=== PATIENT | female | born 1960 | race Caucasian/White ===

== ENCOUNTER 2018-11-06 22:13 | Inpatient (IN) | payer OTHER ==
[~2018-11-06] VITALS: Ht 165.1 cm; Wt 62.2 kg
[2018-11-06] MEDS ORDERED: NS 1,000 ML IV ONE (22:45)
[2018-11-06 23:27] LABS: BASO % 0.2 % (0.0-1.0); EOS % 0.3 % (0.0-3.0); HEMATOCRIT 15.4 % (36.0-47.0); LYMPH # 3.6 10^3/uL (1.5-4.5); LYMPH % 30.1 % (24.0-44.0); MEAN CORPUSCULAR HEMOGLOBIN 40.6 pg (27.0-33.0); MEAN CORPUSCULAR HGB CONC 36.4 g/dl (32.0-36.5); MEAN CORPUSCULAR VOLUME 111.6 fl (80.0-96.0); MONO % 25.5 % (0.0-5.0); NEUTROPHILS % 41.6 % (36.0-66.0); PLATELET COUNT, AUTOMATED 380 10^3/uL (150-450); RED BLOOD COUNT 1.38 10^6/uL (4.00-5.40)
[2018-11-06 23:44] LABS: PARTIAL THROMBOPLASTIN TIME 92.7 SECONDS (25.4-37.6)
[2018-11-06 23:49] LABS: ALBUMIN 1.8 GM/DL (3.2-5.2); ALT/SGPT 142 U/L (12-78); BILIRUBIN,DIRECT 2.3 MG/DL (0.0-0.2); BILIRUBIN,TOTAL 2.9 MG/DL (0.2-1.0); BLOOD UREA NITROGEN 33 MG/DL (7-18); CALCIUM LEVEL 7.1 MG/DL (8.5-10.1); CARBON DIOXIDE LEVEL 15 MEQ/L (21-32); CHLORIDE LEVEL 99 MEQ/L (98-107); CREATININE FOR GFR 1.79 MG/DL (0.55-1.30); ETHYL ALCOHOL (ETHANOL) < 0.003 % (0.000-0.010); GLOMERULAR FILTRATION RATE 31.2 (>51); GLUCOSE, FASTING 88 MG/DL (70-100); LIPASE 181 U/L (73-393); POTASSIUM SERUM 4.3 MEQ/L (3.5-5.1); SODIUM LEVEL 130 MEQ/L (136-145); TOTAL PROTEIN 5.5 GM/DL (6.4-8.2)
[2018-11-06 23:52] LABS: HEMOGLOBIN 5.6 g/dl (12.0-15.5); MONO # 3.1 10^3/uL (0.0-0.8)
[2018-11-07] VITALS (22 sets, daily range): BP systolic 80–97; BP diastolic 47–58
[2018-11-07 00:09] LABS: PROTHROMBIN TIME > 150.0 SECONDS (12.1-14.4)
[2018-11-07] MEDS ORDERED: IMIPENEM/CILASTATIN 500 MG in D5W MINI-BAG PLUS 100 ML IV ONE (00:45)
--- NOTE | 2018-11-07 01:02 | REPVR ---
EXAM: CT Abdomen and Pelvis Without Contrast EXAM DATE/TIME: 11/06/2018 11:57 PM CLINICAL HISTORY: 58 years old, female; Pain; Abdominal pain; Generalized; Additional info: N/v/d, hepatorenal failure TECHNIQUE: Imaging protocol: Axial computed tomography images of the abdomen and pelvis without contrast. Coronal and sagittal reformatted images were created and reviewed. Radiation optimization: All CT scans at this facility use at least one of these dose optimization techniques: automated exposure control; mA and/or kV adjustment per patient size (includes targeted exams where dose is matched to clinical indication); or iterative reconstruction. COMPARISON: No relevant prior studies available. FINDINGS: Lower thorax: No acute findings. ABDOMEN: Liver: There is fatty infiltration of the liver. The liver at mid clavicular line measures 16.3 cm. Gallbladder and bile ducts: Normal. No calcified stones. No ductal dilation. Pancreas: Mild pancreatic atrophy for age. Spleen: Normal. No splenomegaly. Adrenals: Normal. No mass. Kidneys and ureters: Normal. No hydronephrosis. Stomach and bowel: Wall thickening of the ascending colon Appendix: A normal appendix is seen. PELVIS: Bladder: Unremarkable as visualized. Reproductive: Unremarkable as visualized. ABDOMEN and PELVIS: Intraperitoneal space: Trace fluid in the pelvis. Bones/joints: Mild degenerative change of the lower lumbar spine. Soft tissues: Unremarkable. Vasculature: There is minimal atherosclerotic calcification of the abdominal aorta. Lymph nodes: Normal. No enlarged lymph nodes. IMPRESSION: 1. Borderline hepatomegaly with fatty infiltration. 2. Mild pancreatic atrophy for age. 3. Mild nonspecific segmental colitis of the ascending colon. 4. Trace fluid in the pelvis which is nonspecific. Electronically signed by: Trung Wolff On 11/07/2018 01:01:59 AM
[2018-11-07] MEDS ORDERED: VITMTA PO (01:06)
[2018-11-07] MEDS ORDERED: FISH1000 PO (01:06)
[2018-11-07] MEDS ORDERED: BIOT10TA2 PO (01:06)
[2018-11-07] MEDS ORDERED: XALA0.007 OU (01:06)
[2018-11-07 01:30] LABS: FIBRINOGEN 347 MG/DL (221-452)
[2018-11-07 01:43] LABS: VENOUS BASE EXCESS -8.8 (-2.0-2.0); VENOUS HCO3 15.7 MEQ/L (23.0-27.0); VENOUS O2 SATURATION 96.1 % (60.0-80.0); VENOUS PARTIAL PRESSURE CO2 27.7 mmHg (38.0-50.0); VENOUS PH 7.372 UNITS (7.330-7.430); VENOUS STANDARD HCO3 17.2 MEQ/L; VENOUS TOTAL CO2 16.6 MEQ/L (24.0-28.0)
[2018-11-07] MEDS ORDERED: NS IV ONE (02:00)
[2018-11-07] MEDS ORDERED: DILUENT IV ONE (02:00)
[2018-11-07] MEDS ORDERED: ONDANSETRON 4 MG TAB (S0181) PO PRN (03:45)
[2018-11-07] MEDS ORDERED: VANCOMYCIN HCL 1,000 MG, VIAL MATE ADAPTER 1 EACH in D5W/0.2% SODIUM CHLORIDE 250 ML IV ONE (05:00)
[2018-11-07] MEDS ORDERED: VANCOMYCIN 1000 MG/20 ML VIAL (J3370) As Ordered ONE (05:14)
--- NOTE | 2018-11-07 05:16 | HPEPDOC ---
[facility] Medical History & Physical Date of Admission Nov 07, 2018 History and Physical CHIEF COMPLAINT: nausea and vomiting x4 days HISTORY OF PRESENT ILLNESS: Adriane Pringle is a 58 YO F with a history of HANNAH and lack of medical care for several years who presents to the ED with 4 days nausea, vomiting and black tarry stools. She states she has been feeling very weak, lightheaded and dizzy during this time and fell while and hit her head on her coffee table while getting up from her couch. She also states that her family has told her that she has not been making sense and that she has been slurring her words. She does feel as though she has been somewhat confused, and she feels "uneasy" on her feet recently, as if she will fall. She denies any recent fevers, chills, SOB or chest pain. She also denies any significant weight loss, but does state she has had a decreased appetite for about 1 week. PAST MEDICAL HISTORY: 1. Icthyosis congenita 2. Generalized anxiety disorder 3. Pure hypercholesterolemia 4. History of hemorrhoids PAST SURGICAL HISTORY: 1. Laparoscopy for ovarian cyst SOCIAL HISTORY: Former smoker Drinks 4-5 beers/night Lives alone in [place]. 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 FAMILY HISTORY: Noncontributory ALLERGIES: Please see below. REVIEW OF SYSTEMS: CONSTITUTIONAL: Weakness, tiredness, dizzy/lightheaded HEENT: no decreased visual acuity, no pain with eye movement CARDIOVASCULAR: No palpitations, no skipped beats, no chest pain RESPIRATORY: no SOB, no cough GASTROINTESTINAL: Black tarry stools and diarrhea GENITOURINARY: no dysuria SKIN: itching, redness/bleeding in groin MUSCULOSKELETAL: no weakness/decreased strength NEUROLOGICAL: no numbness/tingling PSYCHIATRIC: reports depression for 2 years since her ENDOCRINE: no weight loss/gain, no heat/cold intolerance HEMATOLOGIC/LYMPHATIC: no easy bruising HOME MEDICATIONS: Please see below. PHYSICAL EXAMINATION: VITAL SIGNS: Temperature 97.0, pulse 95, respiratory rate 18, blood pressure 95/53, pulse oximetry 99% on room air. GENERAL APPEARANCE: laying in bed, appears jaundiced, no acute distress, calm, cooperative HEENT: icteric sclerae, dry mucus membranes, PERRLA CARDIOVASCULAR: RRR, no murmurs/rubs/gallops LUNGS: clear to auscultation bilaterally without any adventitious breath sounds appreciated ABDOMEN: Liver size extends to umbilicus, abdomen somewhat tense with positive bowel sounds, nontender to palpation MUSCULOSKELETAL: moves all extremities well with normal ROM EXTREMITIES: no clubbing/cyanosis/edema. Feet have darkened skin on dorsal and plantar surfaces bilaterally SKIN: Patient has very dry, crusting skin all over her body. Her groin appears red and irritated with numerous excoriations NEUROLOGICAL: CN 2-12 intact without any focal deficits appreciated PSYCHIATRIC: sad affect, normal mood LABORATORY DATA: See below. IMAGING: CT Abd/pelvis: 1. Borderline hepatomegaly with fatty infiltration 2. Mild pancreatitc atrophy for age. 3. Mild nonspecific segmental colitis of the ascending colon. 4. Trace fluid in the pelvis which is nonspecific. MICROBIOLOGY: Please see below. ASSESSMENT: Adriane Pringle is a 58 YO F with no known past medical history who presents with 4 days of nausea/vomiting/diarrhea found to be hypotensive, tachycardic, have transaminitis, hyperbilirubinemia and severe anemia. She will be admitted to the ICU for further management. Her clinical picture is concerning for acute liver failure. PLAN: Transaminitis: The patient has elevated liver enzymes, coagulopathy (PT>150, aPTT 92.7, D-Dimer 514.6) concerning for acute liver failure. Unknown if the patient has any history of liver disease, although she has hepatomegaly on clinical exam and CT imaging with suspected fatty involvement. -Ammonia pending -Hepatitis panel pending -Aggressive fluid resuscitation -FFP and RBC transfusion for coagulopathy -Patient had elevated D-Dimer but low suspicion PE Hyperbilirubinema: Patient does drink 4-5 beers/night but has no known hepatitis risk factors (no recent travel or history of IVDU). She does appear jaundice but is not complaining of RUQ pain and CT abd/pelvis does not demonstrate or suggest any biliary obstruction. Likely 2/2 intrinsic or hepatocellular injury. -Plan as stated above Severe Macrocytic Anemia: Hgb on admission found to be 5.6 -Likely secondary to GI bleed, as the patient has had black stools for the past several days -GI consult in AM -Plan to recheck CBC in AM Hypotension: Patient experiencing lightheadedness/dizziness. Recent history of fall -Head CT pending -Fluid resuscitation in place Lactic acidosis: Patient meets SIRS criteria -Blood cultures pending -CXR pending -UA with reflexive culture pending -Empiric Vancomycin with plan to de-escalate Acute kidney injury: likely 2/2 dehydration -Likely to improve with fluid resuscitation -Will recheck BMP in AM DVT ppx: JOCELYN jesus CODE STATUS: FULL CODE Vital Signs Vital Signs Date Time Temp Pulse Resp B/P (MAP) Pulse Ox O2 Delivery O2 Flow Rate FiO2 11/07/18 02:48 98.3 101 99 11/07/18 02:45 88/51 (63) Room Air 11/07/18 02:24 16 Laboratory Data Labs 24H Laboratory Tests 2 11/06/18 22:59: Prothrombin Time > 150.0H, Prothromb Time International Ratio , Activated Partial Thromboplast Time 92.7H, Fibrinogen 347, D-Dimer, Quantitative 514.60H 11/06/18 23:00: Immature Granulocyte % (Auto) 2.3, White Blood Count 12.0H, Red Blood Count 1.38L, Hemoglobin 5.6*L, Hematocrit 15.4L, Mean Corpuscular Volume 111.6H, Mean Corpuscular Hemoglobin 40.6H, Mean Corpuscular Hemoglobin Concent 36.4, Red Cell Distribution Width 15.3H, Platelet Count 380, Neutrophils (%) (Auto) 41.6, Lymphocytes (%) (Auto) 30.1, Monocytes (%) (Auto) 25.5H, Eosinophils (%) (Auto) 0.3, Basophils (%) (Auto) 0.2, Neutrophils # (Auto) 5.0, Lymphocytes # (Auto) 3. 6, Monocytes # (Auto) 3.1H, Eosinophils # (Auto) 0.0, Basophils # (Auto) 0.0, Nucleated Red Blood Cells % (auto) 28.8H, Anion Gap 16, Glomerular Filtration Rate 31.2L, Calcium Level 7.1L, Aspartate Amino Transf (AST/SGOT) 347H, Alanine Aminotransferase (ALT/SGPT) 142H, Alkaline Phosphatase 165H, Total Bilirubin 2.9H, Direct Bilirubin 2.3H, Total Protein 5.5L, Albumin 1.8L, Albumin/Globulin Ratio 0.49L, Lipase 181, Ethyl Alcohol Level < 0.003 11/07/18 00:47: Lactic Acid Level 6.0*H, Ammonia < 10 11/07/18 01:30: Blood Gas Bicarbonate Standard 17.2, Venous Blood pH 7.372, Venous Blood Partial Pressure CO2 27.7L, Venous Blood Partial Pressure O2 92.0H, Venous Blood Total Carbon Dioxide 16.6L, Venous Blood HCO3 15.7L, Venous Blood Oxygen Saturation 96.1H, Venous Blood Base Excess -8.8L CBC/BMP Laboratory Tests 11/06/18 23:00 Red Blood Count 1.38 L, Mean Corpuscular Volume 111.6 H, Mean Corpuscular Hemoglobin 40.6 H, Mean Corpuscular Hemoglobin Concent 36.4, Red Cell Distribution Width 15.3 H, Neutrophils (%) (Auto) 41.6, Lymphocytes (%) (Auto) 30.1, Monocytes (%) (Auto) 25.5 H, Eosinophils (%) (Auto) 0.3, Basophils (%) (Auto) 0.2, Neutrophils # (Auto) 5.0, Lymphocytes # (Auto) 3.6, Monocytes # (Auto) 3.1 H, Eosinophils # (Auto) 0.0, Basophils # (Auto) 0.0 Microbiology Microbiology 11/07/18 Blood Culture, Received Pending 11/06/18 Blood Culture, Received Pending Home Medications Scheduled Biotin (Vitamin H) (Biotin) 10 Mg Tab, 10 MG PO Q3RD Fish Oil (Fish Oil) 1,000 Mg Cap, 3,000 MG PO DAILY Latanoprost (Xalatan) 0.005 % Cheri, 1 DROP OU QHS Multivitamins *[facility] STOCKED* (Thera M Plus *[facility] STOCKED*) 1 Tab Tab, 1 TAB PO DAILY Allergies Coded Allergies: Penicillins (Verified Allergy, Unknown, 11/06/18) GME ATTESTATION GME ATTESTATION My faculty preceptor for this patient encounter was physically present during the encounter and was fully available. All aspects of the patient interview, examination, medical decision making process, and medical care plan development were reviewed and approved by the faculty preceptor. The faculty preceptor is aware and concurs with the plan as stated in the body of this note and will attest to such by his/her cosignature. ATTENDING NOTE ATTENDING ATTESTATION: I discussed and reviewed the findings and plan with resident. I have personally assessed patient at bedside and agreed with resident's assessment and plans. ARON BOCANEGRA MD Nov 07, 2018 03:39 JORGE MARTIN MD Nov 07, 2018 06:21
--- NOTE | 2018-11-07 05:25 | PHACANCOPD ---
PHARMACY VANCOMYCIN DOSING Pt Demographics Demographics Patient Age:58 , Weight:58.180 , Gender: female Adjusted Body Weight Date: 11/07/18, Adjusted Body Weight: Kg Vancomycin Vancomycin indication: SEPSIS Vancomycin Target Ranges: 15-20 mcg/ml Vancomycin Load Y/N: No Load Dose Date Time Vancomycin Load Dose: Date: Time: Vancomycin Dose Date: 11/07/18. Current Vancomycin Dose: [1 GM Q24H] Intermittent Dosing?: No Labs Labs Laboratory Tests 11/06/18 23:00 Red Blood Count 1.38 L, Mean Corpuscular Volume 111.6 H, Mean Corpuscular Hemo globin 40.6 H, Mean Corpuscular Hemoglobin Concent 36.4, Red Cell Distribution Width 15.3 H, Neutrophils (%) (Auto) 41.6, Lymphocytes (%) (Auto) 30.1, Monocytes (%) (Auto) 25.5 H, Eosinophils (%) (Auto) 0.3, Basophils (%) (Auto) 0.2, Neutrophils # (Auto) 5.0, Lymphocytes # (Auto) 3.6, Monocytes # (Auto) 3.1 H, Eosinophils # (Auto) 0.0, Basophils # (Auto) 0.0 Micro Microbiology 11/07/18 Blood Culture, Received Pending 11/06/18 Blood Culture, Received Pending Creatinine Clearance Date:11/07/18. Creatinine Clearance: [32.2].CALCULATED Pending Labs Vancomycin trough scheduled for 11/08@2200 Assessment and Plan Maintaining Current Dose?: Yes Reason for dose change: No Dose Change Pharmacist Note Pharmacist Note Date: 11/07/18. Pharmacist note: 58 YOF w/sepsis.Vancomycin dosing per pharmacy protocol. Allergy:penicillin, SCR=1.79,CRCL=32.2(calculated). Vancomycin 1 gram administered in ED 11/07@0500, will continue with a [id number] regimen to begin tonight@2300. First trough level is scheduled for 11/08@2200-prior to the 3rd dose- will continue to follow patient ABDIRASHID TAN PHARMACY Nov 07, 2018 05:24
[2018-11-07 06:17] LABS: APPEARANCE, URINE CLOUDY (CLEAR); BACTERIA, URINE AUTO 1+ (NEGATIVE); BILIRUBIN, URINE AUTO 1+ (NEGATIVE); BLOOD, URINE BLOOD 1+ (NEGATIVE); COLOR, URINE AMBER (YELLOW); GLUCOSE, URINE (UA) AUTO NEGATIVE (NEGATIVE); KETONE, URINE AUTO TRACE mg/dL (NEGATIVE); LEUKOCYTE ESTERASE, URINE AUTO NEGATIVE (NEGATIVE); MUCUS, URINE SMALL (NEGATIVE); NITRITE, URINE AUTO NEGATIVE (NEGATIVE); PROTEIN, URINE AUTO NEGATIVE (NEGATIVE); RBC, URINE AUTO 0 /HPF (0-3); SPECIFIC GRAVITY URINE AUTO 1.015 (1.002-1.035); SQUAMOUS EPITHELIAL CELL UR AU 1 /HPF (0-6); WBC, URINE AUTO 4 /HPF (0-3)
[2018-11-07 07:30] LABS: HEMATOCRIT 17.2 % (36.0-47.0); MEAN CORPUSCULAR HEMOGLOBIN 34.7 pg (27.0-33.0); MEAN CORPUSCULAR HGB CONC 33.7 g/dl (32.0-36.5); PLATELET COUNT, AUTOMATED 286 10^3/uL (150-450); RED BLOOD COUNT 1.67 10^6/uL (4.00-5.40); WHITE BLOOD COUNT 9.1 10^3/uL (4.0-10.0)
[2018-11-07] MEDS ORDERED: IMIPENEM/CILASTATIN 500 MG in D5W MINI-BAG PLUS 100 ML IV SCH (07:30)
[2018-11-07 07:32] LABS: HEMOGLOBIN 5.8 g/dl (12.0-15.5)
[2018-11-07] MEDS ORDERED: NS 1,000 ML IV SCH (08:00)
[2018-11-07 08:27] LABS: INR 2.43; PROTHROMBIN TIME 26.9 SECONDS (12.1-14.4)
[2018-11-07 08:31] LABS: ACETAMINOPHEN LEVEL 2.3 UG/ML (10.0-30.0); ALBUMIN 1.8 GM/DL (3.2-5.2); BILIRUBIN,TOTAL 2.6 MG/DL (0.2-1.0); CALCIUM LEVEL 6.8 MG/DL (8.5-10.1); CREATININE FOR GFR 1.14 MG/DL (0.55-1.30); FREE T4 1.27 NG/DL (0.76-1.46); GLOMERULAR FILTRATION RATE 52.5 (>51); PERCENT SATURATION 25.3 % (13.2-45.0); POTASSIUM SERUM 3.9 MEQ/L (3.5-5.1); THYROID STIMULATING HORMONE 2.27 uIU/ML (0.358-3.740); TOTAL PROTEIN 4.7 GM/DL (6.4-8.2)
--- NOTE | 2018-11-07 08:37 | REP ---
CT Head without contrast HISTORY: Fall COMPARISON: None Areas of decreased attenuation are present in the periventricular white matter. This represents small-vessel ischemic disease. There is no intraparenchymal hemorrhage, acute infarct, mass or midline shift. The ventricular system and cortical sulci as well as subarachnoid space in the posterior fossa are dilated consistent with mild volume loss. There is no extra cerebral collection. There is no fracture. The visualized sinuses are clear. IMPRESSION: 1. Small vessel ischemic disease. 2. Mild volume loss. Electronically Signed by Hema Brown MD 11/07/2018 08:28 A
--- NOTE | 2018-11-07 08:47 | REP ---
Oral chest x-ray: Single view. History: Systemic inflammatory response syndrome. Findings: EKG monitoring electrodes overlie the chest. Lungs are well inflated and clear. Pleural angles are sharp. Heart size is normal. Pulmonary vasculature is not increased. No significant bony abnormality. Impression: Negative portable chest x-ray. Electronically Signed by Kiet Vazquez MD 11/07/2018 08:38 A
[2018-11-07] MEDS ORDERED: PANTOPRAZOLE 40MG INJ (PROTONIX) (C9113) IV SCH (09:00)
--- NOTE | 2018-11-07 09:24 | ECGEPIP ---
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
[2018-11-07] MEDS: IMIPENEM/CILASTATIN 250 MG in D5W MINI-BAG PLUS 100 ML IV SCH ×2 (09:41→16:15)
[2018-11-07] MEDS: CHLORHEXIDINE GLUCONATE 0.12 % 15ML UDC (PERIDEX ORAL RINSE) MT SCH ×2 (09:41→20:46)
[2018-11-07 11:58] LABS: FOLATE 6.9 NG/ML (>5.4)
[2018-11-07 12:15] LABS: HEMATOCRIT 27.4 % (36.0-47.0); MEAN CORPUSCULAR HEMOGLOBIN 33.1 pg (27.0-33.0); MEAN CORPUSCULAR HGB CONC 34.3 g/dl (32.0-36.5); MEAN CORPUSCULAR VOLUME 96.5 fl (80.0-96.0); PLATELET COUNT, AUTOMATED 286 10^3/uL (150-450); RED BLOOD COUNT 2.84 10^6/uL (4.00-5.40); WHITE BLOOD COUNT 9.2 10^3/uL (4.0-10.0)
[2018-11-07 12:22] LABS: HEMOGLOBIN 9.4 g/dl (12.0-15.5)
[2018-11-07] MEDS ORDERED: NS 500 ML IV ONE (14:00)
--- NOTE | 2018-11-07 15:40 | IPNPDOC ---
Date Seen The patient was seen on 11/07/18. Progress Note SUBJECTIVE: Patient is a 58 YO F with no pertinent PMH who presented with ~14 days of nausea/vomiting/diarrhea, she was admitted for acute blood loss, transaminitis, hyperbilirubinemia, leukocytosis, tachycardia as well as hypotension. She reports that she has had multiple days of loose, watery black stool that initially began after 2 episodes of non bloody and non painful emesis on 10/26. She denies any bright red blood in her stool. When we saw her earlier this morning the patient was little disorientated but when we returned for further questioning in the afternoon she was able to answers more appropriately. She admits she is a drinker and her last drink was about 1 week ago. She hasn't seen a physician for awhile and only came to the hospital per the request of her mother and kids. She has no complaints today and would like to know when she can eat. OBJECTIVE PHYSICAL EXAMINATION: VITAL SIGNS: Please see below. GENERAL: laying in bed, alert, cooperative, pale appearing, no acute distress HEENT: EOMI, PERRLA, dry mucous membranes, midline abrasion on bridge of nose CARDIOVASCULAR: faint heart sounds. possible normal S1 and S2. Could not appreciate any murmurs, rubs, or gallops RESPIRATORY:CTA bilaterally. No rales, rhonchi, or wheezes ABDOMINAL: enlarged liver that extended to level of umbilicus. Non tender to palpation. Positive bowel sounds. EXTREMITIES: very dry skin (hx of icythosis). Erythema on dorsal surface of feet with skin peeling. no wound noted on the feet. small abrasions and bruises can be noted on the bilateral arms. Bilateral non pitting peripheral edema of the lower extremity. NEUROLOGICAL: Muscle strength 4/5 in UE and LE. no focal deficit. LABORATORY DATA, IMAGING STUDIES, MICROBIOLOGY: Please see below. ASSESSMENT AND PLAN: This is a 58 YO F with no pertinent PMH who presented with 14 days of nausea/vomiting/diarrhea she was admitted for acute blood loss, tr ansaminitis, hyperbilirubinemia, leukocytosis, tachycardia as well as hypotension. She was admitted to the ICU for further management. PROBLEMS: Acute blood loss: possibly 2/2 upper GI bleed -she has not seen a dr in years. admits to 2 week hx of watery black stools -unsure if GI bleed is from medication, ulcer, liver coagulopathy, underlying GI vascular malformation -Hemoglobin on presentation 5.6. After 3 units of packed RBC Hgb 9.4 -Follow H&H q6h, protonix BID, -GI consulted. EGD scheduled for 11/07 for diagnostic evaluation and possible intervention Transaminitis: possibly 2/2 VIDAL vs alcoholic liver disease vs hepatitis vs medication use vs shock liver -Patient reports that she has no history of liver disease. She does consume about 4 glasses of alcohol each night, denies recent Tylenol use, no known hepatitis risk factors -CT: borderline hepatomegaly with fatty infiltration (VIDAL) -Normal ammonia level. -Hepatitis panel pending -Aggressive fluid resuscitation Coagulopathy: likely 2/2 acute liver failure -FFP and RBC transfusion for coagulopathy -PT 26.7 INR 2.43 decreased since FFP transfusion -Patient had elevated D-Dimer which can be elevated from the GI bleed. Hyperuremia: possibly 2/2 pre-renal azotemia from active bleed -BUN is 28 -IV fluids in place -Will monitor Hypotension: -Patient is pale and reports fatigue -Fluid resuscitation in place, 3 units of packed RBC transfused -maintain map >65 Lactic acidosis: Patient meets SIRS criteria on admission (resolving) -Patient is afebrile, normal RR, normal HR -Blood cultures x2 pending pending -possible elevated levels are from hypotension, normalized after aggressive IV hydration -Empiric Vancomycin and Imipenem/cilastin in place, plan to de-escalate Anion gap metabolic acidosis: possibly 2/2 lactic acidosis vs increased BUN -Anion gap of 16 at presentation. Decreased to 10 with correction of lactic acidosis -will monitor Acute kidney injury: likely 2/2 hypovolemia -Likely to improve with fluid resuscitation -Will recheck BMP in AM and monitor urine output PT/OT DVT: TEDs and sequentials VS, I&O, 24H, Fishbone Vital Signs/I&O Vital Signs Date Time Temp Pulse Resp B/P (MAP) Pulse Ox O2 Delivery O2 Flow Rate FiO2 11/07/18 14:00 80 16 83/52 (62) 100 11/07/18 12:00 98.6 11/07/18 06:45 Room Air I&O- Last 24 Hours up to 6 AM 11/07/18 06:00 Intake Total 2850 ml Balance 2850 ml Laboratory Data 24H LABS Laboratory Tests 2 11/06/18 22:59: Prothrombin Time > 150.0H, Prothromb Time International Ratio , Activated [place] l Thromboplast Time 92.7H, Fibrinogen 347, D-Dimer, Quantitative 514.60H 11/06/18 23:00: Immature Granulocyte % (Auto) 2.3, White Blood Count 12.0H, Red Blood Count 1.38L, Hemoglobin 5.6*L, Hematocrit 15.4L, Mean Corpuscular Volume 111.6H, Mean Corpuscular Hemoglobin 40.6H, Mean Corpuscular Hemoglobin Concent 36.4, Red Cell Distribution Width 15.3H, Platelet Count 380, Neutrophils (%) (Auto) 41.6, Lymphocytes (%) (Auto) 30.1, Monocytes (%) (Auto) 25.5H, Eosinophils (%) (Auto) 0.3, Basophils (%) (Auto) 0.2, Neutrophils # (Auto) 5.0, Lymphocytes # (Auto) 3.6, Monocytes # (Auto) 3.1H, Eosinophils # (Auto) 0.0, Basophils # (Auto) 0.0, Nucleated Red Blood Cells % (auto) 28.8H, Anion Gap 16, Glomerular Filtration Rate 31.2L, Calcium Level 7.1L, Aspartate Amino Transf (AST/SGOT) 347H, Alanine Aminotransferase (ALT/SGPT) 142H, Alkaline Phosphatase 165H, Total Bilirubin 2.9H, Direct Bilirubin 2.3H, Total Protein 5.5L, Albumin 1.8L, Albumin/Globulin Ratio 0.49L, Lipase 181, Ethyl Alcohol Level < 0.003 11/07/18 00:47: Lactic Acid Level 6.0*H, Ammonia < 10 11/07/18 01:30: Blood Gas Bicarbonate Standard 17.2, Venous Blood pH 7.372, Venous Blood Partial Pressure CO2 27.7L, Venous Blood Partial Pressure O2 92.0H, Venous Blood Total Carbon Dioxide 16.6L, Venous Blood HCO3 15.7L, Venous Blood Oxygen Saturation 96.1H, Venous Blood Base Excess -8.8L 11/07/18 05:50: Urine Appearance CLOUDYH, Urine Color DAVE, Urine pH 5.0, Urine Specific [place] 1.015, Urine Protein NEGATIVE, Urine Glucose (UA) NEGATIVE, Urine Ket ones TRACEH, Urine Urobilinogen 4.0H, Urine Bilirubin 1+H, Urine Leukocyte Esterase NEGATIVE, Urine Blood 1+H, Urine Nitrite NEGATIVE, Urine WBC (Auto) 4H, Urine RBC (Auto) 0, Urine Hyaline Casts (Auto) 29, Urine Bacteria (Auto) 1+H, Urine Squamous Epithelial Cells 1, Urine Mucus (Auto) SMALL, Urine Sperm (Auto) 11/07/18 07:14: Reticulocyte # (auto) 95.3H, Nucleated Red Blood Cells % (auto) 29.1H, Differential Slide Review Report, Peripheral Blood Smear Path Consult PERIPHERAL SMEAR, Percent Reticulocyte Count 5.7H, Reticulocyte Hemoglobin Equivalent 36.8H, Anion Gap 10, Glomerular Filtration Rate 52.5, Lactic Acid Followup at 4 Hours 1.4, Blood Urea Nitrogen 28H, Creatinine 1.14, Sodium Level 134L, Potassium Level 3.9, Chloride Level 107, Carbon Dioxide Level 17L, Calcium Level 6.8L, Aspartate Amino Transf (AST/SGOT) 278H, Alanine Aminotransferase (ALT/SGPT) 117H, Alkaline Phosphatase 146H, Total Bilirubin 2.6H, Total Protein 4.7L, Albumin 1.8L, Magnesium Level 2.0, Iron Level 37L, Total Iron Binding Capacity 146L, Transferrin % Saturation 25.3, Ferritin 606H, Ammonia 32, Albumin/Globulin Ratio 0.62L, Vitamin B12 Level 1488H, Folate 6.9, Procalcitonin 5.16, Thyroid Stimulating Hormone (TSH) 2.270, Free Thyroxine 1.27, Acetaminophen Level 2.3L 11/07/18 08:08: Prothrombin Time 26.9H, Prothromb Time International Ratio 2.43 11/07/18 10:55: Whole Blood Ionized Calcium 4.0L 11/07/18 12:03: Nucleated Red Blood Cells % (auto) 31.8H CBC/BMP Laboratory Tests 11/06/18 23:00 Red Blood Count 1.38 L, Mean Corpuscular Volume 111.6 H, Mean Corpuscular Hemoglobin 40.6 H, Mean Corpuscular Hemoglobin Concent 36.4, Red Cell Distribution Width 15.3 H, Neutrophils (%) (Auto) 41.6, Lymphocytes (%) (Auto) 30.1, Monocytes (%) (Auto) 25.5 H, Eosinophils (%) (Auto) 0.3, Basophils (%) (Auto) 0.2, Neutrophils # (Auto) 5.0, Lymphocytes # (Auto) 3.6, Monocytes # (Auto) 3.1 H, Eosinophils # (Auto) 0.0, Basophils # (Auto) 0.0 11/07/18 07:14 Red Blood Count 1.67 L, Mean Corpuscular Volume 103.0 H, Mean Corpuscular Hemoglobin 34.7 H, Mean Corpuscular Hemoglobin Concent 33.7, Red Cell Distribution Width 15.9 H, Calcium Level 6.8 L, Aspartate Amino Transf (AST/SGOT) 278 H, Alanine Aminotransferase (ALT/SGPT) 117 H, Alkaline Phosphatase 146 H, Total Bilirubin 2.6 H, Total Protein 4.7 L, Albumin 1.8 L 11/07/18 12:03 Red Blood Count 2.84 L, Mean Corpuscular Volume 96.5 H, Mean Corpuscular Hemoglobin 33.1 H, Mean Corpuscular Hemoglobin Concent 34.3, Red Cell Distribution Width 16.6 H Microbiology Microbiology 11/07/18 Blood Culture, Received Pending 11/06/18 Blood Culture, Received Pending GME ATTESTATION GME ATTESTATION My faculty preceptor for this patient encounter was physically present during the encounter and was fully available. All aspects of the patient interview, examination, medical decision making process, and medical care plan development were reviewed and approved by the faculty preceptor. The faculty preceptor is aware and concurs with the plan as stated in the body of this note and will attest to such by his/her cosignature. EROS RIDDLE DO Nov 07, 2018 15:40
[2018-11-07] MEDS ORDERED: EUCERIN 120GM CREAM TOP ONE (16:15)
[2018-11-07 17:08] LABS: ALBUMIN 1.7 GM/DL (3.2-5.2); ALT/SGPT 120 U/L (12-78); BILIRUBIN,TOTAL 2.8 MG/DL (0.2-1.0); BLOOD UREA NITROGEN 23 MG/DL (7-18); CALCIUM LEVEL 6.6 MG/DL (8.5-10.1); CARBON DIOXIDE LEVEL 16 MEQ/L (21-32); CHLORIDE LEVEL 110 MEQ/L (98-107); CREATININE FOR GFR 0.84 MG/DL (0.55-1.30); GLOMERULAR FILTRATION RATE > 60.0 (>51); GLUCOSE, FASTING 50 MG/DL (70-100); POTASSIUM SERUM 3.4 MEQ/L (3.5-5.1); SODIUM LEVEL 136 MEQ/L (136-145); TOTAL PROTEIN 5.3 GM/DL (6.4-8.2)
[2018-11-07 17:18] LABS: HEMATOCRIT 26.8 % (36.0-47.0); HEMOGLOBIN 9.2 g/dl (12.0-15.5); MEAN CORPUSCULAR HEMOGLOBIN 33.1 pg (27.0-33.0); MEAN CORPUSCULAR HGB CONC 34.3 g/dl (32.0-36.5); MEAN CORPUSCULAR VOLUME 96.4 fl (80.0-96.0); PLATELET COUNT, AUTOMATED 284 10^3/uL (150-450); RED BLOOD COUNT 2.78 10^6/uL (4.00-5.40); WHITE BLOOD COUNT 9.3 10^3/uL (4.0-10.0)
[2018-11-07 17:25] LABS: INR 1.97; PROTHROMBIN TIME 22.8 SECONDS (12.1-14.4)
[2018-11-07] MEDS ORDERED: CALCIUM GLUCONATE 1,000 MG in D5W MINI-BAG PLUS 100 ML IV ONE (18:00)
[2018-11-07] MEDS: D5W/0.9% SODIUM CHLORIDE 1,000 ML IV SCH (18:05)
[2018-11-07] MEDS: PANTOPRAZOLE 40MG INJ (PROTONIX) (C9113) IV SCH (20:45)
[2018-11-07] MEDS ORDERED: ENTER DRUG NAME HERE (PATIENT'S OWN MED) OU SCH (21:00)
[2018-11-07] MEDS ORDERED: VANCOMYCIN HCL 1,000 MG, VIAL MATE ADAPTER 1 EACH in D5W/0.2% SODIUM CHLORIDE 250 ML IV SCH (23:00)
[2018-11-08] VITALS (12 sets, daily range): BP systolic 85–98; BP diastolic 50–59
[2018-11-08 00:44] LABS: HEMATOCRIT 22.6 % (36.0-47.0); HEMOGLOBIN 8.6 g/dl (12.0-15.5)
[2018-11-08] MEDS: D5W/0.9% SODIUM CHLORIDE 1,000 ML IV SCH ×3 (04:30→16:56)
[2018-11-08 04:58] LABS: HEMATOCRIT 25.9 % (36.0-47.0); HEMOGLOBIN 8.9 g/dl (12.0-15.5)
[2018-11-08 05:18] LABS: BLOOD UREA NITROGEN 13 MG/DL (7-18); CALCIUM LEVEL 6.7 MG/DL (8.5-10.1); CARBON DIOXIDE LEVEL 17 MEQ/L (21-32); CHLORIDE LEVEL 111 MEQ/L (98-107); CREATININE FOR GFR 0.76 MG/DL (0.55-1.30); GLOMERULAR FILTRATION RATE > 60.0 (>51); GLUCOSE, FASTING 85 MG/DL (70-100); POTASSIUM SERUM 3.3 MEQ/L (3.5-5.1); SODIUM LEVEL 138 MEQ/L (136-145)
[2018-11-08 07:06] LABS: IONIZED CALCIUM 4.1 MG/DL (4.5-5.3)
[2018-11-08 07:20] LABS: INR 1.71; PROTHROMBIN TIME 20.3 SECONDS (12.1-14.4)
[2018-11-08 07:23] LABS: MEAN CORPUSCULAR HEMOGLOBIN 33.6 pg (27.0-33.0); MEAN CORPUSCULAR VOLUME 95.9 fl (80.0-96.0); PLATELET COUNT, AUTOMATED 291 10^3/uL (150-450); RED BLOOD COUNT 2.68 10^6/uL (4.00-5.40); WHITE BLOOD COUNT 10.8 10^3/uL (4.0-10.0)
[2018-11-08] MEDS: IMIPENEM/CILASTATIN 250 MG in D5W MINI-BAG PLUS 100 ML IV SCH ×5 (07:33→23:23)
[2018-11-08] MEDS: CHLORHEXIDINE GLUCONATE 0.12 % 15ML UDC (PERIDEX ORAL RINSE) MT SCH (09:00)
[2018-11-08] MEDS: PANTOPRAZOLE 40MG INJ (PROTONIX) (C9113) IV SCH (09:31)
--- NOTE | 2018-11-08 09:35 | REP ---
Complete abdominal sonography with visceral Doppler: History: Assess for thrombus. Comparison CT study November 06, 2018 show profound fatty infiltration of the liver and borderline liver size. Sonographic findings: Scanning through the right upper quadrant of the abdomen demonstrates normal sized thin-walled gallbladder without evidence of stone or polyp. Common bile duct is normal measuring 0.4 cm in greatest diameter. The liver is quite echodense and poorly penetrated consistent with the marked fatty infiltration. A 19 cm midclavicular vertical span is measured consistent with mild hepatic enlargement. No focal liver mass lesion is appreciated. Limited views of the pancreas show no abnormality. The spleen measures 7.7 cm in greatest diameter and is homogeneous. It is not enlarged. Renal cortical echogenicity pattern is normal and contours are smooth bilaterally. The right kidney measures 10.9 x 6.0 x 3.7 cm. Left renal dimensions are 10.1 x 5.4 x 5.5 cm. There is a minimal amount of ascitic fluid in the right upper quadrant and there is a small quantity of left pleural fluid. Visceral Doppler assessment: The hepatic echogenicity from fatty infiltration of the liver compromises image quality. The vessels are small in general. No thrombosis is seen. The proximal superior mesenteric vein is less than optimally visualized and we cannot completely rule out a thrombus in this structure. These vessels are quite small. Normal direction of flow is seen in the visceral vessels. Hepatic veins are somewhat compressed with "portalized" flow waveforms. Doppler velocity chart: Splenic vein at hilus 12.4 cyst cm/S Splenic vein near confluence 32.5 cm/S Proximal S C 26.5 cm/S Portal vein 25.9 cm/S Hepatic artery PSV 119 cm/S, PDV 33 cm/S Main portal vein diameter 8.5 mm which is normal. Impression: Marked fatty infiltration of the liver. No visceral venous thrombosis seen. Vessels in general are small and less than optimally visualized. Normal direction of Doppler flow. A sliver of ascites is seen in the right upper quadrant and a sliver of left pleural fluid is noted. Electronically Signed by Kiet Vazquez MD 11/08/2018 09:26 A
[2018-11-08] MEDS ORDERED: PROPOFOL 200 MG/20 ML VIAL As Ordered ONE (09:46)
[2018-11-08] MEDS ORDERED: LIDOCAINE 2% INJ 100 MG/5 ML SDV (FOR ANES.) As Ordered ONE (09:46)
[2018-11-08 10:35] LABS: HEPATITIS B SURFACE ANTIBODY NEGATIVE (POSITIVE); HEPATITIS C VIRUS ABY INDEX 0.1 INDEX (<0.8)
--- NOTE | 2018-11-08 10:39 | ROOR ---
Patient Name: Adriane Pringle Procedure Date: 11/08/2018 10:20 AM Date of : 1960 Age: 58 Room: [facility] Gender: Female Note Status: Finalized Procedure: Upper Endoscopy + Biopsies Indications: Iron deficiency anemia, Melena Providers: Samuel Nolasco MD Referring MD: COLTON Wells, 2. Inpatient 2. Inpatient Requesting Provider: Medicines: Monitored Anesthesia Care Complications: No immediate complications. Procedure: Pre-Anesthesia Assessment: - The heart rate, respiratory rate, oxygen saturations, blood pressure, adequacy of pulmonary ventilation, and response to care were monitored throughout the procedure. The Endoscope was introduced through the mouth, and advanced to the second part of duodenum. The upper GI endoscopy was accomplished without difficulty. The patient tolerated the procedure well. Findings: The Z-line was regular and was found 35 cm from the incisors. A small hiatal hernia was present. There is no endoscopic evidence of varices in the entire esophagus. Many non-bleeding cratered gastric ulcers with no stigmata of bleeding were found in the gastric antrum. Biopsies were taken with a cold forceps in the gastric antrum for Helicobacter pylori testing. Mild portal hypertensive gastropathy was found in the entire examined stomach. Many non-bleeding cratered duodenal ulcers with no stigmata of bleeding were found in the duodenal bulb and in the first portion of the duodenum. The exam was otherwise without abnormality. Impression: - Z-line regular, 35 cm from the incisors. - Small hiatal hernia. - Non-bleeding gastric ulcers with no stigmata of bleeding. - Portal hypertensive gastropathy. - Multiple non-bleeding duodenal ulcers with no stigmata of bleeding. - The examination was otherwise normal. - Biopsies were taken with a cold forceps for Helicobacter pylori testing. - The examination was otherwise normal. Recommendation: - Patient has a contact number available for emergencies. The signs and symptoms of potential delayed complications were discussed with the patient. Return to normal activities tomorrow. Written discharge instructions were provided to the patient. - Return patient to hospital [facility] for ongoing care. - Full liquid diet. - Await pathology results. - Telephone GI clinic for pathology results in 1 week. - The findings and recommendations were discussed with the patient. - The findings and recommendations were discussed with the referring physician. Samuel Nolasco MD Samuel Nolasco MD 11/08/2018 10:38:54 AM Electronically signed by Samuel Nolasco MD Number of Addenda: 0 Note Initiated On: 11/08/2018 10:20 AM Estimated Blood Loss: Estimated blood loss: none.
[2018-11-08] MEDS ORDERED: CALCIUM GLUCONATE 1,000 MG in D5W MINI-BAG PLUS 100 ML IV ONE (12:15)
[2018-11-08 13:37] LABS: ALBUMIN 1.6 GM/DL (3.2-5.2); BILIRUBIN,DIRECT 1.5 MG/DL (0.0-0.2); MAGNESIUM LEVEL 1.7 MG/DL (1.8-2.4)
--- NOTE | 2018-11-08 13:45 | IPNPDOC ---
Date Seen The patient was seen on 11/08/18. Progress Note SUBJECTIVE: Patient is a 58 YO F with no pertinent PMH who presented with ~14 days of nausea/vomiting/diarrhea, she was admitted for acute blood loss, transaminitis, hyperbilirubinemia, leukocytosis, tachycardia as well as hypotension. Patient was seen at bedside in the ICU. She says that she is feeling a little better today. Nursing reported no overnight events. OBJECTIVE PHYSICAL EXAMINATION: VITAL SIGNS: Please see below. GENERAL: laying in bed, alert, cooperative, pale appearing, no acute distress HEENT: EOMI, PERRLA, dry mucous membranes, midline abrasion on bridge of nose CARDIOVASCULAR: faint heart sounds. possible normal S1 and S2. Could not appreciate any murmurs, rubs, or gallops RESPIRATORY:CTA bilaterally. No rales, rhonchi, or wheezes ABDOMINAL: enlarged liver that extended to level of umbilicus. Non tender to palpation. Positive bowel sounds. EXTREMITIES: very dry skin (hx of icythosis). Erythema on dorsal surface of feet with skin peeling. no wound noted on the feet. small abrasions and bruises can be noted on the bilateral arms. Bilateral non pitting peripheral edema of the lower extremity. NEUROLOGICAL: Muscle strength 4/5 in UE and LE. no focal deficit. LABORATORY DATA, IMAGING STUDIES, MICROBIOLOGY: Please see below. ASSESSMENT AND PLAN: This is a 58 YO F with no pertinent PMH who presented with 14 days of nausea/vomiting/diarrhea she was admitted for acute blood loss, transaminitis, hyperbilirubinemia, leukocytosis, tachycardia as well as hypo tension. She was admitted to the ICU for further management. PROBLEMS: Acute blood loss anemia: secondary to upper GI bleed possibly secondary to gastric and duodenal ulcers -She has not seen a dr in years. Admits to 2 week hx of watery black stools -EGD 11/08/18: small hiatal hernia, non bleeding gastric ulcers, portal hypertensive gastropathy, multiple non bleeding duodenal ulcers -Ulcers possibly secondary to alcohol use, NSAID use, H. pylori infection, goldie youssef syndrome -Will complete workup for H. pylori infection -s/p 3 units of packed RBC. Hgb increased to 8.9 -Follow H&H, protonix BID -GI consulted, appreciate recommendations. Transaminitis: -Possibly secondary to VIDAL, acute alcoholic hepatitis, Kar disease, hemochromatosis, scleroderma, viral hepatitis, autoimmune hepatitis, primary biliary sclerosis, Budd chiari, Sjgren. Workup pending. -Patient reports that she has no history of liver disease. She does consume about 4 glasses of alcohol each night, denies recent Tylenol use, no known hepatitis risk factors -CT: borderline hepatomegaly with fatty infiltration -US: marked fatty infiltration of the liver, no visceral venous thrombosis seen, sliver of ascites seen in the RUQ, sliver of L pleural fluid -Normal ammonia level. Hep B and C negative. HIV negative. Hypotension: -Patient is pale and reports fatigue -Fluid resuscitation in place, s/p 3 units of packed RBC -maintain map >65 Coagulopathy: likely 2/2 acute liver failure -s/p FFP and RBC transfusion for coagulopathy -PT and INR down trending since admission and FFP transfusion -Patient had elevated D-Dimer which can be elevated from the GI bleed. Hyperuremia: possibly 2/2 pre-renal azotemia from active bleed (resolved) -Will monitor Lactic acidosis: Patient met SIRS criteria on admission (resolving) -Patient is afebrile, normal RR, normal HR -Blood cultures x2 preliminary no growth -possible elevated levels are from hypotension, normalized after aggressive IV hydration -Empiric Vancomycin and Imipenem/cilastin in place, plan to de-escalate Anion gap metabolic acidosis: possibly 2/2 lactic acidosis vs increased BUN (resolved) -Anion gap of 16 at presentation. Decreased to 10 with correction of lactic acidosis -Will monitor Acute kidney injury: likely 2/2 hypovolemia (resolved) -BUN and Cr decreased with IV fluid hydration to baseline -c/w IV fluid hydration -Will monitor urine output Depression -Patient reports feeling depressed and that she began drinking in the last 2 years after she was . PT/OT DVT: TEDs and sequentials DISPOSITION: Clinical improvement. VS, I&O, 24H, Fishbone Vital Signs/I&O Vital Signs Date Time Temp Pulse Resp B/P (MAP) Pulse Ox O2 Delivery O2 Flow Rate FiO2 11/08/18 12:00 99.0 91 14 98/59 (72) 100 11/07/18 06:45 Room Air I&O- Last 24 Hours up to 6 AM 11/08/18 05:59 Intake Total 4720 ml Output Total 1110 ml Balance 3610 ml Laboratory Data 24H LABS Laboratory Tests 2 11/07/18 16:36: Nucleated Red Blood Cells % (auto) 33.5H, Prothrombin Time 22.8H, Prothromb Time International Ratio 1.97, Anion Gap 10, Glomerular Filtration Rate > 60.0, Lactic Acid Level 1.3, Blood Urea Nitrogen 23H, Creatinine 0.84, Sodium Level 136, Potassium Level 3.4L, Chloride Level 110H, Carbon Dioxide Level 16L, Calcium Level 6.6L, Aspartate Amino Transf (AST/SGOT) 278H, Alanine Aminotransferase (ALT/SGPT) 120H, Alkaline Phosphatase 168H, Total Bilirubin 2.8H, Total Protein 5.3L, Albumin 1.7L, Albumin/Globulin Ratio 0.47L 11/07/18 22:52: Bedside Glucose (Misc Panel) 94 11/08/18 04:42: Nucleated Red Blood Cells % (auto) 19.3H, Anion Gap 10, Glomerular Filtration Rate > 60.0, Blood Urea Nitrogen 13, Creatinine 0.76, Sodium Level 138, Potassium Level 3.3L, Chloride Level 111H, Carbon Dioxide Level 17L, Calcium Level 6.7L 11/08/18 06:55: Whole Blood Ionized Calcium 4.1L 11/08/18 06:59: Prothrombin Time 20.3H, Prothromb Time International Ratio 1.71, HIV Antigen/Antibody Combo Qual NEGATIVE CBC/BMP Laboratory Tests 11/07/18 16:36 Red Blood Count 2.78 L, Mean Corpuscular Volume 96.4 H, Mean Corpuscular Hemoglobin 33.1 H, Mean Corpuscular Hemoglobin Concent 34.3, Red Cell Distribution Width 17.7 H, Calcium Level 6.6 L, Aspartate Amino Transf (AST/SGOT) 278 H, Alanine Aminotransferase (ALT/SGPT) 120 H, Alkaline Phosphatase 168 H, Total Bilirubin 2.8 H, Total Protein 5.3 L, Albumin 1.7 L 11/07/18 23:56 11/08/18 04:42 Red Blood Count 2.68 L, Mean Corpuscular Volume 95.9, Mean Corpuscular Hemoglobin 33.6 H, Mean Corpuscular Hemoglobin Concent 35.0, Red Cell Distribution Width 19.9 H, Calcium Level 6.7 L Microbiology Microbiology 11/07/18 Blood Culture - Preliminary, Resulted No growth after 24 hours . All specim... 11/06/18 Blood Culture - Preliminary, Resulted No growth after 24 hours . All specim... GME ATTESTATION GME ATTESTATION My faculty preceptor for this patient encounter was physically present during the encounter and was fully available. All aspects of the patient interview, examination, medical decision making process, and medical care plan development were reviewed and approved by the faculty preceptor. The faculty preceptor is aware and concurs with the plan as stated in the body of this note and will attest to such by his/her cosignature. MICHEAL CHACON S-III Nov 08, 2018 13:45
--- NOTE | 2018-11-08 13:47 | CR ---
DATE OF CONSULTATION: 11/06/2018 This is a 58-year-old white female admitted to [facility] to ICU for evaluation of a week of melena with nausea and vomiting. The patient denies any complaints of hematemesis, no bright red blood per rectum. The patient has been drinking five beers or more a night for about 10 years. The patient felt lightheaded and dizzy and was brought in by her family because she was somewhat confused on admission. The patient does not have any medical doctors and her medical history is unclear. PAST MEDICAL HISTORY: 1. As above. 2. History hemorrhoids. 3. High cholesterol. PAST SURGICAL HISTORY: Laparoscopic evaluation for ovarian cyst. SOCIAL HISTORY: : Previous smoker. Alcohol five beers a night for the past 10 years. FAMILY HISTORY: Noncontributory. REVIEW OF SYSTEMS: Noncontributory to the above consultation. PHYSICAL EXAMINATION: Thin white female in no obvious acute distress, appears stated age. Chest is clear to auscultation. Cardiovascular exam regular rhythm. No murmurs or gallops. Normal physiological split S1 and S2. Abdomen: Soft, distended. No hepatosplenomegaly. No obvious splenomegaly. The liver appears to be slightly enlarged 2-3 fingerbreadths below the right costal margin. Extremities no cyanosis, clubbing, edema. Kourtney's negative. Laboratory studies on admission showed a white count 12,000, hemoglobin was 5.6, hematocrit 15.4, platelets were 380,000. The patient's INR on admission could not be calculated. Repeat INR on 11/07 was 2.43. On 11/08/2018 the patient's INR is now 1.71. Chemistry on admission showed a total bili 2.9, AST 247, ALT 142, alkaline phosphatase is 165. Lipase was normal. The patient's liver functions on 11/07/2018 showed a total bilirubin of 3.6, AST was 278, ALT 117. The patient's albumin is 1.8. BUN was 28, creatinine 1.14. The patient's toxicology for alcohol was negative. Tylenol level was 2.3. Immunology studies are pending. Hepatitis A and B were negative. Hepatitis C index is negative. Imaging studies on admission included a CAT scan of abdomen and pelvis which showed a fatty liver, which was slightly enlarged at 16.3 cm. Gallbladder with no stones, no dilatation. Impression was borderline hepatomegaly with fatty infiltration. No ascites was seen. The patient had Doppler flow ultrasound on 11/09/1991 which showed a markedly fatty liver. No venous thrombosis seen. Very small amount of ascites was noted on Doppler studies. The patient has been given 2 units of packed cells and 1 unit of FFP. Her INR has come down below 1.71. ANALYSIS: 1. Anemia in a patient with abnormal liver functions . Differential diagnosis in patients with alcohol abuse would be gastropathy versus peptic ulcer disease. Doubt this is varices since the patient did not throw up any blood. 2. Liver disease secondary to alcohol abuse. The patient's liver enzymes elevated consistent with alcoholic hepatitis. The patient will need to abstain from alcohol. PLAN: Plan will be to set the patient up for an upper endoscopy for further evaluation of the melena and cause of her anemia. NEYMAR
--- NOTE | 2018-11-08 15:24 | PHACANCOPD ---
PHARMACY VANCOMYCIN DOSING Pt Demographics Demographics Patient Age:58 , Weight:62.200 , Gender: female Adjusted Body Weight Date: 11/07/18, Adjusted Body Weight: Kg Vancomycin Vancomycin indication: SEPSIS Vancomycin Target Ranges: 15-20 mcg/ml Vancomycin Load Y/N: No Load Dose Date Time Vancomycin Load Dose: Date: Time: Vancomycin Dose Date: 11/07/18. Current Vancomycin Dose: [1 GM Q24H] Intermittent Dosing?: No Labs Micro Microbiology 11/07/18 Blood Culture - Preliminary, Resulted No growth after 24 hours . All specim... 11/06/18 Blood Culture - Preliminary, Resulted No growth after 24 hours . All specim... Creatinine Clearance Date:11/07/18. Creatinine Clearance: [32.2].CALCULATED Pending Labs Vancomycin trough scheduled for 11/08@2200 Assessment and Plan Maintaining Current Dose?: Yes Reason for dose change: No Dose Change Pharmacist Note Pharmacist Note 11/08/18: Day #2 empiric vancomycin therapy. Scr today has improved greatly at 0.76 from 1.79 on admit. As a result, a vancomycin random level was drawn this morning which resulted at 15mcg/ml; therefore, I have increased her regimen from 1g IV Q24H to 1g IV Q12H@1600. Her initially scheduled 2200 trough has been cancelled. We will continue to monitor her renal function and schedule a follow- up trough level accordingly. Date: 11/07/18. Pharmacist note: 58 YOF w/sepsis.Vancomycin dosing per pharmacy protocol. Allergy:penicillin, SCR=1.79,CRCL=32.2(calculated). Vancomycin 1 gram administered in ED 11/07@0500, will continue with a [id number] regimen to begin tonight@2300. First trough level is scheduled for 11/08@2200-prior to the 3rd dose- will continue to follow patient TEJINDER ROPER PHARMACY Nov 08, 2018 15:24
[2018-11-08] MEDS ORDERED: VANCOMYCIN HCL 1,000 MG, VIAL MATE ADAPTER 1 EACH in D5W/0.2% SODIUM CHLORIDE 250 ML IV SCH (16:00)
[2018-11-08] MEDS ORDERED: MAG SULF 1GM/100ML (MAG RUN) 1 GM in APPROPRIATE DILUENT 1 EA IV ONE (18:30)
[2018-11-08] MEDS: PANTOPRAZOLE 40MG TAB (PROTONIX) PO SCH (20:31)
[2018-11-08] MEDS: LATANOPROST 0.005% OPHTH SOLN 2.5 ML OU SCH (20:31)
[2018-11-09 02:30] VITALS: BP 91/60
[2018-11-09] MEDS: VANCOMYCIN HCL 1,000 MG, VIAL MATE ADAPTER 1 EACH in D5W 250 ML IV SCH ×2 (04:00→19:00)
[2018-11-09] MEDS ORDERED: VANCOMYCIN HCL 1,000 MG, VIAL MATE ADAPTER 1 EACH in D5W 250 ML IV SCH (04:26)
[2018-11-09 06:00] VITALS: BP 96/57
[2018-11-09 06:11] LABS: HEMATOCRIT 24.4 % (36.0-47.0); HEMOGLOBIN 8.5 g/dl (12.0-15.5); MEAN CORPUSCULAR HEMOGLOBIN 33.5 pg (27.0-33.0); MEAN CORPUSCULAR HGB CONC 34.8 g/dl (32.0-36.5); MEAN CORPUSCULAR VOLUME 96.1 fl (80.0-96.0); PLATELET COUNT, AUTOMATED 262 10^3/uL (150-450); RED BLOOD COUNT 2.54 10^6/uL (4.00-5.40); WHITE BLOOD COUNT 10.8 10^3/uL (4.0-10.0)
[2018-11-09 06:21] LABS: INR 1.37; PROTHROMBIN TIME 17.1 SECONDS (12.1-14.4)
[2018-11-09 06:35] LABS: ALBUMIN 1.4 GM/DL (3.2-5.2); ALT/SGPT 97 U/L (12-78); BILIRUBIN,TOTAL 1.6 MG/DL (0.2-1.0); BLOOD UREA NITROGEN 5 MG/DL (7-18); CARBON DIOXIDE LEVEL 18 MEQ/L (21-32); CHLORIDE LEVEL 113 MEQ/L (98-107); CREATININE FOR GFR 0.61 MG/DL (0.55-1.30); GLOMERULAR FILTRATION RATE > 60.0 (>51); GLUCOSE, FASTING 121 MG/DL (70-100); SODIUM LEVEL 140 MEQ/L (136-145); TOTAL PROTEIN 4.8 GM/DL (6.4-8.2)
[2018-11-09] MEDS: D5W/0.9% SODIUM CHLORIDE 1,000 ML IV SCH ×2 (08:36→17:53)
[2018-11-09] MEDS: PANTOPRAZOLE 40MG TAB (PROTONIX) PO SCH ×2 (08:46→22:03)
[2018-11-09] MEDS: IMIPENEM/CILASTATIN 250 MG in D5W MINI-BAG PLUS 100 ML IV SCH ×2 (08:46→17:50)
[2018-11-09] MEDS ORDERED: DIAPER RELIEF PASTE (DESITIN) 60GM TOP SCH (09:30)
[2018-11-09 12:20] LABS: MAGNESIUM LEVEL 1.8 MG/DL (1.8-2.4)
[2018-11-09 14:00] VITALS: BP 89/52
[2018-11-09 15:33] LABS: ANTI SCLERODERMA ANTIBODIES <0.2 AI (0.0-0.9); ANTINUCLEAR ANTIBODIES DIRECT Negative (Negative)
[2018-11-09 22:00] VITALS: BP 95/57
[2018-11-09] MEDS: LATANOPROST 0.005% OPHTH SOLN 2.5 ML OU SCH (22:03)
[2018-11-09] MEDS: NYSTATIN 100,000 UNITS/GM TOPICAL PWD 15 GM TOP SCH (22:03)
[2018-11-10] MEDS: IMIPENEM/CILASTATIN 250 MG in D5W MINI-BAG PLUS 100 ML IV SCH ×2
[2018-11-10 06:00] VITALS: BP 93/57
[2018-11-10 06:09] LABS: HEMATOCRIT 24.6 % (36.0-47.0); HEMOGLOBIN 8.4 g/dl (12.0-15.5); MEAN CORPUSCULAR HEMOGLOBIN 33.7 pg (27.0-33.0); MEAN CORPUSCULAR HGB CONC 34.1 g/dl (32.0-36.5); MEAN CORPUSCULAR VOLUME 98.8 fl (80.0-96.0); PLATELET COUNT, AUTOMATED 242 10^3/uL (150-450); RED BLOOD COUNT 2.49 10^6/uL (4.00-5.40); WHITE BLOOD COUNT 10.6 10^3/uL (4.0-10.0)
[2018-11-10 06:32] LABS: INR 1.36
[2018-11-10 06:58] LABS: ALBUMIN 1.3 GM/DL (3.2-5.2); ALT/SGPT 89 U/L (12-78); BILIRUBIN,TOTAL 1.5 MG/DL (0.2-1.0); BLOOD UREA NITROGEN 2 MG/DL (7-18); CARBON DIOXIDE LEVEL 19 MEQ/L (21-32); CHLORIDE LEVEL 114 MEQ/L (98-107); CREATININE FOR GFR 0.49 MG/DL (0.55-1.30); GLOMERULAR FILTRATION RATE > 60.0 (>51); GLUCOSE, FASTING 90 MG/DL (70-100); POTASSIUM SERUM 2.9 MEQ/L (3.5-5.1); SODIUM LEVEL 142 MEQ/L (136-145); TOTAL PROTEIN 4.6 GM/DL (6.4-8.2)
[2018-11-10] MEDS ORDERED: POTASSIUM CHLORIDE 10 MEQ SR TABLET PO ONE ×2 (07:15→09:45)
[2018-11-10] MEDS: DOXYCYCLINE HYCLATE 100 MG TAB PO SCH (08:18)
[2018-11-10] MEDS: PANTOPRAZOLE 40MG TAB (PROTONIX) PO SCH ×2 (08:18→20:16)
[2018-11-10 08:50] LABS: MAGNESIUM LEVEL 1.5 MG/DL (1.8-2.4)
[2018-11-10] MEDS: NYSTATIN 100,000 UNITS/GM TOPICAL PWD 15 GM TOP SCH ×2 (09:00→20:17)
[2018-11-10] MEDS: MAG SULF 1GM/100ML (MAG RUN) 1 GM in APPROPRIATE DILUENT 1 EA IV SCH ×2 (13:18→14:38)
[2018-11-10 14:00] VITALS: BP 88/51
[2018-11-10] MEDS ORDERED: MAGNESIUM SULFATE 1 GM/100 ML D5W BAG (10MG/ML) (J3475) As Ordered ONE (14:35)
--- NOTE | 2018-11-10 16:13 | IPNPDOC ---
Date Seen The patient was seen on 11/10/18. Progress Note SUBJECTIVE: Patient reports feeling well today, no new complaints, she still feels pain where her skin is raw in her skin folds, especially her groin. OBJECTIVE PHYSICAL EXAMINATION: VITAL SIGNS: Please see below. GENERAL: laying in bed, alert, cooperative, no acute distress HEENT: moist membranes, midline abrasion on bridge of nose, healing well CARDIOVASCULAR:normal S1 and S2. RESPIRATORY:Clear bilaterally. No rales, rhonchi, or wheezes ABDOMINAL: enlarged liver that extended to level of umbilicus. Non tender to palpation. Positive bowel sounds. EXTREMITIES: icythosis poor hyigene and nail care, plethora of excoriations LABORATORY DATA, IMAGING STUDIES, MICROBIOLOGY: Please see below. ASSESSMENT AND PLAN: This is a 58 YO F with acute alcoholic hepatitis and Acute blood loss anemia: secondary to upper GI bleed PROBLEMS: Acute blood loss anemia: secondary to upper GI bleed likely secondary to gastric and duodenal ulcers -EGD 11/08/18: small hiatal hernia, non bleeding gastric ulcers, portal hypertensive gastropathy, multiple non bleeding duodenal ulcers Ulcers possibly secondary to alcohol use f/u H. pylori w/u. s/p 3 units of packed RBC hgb stable at this time, no evidence of ongoing bleeding, con't with PPI and outpatient GI f/u Transaminitis: Likely due to acute alcoholic hepatitis Patient reports that she has no history of liver disease. She does consume about 4 glasses of alcohol each night, CT: borderline hepatomegaly with fatty infiltration no texture changes to suggest cirrhosis. Cessation counseling provided, patient nearly drank herself to and has been made aware of this as has her son. Hypotension: likely related to some degree of underlying liver disease, as well as petit nature, likely chronically low, no evidence or symptoms of hypoperfusion. Coagulopathy: likely 2/2 acute etoh hepatits, s/p 1 U FFP, appears to be improving Hyperuremia: possibly 2/2 pre-renal azotemia from active bleed (resolved) Lactic acidosis: Patient met SIRS criteria on admission (resolving) -Patient is afebrile, normal RR, normal HR -Blood cultures x2 preliminary no growth - complete course of PO doxy for possible cellulitis Anion gap metabolic acidosis: 2/2 lactic acidosis vs increased BUN (resolved) Acute kidney injury: likely 2/2 hypovolemia (resolved) Depression Patient reports feeling depressed and that she began drinking in the last 2 years after she was . consider ssri initiation upon discharge and outpa tient behav health referral electrolyte abnormalities: replete as needed PT/OT - encourage ambulation DVT: TEDs and sequentials DISPOSITION: pending PT/OT, will need outpatient, derm, podiatry, and GI f/u VS, I&O, 24H, Fishbone Vital Signs/I&O Vital Signs Date Time Temp Pulse Resp B/P (MAP) Pulse Ox O2 Delivery O2 Flow Rate FiO2 11/10/18 14:00 98.4 81 20 88/51 (63) 100 11/07/18 06:45 Room Air I&O- Last 24 Hours up to 6 AM 11/10/18 06:00 Intake Total 1110 ml Output Total 1150 ml Balance -40 ml Laboratory Data 24H LABS Laboratory Tests 2 11/09/18 20:38: Bedside Glucose (Misc Panel) 123H 11/10/18 05:40: Nucleated Red Blood Cells % (auto) 0.8H, Prothrombin Time 17.0H, Prothromb Time International Ratio 1.36, Anion Gap 9, Glomerular Filtration Rate > 60.0, Blood Urea Nitrogen 2#L, Creatinine 0.49L, Sodium Level 142, Potassium Level 2.9*L, Chloride Level 114H, Carbon Dioxide Level 19L, Calcium Level 7.0L, Aspartate Amino Transf (AST/SGOT) 149H, Alanine Aminotransferase (ALT/SGPT) 89H, Alkaline Phosphatase 151H, Total Bilirubin 1.5H, Total Protein 4.6L, Albumin 1.3L, Magnesium Level 1.5L, Albumin/Globulin Ratio 0.39L CBC/BMP Laboratory Tests 11/10/18 05:40 Red Blood Count 2.49 L, Mean Corpuscular Volume 98.8 H, Mean Corpuscular Hemoglobin 33.7 H, Mean Corpuscular Hemoglobin Concent 34.1, Red Cell Distribution Width 22.0 H, Calcium Level 7.0 L, Aspartate Amino Transf (AST/SGOT ) 149 H, Alanine Aminotransferase (ALT/SGPT) 89 H, Alkaline Phosphatase 151 H, Total Bilirubin 1.5 H, Total Protein 4.6 L, Albumin 1.3 L Microbiology Microbiology 11/07/18 Blood Culture - Preliminary, Resulted No Growth after 72 hours. All specime... 4/3/19 Blood Culture - Preliminary, Resulted No Growth after 72 hours. All specime... 11/08/18 MRSA Screen - Final, Complete TALIB LILLY MD Nov 10, 2018 16:13
[2018-11-10] MEDS: LATANOPROST 0.005% OPHTH SOLN 2.5 ML OU SCH (20:17)
[2018-11-10 22:00] VITALS: BP 94/57
[2018-11-11 06:00] VITALS: BP 93/57
[2018-11-11 06:09] LABS: HEMATOCRIT 25.7 % (36.0-47.0); HEMOGLOBIN 8.8 g/dl (12.0-15.5); MEAN CORPUSCULAR HGB CONC 34.2 g/dl (32.0-36.5); MEAN CORPUSCULAR VOLUME 99.2 fl (80.0-96.0); PLATELET COUNT, AUTOMATED 284 10^3/uL (150-450); RED BLOOD COUNT 2.59 10^6/uL (4.00-5.40); WHITE BLOOD COUNT 11.8 10^3/uL (4.0-10.0)
[2018-11-11 06:16] LABS: INR 1.32; PROTHROMBIN TIME 16.6 SECONDS (12.1-14.4)
[2018-11-11 06:37] LABS: ALBUMIN 1.3 GM/DL (3.2-5.2); ALT/SGPT 79 U/L (12-78); BILIRUBIN,TOTAL 1.7 MG/DL (0.2-1.0); BLOOD UREA NITROGEN 3 MG/DL (7-18); CALCIUM LEVEL 6.9 MG/DL (8.5-10.1); CARBON DIOXIDE LEVEL 21 MEQ/L (21-32); CHLORIDE LEVEL 114 MEQ/L (98-107); CREATININE FOR GFR 0.42 MG/DL (0.55-1.30); GLOMERULAR FILTRATION RATE > 60.0 (>51); GLUCOSE, FASTING 64 MG/DL (70-100); POTASSIUM SERUM 3.4 MEQ/L (3.5-5.1); SODIUM LEVEL 142 MEQ/L (136-145); TOTAL PROTEIN 4.7 GM/DL (6.4-8.2)
[2018-11-11 07:48] LABS: MAGNESIUM LEVEL 1.7 MG/DL (1.8-2.4)
[2018-11-11] MEDS: DOXYCYCLINE HYCLATE 100 MG TAB PO SCH (09:01)
[2018-11-11] MEDS: NYSTATIN 100,000 UNITS/GM TOPICAL PWD 15 GM TOP SCH ×2 (09:01→21:32)
[2018-11-11] MEDS: PANTOPRAZOLE 40MG TAB (PROTONIX) PO SCH ×2 (09:01→21:30)
[2018-11-11 14:00] VITALS: BP 112/61
--- NOTE | 2018-11-11 18:54 | IPNPDOC ---
Date Seen The patient was seen on 11/11/18. Progress Note SUBJECTIVE: Ms. Pringle 58 YO F with no pertinent PMH who presented with 14 days of nausea/vomiting/diarrhea she was admitted for acute blood loss, transaminitis, hyperbilirubinemia, leukocytosis, tachycardia as well as hypotension. She was seen this morning laying on her side in bed. She reports bleeding and pain while laying on her back from sore on her sacrum. Patient has requested medication to help her with her depression and poor sleep. Answered questions and discussed her disease with patient and her family members present. Counseled patient on alcohol cessation. Nursing reported no overnight events. OBJECTIVE PHYSICAL EXAMINATION: VITAL SIGNS: Please see below. GENERAL: alert, pleasant, A&OX3 HEENT: moist mucous membranes, midline abrasion on bridge of nose healing well CARDIOVASCULAR: RRR, normal S1 and S1. No murmurs, rales, or wheezes RESPIRATORY: CTA bilaterally. No rales, rhonchi, or wheezes ABDOMINAL: enlarged liver that extended to level of umbilicus. Non tender to pal pation. Positive bowel sounds. EXTREMITIES: ichthyosis, very dry skin, poor nail care, excoriations. 2cm x 3 cm stage 1 pressure injury on sacrum with no evidence of bleed LABORATORY DATA, IMAGING STUDIES, MICROBIOLOGY: Please see below. DVT prophylaxis ordered?: TEDs and sequentials ASSESSMENT AND PLAN: This is a 58 YO F with no pertinent PMH who presented with 14 days of nausea/vomiting/diarrhea she was admitted for acute blood loss, transaminitis, hyperbilirubinemia, leukocytosis, tachycardia as well as hypotension. The following problems will be addressed during hospitalization: PROBLEMS: Acute blood loss anemia: secondary to upper GI bleed possibly secondary to gastric and duodenal ulcers likely due to alcohol consumption -She has not seen a dr in years. Admits to 2 week hx of watery black stools -EGD 11/08/18: small hiatal hernia, non bleeding gastric ulcers, portal hypertensive gastropathy, multiple non bleeding duodenal ulcers -s/p 3 units of packed RBC. Hgb stabilized -Follow H&H, protonix BID -GI consulted, appreciate recommendations. Transaminitis: likely 2/2 acute alcoholic hepatitis -Patient reports that she has no history of liver disease. She does consume about 4 glasses of alcohol each night, denies recent Tylenol use, no known hepatitis risk factors -CT: borderline hepatomegaly with fatty infiltration -US: marked fatty infiltration of the liver, no visceral venous thrombosis seen, sliver of ascites seen in the RUQ, sliver of L pleural fluid -Normal ammonia level. Hep B and C negative. HIV negative. -alcohol cessation counseling provided Hypotension: -likely related to some degree of underlying liver disease, as well as petit nature, likely chronically low, no evidence or symptoms of hypoperfusion -s/p 3 units of packed RBC -maintain map >65 Sacrum pressure injury stage 1 -Will start using cushion, nystatin powder, Desitin, and Eucerin Coagulopathy: likely 2/2 acute liver failure (resolving) -s/p FFP and RBC transfusion for coagulopathy -PT and INR down trending since admission and FFP transfusion Lactic acidosis: Patient met SIRS criteria on admission (resolving) -Patient is afebrile, normal RR, normal HR -Blood cultures x2 preliminary no growth -Complete dose of PO doxy for possible cellulitis (11/13/18) Hyperuremia: possibly 2/2 pre-renal azotemia from active bleed (resolved) -Will monitor Anion gap metabolic acidosis: possibly 2/2 lactic acidosis vs increased BUN (resolved) -Gap closed with correction of lactic acidosis Acute kidney injury: likely 2/2 hypovolemia (resolved) -BUN and Cr decreased with IV fluid hydration to baseline Depression -Patient reports feeling depressed and that she began drinking in the last 2 years after she was -Will start patient on lexapro 10 mg and hydroxyzine PT/OT DVT: TEDs and sequentials DISPOSITION: Pending PT and OT clearance. VS, I&O, 24H, Fishbone Vital Signs/I&O Vital Signs Date Time Temp Pulse Resp B/P (MAP) Pulse Ox O2 Delivery O2 Flow Rate FiO2 11/11/18 14:00 98.8 89 18 112/61 (78) 98 11/07/18 06:45 Room Air I&O- Last 24 Hours up to 6 AM 11/11/18 06:00 Intake Total 1880 ml Output Total 400 ml Balance 1480 ml Laboratory Data 24H LABS Laboratory Tests 2 11/10/18 20:44: Bedside Glucose (Misc Panel) 83 11/11/18 05:33: Nucleated Red Blood Cells % (auto) 0.2H, Prothrombin Time 16.6H, Prothromb Time International Ratio 1.32, Anion Gap 7L, Glomerular Filtration Rate > 60.0, Blood Urea Nitrogen 3L, Creatinine 0.42L, Sodium Level 142, Potassium Level 3.4L, Chloride Level 114H, Carbon Dioxide Level 21, Calcium Level 6.9L, Aspartate Amino Transf (AST/SGOT) 121H, Alanine Aminotransferase (ALT/SGPT) 79H, Alkaline Phosphatase 143H, Total Bilirubin 1.7H, Total Protein 4.7L, Albumin 1.3L, Magnesium Level 1.7L, Albumin/Globulin Ratio 0.38L CBC/BMP Laboratory Tests 11/11/18 05:33 Red Blood Count 2.59 L, Mean Corpuscular Volume 99.2 H, Mean Corpuscular Hemoglobin 34.0 H, Mean Corpuscular Hemoglobin Concent 34.2, Red Cell Distribution Width 22.2 H, Calcium Level 6.9 L, Aspartate Amino Transf (AST/SGOT) 121 H, Alanine Aminotransferase (ALT/SGPT) 79 H, Alkaline Phosphatase 143 H, Total Bilirubin 1.7 H, Total Protein 4.7 L, Albumin 1.3 L Microbiology Microbiology 11/07/18 Blood Culture - Preliminary, Resulted No Growth after 72 hours. All specime... 11/06/18 Blood Culture - Preliminary, Resulted No Growth after 72 hours. All specime... 11/08/18 MRSA Screen - Final, Complete GME ATTESTATION GME ATTESTATION My faculty preceptor for this patient encounter was physically present during the encounter and was fully available. All aspects of the patient interview, examination, medical decision making process, and medical care plan development were reviewed and approved by the faculty preceptor. The faculty preceptor is aware and concurs with the plan as stated in the body of this note and will attest to such by his/her cosignature. MICHEAL CHACON S-III Nov 11, 2018 15:07
[2018-11-11] MEDS: ESCITALOPRAM OXALATE 10 MG TAB (LEXAPRO) PO SCH (19:04)
[2018-11-11] MEDS: hydrOXYzine 25 MG TAB PO SCH (21:30)
[2018-11-11] MEDS: LATANOPROST 0.005% OPHTH SOLN 2.5 ML OU SCH (21:32)
[2018-11-11 22:00] VITALS: BP 92/51
[2018-11-12 06:05] VITALS: BP 106/53
[2018-11-12 06:12] LABS: HEMATOCRIT 24.6 % (36.0-47.0); HEMOGLOBIN 8.5 g/dl (12.0-15.5); MEAN CORPUSCULAR HEMOGLOBIN 34.7 pg (27.0-33.0); MEAN CORPUSCULAR HGB CONC 34.6 g/dl (32.0-36.5); MEAN CORPUSCULAR VOLUME 100.4 fl (80.0-96.0); PLATELET COUNT, AUTOMATED 302 10^3/uL (150-450); RED BLOOD COUNT 2.45 10^6/uL (4.00-5.40); WHITE BLOOD COUNT 10.6 10^3/uL (4.0-10.0)
[2018-11-12 06:26] LABS: INR 1.28; PROTHROMBIN TIME 16.2 SECONDS (12.1-14.4)
[2018-11-12 06:41] LABS: ALBUMIN 1.4 GM/DL (3.2-5.2); ALT/SGPT 72 U/L (12-78); BILIRUBIN,TOTAL 1.4 MG/DL (0.2-1.0); BLOOD UREA NITROGEN 5 MG/DL (7-18); CALCIUM LEVEL 7.1 MG/DL (8.5-10.1); CARBON DIOXIDE LEVEL 22 MEQ/L (21-32); CHLORIDE LEVEL 112 MEQ/L (98-107); CREATININE FOR GFR 0.51 MG/DL (0.55-1.30); GLOMERULAR FILTRATION RATE > 60.0 (>51); GLUCOSE, FASTING 76 MG/DL (70-100); POTASSIUM SERUM 3.6 MEQ/L (3.5-5.1); SODIUM LEVEL 141 MEQ/L (136-145); TOTAL PROTEIN 4.9 GM/DL (6.4-8.2)
[2018-11-12] MEDS: ESCITALOPRAM OXALATE 10 MG TAB (LEXAPRO) PO SCH (09:29)
[2018-11-12] MEDS: DOXYCYCLINE HYCLATE 100 MG TAB PO SCH (09:29)
[2018-11-12] MEDS: NYSTATIN 100,000 UNITS/GM TOPICAL PWD 15 GM TOP SCH ×2 (09:29→21:57)
[2018-11-12] MEDS: PANTOPRAZOLE 40MG TAB (PROTONIX) PO SCH (09:29)
[2018-11-12] MEDS ORDERED: FUROSEMIDE 40 MG/4 ML VIAL (J1940) IV ONE (11:00)
[2018-11-12] MEDS: HEPARIN SOD (PORCINE) 5000 UNITS/ML VIAL SQ SCH ×2 (11:13→21:56)
[2018-11-12 14:00] VITALS: BP 101/59
[2018-11-12] MEDS ORDERED: EUCERIN 120GM CREAM TOP PRN (17:30)
--- NOTE | 2018-11-12 18:25 | IPNPDOC ---
Date Seen The patient was seen on 11/12/18. Progress Note SUBJECTIVE: Ms. Pringle is a 58 YO F with no pertinent PMH who presented with 14 days of nausea/vomiting/diarrhea and was admitted for acute blood loss, transaminitis, hyperbilirubinemia, leukocytosis, tachycardia as well as hypotension. Patient was seen this morning resting on her side in bed. She was conversational and pleasant, has no new concerns. Nursing reported that she has increased edema in her lower legs today. Ms. Pringle says that her legs do not feel heavy or cause pain. Her son does state they he noticed her abdomen is larger recently. No other overnight events were reported. OBJECTIVE PHYSICAL EXAMINATION: VITAL SIGNS: Please see below. GENERAL: Alert, pleasant, A&OX3 HEENT: EOMI, PERRLA, moist mucus membranes CARDIOVASCULAR: regular rate, normal S1 and S2. no murmurs, rales, or gallops. No JVD appreciated RESPIRATORY: Lungs CTA bilaterally. No rales, rhonchi, or wheezes ABDOMINAL: slightly distended EXTREMITIES: 2+ pitting edema in bilateral LE, R>L. Dry skin (improving) LABORATORY DATA, IMAGING STUDIES, MICROBIOLOGY: Please see below. DVT prophylaxis ordered?: Heparin SC q12 ASSESSMENT AND PLAN: This is a 58 YO F with no pertinent PMH who presented with 14 days of nausea/vomiting/diarrhea she was admitted for acute blood loss, transaminitis, hyperbilirubinemia, leukocytosis, tachycardia as well as hypotension. The following problems will be addressed during hospitalization: PROBLEMS: Acute blood loss anemia: secondary to upper GI bleed possibly secondary to gastric and duodenal ulcers likely due to alcohol consumption -She has not seen a dr in years. Admits to 2 week hx of watery black stools -EGD 11/08/18: small hiatal hernia, non bleeding gastric ulcers, portal hypertensive gastropathy, multiple non bleeding duodenal ulcers -s/p 3 units of packed RBC. Hgb stabilized. Monitor H&H -Protonix 40 mg PO once daily. Continue outpatient for 4-8 weeks (end 01/12/19) -GI consulted, appreciate recommendations. Transaminitis: likely 2/2 acute alcoholic hepatitis -Patient reports that she has no history of liver disease. She does consume about 4 glasses of alcohol each night, denies recent Tylenol use, no known hepatitis risk factors -CT: borderline hepatomegaly with fatty infiltration -US: marked fatty infiltration of the liver, no visceral venous thrombosis seen, sliver of ascites seen in the RUQ, sliver of L pleural fluid -alcohol cessation counseling provided Hypotension: -likely related to some degree of underlying liver disease, as well as petit nature, likely chronically low, no evidence or symptoms of hypoperfusion -s/p 3 units of packed RBC -maintain map >65 Bilateral LE edema: likely 2/2 hypoalbuminemia -PE: 2+ pitting edema of the LE, right>left. Non erythematous, negative homans sign. DVT unlikely. -CHF rule out: no JVD, no murmurs or crackles on auscultation. CHF unlikely. -Low albumin possibly secondary to alcohol abuse. Supplement meals with Ensure. -Lasix 20 mg IV x1 Sacrum pressure injury stage 1 -Will start using cushion, nystatin powder, Desitin, and Eucerin Coagulopathy: likely 2/2 acute liver failure (resolving) -s/p FFP and RBC transfusion for coagulopathy -PT and INR down trending since admission and FFP transfusion Lactic acidosis: Patient met SIRS criteria on admission (resolving) -Patient is afebrile, normal RR, normal HR -Blood cultures x2 final no growth -Complete dose of PO doxy for possible cellulitis (11/13/18) Hyperuremia: possibly 2/2 pre-renal azotemia from active bleed (resolved) -Will monitor Anion gap metabolic acidosis: possibly 2/2 lactic acidosis vs increased BUN (resolved) -Gap closed with correction of lactic acidosis Acute kidney injury: likely 2/2 hypovolemia (resolved) -BUN and Cr decreased with IV fluid hydration to baseline Depression -Patient reports feeling depressed and that she began drinking in the last 2 years after she was -Will start patient on lexapro 10 mg and hydroxyzine PT/OT DVT: -d/c TEDs and sequentials due to irritating patient's dry skin -Start SC heparin 5000 q12. H&h stable, will monitor CBC for bleeds. DISPOSITION: Pending PT and OT clearance. Lasix. VS, I&O, 24H, Fishbone Vital Signs/I&O Vital Signs Date Time Temp Pulse Resp B/P (MAP) Pulse Ox O2 Delivery O2 Flow Rate FiO2 11/12/18 06:05 99.1 78 18 106/53 (70) 96 11/07/18 06:45 Room Air I&O- Last 24 Hours up to 6 AM 11/12/18 06:00 Intake Total 968 ml Output Total 200 ml Balance 768 ml Laboratory Data 24H LABS Laboratory Tests 2 11/12/18 05:45: Nucleated Red Blood Cells % (auto) 0.0, Prothrombin Time 16.2H, Prothromb Time International Ratio 1.28, Anion Gap 7L, Glomerular Filtration Rate > 60.0, Blood Urea Nitrogen 5#L, Creatinine 0.51L, Sodium Level 141, Potassium Level 3.6, Chloride Level 112H, Carbon Dioxide Level 22, Calcium Level 7.1L, Aspartate Amino Transf (AST/SGOT) 100H, Alanine Aminotransferase (ALT/SGPT) 72, Alkaline Phosphatase 147H, Total Bilirubin 1.4H, Total Protein 4.9L, Albumin 1.4L, Albumin/Globulin Ratio 0.40L CBC/BMP Laboratory Tests 11/12/18 05:45 Red Blood Count 2.45 L, Mean Corpuscular Volume 100.4 H, Mean Corpuscular Hemoglobin 34.7 H, Mean Corpuscular Hemoglobin Concent 34.6, Red Cell Distribution Width 21.7 H, Calcium Level 7.1 L, Aspartate Amino Transf (AST/SGOT) 100 H, Alanine Aminotransferase (ALT/SGPT) 72, Alkaline Phosphatase 147 H, Total Bilirubin 1.4 H, Total Protein 4.9 L, Albumin 1.4 L Microbiology Microbiology 11/07/18 Blood Culture - Final, Complete NO GROWTH AFTER 5 DAYS 11/06/18 Blood Culture - Final, Complete NO GROWTH AFTER 5 DAYS 11/08/18 MRSA Screen - Final, Complete GME ATTESTATION GME ATTESTATION My faculty preceptor for this patient encounter was physically present during the encounter and was fully available. All aspects of the patient interview, examination, medical decision making process, and medical care plan development were reviewed and approved by the faculty preceptor. The faculty preceptor is aware and concurs with the plan as stated in the body of this note and will attest to such by his/her cosignature. ATTENDING NOTE I, Kaylin Ivey, have both independently examined this patient as well as reviewed the documentation. I have discussed in detail with the resident the findings and plan of treatment as documented in the residents documentation. I will continue to follow the patient and offer further guidance to the patients care as necessary during this hospital stay. MICHEAL CHACON S-III Nov 12, 2018 10:50 EROS RIDDLE DO Nov 12, 2018 18:25 KAYLIN IVEY MD Nov 12, 2018 19:01
[2018-11-12] MEDS: hydrOXYzine 25 MG TAB PO SCH (21:55)
[2018-11-12] MEDS: LATANOPROST 0.005% OPHTH SOLN 2.5 ML OU SCH (21:56)
[2018-11-12 22:00] VITALS: BP 105/55
[2018-11-13 06:00] VITALS: BP 103/56
[2018-11-13 06:14] LABS: HEMATOCRIT 26.4 % (36.0-47.0); HEMOGLOBIN 8.9 g/dl (12.0-15.5); MEAN CORPUSCULAR HEMOGLOBIN 33.8 pg (27.0-33.0); MEAN CORPUSCULAR HGB CONC 33.7 g/dl (32.0-36.5); MEAN CORPUSCULAR VOLUME 100.4 fl (80.0-96.0); PLATELET COUNT, AUTOMATED 358 10^3/uL (150-450); RED BLOOD COUNT 2.63 10^6/uL (4.00-5.40); WHITE BLOOD COUNT 10.1 10^3/uL (4.0-10.0)
[2018-11-13 06:22] LABS: INR 1.2; PROTHROMBIN TIME 15.4 SECONDS (12.1-14.4)
[2018-11-13 06:37] LABS: ALBUMIN 1.4 GM/DL (3.2-5.2); ALT/SGPT 70 U/L (12-78); BILIRUBIN,TOTAL 1.4 MG/DL (0.2-1.0); BLOOD UREA NITROGEN 4 MG/DL (7-18); CALCIUM LEVEL 7.3 MG/DL (8.5-10.1); CARBON DIOXIDE LEVEL 23 MEQ/L (21-32); CHLORIDE LEVEL 109 MEQ/L (98-107); GLOMERULAR FILTRATION RATE > 60.0 (>51); GLUCOSE, FASTING 65 MG/DL (70-100); POTASSIUM SERUM 3.5 MEQ/L (3.5-5.1); SODIUM LEVEL 140 MEQ/L (136-145); TOTAL PROTEIN 5.2 GM/DL (6.4-8.2)
[2018-11-13] MEDS: HEPARIN SOD (PORCINE) 5000 UNITS/ML VIAL SQ SCH ×2 (09:12→22:02)
[2018-11-13] MEDS: PANTOPRAZOLE 40MG TAB (PROTONIX) PO SCH (09:13)
[2018-11-13] MEDS: NYSTATIN 100,000 UNITS/GM TOPICAL PWD 15 GM TOP SCH ×2 (09:13→22:02)
[2018-11-13] MEDS: ESCITALOPRAM OXALATE 10 MG TAB (LEXAPRO) PO SCH (09:13)
[2018-11-13 09:20] LABS: MAGNESIUM LEVEL 1.4 MG/DL (1.8-2.4)
[2018-11-13] MEDS ORDERED: FUROSEMIDE 20 MG/2 ML VIAL (J1940) IV ONE (13:00)
[2018-11-13 14:00] VITALS: BP 107/56
--- NOTE | 2018-11-13 17:26 | IPNPDOC ---
Date Seen The patient was seen on 11/13/18. Progress Note SUBJECTIVE: Ms. Pringle is a 58 YO F with no pertinent PMH who presented with 14 days of nausea/vomiting/diarrhea and was admitted for acute blood loss, transaminitis, hyperbilirubinemia, leukocytosis, tachycardia as well as hypotension. Patient was seen this morning resting on her side in bed. She was conversational and pleasant, has no new concerns. She does still notice that her legs are sw ollen and they were very heavy during PT but they do not hurt. Nursing reported no new overnight events. OBJECTIVE PHYSICAL EXAMINATION: VITAL SIGNS: Please see below. GENERAL: Alert, pleasant, A&OX3 HEENT: EOMI, PERRLA, moist mucus membranes CARDIOVASCULAR: regular rate, normal S1 and S2. no murmurs, rales, or gallops. No JVD appreciated RESPIRATORY: Lungs CTA bilaterally. No rales, rhonchi, or wheezes ABDOMINAL: slightly distended EXTREMITIES: 1+ pitting edema in bilateral LE, R>L, up to mid calf. Dry cracked skin (improving) LABORATORY DATA, IMAGING STUDIES, MICROBIOLOGY: Please see below. DVT prophylaxis ordered?: Heparin SC q12 ASSESSMENT AND PLAN: This is a 58 YO F with no pertinent PMH who presented with 14 days of nausea/vomiting/diarrhea she was admitted for acute blood loss, transaminitis, hyperbilirubinemia, leukocytosis, tachycardia as well as hypotension. The following problems will be addressed during hospitalization: PROBLEMS: Acute blood loss anemia: secondary to upper GI bleed possibly secondary to gastric and duodenal ulcers likely due to alcohol consumption -She has not seen a dr in years. Admits to 2 week hx of watery black stools -EGD 11/08/18: small hiatal hernia, non bleeding gastric ulcers, portal hypertensive gastropathy, multiple non bleeding duodenal ulcers -s/p 3 units of packed RBC. Hgb stabilized. Monitor H&H -Protonix 40 mg PO once daily. Continue outpatient for 4-8 weeks (end 01/12/19) -GI consulted, appreciate recommendations. Transaminitis: likely 2/2 acute alcoholic hepatitis -Patient reports that she has no history of liver disease. She does consume about 4 glasses of alcohol each night, denies recent Tylenol use, no known hepatitis risk factors -CT: borderline hepatomegaly with fatty infiltration -US: marked fatty infiltration of the liver, no visceral venous thrombosis seen, sliver of ascites seen in the RUQ, sliver of L pleural fluid -alcohol cessation counseling provided Hypotension: -likely related to some degree of underlying liver disease, as well as petit nature, likely chronically low, no evidence or symptoms of hypoperfusion -s/p 3 units of packed RBC -maintain map >65 Bilateral LE edema: likely 2/2 hypoalbuminemia -PE: 2+ pitting edema of the LE, right>left. Non erythematous, negative homans sign. DVT unlikely. -CHF rule out: no JVD, no murmurs or crackles on auscultation. CHF unlikely. -Low albumin possibly secondary to alcohol abuse. Supplement meals with Ensure. -Will provide additional Lasix 20 mg IV x1; may benefit from daily dosing of Lasix if Blood pressure / Renal function support it Sacrum pressure injury stage 1 -Will start using cushion, nystatin powder, Desitin, and Eucerin Coagulopathy: likely 2/2 acute liver failure (resolving) -s/p FFP and RBC transfusion for coagulopathy -PT and INR down trending since admission and FFP transfusion Lactic acidosis: Patient met SIRS criteria on admission (resolving) -Patient is afebrile, normal RR, normal HR -Blood cultures x2 final no growth -Complete dose of PO doxy for possible cellulitis (11/13/18) Hyperuremia: possibly 2/2 pre-renal azotemia from active bleed (resolved) -Will monitor Anion gap metabolic acidosis: possibly 2/2 lactic acidosis vs increased BUN (resolved) -Gap closed with correction of lactic acidosis Acute kidney injury: likely 2/2 hypovolemia (resolved) -BUN and Cr decreased with IV fluid hydration to baseline Depression -Patient reports feeling depressed and that she began drinking in the last 2 years after she was -c/w lexapro 10 mg and hydroxyzine PT/OT DVT: -SC heparin 5000 q12. -H&h stable, will monitor CBC for bleeds. DISPOSITION: - Pending PT and OT clearance. VS, I&O, 24H, Fishbone Vital Signs/I&O Vital Signs Date Time Temp Pulse Resp B/P (MAP) Pulse Ox O2 Delivery O2 Flow Rate FiO2 11/13/18 06:00 98.2 69 17 103/56 (72) 97 11/07/18 06:45 Room Air I&O- Last 24 Hours up to 6 AM 11/13/18 06:00 Intake Total 1655 ml Output Total 625 ml Balance 1030 ml Laboratory Data 24H LABS Laboratory Tests 2 11/13/18 05:53: Nucleated Red Blood Cells % (auto) 0.0, Prothrombin Time 15.4H, Prothromb Time International Ratio 1.20, Anion Gap 8, Glomerular Filtration Rate > 60.0, Blood Urea Nitrogen 4L, Creatinine 0.50L, Sodium Level 140, Potassium Level 3.5, Chloride Level 109H, Carbon Dioxide Level 23, Calcium Level 7.3L, Aspartate Amino Transf (AST/SGOT) 91H, Alanine Aminotransferase (ALT/SGPT) 70, Alkaline Phosphatase 148H, Total Bilirubin 1.4H, Total Protein 5.2L, Albumin 1.4L, Magnesium Level 1.4L, Albumin/Globulin Ratio 0.37L CBC/BMP Laboratory Tests 11/13/18 05:53 Red Blood Count 2.63 L, Mean Corpuscular Volume 100.4 H, Mean Corpuscular Hemoglobin 33.8 H, Mean Corpuscular Hemoglobin Concent 33.7, Red Cell Distribution Width 20.8 H, Calcium Level 7.3 L, Aspartate Amino Transf (AST/SGOT) 91 H, Alanine Aminotransferase (ALT/SGPT) 70, Alkaline Phosphatase 148 H, Total Bilirubin 1.4 H, Total Protein 5.2 L, Albumin 1.4 L Microbiology Microbiology 11/07/18 Blood Culture - Final, Complete NO GROWTH AFTER 5 DAYS 11/06/18 Blood Culture - Final, Complete NO GROWTH AFTER 5 DAYS 11/08/18 MRSA Screen - Final, Complete GME ATTESTATION GME ATTESTATION My faculty preceptor for this patient encounter was physically present during the encounter and was fully available. All aspects of the patient interview, examination, medical decision making process, and medical care plan development were reviewed and approved by the faculty preceptor. The faculty preceptor is aware and concurs with the plan as stated in the body of this note and will attest to such by his/her cosignature. ATTENDING NOTE I, Kaylin Rodriguez, have both independently examined this patient as well as reviewed the documentation. I have discussed in detail with the resident the findings and plan of treatment as documented in the residents documentation. I will continue to follow the patient and offer further guidance to the patients care as necessary during this hospital stay. MICHEAL CHACON OMS-III Nov 13, 2018 11:19 KAYLIN RODRIGUEZ MD Nov 13, 2018 17:26
[2018-11-13 22:00] VITALS: BP 104/55
[2018-11-13] MEDS: LATANOPROST 0.005% OPHTH SOLN 2.5 ML OU SCH (22:02)
[2018-11-13] MEDS: hydrOXYzine 25 MG TAB PO SCH (22:02)
[2018-11-14 06:00] VITALS: BP 97/50
[2018-11-14 06:13] LABS: HEMATOCRIT 25.2 % (36.0-47.0); HEMOGLOBIN 8.3 g/dl (12.0-15.5); MEAN CORPUSCULAR HEMOGLOBIN 33.5 pg (27.0-33.0); MEAN CORPUSCULAR HGB CONC 32.9 g/dl (32.0-36.5); MEAN CORPUSCULAR VOLUME 101.6 fl (80.0-96.0); PLATELET COUNT, AUTOMATED 350 10^3/uL (150-450); RED BLOOD COUNT 2.48 10^6/uL (4.00-5.40); WHITE BLOOD COUNT 10.9 10^3/uL (4.0-10.0)
[2018-11-14 06:25] LABS: INR 1.3; PROTHROMBIN TIME 16.4 SECONDS (12.1-14.4)
[2018-11-14 06:34] LABS: ALBUMIN 1.3 GM/DL (3.2-5.2); ALT/SGPT 57 U/L (12-78); BILIRUBIN,TOTAL 1.2 MG/DL (0.2-1.0); BLOOD UREA NITROGEN 4 MG/DL (7-18); CALCIUM LEVEL 7.2 MG/DL (8.5-10.1); CARBON DIOXIDE LEVEL 25 MEQ/L (21-32); CHLORIDE LEVEL 108 MEQ/L (98-107); GLOMERULAR FILTRATION RATE > 60.0 (>51); GLUCOSE, FASTING 69 MG/DL (70-100); POTASSIUM SERUM 3.1 MEQ/L (3.5-5.1); SODIUM LEVEL 139 MEQ/L (136-145)
[2018-11-14] MEDS ORDERED: POTASSIUM CHLORIDE 10 MEQ SR TABLET PO ONE (07:30)
[2018-11-14 07:31] LABS: MAGNESIUM LEVEL 1.3 MG/DL (1.8-2.4)
[2018-11-14] MEDS: PANTOPRAZOLE 40MG TAB (PROTONIX) PO SCH (09:38)
[2018-11-14] MEDS: ESCITALOPRAM OXALATE 10 MG TAB (LEXAPRO) PO SCH (09:38)
[2018-11-14] MEDS: MAG SULF 1GM/100ML (MAG RUN) 1 GM in APPROPRIATE DILUENT 1 EA IV SCH ×2 (09:38→10:47)
[2018-11-14] MEDS: NYSTATIN 100,000 UNITS/GM TOPICAL PWD 15 GM TOP SCH ×2 (09:39→22:53)
[2018-11-14] MEDS: HEPARIN SOD (PORCINE) 5000 UNITS/ML VIAL SQ SCH ×2 (09:39→22:53)
[2018-11-14 14:00] VITALS: BP 105/59
[2018-11-14] MEDS ORDERED: FUROSEMIDE 40 MG TAB PO ONE (14:00)
[2018-11-14] MEDS: BALMEX CREAM 60GM EXT SCH ×2 (14:13→22:53)
[2018-11-14] MEDS: EUCERIN 120GM CREAM TOP SCH ×2 (14:13→22:53)
[2018-11-14 22:00] VITALS: BP 103/51
[2018-11-14] MEDS: hydrOXYzine 25 MG TAB PO SCH (22:52)
[2018-11-14] MEDS: LATANOPROST 0.005% OPHTH SOLN 2.5 ML OU SCH (22:53)
[2018-11-15 06:00] VITALS: BP 102/51
[2018-11-15 06:25] LABS: HEMATOCRIT 25.2 % (36.0-47.0); HEMOGLOBIN 8.4 g/dl (12.0-15.5); MEAN CORPUSCULAR HEMOGLOBIN 33.5 pg (27.0-33.0); MEAN CORPUSCULAR HGB CONC 33.3 g/dl (32.0-36.5); MEAN CORPUSCULAR VOLUME 100.4 fl (80.0-96.0); PLATELET COUNT, AUTOMATED 382 10^3/uL (150-450); RED BLOOD COUNT 2.51 10^6/uL (4.00-5.40); WHITE BLOOD COUNT 10.7 10^3/uL (4.0-10.0)
[2018-11-15 06:40] LABS: INR 1.17; PROTHROMBIN TIME 15.1 SECONDS (12.1-14.4)
[2018-11-15 06:52] LABS: ALBUMIN 1.3 GM/DL (3.2-5.2); ALT/SGPT 50 U/L (12-78); BLOOD UREA NITROGEN 4 MG/DL (7-18); CALCIUM LEVEL 7.3 MG/DL (8.5-10.1); CARBON DIOXIDE LEVEL 26 MEQ/L (21-32); CHLORIDE LEVEL 109 MEQ/L (98-107); CREATININE FOR GFR 0.45 MG/DL (0.55-1.30); GLOMERULAR FILTRATION RATE > 60.0 (>51); GLUCOSE, FASTING 65 MG/DL (70-100); MAGNESIUM LEVEL 1.6 MG/DL (1.8-2.4); SODIUM LEVEL 142 MEQ/L (136-145); TOTAL PROTEIN 4.9 GM/DL (6.4-8.2)
[2018-11-15] MEDS ORDERED: POTASSIUM CHLORIDE 10 MEQ SR TABLET PO ONE ×2 (08:00→11:00)
[2018-11-15] MEDS ORDERED: MAG SULF 1GM/100ML (MAG RUN) 1 GM in APPROPRIATE DILUENT 1 EA IV ONE (08:00)
[2018-11-15] MEDS ORDERED: POTASSIUM CHLORIDE 10% LIQ 20 MEQ/15 ML UDC PO ONE ×2 (08:15→11:15)
[2018-11-15] MEDS: HEPARIN SOD (PORCINE) 5000 UNITS/ML VIAL SQ SCH (08:28)
[2018-11-15] MEDS: ESCITALOPRAM OXALATE 10 MG TAB (LEXAPRO) PO SCH (08:28)
[2018-11-15] MEDS: PANTOPRAZOLE 40MG TAB (PROTONIX) PO SCH (08:29)
[2018-11-15] MEDS: EUCERIN 120GM CREAM TOP SCH (08:29)
[2018-11-15] MEDS: BALMEX CREAM 60GM EXT SCH (08:29)
[2018-11-15] MEDS: NYSTATIN 100,000 UNITS/GM TOPICAL PWD 15 GM TOP SCH (08:29)
[2018-11-15] MEDS ORDERED: MAGNESIUM OXIDE 400 MG TAB (MAG-OX) PO SCH (09:00)
--- NOTE | 2018-11-15 10:29 | IPNPDOC ---
Date Seen The patient was seen on 11/14/18. Progress Note SUBJECTIVE: Ms. Pringle is a 58 YO F with no pertinent PMH who presented with 14 days of nausea/vomiting/diarrhea and was admitted for acute blood loss, transaminitis, hyperbilirubinemia, leukocytosis, tachycardia as well as hypotension. Patient was seen this morning resting in bed comfortably. She has no new complaints. She says she is consistently applying the Eucerin lotion to her legs to help with the dryness and skin cracking. Nursing reported no new overnight events. OBJECTIVE PHYSICAL EXAMINATION: VITAL SIGNS: Please see below. GENERAL: Alert, pleasant, A&OX3 HEENT: EOMI, PERRLA, moist mucus membranes CARDIOVASCULAR: regular rate, normal S1 and S2. no murmurs, rales, or gallops. No JVD appreciated RESPIRATORY: Lungs CTA bilaterally. No rales, rhonchi, or wheezes ABDOMINAL: slightly distended EXTREMITIES: 1+ pitting edema in bilateral LE, R>L. Dry skin with cracking (improving) LABORATORY DATA, IMAGING STUDIES, MICROBIOLOGY: Please see below. DVT prophylaxis ordered?: Heparin SC q12 ASSESSMENT AND PLAN: This is a 58 YO F with no pertinent PMH who presented with 14 days of nausea/vomiting/diarrhea she was admitted for acute blood loss, transaminitis, hyperbilirubinemia, leukocytosis, tachycardia as well as hypotension. The following problems will be addressed during hospitalization: PROBLEMS: Acute blood loss anemia: secondary to upper GI bleed possibly secondary to gastric and duodenal ulcers likely due to alcohol consumption -She has not seen a dr in years. Admits to 2 week hx of watery black stools -EGD 11/08/18: small hiatal hernia, non bleeding gastric ulcers, portal hypertensive gastropathy, multiple non bleeding duodenal ulcers -s/p 3 units of packed RBC. Hgb stabilized. Monitor H&H -Protonix 40 mg PO once daily. Continue outpatient for 4-8 weeks (end 01/12/19) -GI consulted, appreciate recommendations. Transaminitis: likely 2/2 acute alcoholic hepatitis -Patient reports that she has no history of liver disease. She does consume about 4 glasses of alcohol each night, denies recent Tylenol use, no known hepatitis risk factors -LFTs trending down since admission -CT: borderline hepatomegaly with fatty infiltration -US: marked fatty infiltration of the liver, no visceral venous thrombosis seen, sliver of ascites seen in the RUQ, sliver of L pleural fluid -Alcohol cessation counseling provided Hypotension: -likely related to some degree of underlying liver disease, as well as petit nature, likely chronically low, no evidence or symptoms of hypoperfusion -s/p 3 units of packed RBC -maintain map >65 Bilateral LE edema: likely 2/2 hypoalbuminemia -PE: 1+ pitting edema of the LE, right>left, that is improving. Non erythematous, negative homans sign. DVT unlikely. -CHF rule out: no JVD, no murmurs or crackles on auscultation. CHF unlikely. -Low albumin possibly secondary to alcohol abuse. Supplement meals with Ensure. -Lasix 40 mg PO x1 Sacrum pressure injury stage 1 -Will start using cushion, nystatin powder, Desitin, and Eucerin Coagulopathy: likely 2/2 acute liver failure (resolving) -s/p FFP and RBC transfusion for coagulopathy -Will continue to monitor Lactic acidosis: Patient met SIRS criteria on admission (resolved) -Patient is afebrile, normal RR, normal HR -Blood cultures x2 final no growth -s/p doxycycline course for possible cellulitis Hyperuremia: possibly 2/2 pre-renal azotemia from active bleed (resolved) -Will monitor Anion gap metabolic acidosis: possibly 2/2 lactic acidosis vs increased BUN (resolved) -Gap closed with correction of lactic acidosis Acute kidney injury: likely 2/2 hypovolemia (resolved) -BUN and Cr decreased with IV fluid hydration to baseline Depression -Patient reports feeling depressed and that she began drinking in the last 2 years after she was -Will start patient on lexapro 10 mg and hydroxyzine PT/OT DVT: -SC heparin 5000 q12. H&h stable, will monitor CBC for bleeds. DISPOSITION: Pending rehab placement VS, I&O, 24H, Fishbone Vital Signs/I&O Vital Signs Date Time Temp Pulse Resp B/P (MAP) Pulse Ox O2 Delivery O2 Flow Rate FiO2 11/14/18 06:00 99.0 67 15 97/50 (54) 97 I&O- Last 24 Hours up to 6 AM 11/14/18 06:00 Intake Total 1210 ml Output Total 800 ml Balance 410 ml Laboratory Data 24H LABS Laboratory Tests 2 11/14/18 05:50: Nucleated Red Blood Cells % (auto) 0.0, Prothrombin Time 16.4H, Prothromb Time International Ratio 1.30, Anion Gap 6L, Glomerular Filtration Rate > 60.0, Blood Urea Nitrogen 4L, Creatinine 0.50L, Sodium Level 139, Potassium Level 3.1L, Chloride Level 108H, Carbon Dioxide Level 25, Calcium Level 7.2L, Aspartate Amino Transf (AST/SGOT) 76H, Alanine Aminotransferase (ALT/SGPT) 57, Alkaline Phosphatase 136H, Total Bilirubin 1.2H, Total Protein 5.0L, Albumin 1.3L, Magnesium Level 1.3L, Albumin/Globulin Ratio 0.35L CBC/BMP Laboratory Tests 11/14/18 05:50 Red Blood Count 2.48 L, Mean Corpuscular Volume 101.6 H, Mean Corpuscular Hemoglobin 33.5 H, Mean Corpuscular Hemoglobin Concent 32.9, Red Cell Distribution Width 20.2 H, Calcium Level 7.2 L, Aspartate Amino Transf (AST/SGOT) 76 H, Alanine Aminotransferase (ALT/SGPT) 57, Alkaline Phosphatase 136 H, Total Bilirubin 1.2 H, Total Protein 5.0 L, Albumin 1.3 L Microbiology Microbiology 11/07/18 Blood Culture - Final, Complete NO GROWTH AFTER 5 DAYS 11/06/18 Blood Culture - Final, Complete NO GROWTH AFTER 5 DAYS 11/08/18 MRSA Screen - Final, Complete GME ATTESTATION GME ATTESTATION My faculty preceptor for this patient encounter was physically present during the encounter and was fully available. All aspects of the patient interview, examination, medical decision making process, and medical care plan development were reviewed and approved by the faculty preceptor. The faculty preceptor is aware and concurs with the plan as stated in the body of this note and will attest to such by his/her cosignature. ATTENDING NOTE I, Kaylin Rodriguez, have both independently examined this patient as well as reviewed the documentation. I have discussed in detail with the resident the findings and plan of treatment as documented in the residents documentation. I will continue to follow the patient and offer further guidance to the patients care as necessary during this hospital stay. MICHEAL CHACON S-III Nov 14, 2018 10:18 KAYLIN RODRIGUEZ MD Nov 18, 2018 15:59
--- NOTE | 2018-11-15 10:52 | IPNPDOC ---
Date Seen The patient was seen on 11/15/18. Progress Note SUBJECTIVE: Ms. Pringle is a 58 YO F with no pertinent PMH who presented with 14 days of nausea/vomiting/diarrhea and was admitted for acute blood loss, transaminitis, hyperbilirubinemia, leukocytosis, tachycardia as well as hypotension. Patient was seen this morning resting in bed comfortably. She has no new complaints. She says that her legs are feeling less heavy today. She reports that she is getting out of bed regularly and working hard with PT. Nursing reported no new overnight events. OBJECTIVE PHYSICAL EXAMINATION: VITAL SIGNS: Please see below. GENERAL: Alert, pleasant, A&OX3 HEENT: EOMI, PERRLA, moist mucus membranes CARDIOVASCULAR: regular rate, normal S1 and S2. no murmurs, rales, or gallops. No JVD appreciated RESPIRATORY: Lungs CTA bilaterally. No rales, rhonchi, or wheezes ABDOMINAL: slightly distended EXTREMITIES: 1+ pitting edema in bilateral LE, up to mid [place] in RLE and ankle in LLE. Dry skin with cracking (improving) LABORATORY DATA, IMAGING STUDIES, MICROBIOLOGY: Please see below. DVT prophylaxis ordered?: Heparin SC q12 ASSESSMENT AND PLAN: This is a 58 YO F with no pertinent PMH who presented with 14 days of nausea/vomiting/diarrhea she was admitted for acute blood loss, transaminitis, hyperbilirubinemia, leukocytosis, tachycardia as well as hypoten [place]. The following problems will be addressed during hospitalization: PROBLEMS: Acute blood loss anemia: secondary to upper GI bleed possibly secondary to gastric and duodenal ulcers likely due to alcohol consumption -She has not seen a dr in years. Admits to 2 week hx of watery black stools -EGD 11/08/18: small hiatal hernia, non bleeding gastric ulcers, portal hypertensive gastropathy, multiple non bleeding duodenal ulcers -s/p 3 units of packed RBC. Hgb stabilized. Monitor H&H -Protonix 40 mg PO once daily. Continue outpatient for 4-8 weeks (end 01/12/19) -GI consulted, appreciate recommendations. Transaminitis: likely 2/2 acute alcoholic hepatitis -Patient reports that she has no history of liver disease. She does consume about 4 glasses of alcohol each night, denies recent Tylenol use, no known hepatitis risk factors -LFTs trending down since admission -CT: borderline hepatomegaly with fatty infiltration -US: marked fatty infiltration of the liver, no visceral venous thrombosis seen, sliver of ascites seen in the RUQ, sliver of L pleural fluid -Alcohol cessation counseling provided Hypotension: -likely related to some degree of underlying liver disease, as well as petit na ture, likely chronically low, no evidence or symptoms of hypoperfusion -s/p 3 units of packed RBC -maintain map >65 Bilateral LE edema: likely 2/2 hypoalbuminemia -PE: 1+ pitting edema of the LE, right>left, that is improving. Non erythematous, negative homans sign. DVT unlikely. -CHF rule out: no JVD, no murmurs or crackles on auscultation. CHF unlikely. -Low albumin possibly secondary to alcohol abuse. Supplement meals with Ensure. -Lasix 40 mg PO x1 Sacrum pressure injury stage 1 -Will start using cushion, nystatin powder, Desitin, and Eucerin Coagulopathy: likely 2/2 acute liver failure (resolving) -s/p FFP and RBC transfusion for coagulopathy -Will continue to monitor Lactic acidosis: Patient met SIRS criteria on admission (resolved) -Patient is afebrile, normal RR, normal HR -Blood cultures x2 final no growth -s/p doxycycline course for possible cellulitis Hyperuremia: possibly 2/2 pre-renal azotemia from active bleed (resolved) -Will monitor Anion gap metabolic acidosis: possibly 2/2 lactic acidosis vs increased BUN (resolved) -Gap closed with correction of lactic acidosis Acute kidney injury: likely 2/2 hypovolemia (resolved) -BUN and Cr decreased with IV fluid hydration to baseline Depression -Patient reports feeling depressed and that she began drinking in the last 2 years after she was -Will start patient on lexapro 10 mg and hydroxyzine PT/OT DVT: -SC heparin 5000 q12. H&h stable, will monitor CBC for bleeds. DISPOSITION: Pending rehab placement VS, I&O, 24H, Fishbone Vital Signs/I&O Vital Signs Date Time Temp Pulse Resp B/P (MAP) Pulse Ox O2 Delivery O2 Flow Rate FiO2 11/15/18 06:00 99.2 88 18 102/51 (68) 95 I&O- Last 24 Hours up to 6 AM 11/15/18 06:00 Intake Total 1600 ml Output Total 700 ml Balance 900 ml Laboratory Data 24H LABS Laboratory Tests 2 11/14/18 16:08: Lab Scanned Report Transfusion Record 11/15/18 06:04: Nucleated Red Blood Cells % (auto) 0.0, Prothrombin Time 15.1H, Prothromb Time International Ratio 1.17, Anion Gap 7L, Glomerular Filtration Rate > 60.0, Blood Urea Nitrogen 4L, Creatinine 0.45L, Sodium Level 142, Potassium Level 3.0L, Chloride Level 109H, Carbon Dioxide Level 26, Calcium Level 7.3L, Aspartate Amino Transf (AST/SGOT) 67H, Alanine Aminotransferase (ALT/SGPT) 50, Alkaline Phosphatase 125H, Total Bilirubin 1.0, Total Protein 4.9L, Albumin 1.3L, Magnesium Level 1.6L, Albumin/Globulin Ratio 0.36L CBC/BMP Laboratory Tests 11/15/18 06:04 Red Blood Count 2.51 L, Mean Corpuscular Volume 100.4 H, Mean Corpuscular Hemoglobin 33.5 H, Mean Corpuscular Hemoglobin Concent 33.3, Red Cell Distribution Width 20.1 H, Calcium Level 7.3 L, Aspartate Amino Transf (AST/SGOT) 67 H, Alanine Aminotransferase (ALT/SGPT) 50, Alkaline Phosphatase 125 H, Total Bilirubin 1.0, Total Protein 4.9 L, Albumin 1.3 L Microbiology Microbiology 11/07/18 Blood Culture - Final, Complete NO GROWTH AFTER 5 DAYS 11/06/18 Blood Culture - Final, Complete NO GROWTH AFTER 5 DAYS 11/08/18 MRSA Screen - Final, Complete GME ATTESTATION GME ATTESTATION My faculty preceptor for this patient encounter was physically present during the encounter and was fully available. All aspects of the patient interview, exa mination, medical decision making process, and medical care plan development were reviewed and approved by the faculty preceptor. The faculty preceptor is aware and concurs with the plan as stated in the body of this note and will attest to such by his/her cosignature. MICHEAL CHACON S-III Nov 15, 2018 10:52
[2018-11-15] MEDS ORDERED: PANT40TA3 PO (11:00)
[2018-11-15] MEDS ORDERED: FURO20TA2 PO (11:00)
[2018-11-15] MEDS ORDERED: ESCI10TA2 PO (11:00)
[2018-11-15] MEDS ORDERED: POTA1TAB14 PO (11:00)
[2018-11-15] MEDS ORDERED: HYDR-3363 PO (11:00)
[2018-11-15] MEDS ORDERED: MAG400TA PO (11:00)
--- NOTE | 2018-11-15 16:44 | DS.PDOC ---
Discharge Summary General Date of Admission Nov 07, 2018 at 03:44 Date of Discharge 11/15/18 Discharge Summary PROCEDURES PERFORMED DURING STAY: EGD: Dr. Nolasco 11/08/18 -Z-line regular, 35 cm from the incisors. -Small hiatal hernia. -Non-bleeding gastric ulcers with no stigmata of bleeding. -Portal hypertensive gastropathy. -Multiple non-bleeding duodenal ulcers with no stigmata of bleeding. -The examination was otherwise normal. -Biopsies were taken with a cold forceps for Helicobacter pylori testing. -The examination was otherwise normal. Transfusion: 11/07/18 -3 units of packed RBC -1 unit FFP ADMITTING DIAGNOSES: 1. Transaminitis 2. Hyperbilirubinemia 3. Severe macrocytic anemia 4. Hypotension 5. Lactic acidosis 6. Acute kidney injury DISCHARGE DIAGNOSES: 1. Acute blood loss anemia 2. Upper GI bleed 3. Acute alcoholic hepatitis 4. Hypotension 5. Bilateral lower extremity edema 6. Coagulopathy 7. Lactic acidosis 8. Hyperuremia 9. Anion gap metabolic acidosis 10. Acute kidney injury 11. Depression 12. sacrum pressure injury stage 1 13. Hx of ichthyosis COMPLICATIONS/CHIEF COMPLAINT: Liver Failure, Sirs, Anemia. HISTORY OF PRESENT ILLNESS: Adriane Pringle is a 58 YO F with a history of HANNAH and lack of medical care for several years who presents to the ED with 4 days nausea, vomiting and black tarry stools. She states she has been feeling very weak, lightheaded and dizzy during this time and fell while and hit her head on her coffee table while getting up from her couch. She also states that her family has told her that she has not been making sense and that she has been slurring her words. She does feel as though she has been somewhat confused, and she feels "uneasy" on her feet recently, as if she will fall. She denies any recent fevers, chills, SOB or chest pain. She also denies any significant weight loss, but does state she has had a decreased appetite for about 1 week. HOSPITAL COURSE: Pt is a 67 yo female who was admitted with acute blood loss anemia. On admission she met SIRS criteria and was hemodynamically stabilized. She received 3 units of packed RBC and 1 unit FFP. Once stabilized, gastroenterology was consulted and EGD was performed to evaluate for upper GI bleed. Patient was placed on Protonix 40 mg PO once daily and could be continued on this dose for 4-8 weeks (end 01/12/19). A full workup was completed for transaminitis to rule out possible infectious, inflammatory, and autoimmune conditions. The patient was diagnosed with acute alcoholic hepatitis and counseled on alcohol cessation. The patient developed bilateral LE edema which was attributed to hypoalbuminemia and her diet was supplemented with Ensure protein as well as receiving IV and PO Lasix. During hospitalization patient's history of ichthyosis was treated with Eucerin lotion with improvement. Patient and family expressed the need for management of depression, anxiety, and sleep disturbances, she was started on Lexapro and hydroxyzine. All instructions were discussed with the patient and her family and they are agreeable. DISCHARGE MEDICATIONS: Please see below. ALLERGIES: Please see below. PHYSICAL EXAMINATION ON DISCHARGE: VITAL SIGNS: Please see below. PHYSICAL EXAMINATION: VITAL SIGNS: Please see below. GENERAL: Alert, pleasant, A&OX3 HEENT: EOMI, PERRLA, moist mucus membranes CARDIOVASCULAR: regular rate, normal S1 and S2. no murmurs, rales, or gallops. No JVD appreciated RESPIRATORY: Lungs CTA bilaterally. No rales, rhonchi, or wheezes ABDOMINAL: slightly distended EXTREMITIES: 1+ pitting edema in bilateral LE, R>L. Dry skin with cracking (improving) LABORATORY DATA: Please see below. IMAGING: Abdomen/Pelvis CT 11/06/18 1. Borderline hepatomegaly with fatty infiltration. 2. Mild pancreatic atrophy for age. 3. Mild nonspecific segmental colitis of the ascending colon. 4. Trace fluid in the pelvis which is nonspecific. CT head 11/07/18 1. Small vessel ischemic disease. 2. Mild volume loss. CXR 11/07/18 1. Negative portable chest x-ray. Liver US 11/08/18 1. Marked fatty infiltration of the liver. 2. No visceral venous thrombosis seen. 3. Normal direction of Doppler flow. 4. A sliver of ascites is seen in the right upper quadrant and a sliver of left pleural fluid is noted. PROGNOSIS: Fair ACTIVITY: As tolerated. DIET: Regular diet DISPOSITION: 62 D/T Rehab Facility. DISCHARGE INSTRUCTIONS: 1. Follow up with PCP after discharge 2. If symptoms return call PCP or return to the ER FOLLOW UP AT DISCHARGE: 1. Lexapro 10 mg and hydroxyzine started inpatient for depression symptoms. It was explained that it could take 4-6 weeks for maximum effect. 2. Protonix 40 mg PO daily started for gastric ulcers. Could continue for 4-8 weeks (end 01/12/19) DISCHARGE CONDITION: Stable TIME SPENT ON DISCHARGE: Greater than 35 minutes. Vital Signs/I&Os Vital Signs Date Time Temp Pulse Resp B/P (MAP) Pulse Ox O2 Delivery O2 Flow Rate FiO2 11/15/18 06:00 99.2 88 18 102/51 (68) 95 I&O- Last 24 Hours up to 6 AM 11/15/18 06:00 Intake Total 1600 ml Output Total 700 ml Balance 900 ml Laboratory Data Labs 24H Laboratory Tests 2 11/14/18 16:08: Lab Scanned Report Transfusion Record 11/15/18 06:04: Nucleated Red Blood Cells % (auto) 0.0, Prothrombin Time 15.1H, Prothromb Time International Ratio 1.17, Anion Gap 7L, Glomerular Filtration Rate > 60.0, Blood Urea Nitrogen 4L, Creatinine 0.45L, Sodium Level 142, Potassium Level 3.0L, Chloride Level 109H, Carbon Dioxide Level 26, Calcium Level 7.3L, Aspartate Amino Transf (AST/SGOT) 67H, Alanine Aminotransferase (ALT/SGPT) 50, Alkaline Phosphatase 125H, Total Bilirubin 1.0, Total Protein 4.9L, Albumin 1.3L, Magnesium Level 1.6L, Albumin/Globulin Ratio 0.36L CBC/BMP Laboratory Tests 11/15/18 06:04 Red Blood Count 2.51 L, Mean Corpuscular Volume 100.4 H, Mean Corpuscular Hemo globin 33.5 H, Mean Corpuscular Hemoglobin Concent 33.3, Red Cell Distribution Width 20.1 H, Calcium Level 7.3 L, Aspartate Amino Transf (AST/SGOT) 67 H, Alanine Aminotransferase (ALT/SGPT) 50, Alkaline Phosphatase 125 H, Total Bilirubin 1.0, Total Protein 4.9 L, Albumin 1.3 L Microbiology Microbiology 11/07/18 Blood Culture - Final, Complete NO GROWTH AFTER 5 DAYS 11/06/18 Blood Culture - Final, Complete NO GROWTH AFTER 5 DAYS 11/08/18 MRSA Screen - Final, Complete Discharge Medications Scheduled Biotin (Biotin) 10 Mg Tab, 10 MG PO Q3RD, (Reported) Escitalopram Oxalate (Escitalopram Oxalate) 10 Mg Tablet, 10 MG PO DAILY Furosemide (Furosemide) 20 Mg Tablet, 1 TAB PO DAILY Hydroxyzine HCl (Hydroxyzine HCl) 25 Mg Tablet, 25 MG PO QHS Latanoprost (Xalatan) 0.005 % Cheri, 1 DROP OU QHS, (Reported) Magnesium Oxide (Magnesium Oxide) 400 Mg Tablet, 400 MG PO BID Multivitamins (Thera M Plus Tablet) 1 Tab Tab, 1 TAB PO DAILY, (Reported) [place]-3 Fatty Acids/Fish Oil (Fish Oil 1,000 mg Capsule) 1,000 Mg Cap, 3,000 MG PO DAILY, (Reported) Pantoprazole Sodium (Pantoprazole Sodium) 40 Mg Tablet.dr, 40 MG PO DAILY Potassium Chloride (Potassium Chloride) 20 Meq Tablet.er, 2 TAB PO DAILY Allergies Coded Allergies: Penicillins (Verified Allergy, Unknown, 11/06/18) GME ATTESTATION GME ATTESTATION My faculty preceptor for this patient encounter was physically present during the encounter and was fully available. All aspects of the patient interview, examination, medical decision making process, and medical care plan development were reviewed and approved by the faculty preceptor. The faculty preceptor is aware and concurs with the plan as stated in the body of this note and will attest to such by his/her cosignature. ATTENDING NOTE I, Kaylin Ivey, have both independently examined this patient as well as reviewed the documentation. I have discussed in detail with the resident the findings and plan of treatment as documented in the residents documentation. I will continue to follow the patient and offer further guidance to the patients care as necessary during this hospital stay. EROS RIDDLE DO Nov 15, 2018 16:44 KAYLIN IVEY MD Nov 15, 2018 17:42
== END 2018-11-15 14:05 | DRG 280 ==
LOC: M ED 22:13 → M ED INP 11-07 03:44 → M ICU 11-07 07:49 → M MSPAV 11-09 02:20
PROVIDERS: ADMIT Student in an Organized Health Care Education/Training Program; ATTEND Internal Medicine
PROC: 30233N1 Transfusion of Nonautologous Red Blood Cells into Peripheral Vein, Percutaneous Approach (ICD-10-PCS; 2018-11-07)
PROC: 0DB78ZX Excision of Stomach, Pylorus, Via Natural or Artificial Opening Endoscopic, Diagnostic (ICD-10-PCS; principal; 2018-11-08 10:30)
DX: K70.10 Alcoholic hepatitis without ascites (principal); N17.9 Acute kidney failure, unspecified; E87.2 Acidosis; D68.4 Acquired coagulation factor deficiency; K76.6 Portal hypertension; L89.151 Pressure ulcer of sacral region, stage 1; K26.4 Chronic or unspecified duodenal ulcer with hemorrhage; I95.9 Hypotension, unspecified; D62 Acute posthemorrhagic anemia; K44.9 Diaphragmatic hernia without obstruction or gangrene; K72.00 Acute and subacute hepatic failure without coma; F32.9 Major depressive disorder, single episode, unspecified; K31.89 Other diseases of stomach and duodenum; E80.6 Other disorders of bilirubin metabolism; E78.00 Pure hypercholesterolemia, unspecified; R74.0 Nonspecific elevation of levels of transaminase and lactic acid dehydrogenase [LDH]; F41.1 Generalized anxiety disorder; Q80.9 Congenital ichthyosis, unspecified; Z87.891 Personal history of nicotine dependence; Z88.0 Allergy status to penicillin; Z79.899 Other long term (current) drug therapy

== ENCOUNTER 2018-11-15 12:42 | Inpatient (IN) | payer OTHER ==
[~2018-11-15] VITALS: Ht 165.1 cm; Wt 64.4 kg
[~2018-11-15 12:42] MED LIST: BIOT10TA2 PO; ESCI10TA2 PO; FISH1000 PO; FURO20TA2 PO; HYDR-3363 PO; MAG400TA PO; PANT40TA3 PO; POTA1TAB14 PO; VITMTA PO; XALA0.007 OU
[2018-11-15] MEDS ORDERED: BISACODYL 5 MG TAB PO PRN (14:00)
[2018-11-15] MEDS ORDERED: MOM 30ML SUSPENSION UDC PO PRN (14:00)
[2018-11-15] MEDS ORDERED: ACETAMINOPHEN TAB 650MG DOSE (2X325MG) PO PRN (14:00)
[2018-11-15] MEDS ORDERED: ONDANSETRON 4 MG TAB (S0181) PO PRN (14:00)
[2018-11-15] MEDS ORDERED: MAALOX 30 ML SUSP *UDC PO PRN (14:00)
[2018-11-15 14:10] VITALS: BP 114/66
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
[2018-11-15] MEDS: BALMEX CREAM 60GM TOP SCH ×2 (16:00→20:51)
[2018-11-15] MEDS: EUCERIN 120GM CREAM TOP SCH ×2 (16:00→20:52)
[2018-11-15 20:00] VITALS: BP 106/51
[2018-11-15] MEDS: HEPARIN SOD (PORCINE) 5000 UNITS/ML VIAL SC SCH (20:50)
[2018-11-15] MEDS: NYSTATIN 100,000 UNITS/GM TOPICAL PWD 15 GM TOP SCH (20:50)
[2018-11-15] MEDS: LATANOPROST 0.005% OPHTH SOLN 2.5 ML OU SCH (20:50)
[2018-11-15] MEDS: hydrOXYzine 25 MG TAB PO SCH (20:51)
[2018-11-15] MEDS: MAGNESIUM OXIDE 400 MG TAB (MAG-OX) PO SCH (20:51)
[2018-11-16 06:00] VITALS: BP 109/56
[2018-11-16 07:41] LABS: BASO # 0.2 10^3/uL (0.0-0.2); BASO % 1.5 % (0.0-1.0); EOS # 0.2 10^3/uL (0.0-0.50); EOS % 2.1 % (0.0-3.0); HEMATOCRIT 25.6 % (36.0-47.0); HEMOGLOBIN 8.4 g/dl (12.0-15.5); LYMPH # 1.9 10^3/uL (1.5-4.5); LYMPH % 18.3 % (24.0-44.0); MEAN CORPUSCULAR HGB CONC 32.8 g/dl (32.0-36.5); MEAN CORPUSCULAR VOLUME 103.6 fl (80.0-96.0); MONO # 1.3 10^3/uL (0.0-0.8); MONO % 12.2 % (0.0-5.0); NEUTROPHILS # 6.8 10^3/uL (1.8-7.7); NEUTROPHILS % 65.5 % (36.0-66.0); PLATELET COUNT, AUTOMATED 395 10^3/uL (150-450); RED BLOOD COUNT 2.47 10^6/uL (4.00-5.40); WHITE BLOOD COUNT 10.3 10^3/uL (4.0-10.0)
[2018-11-16 07:56] LABS: ALBUMIN 1.4 GM/DL (3.2-5.2); ALT/SGPT 45 U/L (12-78); BLOOD UREA NITROGEN 5 MG/DL (7-18); CALCIUM LEVEL 7.5 MG/DL (8.5-10.1); CARBON DIOXIDE LEVEL 27 MEQ/L (21-32); CHLORIDE LEVEL 109 MEQ/L (98-107); CREATININE FOR GFR 0.49 MG/DL (0.55-1.30); GLOMERULAR FILTRATION RATE > 60.0 (>51); GLUCOSE, FASTING 68 MG/DL (70-100); POTASSIUM SERUM 4.2 MEQ/L (3.5-5.1); SODIUM LEVEL 142 MEQ/L (136-145); TOTAL PROTEIN 4.8 GM/DL (6.4-8.2)
[2018-11-16] MEDS ORDERED: FUROSEMIDE 20 MG TAB PO SCH (09:00)
[2018-11-16] MEDS: MULTIVITAMINS/MINERALS THERAP 1 TAB PO SCH (09:21)
[2018-11-16] MEDS: PANTOPRAZOLE 40MG TAB (PROTONIX) PO SCH (09:21)
[2018-11-16] MEDS: POTASSIUM CHLORIDE 10 MEQ SR TABLET PO SCH (09:21)
[2018-11-16] MEDS: MAGNESIUM OXIDE 400 MG TAB (MAG-OX) PO SCH ×2 (09:21→21:53)
[2018-11-16] MEDS: BALMEX CREAM 60GM TOP SCH ×3 (09:22→21:53)
[2018-11-16] MEDS: ESCITALOPRAM OXALATE 10 MG TAB (LEXAPRO) PO SCH (09:22)
[2018-11-16] MEDS: HEPARIN SOD (PORCINE) 5000 UNITS/ML VIAL SC SCH ×2 (09:22→21:53)
[2018-11-16] MEDS: NYSTATIN 100,000 UNITS/GM TOPICAL PWD 15 GM TOP SCH ×2 (09:23→21:53)
[2018-11-16] MEDS: EUCERIN 120GM CREAM TOP SCH ×3 (09:23→21:54)
[2018-11-16 14:00] VITALS: BP 107/57
--- NOTE | 2018-11-16 16:30 | CR.PDOC ---
General Date of Consultation: Nov 16, 2018 Referring Provider: DELONTE BILLS MD Attending Physician: KAYLIN RODRIGUEZ MD Consultation REASON FOR CONSULTATION/CHIEF COMPLAINT: Medical Management HISTORY OF PRESENT ILLNESS: 58 YO F with a history of HANNAH and lack of medical care for several years who presents to the ED with 4 days nausea, vomiting and black tarry stools. She was admitted with acute blood loss anemia. On admission she met SIRS criteria and was hemodynamically stabilized. She received 3 units of packed RBC and 1 unit FFP. Once stabilized, gastroenterology was consulted and EGD was performed that revealed non-bleeding gastric ulcers with no stigmata of bleeding, portal hype rtensive gastropathy, multiple non-bleeding duodenal ulcers. Patient was placed on Protonix 40 mg PO once daily and could be continued on this dose for 4-8 weeks (end 01/12/19). Patient was also found to have an elevated AST / ALT and a full workup was completed for transaminitis to rule out possible infectious, inflammatory, and autoimmune conditions. The patient was diagnosed with acute alcoholic hepatitis and counseled on alcohol cessation. The patient developed bilateral LE edema which was attributed to hypoalbuminemia and her diet was supplemented with Ensure protein as well as receiving IV and PO Lasix. During hospitalization patient's history of ichthyosis was treated with Eucerin lotion with improvement. Patient and family expressed the need for management of depression, anxiety, and sleep disturbances, she was started on Lexapro and hydroxyzine. Because of her generalized Weakness 2/2 deconditioning PT recommended patient for ARU for continue rehab. Patient was transferred to ARU unit on 11/15/2018 and Hospitalist team was then consulted for continued management of medical problem. ALLERGIES: Please see below. HOME MEDICATIONS: Please see below. PAST MEDICAL HISTORY: 1. Ichthyosis congenita 2. Generalized anxiety disorder 3. Pure hypercholesterolemia 4. History of hemorrhoids PAST SURGICAL HISTORY: 1. 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 FAMILY HISTORY: Noncontributory REVIEW OF SYSTEMS: CONSTITUTIONAL: Denies weight change, fevers, chills, night sweats, fatigue, malaise. HEENT: Denies hearing change, ear pain, nasal congestion, sinus pain, hoarseness, sore throat, rhinorrhea CARDIOVASCULAR: Denies chest pain, palpitations, dyspnea on exertion, orthopnea, admits to bilateral lower extremity edema RESPIRATORY: Denies shortness of breath, cough, sputum production, wheezing, dyspnea, admits to being a former smoker (greater than 40 years) GENITOURINARY: Denies dysuria, hematuria, urinary incontinence, urinary urgency MUSCULOSKELETAL: Denies arthralgia, myalgia, joint swelling. GASTROINTESTINAL: Denies Nausea, vomiting, diarrhea, constipation, heartburn, dy sphagia, melena SKIN: Admits to chronic dry skin and superficial lesion on sacrum, no new skin breakdown since admission NEUROLOGICAL: Admits to generalized weakness. Denies numbness, paresthesia, loss of consciousness, syncope, dizziness, headaches PSYCHIATRIC: Denies panic attacks, insomnia, personality change, delusions. Admits to depression and anxiety ENDOCRINE: Admits to polyuria secondary to Lasix, denies polydipsia or temperature intolerance HEMATOLOGIC/LYMPHATIC: Denies bruising, bleeding PHYSICAL EXAMINATION: VITAL SIGNS: Please see below. GENERAL APPEARANCE: Pleasant 58-year-old female does not appear in acute distress of peripherally answering question. A&OX3 HEENT: EOMI, PERRLA, moist mucus membranes CARDIOVASCULAR: regular rate, normal S1 and S2. no murmurs, rales, or gallops. No JVD appreciated RESPIRATORY: Lungs CTA bilaterally. No rales, rhonchi, or wheezes ABDOMINAL: Soft nontender positive bowel sounds in all 4 quadrants EXTREMITIES: 2+ pitting edema up to mid-calf bilaterally. Dry skin with cracking (improving) MUSCULOSKELETAL: moves all extremities well with normal ROM NEUROLOGICAL: CN 2-12 intact without any focal deficits appreciated PSYCHIATRIC: Appropriate affect, normal mood LABORATORY DATA: Please see below. ASSESSMENT/PLAN: This is a 58 YO F with no pertinent PMH who presented with 14 days of nausea/vomiting/diarrhea she was admitted for acute blood loss, transaminitis, hyperbilirubinemia, leukocytosis, tachycardia as well as hypotension. The following problems will be addressed during hospitalization: Bilateral LE edema: likely 2/2 hypoalbuminemia -PE: 2+ pitting edema of the LE, right>left, that is improving. Non erythematous, negative homans sign. DVT unlikely. -Unlikely CHF: no JVD, no murmurs or crackles on auscultation. CHF unlikely. -Low albumin possibly secondary to alcohol abuse. Supplement meals with Ensure. -increase Lasix 40 mg PO + continue to supplement with potassium Hypotension -likely related to some degree of underlying liver disease, as well as petit nature, likely chronically low, no evidence or symptoms of hypoperfusion -s/p 3 units of packed RBC -MAP >65 Acute blood loss anemia: secondary to upper GI bleed possibly secondary to gastric and duodenal ulcers likely due to alcohol consumption -She has not seen a dr in years. 2 wk hx of watery black stools -EGD 11/08/18: small hiatal hernia, non bleeding gastric ulcers, portal hypertensive gastropathy, multiple non bleeding duodenal ulcers -s/p 3 units of packed RBC. -Protonix 40 mg PO once daily. Continue outpatient for 4-8 weeks (end 01/12/19) Transaminitis: likely 2/2 acute alcoholic hepatitis -No history of liver disease. Does consume about 4 glasses of alcohol each night, denies recent Tylenol use, no known hepatitis risk factors -CT: borderline hepatomegaly with fatty infiltration -US: marked fatty infiltration of the liver, no visceral venous thrombosis seen, sliver of ascites seen in the RUQ, sliver of L pleural fluid -Fatty Liver work-up negative for any rheumatological, infectious or medication induced -Alcohol cessation counseling provided Sacrum pressure injury stage 1 -c/w cushion, nystatin powder, Desitin, and Eucerin Coagulopathy: likely 2/2 acute liver failure (resolving) -s/p FFP and RBC transfusion for coagulopathy Lactic acidosis (resolved) Hyperuremia: possibly 2/2 pre-renal azotemia from active bleed (resolved) Anion gap metabolic acidosis: possibly 2/2 lactic acidosis vs increased BUN (resolved) Acute kidney injury: likely 2/2 hypovolemia (resolved) Anxiety/Depression -c/w Lexapro 10 mg and hydroxyzine Weakness 2/2 deconditioning -PT/OT Per ARU recommendations DVT: -SC Heparin 5000 q12. Vital Signs/I&O Vital Signs Date Time Temp Pulse Resp B/P (MAP) Pulse Ox O2 Delivery O2 Flow Rate FiO2 11/16/18 06:00 99.1 88 19 109/56 (73) 94 I&O- Last 24 Hours up to 6 AM 11/16/18 06:00 Intake Total 340 ml Output Total 247 ml Balance 93 ml Laboratory Data Labs 24H Laboratory Tests 2 11/16/18 06:47: Immature Granulocyte % (Auto) 0.4, White Blood Count 10.3H, Red Blood Count 2.47L, Hemoglobin 8.4L, Hematocrit 25.6L, Mean Corpuscular Volume 103.6H, Mean Corpuscular Hemoglobin 34.0H, Mean Corpuscular Hemoglobin Concent 32.8, Red Cell Distribution Width 19.9H, Platelet Count 395, Neutrophils (%) (Auto) 65.5, Lymphocytes (%) (Auto) 18.3L, Monocytes (%) (Auto) 12.2H, Eosinophils (%) (Auto) 2.1, Basophils (%) (Auto) 1.5H, Neutrophils # (Auto) 6.8, Lymphocytes # (Auto) 1.9, Monocytes # (Auto) 1.3H, Eosinophils # (Auto) 0.2, Basophils # (Auto) 0.2, Nucleated Red Blood Cells % (auto) 0.0, Anion Gap 6L, Glomerular Filtration Rate > 60.0, Blood Urea Nitrogen 5L, Creatinine 0.49L, Sodium Level 142, Potassium Level 4.2#, Chloride Level 109H, Carbon Dioxide Level 27, Calcium Level 7.5L, Aspartate Amino Transf (AST/SGOT) 64H, Alanine Aminotransferase (ALT/SGPT) 45, Alkaline Phosphatase 129H, Total Bilirubin 1.0, Total Protein 4.8L, Albumin 1.4L, Albumin/Globulin Ratio 0.41L CBC/BMP Laboratory Tests 11/16/18 06:47 Red Blood Count 2.47 L, Mean Corpuscular Volume 103.6 H, Mean Corpuscular Hemoglobin 34.0 H, Mean Corpuscular Hemoglobin Concent 32.8, Red Cell Distribution Width 19.9 H, Neutrophils (%) (Auto) 65.5, Lymphocytes (%) (Auto) 18.3 L, Monocytes (%) (Auto) 12.2 H, Eosinophils (%) (Auto) 2.1, Basophils (%) (Auto) 1.5 H, Neutrophils # (Auto) 6.8, Lymphocytes # (Auto) 1.9, Monocytes # (Auto) 1.3 H, Eosinophils # (Auto) 0.2, Basophils # (Auto) 0.2, Calcium Level 7.5 L, Aspartate Amino Transf (AST/SGOT) 64 H, Alanine Aminotransferase (ALT/SGPT) 45, Alkaline Phosphatase 129 H, Total Bilirubin 1.0, Total Protein 4.8 L, Albumin 1.4 L Allergies Coded Allergies: Penicillins (Verified Allergy, Unknown, 11/06/18) Home Medications Scheduled Biotin (Biotin) 10 Mg Tab, 10 MG PO Q3RD, (Reported) Escitalopram Oxalate (Escitalopram Oxalate) 10 Mg Tablet, 10 MG PO DAILY, #30 Furosemide (Furosemide) 20 Mg Tablet, 1 TAB PO DAILY for 30 Days, #30 Hydroxyzine HCl (Hydroxyzine HCl) 25 Mg Tablet, 25 MG PO QHS, #30 Latanoprost (Xalatan) 0.005 % Cheri, 1 DROP OU QHS, (Reported) Magnesium Oxide (Magnesium Oxide) 400 Mg Tablet, 400 MG PO BID, #60 Multivitamins (Thera M Plus Tablet) 1 Tab Tab, 1 TAB PO DAILY, (Reported) [place]-3 Fatty Acids/Fish Oil (Fish Oil 1,000 mg Capsule) 1,000 Mg Cap, 3,000 MG PO DAILY, (Reported) Pantoprazole Sodium (Pantoprazole Sodium) 40 Mg Tablet.dr, 40 MG PO DAILY, #30 Potassium Chloride (Potassium Chloride) 20 Meq Tablet.er, 2 TAB PO DAILY for 30 Days, #60 GME ATTESTATION GME ATTESTATION My faculty preceptor for this patient encounter was physically present during the encounter and was fully available. All aspects of the patient interview, examination, medical decision making process, and medical care plan development were reviewed and approved by the faculty preceptor. The faculty preceptor is aware and concurs with the plan as stated in the body of this note and will attest to such by his/her cosignature. ATTENDING NOTE I, Kaylin Rodriguez, have both independently examined this patient as well as reviewed the documentation. I have discussed in detail with the resident the findings and plan of treatment as documented in the residents documentation. I will continue to follow the patient and offer further guidance to the patients care as necessary during this hospital stay. EROS RIDDLE DO Nov 16, 2018 16:30 KAYLIN RODRIGUEZ MD Nov 16, 2018 17:35
[2018-11-16 20:00] VITALS: BP 116/68
[2018-11-16 20:24] LABS: APPEARANCE, URINE HAZY (CLEAR); BACTERIA, URINE AUTO NEGATIVE (NEGATIVE); BILIRUBIN, URINE AUTO NEGATIVE (NEGATIVE); BLOOD, URINE BLOOD NEGATIVE (NEGATIVE); COLOR, URINE AMBER (YELLOW); GLUCOSE, URINE (UA) AUTO NEGATIVE (NEGATIVE); KETONE, URINE AUTO NEGATIVE (NEGATIVE); LEUKOCYTE ESTERASE, URINE AUTO NEGATIVE (NEGATIVE); MUCUS, URINE MODERATE (NEGATIVE); NITRITE, URINE AUTO NEGATIVE (NEGATIVE); PROTEIN, URINE AUTO NEGATIVE (NEGATIVE); RBC, URINE AUTO 4 /HPF (0-3); SPECIFIC GRAVITY URINE AUTO 1.018 (1.002-1.035); SQUAMOUS EPITHELIAL CELL UR AU 3 /HPF (0-6); WBC, URINE AUTO 2 /HPF (0-3)
[2018-11-16] MEDS ORDERED: FUROSEMIDE 40 MG TAB PO ONE (21:00)
[2018-11-16] MEDS: hydrOXYzine 25 MG TAB PO SCH (21:53)
[2018-11-16] MEDS: LATANOPROST 0.005% OPHTH SOLN 2.5 ML OU SCH (21:53)
[2018-11-17 06:00] VITALS: BP 108/66
[2018-11-17 07:52] LABS: BLOOD UREA NITROGEN 5 MG/DL (7-18); CALCIUM LEVEL 7.3 MG/DL (8.5-10.1); CARBON DIOXIDE LEVEL 28 MEQ/L (21-32); CHLORIDE LEVEL 108 MEQ/L (98-107); CREATININE FOR GFR 0.52 MG/DL (0.55-1.30); GLOMERULAR FILTRATION RATE > 60.0 (>51); GLUCOSE, FASTING 62 MG/DL (70-100); POTASSIUM SERUM 3.8 MEQ/L (3.5-5.1); SODIUM LEVEL 142 MEQ/L (136-145)
[2018-11-17] MEDS ORDERED: EUCERIN 120GM CREAM TOP SCH (09:00)
[2018-11-17] MEDS: POTASSIUM CHLORIDE 10 MEQ SR TABLET PO SCH (09:17)
[2018-11-17] MEDS: ESCITALOPRAM OXALATE 10 MG TAB (LEXAPRO) PO SCH (09:17)
[2018-11-17] MEDS: MAGNESIUM OXIDE 400 MG TAB (MAG-OX) PO SCH ×2 (09:17→21:18)
[2018-11-17] MEDS: HEPARIN SOD (PORCINE) 5000 UNITS/ML VIAL SC SCH ×2 (09:18→21:18)
[2018-11-17] MEDS: MULTIVITAMINS/MINERALS THERAP 1 TAB PO SCH (09:18)
[2018-11-17] MEDS: PANTOPRAZOLE 40MG TAB (PROTONIX) PO SCH (09:18)
[2018-11-17] MEDS: FUROSEMIDE 40 MG TAB PO SCH (09:18)
[2018-11-17] MEDS: EUCERIN 120GM CREAM TOP SCH ×3 (09:19→21:19)
[2018-11-17] MEDS: BALMEX CREAM 60GM TOP SCH ×3 (09:19→21:19)
[2018-11-17] MEDS: NYSTATIN 100,000 UNITS/GM TOPICAL PWD 15 GM TOP SCH ×2 (09:19→21:19)
[2018-11-17 14:00] VITALS: BP 107/56
--- NOTE | 2018-11-17 17:04 | IPNPDOC ---
Text Note Date of Service The patient was seen on 11/17/18. NOTE Subjective: Patient is a 58-year-old female with a PMHx of HANNAH and lack of medical care for several years who presents to the ED with 4 days nausea, vomiting and black tarry stools. She was admitted with acute blood loss anemia. On admission she met SIRS criteria and was hemodynamically stabilized. She received 3 units of packed RBC and 1 unit FFP. Once stabilized, gastroenterology was consulted and EGD was performed that revealed non-bleeding gastric ulcers with no stigmata of bleeding, portal hypertensive gastropathy, multiple non-bleeding duodenal ulcers. Patient was placed on Protonix 40 mg PO once daily and could be continued on this dose for 4-8 weeks (end 01/12/19). Patient was also found to have an elevated AST / ALT and a full workup was completed for transaminitis to rule out possible infectious, inflammatory, and autoimmune conditions. The patient was diagnosed with acute alcoholic hepatitis and counseled on alcohol cessation. The patient developed bilateral LE edema which was attributed to hypoalbuminemia and her diet was supplemented with Ensure protein as well as receiving IV and PO Lasix. During hospitalization patient's history of ichthyosis was treated with Eucerin lotion with improvement. Patient and family expressed the need for management of depression, anxiety, and sleep disturbances, she was started on Lexapro and hydroxyzine. Because of her generalized Weakness 2/2 deconditioning PT recommended patient for ARU for continue rehab. Patient was transferred to ARU unit on 11/15/2018 and Hospitalist team was then consulted for continued management of medical problem. Patient was seen and examined at the bedside. Currently she has no new complaints. She denies any nausea, vomiting, abdominal pain, constipation, diarrhea or discomfort with urination. She reports that her appetite has been poor and food doesn't taste the same. Objective: Vitals (See below) General: Lying in bed, no acute distress, comfortable, AAOx3 HEENT: NC, AT CVS: RRR, +S1S2 Lungs: Fair air entry b/l, -w/r/r Abdomen: Soft, ND, NT Extremities: 1+ pitting edema, - Calf tenderness Assessment and plan: Bilateral LE edema: likely 2/2 hypoalbuminemia - PE: 2+ pitting edema of the LE, right>left, that is improving. Non erythematous - Unlikely CHF: no JVD, no murmurs or crackles on auscultation. CHF unlikely. - Low albumin possibly secondary to alcohol abuse. Supplement meals with Ensure. - c/w Lasix 40 mg PO + continue to supplement with potassium; will consider Spi ronolactone instead of potassium supplementation based on AM labs Hypotension - likely chronic in nature - likely related to some degree of underlying liver disease, as well as petit nature, likely chronically low, no evidence or symptoms of hypoperfusion - s/p 3 units of packed RBC Acute blood loss anemia: secondary to upper GI bleed possibly secondary to gastric and duodenal ulcers likely due to alcohol consumption - She has not seen a dr in years. 2 wk hx of watery black stools - EGD 11/08/18: small hiatal hernia, non bleeding gastric ulcers, portal hypertensive gastropathy, multiple non bleeding duodenal ulcers - s/p 3 units of packed RBC. - Protonix 40 mg PO once daily. Continue outpatient for 4-8 weeks (end 01/12/19) Transaminitis: likely 2/2 acute alcoholic hepatitis - No history of liver disease. Does consume about 4 glasses of alcohol each night, denies recent Tylenol use, no known hepatitis risk factors - CT: borderline hepatomegaly with fatty infiltration - US: marked fatty infiltration of the liver, no visceral venous thrombosis seen, sliver of ascites seen in the RUQ, sliver of L pleural fluid - Fatty Liver work-up negative for any rheumatological, infectious or medication induced - Alcohol cessation counseling provided Sacrum pressure injury stage 1 -c/w cushion, nystatin powder, Desitin, and Eucerin Coagulopathy: likely 2/2 acute liver failure (resolving) -s/p FFP and RBC transfusion for coagulopathy s/p Lactic acidosis Hyperuremia: possibly 2/2 pre-renal azotemia from active bleed (resolved) Anion gap metabolic acidosis: possibly 2/2 lactic acidosis vs increased BUN (resolved) Acute kidney injury: likely 2/2 hypovolemia (resolved) Anxiety/Depression -c/w Lexapro 10 mg and hydroxyzine Weakness 2/2 deconditioning - PT/OT Per ARU recommendations DVT prophylaxis - c/w Heparin VS,Fishbone, I+O VS, Fishbone, I+O Laboratory Tests 11/17/18 07:06 Calcium Level 7.3 L Vital Signs Date Time Temp Pulse Resp B/P (MAP) Pulse Ox O2 Delivery O2 Flow Rate FiO2 11/17/18 14:00 98.6 76 18 107/56 (32) 97 I&O- Last 24 Hours up to 6 AM 11/17/18 06:00 Intake Total 820 ml Output Total 2058 ml Balance -1238 ml KRISTINE RODRIGUEZ MD Nov 17, 2018 17:04
[2018-11-17 20:00] VITALS: BP 107/56
[2018-11-17] MEDS: hydrOXYzine 25 MG TAB PO SCH (21:18)
[2018-11-17] MEDS: LATANOPROST 0.005% OPHTH SOLN 2.5 ML OU SCH (21:19)
[2018-11-18 06:00] VITALS: BP 103/57
[2018-11-18 07:06] LABS: BLOOD UREA NITROGEN 4 MG/DL (7-18); CALCIUM LEVEL 7.4 MG/DL (8.5-10.1); CARBON DIOXIDE LEVEL 29 MEQ/L (21-32); CHLORIDE LEVEL 107 MEQ/L (98-107); CREATININE FOR GFR 0.55 MG/DL (0.55-1.30); GLOMERULAR FILTRATION RATE > 60.0 (>51); GLUCOSE, FASTING 64 MG/DL (70-100); POTASSIUM SERUM 3.9 MEQ/L (3.5-5.1); SODIUM LEVEL 141 MEQ/L (136-145)
[2018-11-18 08:00] VITALS: BP 106/56
--- NOTE | 2018-11-18 09:27 | REP ---
Abdomen: Two views. History: Abdomen pain. Findings: Bowel gas pattern is unremarkable with air and stool in a nondistended colon proximally and distally. There is some gas in the rectum with stool. No mass, organomegaly, or pathologic calcification is radiographically apparent. Psoas margins and flank stripes are intact. Impression: Normal bowel gas pattern. Negative KUB. Electronically Signed by Kiet Vazquez MD 11/17/2018 08:15 A
[2018-11-18] MEDS: POTASSIUM CHLORIDE 10 MEQ SR TABLET PO SCH (09:59)
[2018-11-18] MEDS: HEPARIN SOD (PORCINE) 5000 UNITS/ML VIAL SC SCH ×2 (09:59→20:38)
[2018-11-18] MEDS: MAGNESIUM OXIDE 400 MG TAB (MAG-OX) PO SCH ×2 (09:59→20:39)
[2018-11-18] MEDS: FUROSEMIDE 40 MG TAB PO SCH (09:59)
[2018-11-18] MEDS: MULTIVITAMINS/MINERALS THERAP 1 TAB PO SCH (09:59)
[2018-11-18] MEDS: PANTOPRAZOLE 40MG TAB (PROTONIX) PO SCH (09:59)
[2018-11-18] MEDS: ESCITALOPRAM OXALATE 10 MG TAB (LEXAPRO) PO SCH (10:00)
[2018-11-18] MEDS: BALMEX CREAM 60GM TOP SCH ×3 (10:10→20:39)
[2018-11-18] MEDS: NYSTATIN 100,000 UNITS/GM TOPICAL PWD 15 GM TOP SCH ×2 (10:10→20:39)
[2018-11-18] MEDS: EUCERIN 120GM CREAM TOP SCH ×3 (10:11→20:39)
--- NOTE | 2018-11-18 13:35 | IPNPDOC ---
Date Seen The patient was seen on 11/18/18. Progress Note Subjective: Patient is a 58-year-old female with a PMHx of HANNAH and lack of medical care for several years who presents to the ED with 4 days nausea, vomiting and black tarry stools. She was admitted with acute blood loss anemia. Because of her generalized Weakness 2/2 deconditioning PT recommended patient for ARU for continue rehab once she was medical stable.. Patient was transferred to ARU unit on 11/15/2018 and Hospitalist team was then consulted for continued management of medical problem. Patient was seen and examined at the bedside. Currently she has no new complaints. She denies any nausea, vomiting, abdominal pain, constipation, diarrhea or discomfort with urination.She is tolerating her food well and drinking the Ensure with every meals. She feels slightly bloated but she is diuresing adequately with the increased Lasix. Her lower extremity edema has improved. Objective: Vitals (See below) General: Pleasant 58-year-old female does not appear in acute distress of peripherally answering question. A&OX3 HEENT: EOMI, PERRLA, moist mucus membranes CARDIOVASCULAR: regular rate, normal S1 and S2. no murmurs, rales, or gallops. No JVD appreciated RESPIRATORY: Lungs CTA bilaterally. No rales, rhonchi, or wheezes ABDOMINAL: Soft nontender positive bowel sounds in all 4 quadrants EXTREMITIES: 1 pitting edema up up to ankle. Dry skin with cracking (improving) MUSCULOSKELETAL: moves all extremities well with normal ROM NEUROLOGICAL: CN 2-12 intact without any focal deficits appreciated PSYCHIATRIC: Appropriate affect, normal mood Assessment and plan: Bilateral LE edema: likely 2/2 hypoalbuminemia - PE: 2+ pitting edema of the LE, right>left, that is improving. Non erythematous - Unlikely CHF: no JVD, no murmurs or crackles on auscultation. CHF unlikely. - Low albumin possibly secondary to alcohol abuse. Supplement meals with Ensure. - c/w Lasix 40 mg PO + continue to supplement with potassium; can consider Spironolactone instead of potassium supplementation if potassium level is not adequate replenished Hypotension - likely chronic in nature - likely related to some degree of underlying liver disease, as well as petit nature, likely chronically low, no evidence or symptoms of hypoperfusion - s/p 3 units of packed RBC Acute blood loss anemia: secondary to upper GI bleed possibly secondary to gastric and duodenal ulcers likely due to alcohol consumption - She has not seen a dr in years. 2 wk hx of watery black stools - EGD 11/08/18: small hiatal hernia, non bleeding gastric ulcers, portal hypertensive gastropathy, multiple non bleeding duodenal ulcers - s/p 3 units of packed RBC. - Protonix 40 mg PO once daily. Continue outpatient for 4-8 weeks (end 01/12/19) Transaminitis: likely 2/2 acute alcoholic hepatitis - No history of liver disease. Does consume about 4 glasses of alcohol each night, denies recent Tylenol use, no known hepatitis risk factors - CT: borderline hepatomegaly with fatty infiltration - US: marked fatty infiltration of the liver, no visceral venous thrombosis seen, sliver of ascites seen in the RUQ, sliver of L pleural fluid - Fatty Liver work-up negative for any rheumatological, infectious or medication induced - Alcohol cessation counseling provided Sacrum pressure injury stage 1 -c/w cushion, nystatin powder, Desitin, and Eucerin Coagulopathy: likely 2/2 acute liver failure (resolving) -s/p FFP and RBC transfusion for coagulopathy s/p Lactic acidosis Hyperuremia: possibly 2/2 pre-renal azotemia from active bleed (resolved) Anion gap metabolic acidosis: possibly 2/2 lactic acidosis vs increased BUN (resolved) Acute kidney injury: likely 2/2 hypovolemia (resolved) Anxiety/Depression -c/w Lexapro 10 mg and hydroxyzine Weakness 2/2 deconditioning - PT/OT Per ARU recommendations DVT prophylaxis - c/w Heparin VS, I&O, 24H, [facility] Vital Signs/I&O Vital Signs Date Time Temp Pulse Resp B/P (MAP) Pulse Ox O2 Delivery O2 Flow Rate FiO2 11/18/18 08:00 98.0 86 16 106/56 (73) 96 I&O- Last 24 Hours up to 6 AM 11/18/18 06:00 Intake Total 1380 ml Output Total 200 ml Balance 1180 ml Laboratory Data 24H LABS Laboratory Tests 2 11/18/18 06:30: Anion Gap 5L, Glomerular Filtration Rate > 60.0, Blood Urea Nitrogen 4L, Creatinine 0.55, Sodium Level 141, Potassium Level 3.9, Chloride Level 107, Carbon Dioxide Level 29, Calcium Level 7.4L CBC/BMP Laboratory Tests 11/18/18 06:30 Calcium Level 7.4 L Microbiology Microbiology 11/16/18 Urine Culture - Final, Complete GME ATTESTATION GME ATTESTATION My faculty preceptor for this patient encounter was physically present during the encounter and was fully available. All aspects of the patient interview, examination, medical decision making process, and medical care plan development were reviewed and approved by the faculty preceptor. The faculty preceptor is aware and concurs with the plan as stated in the body of this note and will attest to such by his/her cosignature. ATTENDING NOTE I, Kaylin Rodriguez, have both independently examined this patient as well as rev iewed the documentation. I have discussed in detail with the resident the findings and plan of treatment as documented in the residents documentation. I will continue to follow the patient and offer further guidance to the patients care as necessary during this hospital stay. EROS RIDDLE DO Nov 18, 2018 13:34 KAYLIN RODRIGUEZ MD Nov 18, 2018 15:01
--- NOTE | 2018-11-18 13:55 | IPNPDOC ---
PM&R Progress Note DATE OF SERVICE: Nov 18, 2018 [employer] Progress Note Subjective: Patient had a sponge bath today and feels well, she is hesitant to use a cane as she feels unsteady on her feet. REVIEW OF SYSTEMS: The following is a completed review of systems and has been reviewed. Review of systems otherwise unremarkable. PAIN: Patient self reports no pain EYES: Negative for vision changes, +glasses EARS, NOSE, & THROAT: denied difficulty swallowing, rhinorrhea or tinnitus CARDIOVASCULAR: denies chest pain or palpitations PULMONARY: Negative. Denies shortness of breath GASTROINTESTINAL:+ loose stools, denied melena or nausea GENITOURINARY: Negative for dysuria MUSCULOSKELETAL: weakness NEUROLOGICAL: mild bilateral UE tremor HEMATOLOGICAL: +anemia SKIN: + flaking in all limbs PSYCHIATRIC: +anxiety All other review of systems found to be negative. PHYSICAL EXAMINATION: VITAL SIGNS: Please see below. GENERAL: Pleasant and cooperative. No acute distress. HEENT: PERRL. Extraocular movements intact. Clear conjunctiva CARDIOVASCULAR: Regular rate and rhythm. No murmurs, rubs, or gallops LUNGS: Clear to auscultation bilaterally. No wheezes. No rhonchi ABDOMEN: Soft, nontender, +mildly distended, mild hepatomegaly appreciated, Positive bowel sounds. Normal active bowel sounds NEUROLOGICAL: Alert and oriented times three. Cranial nerves II through XII grossly intact. Sensation grossly intact +bilateral UE intention tremor (-) asterixes EXTREMITIES: 5-\\5 strength bilateral upper extremities. 5-\\5 strength right low er extremity. 5-/5 strength in left lower extremity. SKIN: peeling/flaking skin covering body, +stage 2 sacral ulcer (patient reports this is from a "rug burn" when she slid on the floor at home to get up off the floor) ASSESSMENT:58-year-old F with past medical history of chronic ETOH abuse who presents status post melena found to have met SIRS criteria now with significant deconditioning. PLAN: 1. Rehab: PT/OT, assess for DME needs, patient anxious using cane, prefers RW, will c/u to work on advancing 2. Neuro: stable, monitor for DTs, avoid delirogenic medications-stable 3. Cardio: no known cardiac disease 4. Resp: stable, encourage incentive spirometry 5. GI: +fatty liver in setting of ETOH abuse with improving coagulopathy, s/p EGD On 4/5/19 with non-bleeding gastric and duodenal ulcers- f/u pathology in 1 week -recent UGIB with melena, s/p rbcs and FFP, c/u Protonix for ppx -lower extremity edema secondary to low albumin levels- c/u high protein diet and Lasix with potassium supplementation, medicine consulted to follow, potassium stable on current regimen 6. Psych: depression c/u Lexapro 7. ID: recent dx of SIRS, s/p course of doxycycline for cellulitis-stable 8. DVT ppx: c/u heparin 9. Extremities: c/u reggie-wrap legs for edema and elevate while in bed- better 10. Skin: c/u Balmex for sacral ulcer and Eucerin for extremities 8. Dispo: TBD Allergies Coded Allergies: Penicillins (Verified Allergy, Unknown, 11/06/18) Vital Signs Vital Signs Date Time Temp Pulse Resp B/P (MAP) Pulse Ox O2 Delivery O2 Flow Rate FiO2 11/18/18 08:00 98.0 86 16 106/56 (73) 96 Laboratory Data CBC/BMP Laboratory Tests 11/18/18 06:30 Calcium Level 7.4 L Labs 24H Laboratory Tests 2 11/18/18 06:30: Anion Gap 5L, Glomerular Filtration Rate > 60.0, Blood Urea Nitrogen 4L, Creatinine 0.55, Sodium Level 141, Potassium Level 3.9, Chloride Level 107, Carbon Dioxide Level 29, Calcium Level 7.4L Microbiology Microbiology 11/16/18 Urine Culture - Final, Complete Current Medications Current Medications Current Medications Acetaminophen (Tylenol Tab) 650 mg Q8H PRN PO fever/MILD PAIN (PS 1-4); Start 11/15/18 at 14:00 Al Hydrox/Mg Hydrox/Simethicone (Mylanta) 30 ml Q4HP PRN PO DYSPEPSIA; Start 11/15/18 at 14:00 Bisacodyl (Dulcolax Tab) 5 mg DAILYPRN PRN PO CONSTIPATION; Start 11/15/18 at 14:00 Escitalopram Oxalate (Lexapro) 10 mg DAILY PO Last administered on 11/18/18at 10:00; Start 11/16/18 at 09:00 Furosemide (Lasix) 20 mg DAILY PO Last administered on 11/16/18at 09:22; Start 11/16/18 at 09:00; Stop 11/16/18 at 16:02; Status DC Furosemide (Lasix) 40 mg DAILY PO Last administered on 11/18/18 09:59; Start 11/17/18 at 09:00 Heparin Sodium (Porcine) (Heparin) 5,000 units Q12H SC Last administered on 11/18/18 09:59; Start 11/15/18 at 21:00 Hydroxyzine HCl (Atarax) 25 mg QHS PO Last administered on 11/17/18 21:18; Start 11/15/18 at 21:00 Latanoprost (Xalatan 0.005% Op Soln) 1 drop QHS OU Last administered on 11/17/18 21:19; Start 11/15/18 at 21:00 Magnesium Hydroxide (Milk Of Magnesia) 30 ml DAILYPRN PRN PO CONSTIPATION; Start 11/15/18 at 14:00 Magnesium Oxide (Mag-Ox) 400 mg BID PO Last administered on 11/18/18 09:59; Start 11/15/18 at 21:00 Mineral Oil/White Petrolatum (Eucerin) 1 dose TID TOP Last administered on 11/17/18 21:19; Start 11/15/18 at 16:00 Mineral Oil/White Petrolatum (Eucerin) Apply Eucerin cream to... BID TOP ; Start 11/17/18 at 09:00; Stop 11/17/18 at 13:41; Status DC Multivitamins (Theragram-M) 1 tab DAILY PO Last administered on 11/18/18 09:59; Start 11/16/18 at 09:00 Nystatin (Mycostatin Powder, Nystop) 1 dose BID TOP Last administered on 11/18/18at 10:10; Start 11/15/18 at 21:00 Ondansetron HCl (Zofran) 4 mg Q6HP PRN PO NAUSEA; Start 11/15/18 at 14:00 Pantoprazole Sodium (Protonix) 40 mg DAILY PO Last administered on 11/18/18 09:59; Start 11/16/18 at 09:00 Potassium Chloride (Micro-K Extencaps) 40 meq DAILY PO Last administered on 11/18/18 09:59; Start 11/16/18 at 09:00 Zinc Oxide (Balmex Cream) 1 dose TID TOP Last administered on 11/18/18at 10:10; Start 11/15/18 at 16:00 DELONTE BILLS MD Nov 18, 2018 13:55
[2018-11-18 14:00] VITALS: BP 105/59
[2018-11-18 20:00] VITALS: BP 106/56
[2018-11-18] MEDS: hydrOXYzine 25 MG TAB PO SCH (20:39)
[2018-11-18] MEDS: LATANOPROST 0.005% OPHTH SOLN 2.5 ML OU SCH (20:39)
[2018-11-19 06:00] VITALS: BP 102/55
[2018-11-19 06:52] LABS: BASO # 0.1 10^3/uL (0.0-0.2); BASO % 1.6 % (0.0-1.0); EOS # 0.2 10^3/uL (0.0-0.50); EOS % 2.3 % (0.0-3.0); HEMATOCRIT 27.1 % (36.0-47.0); HEMOGLOBIN 8.8 g/dl (12.0-15.5); LYMPH # 2.8 10^3/uL (1.5-4.5); LYMPH % 33.4 % (24.0-44.0); MEAN CORPUSCULAR HGB CONC 32.5 g/dl (32.0-36.5); MEAN CORPUSCULAR VOLUME 104.6 fl (80.0-96.0); MONO % 12.5 % (0.0-5.0); NEUTROPHILS # 4.1 10^3/uL (1.8-7.7); NEUTROPHILS % 49.8 % (36.0-66.0); PLATELET COUNT, AUTOMATED 399 10^3/uL (150-450); RED BLOOD COUNT 2.59 10^6/uL (4.00-5.40); WHITE BLOOD COUNT 8.3 10^3/uL (4.0-10.0)
--- NOTE | 2018-11-19 08:13 | IPNPDOC ---
"Date Seen The patient was seen on 11/19/18. Progress Note Subjective: Patient was seen and examined at the bedside. Denies brbpr, black tarry stools. c/o feeling full and increasing abdominal distension without nausea, vomiting, fever or chills. Despite fatty liver and coagulopathy, pt has no icterus or jaundice. She has stopped ETOH use several years ago. Objective: Vitals (See below) General: Lying in bed, no acute distress, comfortable, AAOx3 HEENT: NC, AT CVS: RRR, +S1S2 Lungs: Fair air entry b/l, -w/r/r Abdomen: Soft, ND, NT Extremities: 1+ pitting edema, - Calf tenderness Laboratory data, imaging studies, microbiology: reviewed, pls see below Assessment and plan: Patient is a 58-year-old female with a PMHx of HANNAH and lack of medical care for several years who presents to the ED with 4 days nausea, vomiting and black tarry stools. She was admitted with acute blood loss anemia. On admission she met SIRS criteria and was hemodynamically stabilized. She received 3 units of packed RBC and 1 unit FFP. Once stabilized, gastroenterology was consulted and EGD was performed that revealed non-bleeding gastric ulcers with no stigmata of bleeding, portal hypertensive gastropathy, multiple non-bleeding duodenal ulcers. Patient was placed on Protonix 40 mg PO once daily and could be continued on this dose for 4-8 weeks (end 01/12/19). Patient was also found to have an elevated AST / ALT and a full workup was completed for transaminitis to rule out possible infectious, inflammatory, and autoimmune conditions. The patient was diagnosed with acute alcoholic hepatitis and counseled on alcohol cessation. The patient developed bilateral LE edema which was attributed to hypoalbuminemia and her diet was supplemented with Ensure protein as well as receiving IV and PO Lasix. During hospitalization patient's history of ichthyosis was treated with Eucerin lotion with improvement. Patient and family expressed the need for management of depression, anxiety, and sleep disturbances, she was started on Lexapro and hydroxyzine. Because of her generalized Weakness 2/2 deconditioning PT recommended patient for ARU for continue rehab. Patient was transferred to ARU unit on 11/15/2018 and Hospitalist team was then consulted for continued management of medical problem. Hypoalbuminemia - PE: 2+ pitting edema of the LE, right>left, that is improving. Non erythematous - Unlikely CHF: no JVD, no murmurs or crackles on auscultation. CHF unlikely. - Low albumin possibly secondary to alcohol abuse. Supplement meals with Ensure. - c/w Lasix 40 mg PO + continue to supplement with potassium; will consider Spironolactone instead of potassium supplementation based on AM labs Hypotension - likely chronic in nature - likely related to some degree of underlying liver disease, as well as petit nature, likely chronically low, no evidence or symptoms of hypoperfusion - s/p 3 units of packed RBC Acute blood loss anemia: secondary to upper GI bleed possibly secondary to gastric and duodenal ulcers likely due to alcohol consumption - She has not seen a dr in years. 2 wk hx of watery black stools - EGD 11/08/18: small hiatal hernia, non bleeding gastric ulcers, portal hypertensive gastropathy, multiple non bleeding duodenal ulcers - s/p 3 units of packed RBC. - Protonix 40 mg PO once daily. Continue outpatient for 4-8 weeks (end 01/12/19) upper GI bleed possibly secondary to gastric and duodenal ulcers l - She has not seen a dr in years. 2 wk hx of watery black stools - EGD 11/08/18: small hiatal hernia, non bleeding gastric ulcers, portal hypertensive gastropathy, multiple non bleeding duodenal ulcers - s/p 3 units of packed RBC. - Protonix 40 mg PO once daily. Continue outpatient for 4-8 weeks (end 01/12/19)| Small hiatal hernia, non bleeding gastric ulcers, portal hypertensive gastropathy, multiple non bleeding duodenal ulcers - s/p 3 units of packed RBC. - Protonix 40 mg PO once daily. Continue outpatient for 4-8 weeks (end 01/12/19)| hepatomegaly with fatty infiltration -with transaminitis - No history of liver disease. Does consume about 4 glasses of alcohol each night, denies recent Tylenol use, no known hepatitis risk factors - CT: borderline hepatomegaly with fatty infiltration - US: marked fatty infiltration of the liver, no visceral venous thrombosis seen, sliver of ascites seen in the RUQ, sliver of L pleural fluid - Fatty Liver work-up negative for any rheumatological, infectious or medication induced - Alcohol cessation counseling provided -Discussed avoiding hepatotoxins : ETOH, acetaminophen. -outpt GI referral to be made by her pcp for monitoring. Alcoholic hepatitis -with transaminitis - No history of liver disease. Does consume about 4 glasses of alcohol each night, denies recent Tylenol use, no known hepatitis risk factors - CT: borderline hepatomegaly with fatty infiltration - US: marked fatty infiltration of the liver, no visceral venous thrombosis seen, sliver of ascites seen in the RUQ, sliver of L pleural fluid - Fatty Liver work-up negative for any rheumatological, infectious or medication induced - Alcohol cessation counseling provided Sacrum pressure injury stage 1 -c/w cushion, nystatin powder, Desitin, and Eucerin Coagulopathy: likely 2/2 acute liver failure (resolving) -s/p FFP and RBC transfusion for coagulopathy s/p Lactic acidosis Hyperuremia: possibly 2/2 pre-renal azotemia from active bleed (resolved) Anion gap metabolic acidosis: possibly 2/2 lactic acidosis vs increased BUN (resolved) Acute kidney injury: likely 2/2 hypovolemia (resolved) Anxiety/Depression -c/w Lexapro 10 mg and hydroxyzine Weakness 2/2 deconditioning - PT/OT Per ARU recommendations DVT prophylaxis - c/w Heparin VS, I&O, 24H, [facility] Vital Signs/I&O Vital Signs Date Time Temp Pulse Resp B/P (MAP) Pulse Ox O2 Delivery O2 Flow Rate FiO2 11/19/18 06:00 98.0 81 18 102/55 (71) 98 I&O- Last 24 Hours up to 6 AM 11/19/18 05:59 Intake Total 1220 ml Output Total 1075 ml Balance 145 ml Laboratory Data 24H LABS Laboratory Tests 2 11/19/18 06:26: Immature Granulocyte % (Auto) 0.4, White Blood Count 8.3, Red Blood Count 2.59L, Hemoglobin 8.8L, Hematocrit 27.1L, Mean Corpuscular Volume 104.6H, Mean Corpus cular Hemoglobin 34.0H, Mean Corpuscular Hemoglobin Concent 32.5, Red Cell Distribution Width 18.5H, Platelet Count 399, Neutrophils (%) (Auto) 49.8, Lymphocytes (%) (Auto) 33.4, Monocytes (%) (Auto) 12.5H, Eosinophils (%) (Auto) 2.3, Basophils (%) (Auto) 1.6H, Neutrophils # (Auto) 4.1, Lymphocytes # (Auto) 2.8, Monocytes # (Auto) 1.0H, Eosinophils # (Auto) 0.2, Basophils # (Auto) 0.1, Nucleated Red Blood Cells % (auto) 0.0 CBC/BMP Laboratory Tests 11/19/18 06:26 Red Blood Count 2.59 L, Mean Corpuscular Volume 104.6 H, Mean Corpuscular Hemoglobin 34.0 H, Mean Corpuscular Hemoglobin Concent 32.5, Red Cell Distribution Width 18.5 H, Neutrophils (%) (Auto) 49.8, Lymphocytes (%) (Auto) 33.4, Monocytes (%) (Auto) 12.5 H, Eosinophils (%) (Auto) 2.3, Basophils (%) (Auto) 1.6 H, Neutrophils # (Auto) 4.1, Lymphocytes # (Auto) 2.8, Monocytes # (Auto) 1.0 H, Eosinophils # (Auto) 0.2, Basophils # (Auto) 0.1 Microbiology Microbiology 11/16/18 Urine Culture - Final, Complete JANICE RANDLE MD Nov 19, 2018 07:42"
[2018-11-19] MEDS: POTASSIUM CHLORIDE 10 MEQ SR TABLET PO SCH (08:30)
[2018-11-19] MEDS: HEPARIN SOD (PORCINE) 5000 UNITS/ML VIAL SC SCH ×2 (08:30→20:32)
[2018-11-19] MEDS: MULTIVITAMINS/MINERALS THERAP 1 TAB PO SCH (08:31)
[2018-11-19] MEDS: BALMEX CREAM 60GM TOP SCH ×3 (08:31→20:33)
[2018-11-19] MEDS: PANTOPRAZOLE 40MG TAB (PROTONIX) PO SCH (08:31)
[2018-11-19] MEDS: MAGNESIUM OXIDE 400 MG TAB (MAG-OX) PO SCH ×2 (08:31→20:32)
[2018-11-19] MEDS: FUROSEMIDE 40 MG TAB PO SCH (08:31)
[2018-11-19] MEDS: ESCITALOPRAM OXALATE 10 MG TAB (LEXAPRO) PO SCH (08:31)
[2018-11-19] MEDS: EUCERIN 120GM CREAM TOP SCH ×3 (08:32→20:32)
[2018-11-19] MEDS: NYSTATIN 100,000 UNITS/GM TOPICAL PWD 15 GM TOP SCH ×2 (08:32→20:33)
[2018-11-19 14:00] VITALS: BP 107/55
--- NOTE | 2018-11-19 16:36 | IPNPDOC ---
PM&R Progress Note DATE OF SERVICE: Nov 19, 2018 Super[facility] Progress Note Subjective: Patient seen with daughter in the room, states she is willing to go home with mother and progress from there. REVIEW OF SYSTEMS: The following is a completed review of systems and has been reviewed. Review of systems otherwise unremarkable. PAIN: Patient self reports no pain EYES: Negative for vision changes, +glasses EARS, NOSE, & THROAT: denied difficulty swallowing, rhinorrhea or tinnitus CARDIOVASCULAR: denies chest pain or palpitations PULMONARY: Negative. Denies shortness of breath GASTROINTESTINAL:+ loose stools, denied melena or nausea GENITOURINARY: Negative for dysuria MUSCULOSKELETAL: weakness NEUROLOGICAL: mild bilateral UE tremor HEMATOLOGICAL: +anemia SKIN: + flaking in all limbs PSYCHIATRIC: +anxiety All other review of systems found to be negative. PHYSICAL EXAMINATION: VITAL SIGNS: Please see below. GENERAL: Pleasant and cooperative. No acute distress. HEENT: PERRL. Extraocular movements intact. Clear conjunctiva CARDIOVASCULAR: Regular rate and rhythm. No murmurs, rubs, or gallops LUNGS: Clear to auscultation bilaterally. No wheezes. No rhonchi ABDOMEN: Soft, nontender, +mildly distended, mild hepatomegaly appreciated, Positive bowel sounds. Normal active bowel sounds NEUROLOGICAL: Alert and oriented times three. Cranial nerves II through XII grossly intact. Sensation grossly intact +bilateral UE intention tremor (-) asterixes EXTREMITIES: 5-\\5 strength bilateral upper extremities. 5-\\5 strength right lower extremity. 5-/5 strength in left lower extremity. SKIN: peeling/flaking skin covering body, +stage 2 sacral ulcer (patient reports this is from a "rug burn" when she slid on the floor at home to get up off the floor) ASSESSMENT:58-year-old F with past medical history of chronic ETOH abuse who pr esents status post melena found to have met SIRS criteria now with significant deconditioning. PLAN: 1. Rehab: PT/OT, assess for DME needs, patient anxious using cane, prefers RW, will c/u to work on advancing 2. Neuro: stable, monitor for DTs, avoid delirogenic medications-stable 3. Cardio: no known cardiac disease 4. Resp: stable, encourage incentive spirometry 5. GI: +fatty liver in setting of ETOH abuse with improving coagulopathy, s/p EGD On 11/08/18 with non-bleeding gastric and duodenal ulcers- f/u pathology in 1 week-will need o/p GI followup -recent UGIB with melena, s/p rbcs and FFP, c/u Protonix for ppx -lower extremity edema secondary to low albumin levels- c/u high protein diet a nd Lasix with potassium supplementation, medicine consulted to follow, potassium stable on current regimen 6. Psych: depression c/u Lexapro 7. ID: recent dx of SIRS, s/p course of doxycycline for cellulitis-stable 8. DVT ppx: c/u heparin 9. Extremities: c/u reggie-wrap legs for edema and elevate while in bed- better 10. Skin: c/u Balmex for sacral ulcer and Eucerin for extremities 8. Dispo: 11/25/18 to home with her mother, progressing towards goals, will attempt to se tup addiction counseling if patient permits prior to discharge to help with ETOH cessation Allergies Coded Allergies: Penicillins (Verified Allergy, Unknown, 11/06/18) Vital Signs Vital Signs Date Time Temp Pulse Resp B/P (MAP) Pulse Ox O2 Delivery O2 Flow Rate FiO2 11/19/18 14:00 98.2 76 18 107/55 (72) 97 Laboratory Data CBC/BMP Laboratory Tests 11/19/18 06:26 Red Blood Count 2.59 L, Mean Corpuscular Volume 104.6 H, Mean Corpuscular Hemoglobin 34.0 H, Mean Corpuscular Hemoglobin Concent 32.5, Red Cell Distribution Width 18.5 H, Neutrophils (%) (Auto) 49.8, Lymphocytes (%) (Auto) 33.4, Monocytes (%) (Auto) 12.5 H, Eosinophils (%) (Auto) 2.3, Basophils (%) (Auto) 1.6 H, Neutrophils # (Auto) 4.1, Lymphocytes # (Auto) 2.8, Monocytes # (Auto) 1.0 H, Eosinophils # (Auto) 0.2, Basophils # (Auto) 0.1 Labs 24H Laboratory Tests 2 11/19/18 06:26: Immature Granulocyte % (Auto) 0.4, White Blood Count 8.3, Red Blood Count 2.59L, Hemoglobin 8.8L, Hematocrit 27.1L, Mean Corpuscular Volume 104.6H, Mean Corpuscular Hemoglobin 34.0H, Mean Corpuscular Hemoglobin Concent 32.5, Red Cell Distribution Width 18.5H, Platelet Count 399, Neutrophils (%) (Auto) 49.8, Ly mphocytes (%) (Auto) 33.4, Monocytes (%) (Auto) 12.5H, Eosinophils (%) (Auto) 2.3, Basophils (%) (Auto) 1.6H, Neutrophils # (Auto) 4.1, Lymphocytes # (Auto) 2.8, Monocytes # (Auto) 1.0H, Eosinophils # (Auto) 0.2, Basophils # (Auto) 0.1, Nucleated Red Blood Cells % (auto) 0.0 Microbiology Microbiology 11/16/18 Urine Culture - Final, Complete Current Medications Current Medications Current Medications Acetaminophen (Tylenol Tab) 650 mg Q8H PRN PO fever/MILD PAIN (PS 1-4); Start 11/15/18 at 14:00 Al Hydrox/Mg Hydrox/Simethicone (Mylanta) 30 ml Q4HP PRN PO DYSPEPSIA; Start 11/15/18 at 14:00 Bisacodyl (Dulcolax Tab) 5 mg DAILYPRN PRN PO CONSTIPATION; Start 11/15/18 at 14:00 Escitalopram Oxalate (Lexapro) 10 mg DAILY PO Last administered on 11/19/18 08:31; Start 11/16/18 at 09:00 Furosemide (Lasix) 20 mg DAILY PO Last administered on 11/16/18at 09:22; Start 11/16/18 at 09:00; Stop 11/16/18 at 16:02; Status DC Furosemide (Lasix) 40 mg DAILY PO Last administered on 11/19/18 08:31; Start 11/17/18 at 09:00 Heparin Sodium (Porcine) (Heparin) 5,000 units Q12H SC Last administered on 11/19/18 08:30; Start 11/15/18 at 21:00 Hydroxyzine HCl (Atarax) 25 mg QHS PO Last administered on 11/18/18at 20:39; Start 11/15/18 at 21:00 Latanoprost (Xalatan 0.005% Op Soln) 1 drop QHS OU Last administered on 11/18/18 20:39; Start 11/15/18 at 21:00 Magnesium Hydroxide (Milk Of Magnesia) 30 ml DAILYPRN PRN PO CONSTIPATION; Start 11/15/18 at 14:00 Magnesium Oxide (Mag-Ox) 400 mg BID PO Last administered on 11/19/18 08:31; Start 11/15/18 at 21:00 Mineral Oil/White Petrolatum (Eucerin) 1 dose TID TOP Last administered on 11/19/18 08:32; Start 11/15/18 at 16:00 Mineral Oil/White Petrolatum (Eucerin) Apply Eucerin cream to... BID TOP ; Start 11/17/18 at 09:00; Stop 11/17/18 at 13:41; Status DC Multivitamins (Theragram-M) 1 tab DAILY PO Last administered on 11/19/18 08:31; Start 11/16/18 at 09:00 Nystatin (Mycostatin Powder, Nystop) 1 dose BID TOP Last administered on 11/19/18 08:32; Start 11/15/18 at 21:00 Ondansetron HCl (Zofran) 4 mg Q6HP PRN PO NAUSEA; Start 11/15/18 at 14:00 Pantoprazole Sodium (Protonix) 40 mg DAILY PO Last administered on 11/19/18 08:31; Start 11/16/18 at 09:00 Potassium Chloride (Micro-K Extencaps) 40 meq DAILY PO Last administered on 11/19/18 08:30; Start 11/16/18 at 09:00 Zinc Oxide (Balmex Cream) 1 dose TID TOP Last administered on 11/19/18 08:31; Start 11/15/18 at 16:00 DELONTE BILLS MD Nov 19, 2018 16:36
[2018-11-19 20:00] VITALS: BP 108/55
[2018-11-19] MEDS: hydrOXYzine 25 MG TAB PO SCH (20:32)
[2018-11-19] MEDS: LATANOPROST 0.005% OPHTH SOLN 2.5 ML OU SCH (20:33)
[2018-11-20 06:00] VITALS: BP 102/55
[2018-11-20] MEDS: MAGNESIUM OXIDE 400 MG TAB (MAG-OX) PO SCH ×2 (08:37→20:58)
[2018-11-20] MEDS: ESCITALOPRAM OXALATE 10 MG TAB (LEXAPRO) PO SCH (08:38)
[2018-11-20] MEDS: HEPARIN SOD (PORCINE) 5000 UNITS/ML VIAL SC SCH ×2 (08:38→20:58)
[2018-11-20] MEDS: FUROSEMIDE 40 MG TAB PO SCH (08:38)
[2018-11-20] MEDS: MULTIVITAMINS/MINERALS THERAP 1 TAB PO SCH (08:38)
[2018-11-20] MEDS: POTASSIUM CHLORIDE 10 MEQ SR TABLET PO SCH (08:38)
[2018-11-20] MEDS: PANTOPRAZOLE 40MG TAB (PROTONIX) PO SCH (08:38)
[2018-11-20] MEDS: NYSTATIN 100,000 UNITS/GM TOPICAL PWD 15 GM TOP SCH ×2 (08:39→20:58)
[2018-11-20] MEDS: EUCERIN 120GM CREAM TOP SCH ×3 (08:39→20:59)
[2018-11-20] MEDS: BALMEX CREAM 60GM TOP SCH ×3 (08:40→20:59)
[2018-11-20 09:31] LABS: HEMATOCRIT 27.1 % (36.0-47.0); HEMOGLOBIN 9.3 g/dl (12.0-15.5); MEAN CORPUSCULAR HEMOGLOBIN 36.6 pg (27.0-33.0); MEAN CORPUSCULAR HGB CONC 34.3 g/dl (32.0-36.5); MEAN CORPUSCULAR VOLUME 106.7 fl (80.0-96.0); PLATELET COUNT, AUTOMATED 375 10^3/uL (150-450); RED BLOOD COUNT 2.54 10^6/uL (4.00-5.40); WHITE BLOOD COUNT 6.7 10^3/uL (4.0-10.0)
[2018-11-20 09:49] LABS: INR 0.96; PARTIAL THROMBOPLASTIN TIME 22.3 SECONDS (25.4-37.6); PROTHROMBIN TIME 12.9 SECONDS (12.1-14.4)
[2018-11-20 09:58] LABS: ALBUMIN 1.7 GM/DL (3.2-5.2); ALT/SGPT 37 U/L (12-78); BILIRUBIN,TOTAL 0.7 MG/DL (0.2-1.0); BLOOD UREA NITROGEN 5 MG/DL (7-18); CALCIUM LEVEL 7.8 MG/DL (8.5-10.1); CARBON DIOXIDE LEVEL 29 MEQ/L (21-32); CHLORIDE LEVEL 106 MEQ/L (98-107); CREATININE FOR GFR 0.67 MG/DL (0.55-1.30); GLOMERULAR FILTRATION RATE > 60.0 (>51); GLUCOSE, FASTING 120 MG/DL (70-100); NT-PRO BNP 1113 PG/ML (<125); POTASSIUM SERUM 3.5 MEQ/L (3.5-5.1); SODIUM LEVEL 140 MEQ/L (136-145); TOTAL PROTEIN 6.2 GM/DL (6.4-8.2)
--- NOTE | 2018-11-20 12:28 | IPNPDOC ---
PM&R Progress Note DATE OF SERVICE: Nov 20, 2018 Visitor Service Assistant Progress Note Subjective: Patient seen in room stating she feels she is getting stronger and is sleeping well. Her legs feel less heavy. REVIEW OF SYSTEMS: The following is a completed review of systems and has been reviewed. Review of systems otherwise unremarkable. PAIN: Patient self reports no pain EYES: Negative for vision changes, +glasses EARS, NOSE, & THROAT: denied difficulty swallowing, rhinorrhea or tinnitus CARDIOVASCULAR: denies chest pain or palpitations PULMONARY: Negative. Denies shortness of breath GASTROINTESTINAL:+ loose stools, denied melena or nausea GENITOURINARY: Negative for dysuria MUSCULOSKELETAL: weakness NEUROLOGICAL: mild bilateral UE tremor HEMATOLOGICAL: +anemia SKIN: + flaking in all limbs PSYCHIATRIC: +anxiety All other review of systems found to be negative. PHYSICAL EXAMINATION: VITAL SIGNS: Please see below. GENERAL: Pleasant and cooperative. No acute distress. HEENT: PERRL. Extraocular movements intact. Clear conjunctiva CARDIOVASCULAR: Regular rate and rhythm. No murmurs, rubs, or gallops LUNGS: Clear to auscultation bilaterally. No wheezes. No rhonchi ABDOMEN: Soft, nontender, +mildly distended, mild hepatomegaly appreciated, Positive bowel sounds. Normal active bowel sounds NEUROLOGICAL: Alert and oriented times three. Cranial nerves II through XII grossly intact. Sensation grossly intact +bilateral UE intention tremor (resolved) (-) asterixes EXTREMITIES: 5-\\5 strength bilateral upper extremities. 5-\\5 strength right lower extremity. 5-/5 strength in left lower extremity. bilateral LE edema- improving SKIN: peeling/flaking skin covering body, +stage 2 sacral ulcer (patient reports this is from a "rug burn" when she slid on the floor at home to get up off the floor) ASSESSMENT:58-year-old F with past medical history of chronic ETOH abuse who presents status post melena found to have met SIRS criteria now with significant deconditioning. PLAN: 1. Rehab: PT/OT, assess for DME needs, patient anxious using cane, prefers RW, will c/u to work on advancing 2. Neuro: stable, monitor for DTs, avoid delirogenic medications-stable 3. Cardio: no known cardiac disease 4. Resp: stable, encourage incentive spirometry 5. GI: +fatty liver in setting of ETOH abuse with improving coagulopathy, s/p EGD On 4/5/19 with non-bleeding gastric and duodenal ulcers- f/u pathology in 1 week-will need o/p GI followup -recent UGIB with melena, s/p rbcs and FFP, c/u Protonix for ppx -lower extremity edema secondary to low albumin levels- c/u high protein diet and Lasix with potassium supplementation, medicine consulted to follow, potassium stable on current regimen 6. Psych: depression c/u Lexapro 7. ID: recent dx of SIRS, s/p course of doxycycline for cellulitis-stable 8. DVT ppx: c/u heparin 9. Extremities: c/u reggie-wrap legs for edema and elevate while in bed- better 10. Skin: c/u Balmex for sacral ulcer and Eucerin for extremities 8. Dispo: 11/25/18 to home with her mother, progressing towards goals, will at tempt to se tup addiction counseling if patient permits prior to discharge to help with ETOH cessation Allergies Coded Allergies: Penicillins (Verified Allergy, Unknown, 11/06/18) Vital Signs Vital Signs Date Time Temp Pulse Resp B/P (MAP) Pulse Ox O2 Delivery O2 Flow Rate FiO2 11/20/18 06:00 98.5 86 17 102/55 (71) 95 Laboratory Data CBC/BMP Laboratory Tests 11/20/18 09:13 Red Blood Count 2.54 L, Mean Corpuscular Volume 106.7 H, Mean Corpuscular Hemoglobin 36.6 H, Mean Corpuscular Hemoglobin Concent 34.3, Red Cell Distribution Width 18.5 H, Calcium Level 7.8 L, Aspartate Amino Transf (AST/SGOT) 67 H, Alanine Aminotransferase (ALT/SGPT) 37, Alkaline Phosphatase 119 H, Total Bilirubin 0.7, Total Protein 6.2 L, Albumin 1.7 L Labs 24H Laboratory Tests 2 11/20/18 09:13: Nucleated Red Blood Cells % (auto) 0.0, Prothrombin Time 12.9, Prothromb Time International Ratio 0.96, Activated Partial Thromboplast Time 22.3L, Anion Gap 5L, Glomerular Filtration Rate > 60.0, Blood Urea Nitrogen 5L, Creatinine 0.67, Sodium Level 140, Potassium Level 3.5, Chloride Level 106, Carbon Dioxide Level 29, Calcium Level 7.8L, Aspartate Amino Transf (AST/SGOT) 67H, Alanine Aminotransferase (ALT/SGPT) 37, Alkaline Phosphatase 119H, Total Bilirubin 0.7, Total Protein 6.2L, Albumin 1.7L, Ammonia 32, LD-Qhc-W-Type Natriuretic Peptide 1113H, Albumin/Globulin Ratio 0.38L Microbiology Microbiology 11/16/18 Urine Culture - Final, Complete Current Medications Current Medications Current Medications Acetaminophen (Tylenol Tab) 650 mg Q8H PRN PO fever/MILD PAIN (PS 1-4); Start 11/15/18 at 14:00 Al Hydrox/Mg Hydrox/Simethicone (Mylanta) 30 ml Q4HP PRN PO DYSPEPSIA; Start 11/15/18 at 14:00 Bisacodyl (Dulcolax Tab) 5 mg DAILYPRN PRN PO CONSTIPATION; Start 11/15/18 at 14:00 Escitalopram Oxalate (Lexapro) 10 mg DAILY PO Last administered on 11/20/18 08:38; Start 11/16/18 at 09:00 Furosemide (Lasix) 20 mg DAILY PO Last administered on 11/16/18 09:22; Start 11/16/18 at 09:00; Stop 11/16/18 at 16:02; Status DC Furosemide (Lasix) 40 mg DAILY PO Last administered on 11/20/18 08:38; Start 11/17/18 at 09:00 Heparin Sodium (Porcine) (Heparin) 5,000 units Q12H SC Last administered on 11/20/18 08:38; Start 11/15/18 at 21:00 Hydroxyzine HCl (Atarax) 25 mg QHS PO Last administered on 11/19/18 20:32; Start 11/15/18 at 21:00 Latanoprost (Xalatan 0.005% Op Soln) 1 drop QHS OU Last administered on 11/19/18 20:33; Start 11/15/18 at 21:00 Magnesium Hydroxide (Milk Of Magnesia) 30 ml DAILYPRN PRN PO CONSTIPATION; Start 11/15/18 at 14:00 Magnesium Oxide (Mag-Ox) 400 mg BID PO Last administered on 11/20/18 08:37; Start 11/15/18 at 21:00 Mineral Oil/White Petrolatum (Eucerin) 1 dose TID TOP Last administered on 11/20/18 08:39; Start 11/15/18 at 16:00 Mineral Oil/White Petrolatum (Eucerin) Apply Eucerin cream to... BID TOP ; S tart 11/17/18 at 09:00; Stop 11/17/18 at 13:41; Status DC Multivitamins (Theragram-M) 1 tab DAILY PO Last administered on 11/20/18 08:38; Start 11/16/18 at 09:00 Nystatin (Mycostatin Powder, Nystop) 1 dose BID TOP Last administered on 11/20/18 08:39; Start 11/15/18 at 21:00 Ondansetron HCl (Zofran) 4 mg Q6HP PRN PO NAUSEA; Start 11/15/18 at 14:00 Pantoprazole Sodium (Protonix) 40 mg DAILY PO Last administered on 11/20/18 08:38; Start 11/16/18 at 09:00 Potassium Chloride (Micro-K Extencaps) 40 meq DAILY PO Last administered on 11/20/18 08:38; Start 11/16/18 at 09:00 Zinc Oxide (Balmex Cream) 1 dose TID TOP Last administered on 11/20/18 08:40; Start 11/15/18 at 16:00 DELONTE BILLS MD Nov 20, 2018 12:28
[2018-11-20 14:00] VITALS: BP 102/55
--- NOTE | 2018-11-20 14:20 | IPNPDOC ---
"Date Seen The patient was seen on 11/20/18. Progress Note Subjective: Patient was seen and examined at the bedside. She has been working well with physical therapy. Denies brbpr, black tarry stools. Despite trying small more frequent meals and smaller portions, still c/o feeling full and increasing abdominal distension without nausea, vomiting, fever or chills.no sob, chest pain,pressure or tightness. Despite fatty liver and coagulopathy, pt has no icterus or jaundice. She has stopped ETOH use several years ago. Objective: Vitals (See below) General: Lying in bed, no acute distress, comfortable, AAOx3 HEENT: NC, AT CVS: RRR, +S1S2 Lungs: Fair air entry b/l, -w/r/r Abdomen: Soft, ND, NT, Extremities: 1+ pitting edema, - Calf tenderness Laboratory data, imaging studies, microbiology: reviewed, pls see below Assessment and plan: Patient is a 58-year-old female with a PMHx of HANNAH and lack of medical care for several years who presents to the ED with 4 days nausea, vomiting and black tarry stools. She was admitted with acute blood loss anemia. On admission she met SIRS criteria and was hemodynamically stabilized. She received 3 units of packed RBC and 1 unit FFP. Once stabilized, gastroenterology was consulted and EGD was performed that revealed non-bleeding gastric ulcers with no stigmata of bleeding, portal hypertensive gastropathy, multiple non-bleeding duodenal ulcers. Patient was placed on Protonix 40 mg PO once daily and could be continued on this dose for 4-8 weeks (end 01/12/19). Patient was also found to have an elevated AST / ALT and a full workup was completed for transaminitis to rule out possible infectious, inflammatory, and autoimmune conditions. The patient was diagnosed with acute alcoholic hepatitis and counseled on alcohol cessation. The patient developed bilateral LE edema which was attributed to hypoalbuminemia and her diet was supplemented with Ensure protein as well as receiving IV and PO Lasix. During hospitalization patient's history of ichthyosis was treated with Eucerin lotion with improvement. Patient and family expressed the need for management of depression, anxiety, and sleep d isturbances, she was started on Lexapro and hydroxyzine. Because of her generalized Weakness 2/2 deconditioning PT recommended patient for ARU for continue rehab. Patient was transferred to ARU unit on 11/15/2018 and Hospitalist team was then consulted for continued management of medical problem. Hypoalbuminemia - PE: 2+ pitting edema of the LE, right>left, that is improving. Non erythematous - Unlikely CHF: no JVD, no murmurs or crackles on auscultation. CHF unlikely. - Low albumin possibly secondary to alcohol abuse. Supplement meals with Ensure. - c/w Lasix 40 mg PO + continue to supplement with potassium; will consider Spironolactone instead of potassium supplementation based on AM labs Hypotension - likely chronic in nature - likely related to some degree of underlying liver disease, as well as petit nature, likely chronically low, no evidence or symptoms of hypoperfusion - s/p 3 units of packed RBC Acute blood loss anemia: secondary to upper GI bleed possibly secondary to g astric and duodenal ulcers likely due to alcohol consumption - She has not seen a dr in years. 2 wk hx of watery black stools - EGD 11/08/18: small hiatal hernia, non bleeding gastric ulcers, portal hy pertensive gastropathy, multiple non bleeding duodenal ulcers - s/p 3 units of packed RBC. - Protonix 40 mg PO once daily. Continue outpatient for 4-8 weeks (end 01/12/19) upper GI bleed possibly secondary to gastric and duodenal ulcers l - She has not seen a dr in years. 2 wk hx of watery black stools - EGD 11/08/18: small hiatal hernia, non bleeding gastric ulcers, portal hypertensive gastropathy, multiple non bleeding duodenal ulcers - s/p 3 units of packed RBC. - Protonix 40 mg PO once daily. Continue outpatient for 4-8 weeks (end 01/12/19)| Small hiatal hernia, non bleeding gastric ulcers, portal hypertensive gastropathy, multiple non bleeding duodenal ulcers - s/p 3 units of packed RBC. - Protonix 40 mg PO once daily. Continue outpatient for 4-8 weeks (end 01/12/19)| hepatomegaly with fatty infiltration -with transaminitis - No history of liver disease. Does consume about 4 glasses of alcohol each night, denies recent Tylenol use, no known hepatitis risk factors - CT: borderline hepatomegaly with fatty infiltration - US: marked fatty infiltration of the liver, no visceral venous thrombosis seen, sliver of ascites seen in the RUQ, sliver of L pleural fluid - Fatty Liver work-up negative for any rheumatological, infectious or medication induced - Alcohol cessation counseling provided -Discussed avoiding hepatotoxins : ETOH, acetaminophen. -outpt GI referral to be made by her pcp for monitoring. Alcoholic hepatitis -with transaminitis - No history of liver disease. Does consume about 4 glasses of alcohol each night, denies recent Tylenol use, no known hepatitis risk factors - CT: borderline hepatomegaly with fatty infiltration - US: marked fatty infiltration of the liver, no visceral venous thrombosis seen, sliver of ascites seen in the RUQ, sliver of L pleural fluid - Fatty Liver work-up negative for any rheumatological, infectious or medication induced - Alcohol cessation counseling provided - due to ongoing complaints of abdominal fullness, will check us liver for possible paracentesis if significant amout of ascites. Elevated BNP -due to chronically overloaded state - on lasix - r/o alcoholic cardiomyopathy, echo Sacrum pressure injury stage 1 -c/w cushion, nystatin powder, Desitin, and Eucerin Coagulopathy: likely 2/2 acute liver failure (resolving) -s/p FFP and RBC transfusion for coagulopathy s/p Lactic acidosis Hyperuremia: possibly 2/2 pre-renal azotemia from active bleed (resolved) Anion gap metabolic acidosis: possibly 2/2 lactic acidosis vs increased BUN (resolved) Acute kidney injury: likely 2/2 hypovolemia (resolved) Anxiety/Depression -c/w Lexapro 10 mg and hydroxyzine Weakness 2/2 deconditioning - PT/OT Per ARU recommendations DVT prophylaxis - c/w Heparin VS, I&O, 24H, Fishbone Vital Signs/I&O Vital Signs Date Time Temp Pulse Resp B/P (MAP) Pulse Ox O2 Delivery O2 Flow Rate FiO2 11/20/18 06:00 98.5 86 17 102/55 (71) 95 I&O- Last 24 Hours up to 6 AM 11/20/18 06:00 Intake Total 960 ml Output Total 1600 ml Balance -640 ml Laboratory Data 24H LABS Laboratory Tests 2 11/20/18 09:13: Nucleated Red Blood Cells % (auto) 0.0, Prothrombin Time 12.9, Prothromb Time International Ratio 0.96, Activated Partial Thromboplast Time 22.3L, Anion Gap 5L, Glomerular Filtration Rate > 60.0, Blood Urea Nitrogen 5L, Creatinine 0.67, Sodium Level 140, Potassium Level 3.5, Chloride Level 106, Carbon Dioxide Level 29, Calcium Level 7.8L, Aspartate Amino Transf (AST/SGOT) 67H, Alanine Aminotransferase (ALT/SGPT) 37, Alkaline Phosphatase 119H, Total Bilirubin 0.7, Total Protein 6.2L, Albumin 1.7L, Ammonia 32, [id number]-Type Natriuretic Peptide 1113H, Albumin/Globulin Ratio 0.38L CBC/BMP Laboratory Tests 11/20/18 09:13 Red Blood Count 2.54 L, Mean Corpuscular Volume 106.7 H, Mean Corpuscular Hemoglobin 36.6 H, Mean Corpuscular Hemoglobin Concent 34.3, Red Cell Distribution Width 18.5 H, Calcium Level 7.8 L, Aspartate Amino Transf (AST/SG OT) 67 H, Alanine Aminotransferase (ALT/SGPT) 37, Alkaline Phosphatase 119 H, Total Bilirubin 0.7, Total Protein 6.2 L, Albumin 1.7 L Microbiology Microbiology 11/16/18 Urine Culture - Final, Complete JANICE RANDLE MD Nov 20, 2018 14:20"
[2018-11-20 20:00] VITALS: BP 100/60
[2018-11-20] MEDS: LATANOPROST 0.005% OPHTH SOLN 2.5 ML OU SCH (20:58)
[2018-11-20] MEDS: hydrOXYzine 25 MG TAB PO SCH (20:58)
[2018-11-21 06:00] VITALS: BP 103/57
[2018-11-21 07:08] LABS: BASO # 0.1 10^3/uL (0.0-0.2); BASO % 1.7 % (0.0-1.0); EOS # 0.3 10^3/uL (0.0-0.50); EOS % 4.2 % (0.0-3.0); HEMATOCRIT 26.2 % (36.0-47.0); HEMOGLOBIN 8.8 g/dl (12.0-15.5); LYMPH # 2.3 10^3/uL (1.5-4.5); LYMPH % 31.2 % (24.0-44.0); MEAN CORPUSCULAR HEMOGLOBIN 35.6 pg (27.0-33.0); MEAN CORPUSCULAR HGB CONC 33.6 g/dl (32.0-36.5); MEAN CORPUSCULAR VOLUME 106.1 fl (80.0-96.0); MONO # 0.9 10^3/uL (0.0-0.8); MONO % 12.5 % (0.0-5.0); NEUTROPHILS # 3.7 10^3/uL (1.8-7.7); NEUTROPHILS % 50.1 % (36.0-66.0); PLATELET COUNT, AUTOMATED 413 10^3/uL (150-450); RED BLOOD COUNT 2.47 10^6/uL (4.00-5.40); WHITE BLOOD COUNT 7.4 10^3/uL (4.0-10.0)
[2018-11-21 07:29] LABS: BLOOD UREA NITROGEN 5 MG/DL (7-18); CALCIUM LEVEL 7.8 MG/DL (8.5-10.1); CARBON DIOXIDE LEVEL 28 MEQ/L (21-32); CHLORIDE LEVEL 109 MEQ/L (98-107); CREATININE FOR GFR 0.54 MG/DL (0.55-1.30); GLOMERULAR FILTRATION RATE > 60.0 (>51); GLUCOSE, FASTING 70 MG/DL (70-100); POTASSIUM SERUM 3.3 MEQ/L (3.5-5.1); SODIUM LEVEL 142 MEQ/L (136-145)
--- NOTE | 2018-11-21 08:04 | IPNPDOC ---
"Date Seen The patient was seen on 11/21/18. Progress Note Subjective:NPO for liver us limited to evaluate for ascites due to persistent c/o increasing abdominal distension. H&H have been stable. K was low and supplemented. She has been working well with physical therapy. Denies brbpr, black tarry stools. Despite trying small more frequent meals and smaller portions, still c/o feeling full and increasing abdominal distension without nausea, vomiting, fever or chills.no sob, chest pain,pressure or tightness. Despite fatty liver and coagulopathy, pt has no icterus or jaundice. She has stopped ETOH use several years ago. Objective: Vitals (See below) General: Lying in bed, no acute distress, comfortable, AAOx3 HEENT: NC, AT CVS: RRR, +S1S2 Lungs: Fair air entry b/l, -w/r/r Abdomen: Soft, ND, NT, Extremities: 1+ pitting edema, - Calf tenderness Laboratory data, imaging studies, microbiology: reviewed, pls see below Assessment and plan: Patient is a 58-year-old female with a PMHx of HANNAH and lack of medical care for several years who presents to the ED with 4 days nausea, vomiting and black tarry stools. She was admitted with acute blood loss anemia. On admission she met SIRS criteria and was hemodynamically stabilized. She received 3 units of packed RBC and 1 unit FFP. Once stabilized, gastroenterology was consulted and EGD was performed that revealed non-bleeding gastric ulcers with no stigmata of bleeding, portal hypertensive gastropathy, multiple non-bleeding duodenal ulcers. Patient was placed on Protonix 40 mg PO once daily and could be continued on this dose for 4-8 weeks (end 01/12/19). Patient was also found to have an elevated AST / ALT and a full workup was completed for transaminitis to rule out possible infectious, inflammatory, and autoimmune conditions. The patient was diagnosed with acute alcoholic hepatitis and counseled on alcohol cessation. The patient developed bilateral LE edema which was attributed to hypoalbuminemia and her diet was supplemented with Ensure protein as well as receiving IV and PO Lasix. During hospitalization patient's history of ichthyosis was treated with Eucerin lotion with improvement. Patient and family expressed the need for management of depression, anxiety, and sleep disturbances, she was started on Lexapro and hydroxyzine. Because of her generalized Weakness 2/2 deconditioning PT recommended patient for ARU for continue rehab. Patient was transferred to ARU unit on 11/15/2018 and Hospitalist team was then consulted for continued management of medical problem. Hypokalemia, supplemented due to decreased dietary intake and lasix. check magnesium an dsupplement if less than 2 abdominal distension r/o ascites check liver us limited no c/o intractable nausea or vomiting denies any sob and no clinical signs of pleural effusion. Hypoalbuminemia - PE: 2+ pitting edema of the LE, right>left, that is improving. Non erythematous - Unlikely CHF: no JVD, no murmurs or crackles on auscultation. CHF unlikely. - Low albumin possibly secondary to alcohol abuse. Supplement meals with Ensure. - c/w Lasix 40 mg PO + continue to supplement with potassium; will consider Spironolactone instead of potassium supplementation based on AM labs Hypotension - likely chronic in nature - likely related to some degree of underlying liver disease, as well as petit na ture, likely chronically low, no evidence or symptoms of hypoperfusion - s/p 3 units of packed RBC Acute blood loss anemia: secondary to upper GI bleed possibly secondary to gastric and duodenal ulcers likely due to alcohol consumption - She has not seen a dr in years. 2 wk hx of watery black stools - EGD 11/08/18: small hiatal hernia, non bleeding gastric ulcers, portal hypertensive gastropathy, multiple non bleeding duodenal ulcers - s/p 3 units of packed RBC. - Protonix 40 mg PO once daily. Continue outpatient for 4-8 weeks (end 01/12/19) upper GI bleed possibly secondary to gastric and duodenal ulcers l - She has not seen a dr in years. 2 wk hx of watery black stools - EGD 11/08/18: small hiatal hernia, non bleeding gastric ulcers, portal hypertensive gastropathy, multiple non bleeding duodenal ulcers - s/p 3 units of packed RBC. - Protonix 40 mg PO once daily. Continue outpatient for 4-8 weeks (end 01/12/19)| Small hiatal hernia, non bleeding gastric ulcers, portal hypertensive ga stropathy, multiple non bleeding duodenal ulcers - s/p 3 units of packed RBC. - Protonix 40 mg PO once daily. Continue outpatient for 4-8 weeks (end 01/12/19)| hepatomegaly with fatty infiltration -with transaminitis - No history of liver disease. Does consume about 4 glasses of alcohol each night, denies recent Tylenol use, no known hepatitis risk factors - CT: borderline hepatomegaly with fatty infiltration - US: marked fatty infiltration of the liver, no visceral venous thrombosis seen, sliver of ascites seen in the RUQ, sliver of L pleural fluid - Fatty Liver work-up negative for any rheumatological, infectious or medication induced - Alcohol cessation counseling provided -Discussed avoiding hepatotoxins : ETOH, acetaminophen. -outpt GI referral to be made by her pcp for monitoring. Alcoholic hepatitis -with transaminitis - No history of liver disease. Does consume about 4 glasses of alcohol each night, denies recent Tylenol use, no known hepatitis risk factors - CT: borderline hepatomegaly with fatty infiltration - US: marked fatty infiltration of the liver, no visceral venous thrombosis seen, sliver of ascites seen in the RUQ, sliver of L pleural fluid - Fatty Liver work-up negative for any rheumatological, infectious or medication induced - Alcohol cessation counseling provided - due to ongoing complaints of abdominal fullness, will check us liver for possible paracentesis if significant amout of ascites. Elevated BNP -due to chronically overloaded state - on lasix - r/o alcoholic cardiomyopathy, echo Sacrum pressure injury stage 1 -c/w cushion, nystatin powder, Desitin, and Eucerin Coagulopathy: likely 2/2 acute liver failure (resolving) -s/p FFP and RBC transfusion for coagulopathy s/p Lactic acidosis Hyperuremia: possibly 2/2 pre-renal azotemia from active bleed (resolved) Anion gap metabolic acidosis: possibly 2/2 lactic acidosis vs increased BUN (resolved) Acute kidney injury: likely 2/2 hypovolemia (resolved) Anxiety/Depression -c/w Lexapro 10 mg and hydroxyzine Weakness 2/2 deconditioning - PT/OT Per ARU recommendations DVT prophylaxis - c/w Heparin VS, I&O, 24H, Fishbone Vital Signs/I&O Vital Signs Date Time Temp Pulse Resp B/P (MAP) Pulse Ox O2 Delivery O2 Flow Rate FiO2 11/21/18 06:00 98.0 82 18 103/57 (72) 97 I&O- Last 24 Hours up to 6 AM 11/21/18 06:00 Intake Total 800 ml Output Total 1450 ml Balance -650 ml Laboratory Data 24H LABS Laboratory Tests 2 11/20/18 09:13: Nucleated Red Blood Cells % (auto) 0.0, Prothrombin Time 12.9, Prothromb Time International Ratio 0.96, Activated Partial Thromboplast Time 22.3L, Anion Gap 5L, Glomerular Filtration Rate > 60.0, Blood Urea Nitrogen 5L, Creatinine 0.67, Sodium Level 140, Potassium Level 3.5, Chloride Level 106, Carbon Dioxide Level 29, Calcium Level 7.8L, Aspartate Amino Transf (AST/SGOT) 67H, Alanine Ami notransferase (ALT/SGPT) 37, Alkaline Phosphatase 119H, Total Bilirubin 0.7, Total Protein 6.2L, Albumin 1.7L, Ammonia 32, NZ-Oub-F-Type Natriuretic Peptide 1113H, Albumin/Globulin Ratio 0.38L 11/21/18 06:40: Nucleated Red Blood Cells % (auto) 0.0, Anion Gap 5L, Glomerular Filtration Rate > 60.0, Blood Urea Nitrogen 5L, Creatinine 0.54L, Sodium Level 142, Potassium Level 3.3L, Chloride Level 109H, Carbon Dioxide Level 28, Calcium Level 7.8L, Immature Granulocyte % (Auto) 0.3, White Blood Count 7.4, Red Blood Count 2.47L, Hemoglobin 8.8L, Hematocrit 26.2L, Mean Corpuscular Volume 106.1H, Mean Corpuscular Hemoglobin 35.6H, Mean Corpuscular Hemoglobin Concent 33.6, Red Cell Distribution Width 18.1H, Platelet Count 413, Neutrophils (%) (Auto) 50.1, Lymphocytes (%) (Auto) 31.2, Monocytes (%) (Auto) 12.5H, Eosinophils (%) (Auto) 4.2H, Basophils (%) (Auto) 1.7H, Neutrophils # (Auto) 3.7, Lymphocytes # (Auto) 2.3, Monocytes # (Auto) 0.9H, Eosinophils # (Auto) 0.3, Basophils # (Auto) 0.1 CBC/BMP Laboratory Tests 11/20/18 09:13 Red Blood Count 2.54 L, Mean Corpuscular Volume 106.7 H, Mean Corpuscular Hemoglobin 36.6 H, Mean Corpuscular Hemoglobin Concent 34.3, Red Cell Distribution Width 18.5 H, Calcium Level 7.8 L, Aspartate Amino Transf (AST/SGO T) 67 H, Alanine Aminotransferase (ALT/SGPT) 37, Alkaline Phosphatase 119 H, Total Bilirubin 0.7, Total Protein 6.2 L, Albumin 1.7 L 11/21/18 06:40 Red Blood Count 2.47 L, Mean Corpuscular Volume 106.1 H, Mean Corpuscular Hemoglobin 35.6 H, Mean Corpuscular Hemoglobin Concent 33.6, Red Cell Distribution Width 18.1 H, Calcium Level 7.8 L, Neutrophils (%) (Auto) 50.1, Lymphocytes (%) (Auto) 31.2, Monocytes (%) (Auto) 12.5 H, Eosinophils (%) (Auto) 4.2 H, Basophils (%) (Auto) 1.7 H, Neutrophils # (Auto) 3.7, Lymphocytes # (Auto) 2.3, Monocytes # (Auto) 0.9 H, Eosinophils # (Auto) 0.3, Basophils # (Auto) 0.1 Microbiology Microbiology 11/16/18 Urine Culture - Final, Complete JANICE RANDLE MD Nov 21, 2018 08:04"
--- NOTE | 2018-11-21 09:34 | REP ---
Limited abdominal ultrasound for ascites: All four quadrants of the abdomen are scanned. There is a mild volume of ascites is identified in all four quadrants. Electronically Signed by Herb Ivey MD 11/21/2018 09:26 A
[2018-11-21] MEDS: MULTIVITAMINS/MINERALS THERAP 1 TAB PO SCH (10:16)
[2018-11-21] MEDS: PANTOPRAZOLE 40MG TAB (PROTONIX) PO SCH (10:16)
[2018-11-21] MEDS: MAGNESIUM OXIDE 400 MG TAB (MAG-OX) PO SCH ×2 (10:16→20:18)
[2018-11-21] MEDS: ESCITALOPRAM OXALATE 10 MG TAB (LEXAPRO) PO SCH (10:16)
[2018-11-21] MEDS: POTASSIUM CHLORIDE 10 MEQ SR TABLET PO SCH (10:16)
[2018-11-21] MEDS: FUROSEMIDE 40 MG TAB PO SCH (10:16)
[2018-11-21] MEDS: BALMEX CREAM 60GM TOP SCH ×3 (10:17→20:21)
[2018-11-21] MEDS: HEPARIN SOD (PORCINE) 5000 UNITS/ML VIAL SC SCH ×2 (10:17→20:19)
[2018-11-21] MEDS: NYSTATIN 100,000 UNITS/GM TOPICAL PWD 15 GM TOP SCH ×2 (10:18→20:22)
[2018-11-21] MEDS: EUCERIN 120GM CREAM TOP SCH ×3 (10:18→20:21)
[2018-11-21] MEDS ORDERED: POTASSIUM CHLORIDE 10 MEQ SR TABLET PO ONE (11:00)
--- NOTE | 2018-11-21 11:08 | IPNPDOC ---
PM&R Progress Note DATE OF SERVICE: Nov 21, 2018 Sports Analyst Progress Note DATE OF ADMISSION: Nov 15, 2018 at 14:08 INPATIENT REHABILITATION ADMISSION DAY: # SUBJECTIVE: Patient is a -year-old with . ALLERGIES: See Below MEDICATIONS: Reviewed, see below. OBJECTIVE: VITAL SIGNS: Please see below. PHYSICAL EXAMINATION: GENERAL: [Cachectic, well developed, sitting up in bed, no acute distress]. HEENT: [Normocephalic, atraumatic]. [No facial droop]. [Poor dentition, missing teeth. PERRL, EOMI]. CARDIOVASCULAR: [S1, S2, irregular rate]. [No lower limb edema or calf tenderness]. LUNGS: [Decreased breath sounds, coarse throughout]. ABDOMEN: [Soft, nontender, nondistended. Normoactive bowel sounds throughout]. MUSCULOSKELETAL: MMT: /5 strength proximally bilateral shoulder abduction, forward flexion and bilateral hip flexion. /5 strength bilateral elbow flexion, knee flexion, /5 bilateral elbow extension and knee extension. /5 traffic operations engineer, dorsiflexion, plantar flexion. NEUROLOGICAL: [Alert and oriented times three]. [Answers all question appropriately]. SKIN: . LABORATORY DATA: Reviewed. Please see below. MICROBIOLOGY: Please see below. IMAGING: ASSESSMENT AND PLAN: 1. . 2. . 3. . TIME SPENT: Chart Review, examination and documentation minutes. Allergies Coded Allergies: Penicillins (Verified Allergy, Unknown, 11/06/18) Vital Signs Vital Signs Date Time Temp Pulse Resp B/P (MAP) Pulse Ox O2 Delivery O2 Flow Rate FiO2 11/21/18 06:00 98.0 82 18 103/57 (72) 97 Laboratory Data CBC/BMP Laboratory Tests 11/21/18 06:40 Red Blood Count 2.47 L, Mean Corpuscular Volume 106.1 H, Mean Corpuscular Hemoglobin 35.6 H, Mean Corpuscular Hemoglobin Concent 33.6, Red Cell Distribution Width 18.1 H, Neutrophils (%) (Auto) 50.1, Lymphocytes (%) (Auto) 31.2, Monocytes (%) (Auto) 12.5 H, Eosinophils (%) (Auto) 4.2 H, Basophils (%) (Auto) 1.7 H, Neutrophils # (Auto) 3.7, Lymphocytes # (Auto) 2.3, Monocytes # (Auto) 0.9 H, Eosinophils # (Auto) 0.3, Basophils # (Auto) 0.1, Calcium Level 7.8 L Labs 24H Laboratory Tests 2 11/21/18 06:40: Immature Granulocyte % (Auto) 0.3, White Blood Count 7.4, Red Blood Count 2.47L, Hemoglobin 8.8L, Hematocrit 26.2L, Mean Corpuscular Volume 106.1H, Mean Corpuscular Hemoglobin 35.6H, Mean Corpuscular Hemoglobin Concent 33.6, Red Cell Distribution Width 18.1H, Platelet Count 413, Neutrophils (%) (Auto) 50.1, Lymphocytes (%) (Auto) 31.2, Monocytes (%) (Auto) 12.5H, Eosinophils (%) (Auto) 4.2H, Basophils (%) (Auto) 1.7H, Neutrophils # (Auto) 3.7, Lymphocytes # (Auto) 2.3, Monocytes # (Auto) 0.9H, Eosinophils # (Auto) 0.3, Basophils # (Auto) 0.1, Nucleated Red Blood Cells % (auto) 0.0, Anion Gap 5L, Glomerular Filtration Rate > 60.0, Blood Urea Nitrogen 5L, Creatinine 0.54L, Sodium Level 142, Potassium Level 3.3L, Chloride Level 109H, Carbon Dioxide Level 28, Calcium Level 7.8L Microbiology Microbiology 11/16/18 Urine Culture - Final, Complete Current Medications Current Medications Current Medications Acetaminophen (Tylenol Tab) 650 mg Q8H PRN PO fever/MILD PAIN (PS 1-4); Start 11/15/18 at 14:00 Al Hydrox/Mg Hydrox/Simethicone (Mylanta) 30 ml Q4HP PRN PO DYSPEPSIA; Start 11/15/18 at 14:00 Bisacodyl (Dulcolax Tab) 5 mg DAILYPRN PRN PO CONSTIPATION; Start 11/15/18 at 14:00 Escitalopram Oxalate (Lexapro) 10 mg DAILY PO Last administered on 11/21/18at 10:16; Start 11/16/18 at 09:00 Furosemide (Lasix) 20 mg DAILY PO Last administered on 11/16/18at 09:22; Start 11/16/18 at 09:00; Stop 11/16/18 at 16:02; Status DC Furosemide (Lasix) 40 mg DAILY PO Last administered on 11/21/18 10:16; Start 11/17/18 at 09:00 Heparin Sodium (Porcine) (Heparin) 5,000 units Q12H SC Last administered on 11/21/18 10:17; Start 11/15/18 at 21:00 Hydroxyzine HCl (Atarax) 25 mg QHS PO Last administered on 11/20/18 20:58; S tart 11/15/18 at 21:00 Latanoprost (Xalatan 0.005% Op Soln) 1 drop QHS OU Last administered on 20:58; Start 11/15/18 at 21:00 Magnesium Hydroxide (Milk Of Magnesia) 30 ml DAILYPRN PRN PO CONSTIPATION; Start 11/15/18 at 14:00 Magnesium Oxide (Mag-Ox) 400 mg BID PO Last administered on 11/21/18 10:16; Start 11/15/18 at 21:00 Mineral Oil/White Petrolatum (Eucerin) 1 dose TID TOP Last administered on 11/21/18 10:18; Start 11/15/18 at 16:00 Mineral Oil/White Petrolatum (Eucerin) Apply Eucerin cream to... BID TOP ; Start 11/17/18 at 09:00; Stop 11/17/18 at 13:41; Status DC Multivitamins (Theragram-M) 1 tab DAILY PO Last administered on 11/21/18 10:16; Start 11/16/18 at 09:00 Nystatin (Mycostatin Powder, Nystop) 1 dose BID TOP Last administered on 11/21/18 10:18; Start 11/15/18 at 21:00 Ondansetron HCl (Zofran) 4 mg Q6HP PRN PO NAUSEA; Start 11/15/18 at 14:00 Pantoprazole Sodium (Protonix) 40 mg DAILY PO Last administered on 11/21/18 10:16; Start 11/16/18 at 09:00 Potassium Chloride (Micro-K Extencaps) 40 meq DAILY PO Last administered on 11/21/18 10:16; Start 11/16/18 at 09:00 Zinc Oxide (Balmex Cream) 1 dose TID TOP Last administered on 11/21/18 10:17; Start 4/12/19 at 16:00 DELONTE BILLS MD Nov 21, 2018 11:08
[2018-11-21 14:00] VITALS: BP 107/52
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
[2018-11-21 20:00] VITALS: BP 102/59
[2018-11-21] MEDS: hydrOXYzine 25 MG TAB PO SCH (20:18)
[2018-11-21] MEDS: LATANOPROST 0.005% OPHTH SOLN 2.5 ML OU SCH (20:19)
[2018-11-22 06:00] VITALS: BP 120/58
[2018-11-22 07:23] LABS: BLOOD UREA NITROGEN 4 MG/DL (7-18); CARBON DIOXIDE LEVEL 26 MEQ/L (21-32); CHLORIDE LEVEL 111 MEQ/L (98-107); CREATININE FOR GFR 0.55 MG/DL (0.55-1.30); GLOMERULAR FILTRATION RATE > 60.0 (>51); GLUCOSE, FASTING 69 MG/DL (70-100); SODIUM LEVEL 143 MEQ/L (136-145)
[2018-11-22] MEDS: HEPARIN SOD (PORCINE) 5000 UNITS/ML VIAL SC SCH ×2 (09:25→20:20)
[2018-11-22] MEDS: PANTOPRAZOLE 40MG TAB (PROTONIX) PO SCH (09:25)
[2018-11-22] MEDS: MULTIVITAMINS/MINERALS THERAP 1 TAB PO SCH (09:25)
[2018-11-22] MEDS: POTASSIUM CHLORIDE 10 MEQ SR TABLET PO SCH (09:26)
[2018-11-22] MEDS: ESCITALOPRAM OXALATE 10 MG TAB (LEXAPRO) PO SCH (09:26)
[2018-11-22] MEDS: EUCERIN 120GM CREAM TOP SCH ×3 (09:26→20:21)
[2018-11-22] MEDS: MAGNESIUM OXIDE 400 MG TAB (MAG-OX) PO SCH ×2 (09:26→20:21)
[2018-11-22] MEDS: FUROSEMIDE 40 MG TAB PO SCH (09:26)
[2018-11-22] MEDS: BALMEX CREAM 60GM TOP SCH ×3 (09:27→20:22)
[2018-11-22] MEDS: NYSTATIN 100,000 UNITS/GM TOPICAL PWD 15 GM TOP SCH ×2 (09:27→20:21)
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
[2018-11-22 14:00] VITALS: BP 100/57
--- NOTE | 2018-11-22 14:39 | IPNPDOC ---
"Date Seen The patient was seen on 11/22/18. Progress Note Subjective:No signifcant ascites on liver us. denies any further complaints of abdominal fullness and distension. had 3 small bowel movements. no fever chills. still with LE edema but improved . no c/o sob, dizziness, or lightheadednss. Objective: Vitals (See below) General: Lying in bed, no acute distress, comfortable, AAOx3 HEENT: NC, AT CVS: RRR, +S1S2 Lungs: Fair air entry b/l, -w/r/r Abdomen: Soft, ND, NT, Extremities: 1+ pitting edema, - Calf tenderness Laboratory data, imaging studies, microbiology: reviewed, pls see below Assessment and plan: Patient is a 58-year-old female with a PMHx of HANNAH and lack of medical care for several years who presents to the ED with 4 days nausea, vomiting and black tarry stools. She was admitted with acute blood loss anemia. On admission she met SIRS criteria and was hemodynamically stabilized. She received 3 units of packed RBC and 1 unit FFP. Once stabilized, gastroenterology was consulted and EGD was performed that revealed non-bleeding gastric ulcers with no stigmata of bleeding, portal hypertensive gastropathy, multiple non-bleeding duodenal ulcers. Patient was placed on Protonix 40 mg PO once daily and could be continue d on this dose for 4-8 weeks (end 01/12/19). Patient was also found to have an elevated AST / ALT and a full workup was completed for transaminitis to rule out possible infectious, inflammatory, and autoimmune conditions. The patient was diagnosed with acute alcoholic hepatitis and counseled on alcohol cessation. The patient developed bilateral LE edema which was attributed to hypoalbuminemia and her diet was supplemented with Ensure protein as well as receiving IV and PO Lasix. During hospitalization patient's history of ichthyosis was treated with Eucerin lotion with improvement. Patient and family expressed the need for management of depression, anxiety, and sleep disturbances, she was started on Lexapro and hydroxyzine. Because of her generalized Weakness 2/2 deconditioning PT recommended patient for ARU for continue rehab. Patient was transferred to ARU unit on 11/15/2018 and Hospitalist team was then consulted for continued management of medical problem. Hypokalemia, supplemented due to decreased dietary intake and lasix. check magnesium an dsupplement if less than 2 abdominal distension no signifcant ascites on liver us 11/21/18 no c/o intractable nausea or vomiting denies any sob and no clinical signs of pleural effusion. Hypoalbuminemia - PE: 2+ pitting edema of the LE, right>left, that is improving. Non erythematous - Unlikely CHF: no JVD, no murmurs or crackles on auscultation. CHF unlikely. - Low albumin possibly secondary to alcohol abuse. Supplement meals with Ensure. - c/w Lasix 40 mg PO + continue to supplement with potassium; will consider Spironolactone instead of potassium supplementation based on AM labs Hypotension - likely chronic in nature - likely related to some degree of underlying liver disease, as well as petit nature, likely chronically low, no evidence or symptoms of hypoperfusion - s/p 3 units of packed RBC Acute blood loss anemia: secondary to upper GI bleed possibly secondary to gastric and duodenal ulcers likely due to alcohol consumption - She has not seen a dr in years. 2 wk hx of watery black stools - EGD 11/08/18: small hiatal hernia, non bleeding gastric ulcers, portal hypertensive gastropathy, multiple non bleeding duodenal ulcers - s/p 3 units of packed RBC. - Protonix 40 mg PO once daily. Continue outpatient for 4-8 weeks (end 01/12/19) upper GI bleed possibly secondary to gastric and duodenal ulcers l - She has not seen a dr in years. 2 wk hx of watery black stools - EGD 11/08/18: small hiatal hernia, non bleeding gastric ulcers, portal hypertensive gastropathy, multiple non bleeding duodenal ulcers - s/p 3 units of packed RBC. - Protonix 40 mg PO once daily. Continue outpatient for 4-8 weeks (end 01/12/19)| Small hiatal hernia, non bleeding gastric ulcers, portal hypertensive gastropathy, multiple non bleeding duodenal ulcers - s/p 3 units of packed RBC. - Protonix 40 mg PO once daily. Continue outpatient for 4-8 weeks (end 01/12/19)| hepatomegaly with fatty infiltration -with transaminitis - No history of liver disease. Does consume about 4 glasses of alcohol each night, denies recent Tylenol use, no known hepatitis risk factors - CT: borderline hepatomegaly with fatty infiltration - US: marked fatty infiltration of the liver, no visceral venous thrombosis seen, sliver of ascites seen in the RUQ, sliver of L pleural fluid - Fatty Liver work-up negative for any rheumatological, infectious or medication induced - Alcohol cessation counseling provided -Discussed avoiding hepatotoxins : ETOH, acetaminophen. -outpt GI referral to be made by her pcp for monitoring. Alcoholic hepatitis -with transaminitis - No history of liver disease. Does consume about 4 glasses of alcohol each night, denies recent Tylenol use, no known hepatitis risk factors - CT: borderline hepatomegaly with fatty infiltration - US: marked fatty infiltration of the liver, no visceral venous thrombosis seen, sliver of ascites seen in the RUQ, sliver of L pleural fluid - Fatty Liver work-up negative for any rheumatological, infectious or medication induced - Alcohol cessation counseling provided - due to ongoing complaints of abdominal fullness, will check us liver for possible paracentesis if significant amout of ascites. Elevated BNP -due to chronically overloaded state - on lasix - r/o alcoholic cardiomyopathy, echo Sacrum pressure injury stage 1 -c/w cushion, nystatin powder, Desitin, and Eucerin Coagulopathy: likely 2/2 acute liver failure (resolving) -s/p FFP and RBC transfusion for coagulopathy s/p Lactic acidosis Hyperuremia: possibly 2/2 pre-renal azotemia from active bleed (resolved) Anion gap metabolic acidosis: possibly 2/2 lactic acidosis vs increased BUN (resolved) Acute kidney injury: likely 2/2 hypovolemia (resolved) Anxiety/Depression -c/w Lexapro 10 mg and hydroxyzine Weakness 2/2 deconditioning - PT/OT Per ARU recommendations DVT prophylaxis - c/w Heparin VS, I&O, 24H, Fishbone Vital Signs/I&O Vital Signs Date Time Temp Pulse Resp B/P (MAP) Pulse Ox O2 Delivery O2 Flow Rate FiO2 11/22/18 14:00 97.6 76 18 100/57 (71) 98 I&O- Last 24 Hours up to 6 AM 11/22/18 05:59 Intake Total 440 ml Output Total 955 ml Balance -515 ml Laboratory Data 24H LABS Laboratory Tests 2 11/22/18 06:29: Anion Gap 6L, Glomerular Filtration Rate > 60.0, Blood Urea Nitrogen 4L, Creatinine 0.55, Sodium Level 143, Potassium Level 4.0#, Chloride Level 111H, Carbon Dioxide Level 26, Calcium Level 8.0L, Magnesium Level 2.0 CBC/BMP Laboratory Tests 11/22/18 06:29 Calcium Level 8.0 L Microbiology Microbiology 11/16/18 Urine Culture - Final, Complete JANICE RANDLE MD Nov 22, 2018 14:39"
[2018-11-22 20:00] VITALS: BP 106/59
[2018-11-22] MEDS: LATANOPROST 0.005% OPHTH SOLN 2.5 ML OU SCH (20:20)
[2018-11-22] MEDS: hydrOXYzine 25 MG TAB PO SCH (20:21)
[2018-11-23 06:00] VITALS: BP 101/55
[2018-11-23] MEDS: HEPARIN SOD (PORCINE) 5000 UNITS/ML VIAL SC SCH ×2 (10:05→20:34)
[2018-11-23] MEDS: POTASSIUM CHLORIDE 10 MEQ SR TABLET PO SCH (10:06)
[2018-11-23] MEDS: FUROSEMIDE 40 MG TAB PO SCH (10:06)
[2018-11-23] MEDS: MAGNESIUM OXIDE 400 MG TAB (MAG-OX) PO SCH ×2 (10:06→20:34)
[2018-11-23] MEDS: PANTOPRAZOLE 40MG TAB (PROTONIX) PO SCH (10:07)
[2018-11-23] MEDS: MULTIVITAMINS/MINERALS THERAP 1 TAB PO SCH (10:07)
[2018-11-23] MEDS: ESCITALOPRAM OXALATE 10 MG TAB (LEXAPRO) PO SCH (10:07)
[2018-11-23] MEDS: EUCERIN 120GM CREAM TOP SCH ×3 (10:12→20:42)
[2018-11-23] MEDS: NYSTATIN 100,000 UNITS/GM TOPICAL PWD 15 GM TOP SCH ×2 (10:13→20:42)
[2018-11-23] MEDS: BALMEX CREAM 60GM TOP SCH ×3 (10:13→20:41)
--- NOTE | 2018-11-23 11:19 | IPNPDOC ---
"Date Seen The patient was seen on 11/23/18. Progress Note Subjective: LE still wrapped with reggie bandages and with chronic swelling. 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 She has no VARELA, and has been cooperative with PT. No signifcant ascites on liver us. denies any further complaints of abdominal fullness and distension. no fever chills. still with LE edema but improved . no c/o sob, dizziness, or lightheadednss. Objective: Vitals (See below) General: Lying in bed, no acute distress, comfortable, AAOx3 HEENT: NC, AT CVS: RRR, +S1S2 Lungs: Fair air entry b/l, -w/r/r Abdomen: Soft, ND, NT, Extremities: 1+ pitting edema, - Calf tenderness Laboratory data, imaging studies, microbiology: reviewed, pls see below Assessment and plan: Patient is a 58-year-old female with a PMHx of HANNAH and lack of medical care for several years who presents to the ED with 4 days nausea, vomiting and black tarry stools. She was admitted with acute blood loss anemia. On admission she met SIRS criteria and was hemodynamically stabilized. She received 3 units of packed RBC and 1 unit FFP. Once stabilized, gastroenterology was consulted and EGD was performed that revealed non-bleeding gastric ulcers with no stigmata of bleeding, portal hypertensive gastropathy, multiple non-bleeding duodenal ulcers. Patient was placed on Protonix 40 mg PO once daily and could be continued on this dose for 4-8 weeks (end 01/12/19). Patient was also found to have an elevated AST / ALT and a full workup was completed for transaminitis to rule out possible infectious, inflammatory, and autoimmune conditions. The patient was diagnosed with acute alcoholic hepatitis and counseled on alcohol cessation. The patient developed bilateral LE edema which was attributed to hypoalbuminemia and her diet was supplemented with Ensure protein as well as receiving IV and PO Lasix. During hospitalization patient's history of ichthyosis was treated with Eucerin lotion with improvement. Patient and family expressed the need for management of depression, anxiety, and sleep disturbances, she was started on Lexapro and hydroxyzine. Because of her generalized Weakness 2/2 deconditioning PT recommended patient for ARU for continue rehab. Patient was transferred to ARU unit on 11/15/2018 and Hospitalist team was then consulted for continued management of medical problem. Hypokalemia, supplemented due to decreased dietary intake and lasix. check magnesium an dsupplement if less than 2 abdominal distension no signifcant ascites on liver us 11/21/18 no c/o intractable nausea or vomiting denies any sob and no clinical signs of pleural effusion. Hypoalbuminemia - PE: 2+ pitting edema of the LE, right>left, that is improving. Non erythematous - Unlikely CHF: no JVD, no murmurs or crackles on auscultation. CHF unlikely. - Low albumin possibly secondary to alcohol abuse. Supplement meals with Ensure. - c/w Lasix 40 mg PO + continue to supplement with potassium; will consider Spironolactone instead of potassium supplementation based on AM labs Hypotension - likely chronic in nature - likely related to some degree of underlying liver disease, as well as petit nature, likely chronically low, no evidence or symptoms of hypoperfusion - s/p 3 units of packed RBC Acute blood loss anemia: secondary to upper GI bleed possibly secondary to gastric and duodenal ulcers likely due to alcohol consumption - She has not seen a dr in years. 2 wk hx of watery black stools - EGD 11/08/18: small hiatal hernia, non bleeding gastric ulcers, portal hypertensive gastropathy, multiple non bleeding duodenal ulcers - s/p 3 units of packed RBC. - Protonix 40 mg PO once daily. Continue outpatient for 4-8 weeks (end 01/12/19) upper GI bleed possibly secondary to gastric and duodenal ulcers l - She has not seen a dr in years. 2 wk hx of watery black stools - EGD 11/08/18: small hiatal hernia, non bleeding gastric ulcers, portal hypertensive gastropathy, multiple non bleeding duodenal ulcers - s/p 3 units of packed RBC. - Protonix 40 mg PO once daily. Continue outpatient for 4-8 weeks (end 01/12/19)| Small hiatal hernia, non bleeding gastric ulcers, portal hypertensive gastropathy, multiple non bleeding duodenal ulcers - s/p 3 units of packed RBC. - Protonix 40 mg PO once daily. Continue outpatient for 4-8 weeks (end 01/12/19)| hepatomegaly with fatty infiltration -with transaminitis - No history of liver disease. Does consume about 4 glasses of alcohol each night, denies recent Tylenol use, no known hepatitis risk factors - CT: borderline hepatomegaly with fatty infiltration - US: marked fatty infiltration of the liver, no visceral venous thrombosis seen, sliver of ascites seen in the RUQ, sliver of L pleural fluid - Fatty Liver work-up negative for any rheumatological, infectious or medication induced - Alcohol cessation counseling provided -Discussed avoiding hepatotoxins : ETOH, acetaminophen. -outpt GI referral to be made by her pcp for monitoring. Alcoholic hepatitis -with transaminitis - No history of liver disease. Does consume about 4 glasses of alcohol each night, denies recent Tylenol use, no known hepatitis risk factors - CT: borderline hepatomegaly with fatty infiltration - US: marked fatty infiltration of the liver, no visceral venous thrombosis seen, sliver of ascites seen in the RUQ, sliver of L pleural fluid - Fatty Liver work-up negative for any rheumatological, infectious or medication induced - Alcohol cessation counseling provided - due to ongoing complaints of abdominal fullness, will check us liver for possible paracentesis if significant amout of ascites. Elevated BNP -due to chronically overloaded state - on lasix - r/o alcoholic cardiomyopathy, echo Sacrum pressure injury stage 1 -c/w cushion, nystatin powder, Desitin, and Eucerin Coagulopathy: likely 2/2 acute liver failure (resolving) -s/p FFP and RBC transfusion for coagulopathy s/p Lactic acidosis Hyperuremia: possibly 2/2 pre-renal azotemia from active bleed (resolved) Anion gap metabolic acidosis: possibly 2/2 lactic acidosis vs increased BUN (resolved) Acute kidney injury: likely 2/2 hypovolemia (resolved) Anxiety/Depression -c/w Lexapro 10 mg and hydroxyzine Weakness 2/2 deconditioning - PT/OT Per ARU recommendations DVT prophylaxis - c/w Heparin VS, I&O, 24H, Fishbone Vital Signs/I&O Vital Signs Date Time Temp Pulse Resp B/P (MAP) Pulse Ox O2 Delivery O2 Flow Rate FiO2 11/23/18 06:00 98.7 75 17 101/55 (70) 96 I&O- Last 24 Hours up to 6 AM 11/23/18 05:59 Intake Total 1920 ml Output Total 400 ml Balance 1520 ml Laboratory Data Microbiology Microbiology 11/16/18 Urine Culture - Final, Complete JANICE RANDLE MD Nov 23, 2018 11:19"
[2018-11-23 14:00] VITALS: BP 120/60
[2018-11-23 20:00] VITALS: BP 111/55
[2018-11-23] MEDS: hydrOXYzine 25 MG TAB PO SCH (20:33)
[2018-11-23] MEDS: LATANOPROST 0.005% OPHTH SOLN 2.5 ML OU SCH (20:34)
[2018-11-24 05:11] VITALS: BP 133/63
[2018-11-24 07:40] LABS: HEMATOCRIT 29.3 % (36.0-47.0); HEMOGLOBIN 9.3 g/dl (12.0-15.5)
[2018-11-24] MEDS: EUCERIN 120GM CREAM TOP SCH ×3 (09:00→20:45)
[2018-11-24] MEDS: NYSTATIN 100,000 UNITS/GM TOPICAL PWD 15 GM TOP SCH ×2 (09:00→20:46)
[2018-11-24] MEDS: BALMEX CREAM 60GM TOP SCH ×3 (10:00→20:46)
[2018-11-24] MEDS: FUROSEMIDE 40 MG TAB PO SCH (12:07)
[2018-11-24] MEDS: MAGNESIUM OXIDE 400 MG TAB (MAG-OX) PO SCH ×2 (12:07→20:45)
[2018-11-24] MEDS: MULTIVITAMINS/MINERALS THERAP 1 TAB PO SCH (12:08)
[2018-11-24] MEDS: HEPARIN SOD (PORCINE) 5000 UNITS/ML VIAL SC SCH ×2 (12:08→20:45)
[2018-11-24] MEDS: PANTOPRAZOLE 40MG TAB (PROTONIX) PO SCH (12:08)
[2018-11-24] MEDS: ESCITALOPRAM OXALATE 10 MG TAB (LEXAPRO) PO SCH (12:08)
[2018-11-24] MEDS: POTASSIUM CHLORIDE 10 MEQ SR TABLET PO SCH (12:09)
--- NOTE | 2018-11-24 12:29 | IPNPDOC ---
"Date Seen The patient was seen on 11/24/18. Progress Note Subjective: No new complaints. eating well with small frequent meals . still w some abdominal fullness. solid bowel movments about 2-3 daily. non watery nonmucusy nonacholic. No fever or chills. ambulating well. no issues overnight. Objective: Vitals (See below) General: Lying in bed, no acute distress, comfortable, AAOx3 HEENT: NC, AT CVS: RRR, +S1S2 Lungs: Fair air entry b/l, -w/r/r Abdomen: Soft, ND, NT, Extremities: 1+ pitting edema, - Calf tenderness Laboratory data, imaging studies, microbiology: reviewed, pls see below Assessment and plan: Patient is a 58-year-old female with a PMHx of HANNAH and lack of medical care for several years who presents to the ED with 4 days nausea, vomiting and black tarry stools. She was admitted with acute blood loss anemia. On admission she met SIRS criteria and was hemodynamically stabilized. She received 3 units of packed RBC and 1 unit FFP. Once stabilized, gastroenterology was consulted and EGD was performed that revealed non-bleeding gastric ulcers with no stigmata of bleeding, portal hypertensive gastropathy, multiple non-bleeding duodenal ulcers. Patient was placed on Protonix 40 mg PO once daily and could be continued on this dose for 4-8 weeks (end 01/12/19). Patient was also found to have an elevated AST / ALT and a full workup was completed for transaminitis to rule out possible infectious, inflammatory, and autoimmune conditions. The patient was diagnosed with acute alcoholic hepatitis and counseled on alcohol c essation. The patient developed bilateral LE edema which was attributed to hypoalbuminemia and her diet was supplemented with Ensure protein as well as receiving IV and PO Lasix. During hospitalization patient's history of ichthyosis was treated with Eucerin lotion with improvement. Patient and family expressed the need for management of depression, anxiety, and sleep disturbances, she was started on Lexapro and hydroxyzine. Because of her generalized Weakness 2/2 deconditioning PT recommended patient for ARU for continue rehab. Patient was transferred to ARU unit on 11/15/2018 and Hospitalist team was then consulted for continued management of medical problem. Hypokalemia, supplemented due to decreased dietary intake and lasix. check magnesium an dsupplement if less than 2 abdominal distension no signifcant ascites on liver us 11/21/18 no c/o intractable nausea or vomiting denies any sob and no clinical signs of pleural effusion. Hypoalbuminemia - PE: 2+ pitting edema of the LE, right>left, that is improving. Non erythematous - Unlikely CHF: no JVD, no murmurs or crackles on auscultation. CHF unlikely. - Low albumin possibly secondary to alcohol abuse. Supplement meals with Ensure. - c/w Lasix 40 mg PO + continue to supplement with potassium; will consider Spironolactone instead of potassium supplementation based on AM labs Hypotension - likely chronic in nature - likely related to some degree of underlying liver disease, as well as petit nature, likely chronically low, no evidence or symptoms of hypoperfusion - s/p 3 units of packed RBC Acute blood loss anemia: secondary to upper GI bleed possibly secondary to gastric and duodenal ulcers likely due to alcohol consumption - She has not seen a dr in years. 2 wk hx of watery black stools - EGD 11/08/18: small hiatal hernia, non bleeding gastric ulcers, portal hypertensive gastropathy, multiple non bleeding duodenal ulcers - s/p 3 units of packed RBC. - Protonix 40 mg PO once daily. Continue outpatient for 4-8 weeks (end 01/12/19) upper GI bleed possibly secondary to gastric and duodenal ulcers l - She has not seen a dr in years. 2 wk hx of watery black stools - EGD 11/08/18: small hiatal hernia, non bleeding gastric ulcers, portal hypertensive gastropathy, multiple non bleeding duodenal ulcers - s/p 3 units of packed RBC. - Protonix 40 mg PO once daily. Continue outpatient for 4-8 weeks (end 01/12/19)| Small hiatal hernia, non bleeding gastric ulcers, portal hypertensive gastropathy, multiple non bleeding duodenal ulcers - s/p 3 units of packed RBC. - Protonix 40 mg PO once daily. Continue outpatient for 4-8 weeks (end 01/12/19)| hepatomegaly with fatty infiltration -with transaminitis - No history of liver disease. Does consume about 4 glasses of alcohol each night, denies recent Tylenol use, no known hepatitis risk factors - CT: borderline hepatomegaly with fatty infiltration - US: marked fatty infiltration of the liver, no visceral venous thrombosis seen, sliver of ascites seen in the RUQ, sliver of L pleural fluid - Fatty Liver work-up negative for any rheumatological, infectious or medication induced - Alcohol cessation counseling provided -Discussed avoiding hepatotoxins : ETOH, acetaminophen. -outpt GI referral to be made by her pcp for monitoring. Alcoholic hepatitis -with transaminitis - No history of liver disease. Does consume about 4 glasses of alcohol each night, denies recent Tylenol use, no known hepatitis risk factors - CT: borderline hepatomegaly with fatty infiltration - US: marked fatty infiltration of the liver, no visceral venous thrombosis seen, sliver of ascites seen in the RUQ, sliver of L pleural fluid - Fatty Liver work-up negative for any rheumatological, infectious or medication induced - Alcohol cessation counseling provided - due to ongoing complaints of abdominal fullness, will check us liver for possible paracentesis if significant amout of ascites. Elevated BNP -due to chronically overloaded state - on lasix - r/o alcoholic cardiomyopathy, echo Sacrum pressure injury stage 1 -c/w cushion, nystatin powder, Desitin, and Eucerin Coagulopathy: likely 2/2 acute liver failure (resolving) -s/p FFP and RBC transfusion for coagulopathy s/p Lactic acidosis Hyperuremia: possibly 2/2 pre-renal azotemia from active bleed (resolved) Anion gap metabolic acidosis: possibly 2/2 lactic acidosis vs increased BUN (resolved) Acute kidney injury: likely 2/2 hypovolemia (resolved) Anxiety/Depression -c/w Lexapro 10 mg and hydroxyzine Weakness 2/2 deconditioning - PT/OT Per ARU recommendations DVT prophylaxis - c/w Heparin VS, I&O, 24H, Ambrociobone Vital Signs/I&O Vital Signs Date Time Temp Pulse Resp B/P (MAP) Pulse Ox O2 Delivery O2 Flow Rate FiO2 11/24/18 05:11 97.6 77 18 133/63 (86) 96 I&O- Last 24 Hours up to 6 AM 11/24/18 06:00 Intake Total 1320 ml Balance 1320 ml Laboratory Data 24H LABS Laboratory Tests 2 11/24/18 05:25: Bedside Glucose (Misc Panel) 71 CBC/BMP Laboratory Tests 11/24/18 07:15 Microbiology Microbiology 11/16/18 Urine Culture - Final, Complete JANICE RANDLE MD Nov 24, 2018 12:29"
[2018-11-24 14:00] VITALS: BP 109/58
[2018-11-24 15:04] VITALS: BP 109/58
[2018-11-24 20:00] VITALS: BP 98/52
[2018-11-24] MEDS: hydrOXYzine 25 MG TAB PO SCH (20:45)
[2018-11-24] MEDS: LATANOPROST 0.005% OPHTH SOLN 2.5 ML OU SCH (20:45)
[2018-11-25 06:00] VITALS: BP 111/59
[2018-11-25 07:01] LABS: BLOOD UREA NITROGEN 5 MG/DL (7-18); CARBON DIOXIDE LEVEL 26 MEQ/L (21-32); CHLORIDE LEVEL 111 MEQ/L (98-107); CREATININE FOR GFR 0.53 MG/DL (0.55-1.30); GLOMERULAR FILTRATION RATE > 60.0 (>51); GLUCOSE, FASTING 68 MG/DL (70-100); POTASSIUM SERUM 3.8 MEQ/L (3.5-5.1); SODIUM LEVEL 144 MEQ/L (136-145)
[2018-11-25 08:09] LABS: BASO # 0.1 10^3/uL (0.0-0.2); BASO % 1.3 % (0.0-1.0); EOS # 0.8 10^3/uL (0.0-0.50); EOS % 10.4 % (0.0-3.0); HEMATOCRIT 28.4 % (36.0-47.0); HEMOGLOBIN 9.1 g/dl (12.0-15.5); LYMPH # 2.5 10^3/uL (1.5-4.5); LYMPH % 33.4 % (24.0-44.0); MEAN CORPUSCULAR HEMOGLOBIN 32.9 pg (27.0-33.0); MEAN CORPUSCULAR VOLUME 102.5 fl (80.0-96.0); NEUTROPHILS # 3.1 10^3/uL (1.8-7.7); NEUTROPHILS % 41.5 % (36.0-66.0); PLATELET COUNT, AUTOMATED 363 10^3/uL (150-450); RED BLOOD COUNT 2.77 10^6/uL (4.00-5.40); WHITE BLOOD COUNT 7.5 10^3/uL (4.0-10.0)
--- NOTE | 2018-11-25 08:55 | IPNPDOC ---
"Date Seen The patient was seen on 11/25/18. Progress Note Subjective: No new complaints. H&H stable.no c/o brbpr, melena, or black tarry stools. eating well with small frequent meals . still w some abdominal fullness. solid bowel movments about 2-3 daily. non watery nonmucusy nonacholic. No fever or chills. ambulating well. no issues overnight. Objective: Vitals (See below) General: Lying in bed, no acute distress, comfortable, AAOx3 HEENT: NC, AT CVS: RRR, +S1S2 Lungs: Fair air entry b/l, -w/r/r Abdomen: Soft, ND, NT, Extremities: 1+ pitting edema, - Calf tenderness Laboratory data, imaging studies, microbiology: reviewed, pls see below Assessment and plan: Patient is a 58-year-old female with a PMHx of HANNAH and lack of medical care for several years who presents to the ED with 4 days nausea, vomiting and black tarry stools. She was admitted with acute blood loss anemia. On admission she met SIRS criteria and was hemodynamically stabilized. She received 3 units of packed RBC and 1 unit FFP. Once stabilized, gastroenterology was consulted and EGD was performed that revealed non-bleeding gastric ulcers with no stigmata of bleeding, portal hypertensive gastropathy, multiple non-bleeding duodenal ulcers. Patient was placed on Protonix 40 mg PO once daily and could be continued on this dose for 4-8 weeks (end 01/12/19). Patient was also found to have an elevated AST / ALT and a full workup was completed for transaminitis to rule out possible infectious, inflammatory, and autoimmune conditions. The patient was diagnosed with acute alcoholic hepatitis and counseled on alcohol cessation. The patient developed bilateral LE edema which was attributed to hypoalbuminemia and her diet was supplemented with Ensure protein as well as receiving IV and PO Lasix. During hospitalization patient's history of ichthyosis was treated with Eucerin lotion with improvement. Patient and family expressed the need for management of depression, anxiety, and sleep disturbances, she was started on Lexapro and hydroxyzine. Because of her generalized Weakness 2/2 deconditioning PT recommended patient for ARU for continue rehab. Patient was transferred to ARU unit on 11/15/2018 and Hospitalist team was then consulted for continued management of medical problem. Hypokalemia, supplemented due to decreased dietary intake and lasix. check magnesium an dsupplement if less than 2 abdominal distension no signifcant ascites on liver us 11/21/18 no c/o intractable nausea or vomiting denies any sob and no clinical signs of pleural effusion. Hypoalbuminemia - PE: 2+ pitting edema of the LE, right>left, that is improving. Non erythemato us - Unlikely CHF: no JVD, no murmurs or crackles on auscultation. CHF unlikely. - Low albumin possibly secondary to alcohol abuse. Supplement meals with Ensure. - c/w Lasix 40 mg PO + continue to supplement with potassium; will consider Spironolactone instead of potassium supplementation based on AM labs Hypotension - likely chronic in nature - likely related to some degree of underlying liver disease, as well as petit nature, likely chronically low, no evidence or symptoms of hypoperfusion - s/p 3 units of packed RBC Acute blood loss anemia: secondary to upper GI bleed possibly secondary to gastric and duodenal ulcers likely due to alcohol consumption - She has not seen a dr in years. 2 wk hx of watery black stools - EGD 11/08/18: small hiatal hernia, non bleeding gastric ulcers, portal hypertensive gastropathy, multiple non bleeding duodenal ulcers - s/p 3 units of packed RBC. - Protonix 40 mg PO once daily. Continue outpatient for 4-8 weeks (end 01/12/19) upper GI bleed possibly secondary to gastric and duodenal ulcers l - She has not seen a dr in years. 2 wk hx of watery black stools - EGD 11/08/18: small hiatal hernia, non bleeding gastric ulcers, portal hypertensive gastropathy, multiple non bleeding duodenal ulcers - s/p 3 units of packed RBC. - Protonix 40 mg PO once daily. Continue outpatient for 4-8 weeks (end 01/12/19)| Small hiatal hernia, non bleeding gastric ulcers, portal hypertensive gastropathy, multiple non bleeding duodenal ulcers - s/p 3 units of packed RBC. - Protonix 40 mg PO once daily. Continue outpatient for 4-8 weeks (end 01/12/19)| hepatomegaly with fatty infiltration -with transaminitis - No history of liver disease. Does consume about 4 glasses of alcohol each night, denies recent Tylenol use, no known hepatitis risk factors - CT: borderline hepatomegaly with fatty infiltration - US: marked fatty infiltration of the liver, no visceral venous thrombosis seen, sliver of ascites seen in the RUQ, sliver of L pleural fluid - Fatty Liver work-up negative for any rheumatological, infectious or medication induced - Alcohol cessation counseling provided -Discussed avoiding hepatotoxins : ETOH, acetaminophen. -outpt GI referral to be made by her pcp for monitoring. Alcoholic hepatitis -with transaminitis - No history of liver disease. Does consume about 4 glasses of alcohol each night, denies recent Tylenol use, no known hepatitis risk factors - CT: borderline hepatomegaly with fatty infiltration - US: marked fatty infiltration of the liver, no visceral venous thrombosis seen, sliver of ascites seen in the RUQ, sliver of L pleural fluid - Fatty Liver work-up negative for any rheumatological, infectious or medication induced - Alcohol cessation counseling provided - due to ongoing complaints of abdominal fullness, will check us liver for possible paracentesis if significant amout of ascites. Elevated BNP -due to chronically overloaded state - on lasix - r/o alcoholic cardiomyopathy, echo Sacrum pressure injury stage 1 -c/w cushion, nystatin powder, Desitin, and Eucerin Coagulopathy: likely 2/2 acute liver failure (resolving) -s/p FFP and RBC transfusion for coagulopathy s/p Lactic acidosis Hyperuremia: possibly 2/2 pre-renal azotemia from active bleed (resolved) Anion gap metabolic acidosis: possibly 2/2 lactic acidosis vs increased BUN (resolved) Acute kidney injury: likely 2/2 hypovolemia (resolved) Anxiety/Depression -c/w Lexapro 10 mg and hydroxyzine Weakness 2/2 deconditioning - PT/OT Per ARU recommendations DVT prophylaxis - c/w Heparin VS, I&O, 24H, Fishbone Vital Signs/I&O Vital Signs Date Time Temp Pulse Resp B/P (MAP) Pulse Ox O2 Delivery O2 Flow Rate FiO2 11/25/18 06:00 97.2 80 18 111/59 (76) 95 I&O- Last 24 Hours up to 6 AM 11/25/18 06:00 Intake Total 1440 ml Balance 1440 ml Laboratory Data 24H LABS Laboratory Tests 2 11/25/18 06:16: Immature Granulocyte % (Auto) 0.4, White Blood Count 7.5, Red Blood Count 2.77L, Hemoglobin 9.1L, Hematocrit 28.4L, Mean Corpuscular Volume 102.5H, Mean Corpuscular Hemoglobin 32.9, Mean Corpuscular Hemoglobin Concent 32.0, Red Cell Distribution Width 16.5H, Platelet Count 363, Neutrophils (%) (Auto) 41.5, Lymphocytes (%) (Auto) 33.4, Monocytes (%) (Auto) 13.0H, Eosinophils (%) (Auto) 10.4H, Basophils (%) (Auto) 1.3H, Neutrophils # (Auto) 3.1, Lymphocytes # (Auto) 2.5, Monocytes # (Auto) 1.0H, Eosinophils # (Auto) 0.8H, Basophils # (Auto) 0.1, Nucleated Red Blood Cells % (auto) 0.0, Anion Gap 7L, Glomerular Filtration Rate > 60.0, Blood Urea Nitrogen 5L, Creatinine 0.53L, Sodium Level 144, Potassium Level 3.8, Chloride Level 111H, Carbon Dioxide Level 26, Calcium Level 8.0L CBC/BMP Laboratory Tests 11/25/18 06:16 Red Blood Count 2.77 L, Mean Corpuscular Volume 102.5 H, Mean Corpuscular Hemoglobin 32.9, Mean Corpuscular Hemoglobin Concent 32.0, Red Cell Distribution Width 16.5 H, Neutrophils (%) (Auto) 41.5, Lymphocytes (%) (Auto) 33.4, Monocytes (%) (Auto) 13.0 H, Eosinophils (%) (Auto) 10.4 H, Basophils (%) (Auto) 1.3 H, Neutrophils # (Auto) 3.1, Lymphocytes # (Auto) 2.5, Monocytes # (Auto) 1.0 H, Eosinophils # (Auto) 0.8 H, Basophils # (Auto) 0.1, Calcium Level 8.0 L Microbiology Microbiology 11/16/18 Urine Culture - Final, Complete JANICE RANDLE MD Nov 25, 2018 08:33"
[2018-11-25] MEDS: BALMEX CREAM 60GM TOP SCH ×3 (09:00→21:04)
[2018-11-25] MEDS: HEPARIN SOD (PORCINE) 5000 UNITS/ML VIAL SC SCH ×2 (10:25→21:02)
[2018-11-25] MEDS: PANTOPRAZOLE 40MG TAB (PROTONIX) PO SCH (10:26)
[2018-11-25] MEDS: FUROSEMIDE 40 MG TAB PO SCH (10:26)
[2018-11-25] MEDS: POTASSIUM CHLORIDE 10 MEQ SR TABLET PO SCH (10:26)
[2018-11-25] MEDS: ESCITALOPRAM OXALATE 10 MG TAB (LEXAPRO) PO SCH (10:27)
[2018-11-25] MEDS: MAGNESIUM OXIDE 400 MG TAB (MAG-OX) PO SCH ×2 (10:27→21:03)
[2018-11-25] MEDS: NYSTATIN 100,000 UNITS/GM TOPICAL PWD 15 GM TOP SCH ×2 (10:27→21:04)
[2018-11-25] MEDS: MULTIVITAMINS/MINERALS THERAP 1 TAB PO SCH (10:27)
[2018-11-25] MEDS: EUCERIN 120GM CREAM TOP SCH ×3 (10:28→21:03)
[2018-11-25 14:00] VITALS: BP 121/61
[2018-11-25 20:00] VITALS: BP 108/56
[2018-11-25] MEDS: hydrOXYzine 25 MG TAB PO SCH (21:03)
[2018-11-25] MEDS: LATANOPROST 0.005% OPHTH SOLN 2.5 ML OU SCH (21:03)
[2018-11-26 06:00] VITALS: BP 102/55
[2018-11-26 07:11] LABS: HEMOGLOBIN 9.2 g/dl (12.0-15.5); MEAN CORPUSCULAR HEMOGLOBIN 36.2 pg (27.0-33.0); MEAN CORPUSCULAR HGB CONC 34.1 g/dl (32.0-36.5); MEAN CORPUSCULAR VOLUME 106.3 fl (80.0-96.0); PLATELET COUNT, AUTOMATED 414 10^3/uL (150-450); RED BLOOD COUNT 2.54 10^6/uL (4.00-5.40); WHITE BLOOD COUNT 8.4 10^3/uL (4.0-10.0)
[2018-11-26 07:37] LABS: ALBUMIN 1.6 GM/DL (3.2-5.2); ALT/SGPT 23 U/L (12-78); BILIRUBIN,TOTAL 0.5 MG/DL (0.2-1.0); BLOOD UREA NITROGEN 5 MG/DL (7-18); CALCIUM LEVEL 7.9 MG/DL (8.5-10.1); CARBON DIOXIDE LEVEL 25 MEQ/L (21-32); CHLORIDE LEVEL 110 MEQ/L (98-107); CREATININE FOR GFR 0.49 MG/DL (0.55-1.30); GLOMERULAR FILTRATION RATE > 60.0 (>51); GLUCOSE, FASTING 66 MG/DL (70-100); POTASSIUM SERUM 3.9 MEQ/L (3.5-5.1); SODIUM LEVEL 141 MEQ/L (136-145); TOTAL PROTEIN 5.5 GM/DL (6.4-8.2)
[2018-11-26] MEDS: POTASSIUM CHLORIDE 10 MEQ SR TABLET PO SCH (08:32)
[2018-11-26] MEDS: ESCITALOPRAM OXALATE 10 MG TAB (LEXAPRO) PO SCH (08:32)
[2018-11-26] MEDS: MULTIVITAMINS/MINERALS THERAP 1 TAB PO SCH (08:32)
[2018-11-26] MEDS: FUROSEMIDE 40 MG TAB PO SCH (08:32)
[2018-11-26] MEDS: MAGNESIUM OXIDE 400 MG TAB (MAG-OX) PO SCH (08:32)
[2018-11-26] MEDS: PANTOPRAZOLE 40MG TAB (PROTONIX) PO SCH (08:33)
[2018-11-26] MEDS: HEPARIN SOD (PORCINE) 5000 UNITS/ML VIAL SC SCH (08:33)
[2018-11-26] MEDS: EUCERIN 120GM CREAM TOP SCH (08:33)
[2018-11-26] MEDS: BALMEX CREAM 60GM TOP SCH (08:33)
[2018-11-26] MEDS: NYSTATIN 100,000 UNITS/GM TOPICAL PWD 15 GM TOP SCH (08:34)
[2018-11-26] MEDS ORDERED: FURO40TA2 PO (11:48)
[2018-11-26] MEDS ORDERED: ESCI10TA2 PO (14:02)
[2018-11-26] MEDS ORDERED: PANT40TA3 PO (14:02)
[2018-11-26] MEDS ORDERED: HYDR-3363 PO (14:02)
[2018-11-26] MEDS ORDERED: KLOR10TA76 PO (14:02)
--- NOTE | 2018-11-26 20:00 | IPN ---
DATE: 11/26/2018 The patient is seen and examined in the room today. The patient denies any acute complaints. Denies any acute changes. The patient is being discharged from acute rehabilitation unit. Discharge medications were reviewed. Denies any recurrent gastrointestinal bleed. OBJECTIVE: VITAL SIGNS: Temperature 98.6, pulse 78, respiratory rate 18, blood pressure 102/55, pulse oximetry 96% on room air. GENERAL: The patient is alert, awake, comfortable. HEENT: Normocephalic, atraumatic. Extraocular motors are grossly intact. CARDIOVASCULAR: Positive S1, S2. Regular rate. LUNGS: Clear to auscultation bilaterally. ABDOMEN: Soft, nontender, nondistended. Bowel sounds present. EXTREMITIES: No significant edema appreciated. LABORATORY DATA: WBC 8.4, hemoglobin 9.3, hematocrit 27, platelet count is 414. Sodium is 141, potassium 3.9, chloride 110, carbon dioxide 25, BUN 5, creatinine 0.49, GFR is greater than 60, fasting glucose 66, calcium 7.9, total bilirubin 0.5, AST 43, ALT 33, alkaline phosphatase 109, total protein 5.5, albumin 1.6. ASSESSMENT AND PLAN: 1. Gastrointestinal bleed from duodenal ulcer. 2. Hypertension. 3. Hypoalbuminemia. 4. Hypokalemia. 5. Anxiety/depression. 6. Hepatomegaly with fatty infiltrate. 7. Alcoholic hepatitis. 8. Stage I sacral pressure injury. 9. History of lactic acidosis. 10. Anion gap metabolic acidosis. 11. Deconditioning. HOSPITALIZATION COURSE: The patient is being discharged from the acute rehabilitation unit. The patient's discharge medications were reviewed. The patient was seen and examined prior to discharge. Recommended to followup with primary care provider in 1 week. Discharge condition is fair.
--- NOTE | 2018-11-26 20:51 | PMRDS ---
DATE OF ADMISSION: 11/15/2018 DATE OF DISCHARGE: CHIEF COMPLAINT/DISCHARGE DIAGNOSIS: Systemic inflammatory response syndrome. HISTORY OF PRESENT ILLNESS: A 58-year-old female with chronic EtOH (ethanol) use, hyperlipidemia, anxiety who presented to [facility] ([facility] Emergency Department (ED) (on 11/06/2018 complaining of multiple days of nausea and vomiting with black tarry stools. CT abdomen and pelvis showed "borderline hepatomegaly with fatty infiltration ...mild pancreatic atrophy for age ...mild nonspecific segmental colitis of the ascending colon." She was found to have elevated lactic acid was severe macrocytic anemia with elevated liver function tests (LFTs) and coagulopathy. She received red blood cells (RBC) and fresh frozen plasma (FFP), and gastrointestinal (GI) consult was placed. She was found to meet systemic inflammatory response syndrome (SIRS) criteria and started on empiric vancomycin in addition to acute kidney injury (BRO), for which she was given an intravenous fluids ( IVF). She was treated with Lasix and protein supplementation for lower extremity edema, thought to be from hypoalbuminemia in setting of EtOH use. She was treated with doxycycline for cellulitis, and blood cultures times two did not grow any bacteria. On 11/08/2018, she underwent an endoscopy, where a biopsy was taken to look for Helicobacter (H) pylori, and she was found to have portal hypertensive gastropathy, nonbleeding gastric and duodenal ulcers. She was evaluated by therapy and found to have significant impairment in activities of daily living (ADLs) and stair negotiation and deemed medically appropriate for discharge to acute rehabilitation unit (ARU) on 11/15/2018. Upon arrival, she reports she has had a little shaky and attributes it to being nervous but reports it has been about 2 weeks since her last drink. Denies any visual hallucinations, sweating, or formication. PAST MEDICAL HISTORY: As per history of present illness (HPI). HOSPITAL COURSE: The patient was admitted and enrolled in a comprehensive physical therapy (PT)/occupational therapy (OT) program. She received 24-hour nursing supervision ,and weekly team meetings were held to discuss her progress. During her hospital course, her GI medical issues were followed by internal medicine who ordered a liver ultrasound showing small amounts of ascites in all four quadrants. She was maintained on Protonix for recent suspected upper GI bleed with melena and did not have any melena during her hospital course with stable hemoglobin and hematocrit. She was treated with Lasix and given potassium supplements and continued on Lexapro for her history of depression. Her lower extremity edema was also managed with Luis wrapping and elevation, and overall she made significant gains in her balance, strength, and coordination and was deemed medically and functionally stable to return to home with home services, to followup with outpatient GI and primary care physician. DISCHARGE MEDICATIONS: - Biotin - Lexapro 10 daily - furosemide 20 daily - hydroxyzine 25 by mouth at bedtime - latanoprost - magnesium 400 twice a day - multivitamin - omega 3 fatty acids - Protonix 40 daily - potassium chloride 20 mEq daily FUNCTIONAL HISTORY UPON DISCHARGE: The patient was modified independent for all functional transfers, able to ambulate 300 feet with no loss of balance, able to negotiate 12 stairs, and successfully completed room privileges without any falls. In occupational therapy she was modified independent for grooming, toileting, meal preparation, dressing, and deemed functionally and medically stable to return to home.
== END 2018-11-26 14:45 | disposition home health service (06) | DRG 861 ==
LOC: M PM&R 14:08
PROVIDERS: ADMIT Physical Medicine & Rehabilitation; ATTEND Physical Medicine & Rehabilitation
DX: R53.1 Weakness (principal); L89.152 Pressure ulcer of sacral region, stage 2; I95.89 Other hypotension; K76.6 Portal hypertension; K26.9 Duodenal ulcer, unspecified as acute or chronic, without hemorrhage or perforation; E88.09 Other disorders of plasma-protein metabolism, not elsewhere classified; K70.11 Alcoholic hepatitis with ascites; K70.0 Alcoholic fatty liver; F10.10 Alcohol abuse, uncomplicated; E78.00 Pure hypercholesterolemia, unspecified; F41.1 Generalized anxiety disorder; Q80.9 Congenital ichthyosis, unspecified; E87.6 Hypokalemia; R26.9 Unspecified abnormalities of gait and mobility; K31.89 Other diseases of stomach and duodenum; D68.4 Acquired coagulation factor deficiency; K44.9 Diaphragmatic hernia without obstruction or gangrene; F32.9 Major depressive disorder, single episode, unspecified; R25.1 Tremor, unspecified; R60.0 Localized edema; D64.9 Anemia, unspecified; Z88.0 Allergy status to penicillin; Z87.891 Personal history of nicotine dependence; Z79.899 Other long term (current) drug therapy

== ENCOUNTER → 2018-12-06 | Outpatient (REF) | payer OTHER ==
[~2018-12-06] MED LIST changes: +FURO40TA2 PO; +KLOR10TA76 PO
[2018-12-06 15:53] LABS: BLOOD UREA NITROGEN 11 MG/DL (7-18); CALCIUM LEVEL 8.3 MG/DL (8.5-10.1); CARBON DIOXIDE LEVEL 28 MEQ/L (21-32); CHLORIDE LEVEL 109 MEQ/L (98-107); CREATININE FOR GFR 0.71 MG/DL (0.55-1.30); GLOMERULAR FILTRATION RATE > 60.0 (>51); GLUCOSE, FASTING 80 MG/DL (70-100); POTASSIUM SERUM 4.5 MEQ/L (3.5-5.1); SODIUM LEVEL 142 MEQ/L (136-145)
== END ==
LOC: M SFHCPLAZ 12:59
PROVIDERS: ATTEND Family Medicine
DX: R60.0 Localized edema (principal)

== ENCOUNTER → 2019-02-03 | Outpatient (REF) | payer OTHER ==
[2019-02-03 10:07] LABS: CALCIUM LEVEL 9.8 MG/DL (8.5-10.1); CHOLESTEROL RISK RATIO 2.903 (<5); CREATININE FOR GFR 1.05 MG/DL (0.55-1.30); GLOMERULAR FILTRATION RATE 57.7 (>51); POTASSIUM SERUM 4.6 MEQ/L (3.5-5.1)
[2019-02-03 11:40] LABS: HEMOGLOBIN A1c 5.6 %
== END ==
LOC: M SFHCPLAZ 08:07
PROVIDERS: ATTEND Family Medicine
DX: E78.00 Pure hypercholesterolemia, unspecified (principal); Z00.00 Encounter for general adult medical examination without abnormal findings; Z13.1 Encounter for screening for diabetes mellitus

== ENCOUNTER → 2019-02-21 | Outpatient (REF) | payer OTHER ==
[~2019-02-21] MED LIST changes: +COLLPOW8 PA; +ESCI20TA PO; +HEAL1TAB6 PO; +POTA20TA6 PO
[2019-02-21 16:07] LABS: BLOOD UREA NITROGEN 16 MG/DL (7-18); CARBON DIOXIDE LEVEL 25 MEQ/L (21-32); CHLORIDE LEVEL 105 MEQ/L (98-107); CREATININE FOR GFR 0.95 MG/DL (0.55-1.30); GLOMERULAR FILTRATION RATE > 60.0 (>51); GLUCOSE, FASTING 70 MG/DL (70-100); MAGNESIUM LEVEL 2.1 MG/DL (1.8-2.4); POTASSIUM SERUM 4.2 MEQ/L (3.5-5.1); SODIUM LEVEL 138 MEQ/L (136-145)
[2019-02-21 16:25] LABS: TOTAL 25(OH) VITAMIN D 25.6 NG/ML (30.0-100.0)
== END ==
LOC: M SFHCPLAZ 13:54
PROVIDERS: ATTEND Family Medicine
DX: F32.1 Major depressive disorder, single episode, moderate (principal)

== ENCOUNTER 2019-03-13 11:38 | Day surgery (SDC) | payer OTHER ==
[~2019-03-13] VITALS: Ht 166.4 cm; Wt 63.5 kg
[~2019-03-13 11:38] MED LIST changes: +LIDOCAINE 2% INJ 100 MG/5 ML SDV (FOR ANES.) As Ordered ONE; +NS 1,000 ML IV ONE; +PROPOFOL 200 MG/20 ML VIAL As Ordered ONE
--- NOTE | 2019-03-13 13:54 | ROOR ---
Patient Name: Adriane Pringle Procedure Date: 03/13/2019 1:30 PM Date of : 1960 Age: 58 Room: [facility] Gender: Female Note Status: Finalized Procedure: Upper GI endoscopy Indications: Follow-up of acute gastritis Providers: Jose PITTMAN MD Referring MD: Migel Castaneda Do Requesting Provider: Medicines: Monitored Anesthesia Care Complications: No immediate complications. Procedure: Pre-Anesthesia Assessment: - The heart rate, respiratory rate, oxygen saturations, blood pressure, adequacy of pulmonary ventilation, and response to care were monitored throughout the procedure. The Endoscope was introduced through the mouth, and advanced to the second part of duodenum. The upper GI endoscopy was accomplished without difficulty. The patient tolerated the procedure well. Findings: The esophagus was normal. The stomach was normal. The examined duodenum was normal. Impression: - Normal esophagus. - Normal stomach. - Normal examined duodenum. - No specimens collected. Recommendation: - Observe patient's clinical course. - Return to referring physician as previously scheduled. Jose Pittman MD Jose PITTMAN MD 03/13/2019 1:54:19 PM Electronically signed by Jose PITTMAN MD Number of Addenda: 0 Note Initiated On: 03/13/2019 1:30 PM Estimated Blood Loss: Estimated blood loss: none.
--- NOTE | 2019-03-13 14:15 | ROOR ---
Patient Name: Adriane Pringle Procedure Date: 03/13/2019 1:30 PM Date of : 1960 Age: 58 Room: [facility] Gender: Female Note Status: Finalized Procedure: Colonoscopy Indications: Screening for colorectal malignant neoplasm Providers: Jose PITTMAN MD Referring MD: Migel Castaneda Do Requesting Provider: Medicines: Monitored Anesthesia Care Complications: No immediate complications. Procedure: Pre-Anesthesia Assessment: - The heart rate, respiratory rate, oxygen saturations, blood pressure, adequacy of pulmonary ventilation, and response to care were monitored throughout the procedure. The Colonoscope was introduced through the anus and advanced to the cecum, identified by appendiceal orifice and ileocecal valve. The colonoscopy was performed without difficulty. The patient tolerated the procedure well. The quality of the bowel preparation was good. Findings: The perianal and digital rectal examinations were normal. Two semi-sessile polyps were found in the distal sigmoid colon. The polyps were 6 to 10 mm in size. These polyps were removed with a hot snare. Resection and retrieval were complete. The exam was otherwise without abnormality on direct and retroflexion views. Impression: - Two 6 to 10 mm polyps in the distal sigmoid colon, removed with a hot snare. Resected and retrieved. - The examination was otherwise normal on direct and retroflexion views. Recommendation: - Repeat colonoscopy in 3 years for surveillance. - No ibuprofen, naproxen, or other non-steroidal anti-inflammatory drugs for 10 days after polyp removal. - Return to referring physician as previously scheduled. Jose Pittman MD Jose PITTMAN MD 03/13/2019 2:14:52 PM Electronically signed by Jose PITTMAN MD Number of Addenda: 0 Note Initiated On: 03/13/2019 1:30 PM Estimated Blood Loss: Estimated blood loss: none.
[2019-03-13 14:30] VITALS: BP 98/52
== END 2019-03-13 15:08 | disposition home or self-care (01) ==
LOC: M OPP 11:38
PROVIDERS: ATTEND Internal Medicine Gastroenterology
DX: Z12.11 Encounter for screening for malignant neoplasm of colon (principal); D12.5 Benign neoplasm of sigmoid colon; K29.00 Acute gastritis without bleeding; F41.9 Anxiety disorder, unspecified; F32.9 Major depressive disorder, single episode, unspecified; D64.9 Anemia, unspecified; B18.2 Chronic viral hepatitis C; Z87.891 Personal history of nicotine dependence; Z88.0 Allergy status to penicillin; Z79.899 Other long term (current) drug therapy

== ENCOUNTER → 2020-03-01 | Outpatient (CLI) | payer OTHER ==
[~2020-03-01] MED LIST changes: -LIDOCAINE 2% INJ 100 MG/5 ML SDV (FOR ANES.) As Ordered ONE; -NS 1,000 ML IV ONE; +PANT40TA29 PO; -PANT40TA3 PO; -PROPOFOL 200 MG/20 ML VIAL As Ordered ONE
--- NOTE | 2020-04-23 13:35 | REP ---
EXAM: Abdominal right upper quadrant ultrasound. DATE: 03/01/2020 NOTE: The delay in reporting results from malfunction of the hospital computer system as a result of a malware attack. COMPARISON STUDIY: 11/08/2018. The comparison study also included a Doppler flow analysis. There is no Doppler flow analysis on the study today. FINDINGS: The gallbladder is unremarkable. There is no cholelithiasis, gallbladder wall thickening, or pericholecystic fluid. This is unchanged. The hepatic parenchyma is homogeneous. There is a cyst in the dome of the liver measuring 1.9 x 1.2 cm. This was not definitely identified previously. There are no focal hepatic masses. The liver is enlarged, measuring up to 16.5 cm craniocaudad in the midclavicular line; it previously measured 19 cm. The visualized areas of the pancreas are unremarkable. The right kidney is normal in size, measuring 10.0 x 5.0 x 3.5 cm. No free fluid is identified. IMPRESSION: The previous hepatosteatosis appears to have decreased. There is a hepatic cyst. No hepatic masses are identified. The liver is enlarged; although, slightly decreased in size from previously. MTDD
== END ==
LOC: M WHC 10:02
PROVIDERS: ATTEND Family Medicine
DX: K76.0 Fatty (change of) liver, not elsewhere classified (principal); K76.89 Other specified diseases of liver

== ENCOUNTER → 2020-04-30 | Outpatient (CLI) | payer OTHER ==
--- NOTE | 2020-05-06 15:50 | REP ---
MRI RIGHT HIP HISTORY: Osteoarthritis, rule out fracture. TECHNIQUE: Multiple sequences obtained in the axial, coronal, and sagittal planes. FINDINGS: There is advanced avascular necrosis of the right femoral head. There is a geographic area of low signal in the superior aspect of the femoral head with diffuse flattening and irregularity of the articular surface of the femoral head superiorly. There is ehwx-av-rnuafznl marrow edema extending through the adjacent femoral head into the femoral neck and a portion of the intertrochanteric region. There is mild subchondral marrow edema in the acetabulum with severe secondary arthritis at the hip joint. There is diffuse chondromalacia. There is a moderate joint effusion. There is diffuse labral tearing. There is mild edema in the adjacent quadratus femoris and obturator externus muscles. Multiple small lymph nodes are seen in both inguinal regions. Note is also made of avascular necrosis of the left femoral head, which is less advanced. Spherical shape of the femoral head is maintained. There are characteristic signal abnormalities in the superior aspect of the left femoral head of avascular necrosis. This appears to be stage II. 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 Ymxt-sz-duqdvdqb bone marrow edema in the right femoral head and intertrochanteric region secondary to the avascular necrosis (AVN) and arthritic changes with no evidence of an acute hip fracture. Secondary severe arthritic change at the right hip joint. Diffuse labral tearing. Moderate joint effusion. There are also findings of stage II avascular necrosis of the left femoral head. [facility]
== END ==
LOC: M RAD 07:00
PROVIDERS: ATTEND Physician Assistant Medical
DX: M16.11 Unilateral primary osteoarthritis, right hip (principal)

== ENCOUNTER → 2020-05-05 | Outpatient (RCR) | payer OTHER | LOC: M PT 04-16 07:58 | PROVIDERS: ATTEND Family Medicine | DX: M16.11 Unilateral primary osteoarthritis, right hip (principal) ==

== ENCOUNTER 2020-05-14 07:58 | Outpatient (RCR) | payer OTHER | END 2020-06-05 | LOC: M PT 07:58 | PROVIDERS: ATTEND Family Medicine | DX: Z51.89 Encounter for other specified aftercare (principal); M25.551 Pain in right hip; M16.11 Unilateral primary osteoarthritis, right hip ==

== ENCOUNTER → 2020-08-18 | Outpatient (CLI) | payer OTHER ==
[~2020-08-18] MED LIST changes: +EMER1PAK30 PO; +ESCI10TA16 PO; -ESCI10TA2 PO; -ESCI20TA PO; +ESCI20TA16 PO; +THERTAB52 PO; +TIMO1SOL OU; +TRAM50TA2 PO
[2020-08-18 16:30] LABS: HEMATOCRIT 40.3 % (36.0-47.0); HEMOGLOBIN 13.3 g/dl (12.0-15.5); MEAN CORPUSCULAR HEMOGLOBIN 31.3 pg (27.0-33.0); MEAN CORPUSCULAR VOLUME 94.8 fl (80.0-96.0); PLATELET COUNT, AUTOMATED 346 10^3/uL (150-450); RED BLOOD COUNT 4.25 10^6/uL (4.00-5.40); WHITE BLOOD COUNT 8.2 10^3/uL (4.0-10.0)
[2020-08-18 16:47] LABS: INR 0.96
[2020-08-18 17:05] LABS: ALBUMIN 4.4 GM/DL (3.2-5.2); BILIRUBIN,TOTAL 0.4 MG/DL (0.2-1.0); CALCIUM LEVEL 9.6 MG/DL (8.5-10.1); CREATININE FOR GFR 1.12 MG/DL (0.55-1.30); GLOMERULAR FILTRATION RATE 53.2 (>51); POTASSIUM SERUM 3.9 MEQ/L (3.5-5.1); TOTAL PROTEIN 8.1 GM/DL (6.4-8.2)
[2020-08-18 20:14] LABS: ERYTHROCYTE SEDIMENTATION RATE 44 mm/hr (0-30)
--- NOTE | 2020-08-19 19:16 | ECGEPIP ---
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
--- NOTE | 2020-08-20 07:50 | REP ---
INDICATION: RIGHT TOTAL HIP ARTHROPLASTY, LAB 1ST EKG 2ND THEN XR COMPARISON: 11/07/2018 TECHNIQUE: PA and lateral. FINDINGS: The mediastinum and cardiac silhouette are normal. The lung jarrell are clear and without acute consolidation, effusion, or pneumothorax. The skeletal structures are intact and normal. IMPRESSION: No acute cardiopulmonary process. <Electronically signed by Carmelo Collado > 08/20/20 0747
== END ==
LOC: M LAB 15:09
PROVIDERS: ATTEND Orthopaedic Surgery
DX: Z01.818 Encounter for other preprocedural examination (principal); M16.11 Unilateral primary osteoarthritis, right hip; M25.551 Pain in right hip

== ENCOUNTER → 2020-08-21 | Outpatient (CLI) | payer OTHER | LOC: M LABSMTC 09:43 | PROVIDERS: ATTEND Anesthesiology | DX: Z01.812 Encounter for preprocedural laboratory examination (principal); Z20.828 Contact with and (suspected) exposure to other viral communicable diseases ==

== ENCOUNTER → 2020-09-20 | Outpatient (REF) | payer OTHER ==
[~2020-09-20] MED LIST changes: +LEXA1TAB2 PO; -MAG400TA PO; +MAGN400T35 PO; +SUPE5000 PO
[2020-09-20 17:38] LABS: HEMATOCRIT 40.4 % (36.0-47.0); HEMOGLOBIN 13.3 g/dl (12.0-15.5); MEAN CORPUSCULAR HEMOGLOBIN 32.3 pg (27.0-33.0); MEAN CORPUSCULAR HGB CONC 32.9 g/dl (32.0-36.5); MEAN CORPUSCULAR VOLUME 98.1 fl (80.0-96.0); PLATELET COUNT, AUTOMATED 374 10^3/uL (150-450); RED BLOOD COUNT 4.12 10^6/uL (4.00-5.40); WHITE BLOOD COUNT 9.2 10^3/uL (4.0-10.0)
[2020-09-20 17:49] LABS: INR 0.97; PROTHROMBIN TIME 13.1 SECONDS (12.5-14.3)
[2020-09-20 17:58] LABS: ALBUMIN 4.2 GM/DL (3.2-5.2); BILIRUBIN,TOTAL 0.3 MG/DL (0.2-1.0); CALCIUM LEVEL 9.1 MG/DL (8.5-10.1); CREATININE FOR GFR 1.12 MG/DL (0.55-1.30); GLOMERULAR FILTRATION RATE 53.2 (>51); POTASSIUM SERUM 3.7 MEQ/L (3.5-5.1); TOTAL PROTEIN 8.1 GM/DL (6.4-8.2)
[2020-09-20 19:18] LABS: ERYTHROCYTE SEDIMENTATION RATE 25 mm/hr (0-30)
== END ==
LOC: M PLALAB 17:05
PROVIDERS: ATTEND Student in an Organized Health Care Education/Training Program
DX: Z01.818 Encounter for other preprocedural examination (principal)

== ENCOUNTER → 2020-09-20 | Outpatient (CLI) | payer OTHER ==
--- NOTE | 2020-09-20 18:49 | REPPI ---
INDICATION: PRE OP COMPARISON: 08/18/2020 TECHNIQUE: PA and lateral. FINDINGS: The mediastinum and cardiac silhouette are normal. The lung jarrell demonstrate chronic stable changes without acute consolidation, effusion, or pneumothorax. The skeletal structures are intact and normal. IMPRESSION: No acute cardiopulmonary process. <Electronically signed by Carmelo Collado > 09/20/20 [id number]
== END ==
LOC: M PLAIMG 15:47
PROVIDERS: ATTEND Student in an Organized Health Care Education/Training Program
DX: Z01.818 Encounter for other preprocedural examination (principal)

== ENCOUNTER → 2020-09-23 | Outpatient (CLI) | payer OTHER | LOC: M LABSMTC 12:09 | PROVIDERS: ATTEND Anesthesiology | DX: Z01.812 Encounter for preprocedural laboratory examination (principal); Z20.822 Contact with and (suspected) exposure to COVID-19 ==

== ENCOUNTER 2020-09-28 06:05 | Inpatient (IN) | payer OTHER ==
--- NOTE | 2020-09-22 20:33 | HPE ---
HISTORY AND PHYSICAL DATE OF ANTICIPATED ADMISSION: 09/28/2020 ADMITTING DIAGNOSES: 1. Osteoarthritis of the right hip. 2. Avascular necrosis (AVN) right hip. HISTORY OF PRESENT ILLNESS: This is a 60-year-old female patient with progressively worsening right hip pain and stiffness that failed to improve with conservative management. She has pain with weightbearing activities and activities of daily living. She has underlying AVN of her right hip, as well as osteoarthritis of her right hip. X-rays notable for end-stage degenerative changes of the right hip with collapse consistent with AVN. Medical optimization Dr. Pino. ALLERGIES: PENICILLIN G. CURRENT MEDICATIONS: 1. Hydralazine 25 mg p.r.n. 2. Lexapro 20 mg one tablet once per day. PAST MEDICAL HISTORY: 1. Liver disease. 2. Anxiety. 3. Depression. 4. Alcohol-induced hepatitis in 2019. FAMILY HISTORY: Non-contributory. REVIEW OF SYSTEMS: Denies fever or chills. Denies chest pain or shortness of breath. Denies cough. She did have a positive COVID test. She has been seen by her primary. Clearance was done after her positive COVID test. She has had a repeat COVID test, which is pending currently. Currently denies any COVID symptomatology. Denies nausea or vomiting. SOCIAL HISTORY: She is a former smoker. Alcohol use: She is currently abstaining from alcohol. She continues to work. PHYSICAL EXAMINATION: Today reveals an alert, well-nourished, and well-developed female patient. She ambulates with a significant limping gait favoring the right side. There is irritability with even the slightest motion of the right hip. The calf is soft and nontender to palpation. She can sensate light touch. There is no pitting edema on exam and is well perfused. Right lower extremity and skin around the hip is intact. No erythema, edema, or ecchymosis. Neck is supple without adenopathy or JVD. Lungs are clear to auscultation without rales or wheeze. Heart is regular rate and rhythm. Abdomen with bowel sounds present. VITAL SIGNS: Current height 5 feet 4 inches, weight 151 pounds, temperature 97.5, blood pressure 120/60, pulse 60, respirations 15. IMAGING DATA: Chest x-ray with no acute cardiopulmonary disease process noted. EKG sinus rhythm. LABORATORY DATA: ProTime 13.0. INR 0.96. Glucose 76, BUN 11, creatinine 1.12. Sodium 138, potassium 3.9. WBC count 8.2, RBC count 4.2, hemoglobin 13.3, hematocrit 40.53. Sed rate is 44. IMPRESSION: Symptomatic avascular necrosis (AVN) with collapse of the right hip with underlying osteoarthritis. PLAN: She is consented by Dr. Ramos for a right total hip arthroplasty. We reviewed her preoperative and postoperative instructions, the importance of no NSAIDs five days prior to surgery, n.p.o. after midnight, and what n.p.o. after midnight means. We also discussed COVID testing, and she needs to quarantine after her COVID testing. She is reminded about calling the hospital the day prior to surgery and the importance of being on time for that visit. All of her questions were answered. She understands only to take the medications as directed by her primary or by the anesthesia group.
[~2020-09-28] VITALS: Ht 165.1 cm; Wt 68.5 kg
[2020-09-28] VITALS (8 sets, daily range): BP systolic 82–119; BP diastolic 51–73
--- OUTSIDE RECORDS SUMMARY | 2020-09-28 06:09 | CCD ---
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 Active confirmed 39 856979 Problem Internal thrombosed hemorrhoids K64.5 Active confi rmed 15075099 Problem Pure hypercholesterolemia E78.00 Active confirmed 093060218 Problem Pressure injury of sacral region, stage 1 L89.151 Active confirmed 355971266 Problem Moderate episode of recurrent major depressive disorder F33.1 Active confirmed 966903616 Problem Major depressive disorder, single episode, moderate F32.1 Active confirmed 54953849 Problem Avascular necrosis of bone of right hip M87.051 Active confirmed 739897822 Problem Acute alcoholic hepatitis K70.10 Active confirmed 4032300 Problem Unilateral primary osteoarthritis, right hip M16.1 1 Active confirmed 060665363361426 Problem External hemorrhoids with other complication K64.4 Active confirmed 71876229 Problem Laboratory examination Z01.89 Active confirmed 779502711 Problem Bipolar disorder, current episode mixed, moderate F31.62 Active confirmed 529701184 Problem Fatty liver K76.0 Active confirmed 90209058 7 Problem History of macrocytic anemia Z86.2 Active confirme d 526757110 ALLERGIES Allergen (clinical drug ingredient) Drug/Non Drug Allergy do cumented on EMR Reaction Allergy Type Onset Date Status Penicillin (For Allergies Use Only) Hives Drug Allerg y Active ENCOUNTERS from 1960 to 2020-09-24 Encounter Location Date Provider Diagnosis [facility] Resident [address] [place] [address] Sep, Padilla Odette Pre-op evaluation Z01.818 an d Unilateral primary osteoarthritis, right hip M16.11 IMMUNIZATIONS Vaccine Route Administration Date Status TDAP 0.5mL (Boostrix) IM Intramuscular Jun 16, 2011 Administe red SOCIAL HISTORY Tobacco Use: Social History Observation Description Date Details (start date - stop date) Former Smoker Sex Assigned At : Social History Observation Description Sex Assigned At Unknown Education: Question Answer Notes Level of Education: Finished College Audit Question Answer Notes Total Score: 17 Interpretation: Simple Advice plus Brief Counseling and Continued Monitoring Language: Question Answer Notes Languages spoken: Sri Lankan Judaism: Question Answer Notes Judaism 99 Other buddhist Sexual Hx: Question Answer Notes Had sex in the last 12 months (vaginal, oral, or anal)? No LMP: menopause Have you ever had an STD? No Drug and Alcohol Question Answer Notes Total Score: 0 Interpretation: No problems reported Alcohol Screening: Question Answer Notes Did you have a drink containing alcohol in the past year? No Points 0 Interpretation Negative Tobacco Use: Question Answer Notes Are you a: former smoker How long has it been since you last smoked? 1-5 years REASON FOR REFERRAL No Information VITAL SIGNS Weight 157 lbs Sep, Height 65.5 in Sep, BMI 25.73 kg/m2 Sep, Heart Rate 78 /min Sep, Respiratory Rate 18 /min Sep, Temperature 97.4 degrees Fahrenheit Sep, Oximetry 95 Sep, Blood pressure systolic 116 mm Hg Sep, Blood pressure diastolic 80 mm Hg Sep, MEDICATIONS Medication SIG (Take, Route, Frequency, Duration) Notes Start Da te End Date Status Cane - as directed topically Daily for 999 days Jul Active Latanoprost-Timolol Maleate 0.005-0.5 % 1 drop into af fected eye Ophthalmic Once a day Active Biotin 5 MG 1 tablet Orally Once a day Active Emergen-C Immune Plus/Vit D - as directed Orally Active Lexapro 20 MG 1 tablet Orally Once a day for 30 Active Bath Bench with Back - as directed topically Daily for 999 days Jul, Active HydrOXYzine HCl 25 mg 1 tablet as needed Orally every 8 hrs for 30 Active Tramadol HCl 50 MG 1 tablet as needed Orally twice daily as needed for 28 days Jul, Active Multivitamins 1 as directed p.o. daily Active Raised Toilet Seat - as directed topically Daily for 999 days Jul, Active PROCEDURES No Information RESULTS Component Value Reference Range CBC - Complete Blood Count Reviewed date:09/21/2020 18:03:32 Interpretation: Performing Lab:[facility] [address] [address] , ,[place] [address] WHITE BLOOD COUNT 9.2 4.0-10.0 RED BLOOD COUNT 4.12 4.00-5.40 HEMOGLOBIN 13.3 12.0-15.5 HEMATOCRIT 40.4 36.0-47.0 MEAN CORPUSCULAR VOLUME 98.1 80.0-96.0 MEAN CORPUSCULAR HEMOGLOBIN 32.3 27.0-33.0 MEAN CORPUSCULAR HGB CONC 32.9 32.0-36.5 RED CELL DISTRIBUTION WIDTH 12.8 11.5-14.5 PLATELET COUNT, AUTOMATED 374 150-450 Comprehensive Metabolic Profile (CMP) Reviewed date:09/21/2020 18:03:18 Interpretation: Performing Lab:[facility] [address] [address] , ,[place] [address] GLUCOSE, FASTING 62 70-100 BLOOD UREA NITROGEN 10 7-18 CREATININE FOR GFR 1.12 0.55-1.30 GLOMERULAR FILTRATION RATE 53.2 >51 SODIUM LEVEL 139 136-145 POTASSIUM SERUM 3.7 3.5-5.1 CHLORIDE LEVEL 102 98-107 CARBON DIOXIDE LEVEL 28 21-32 CALCIUM LEVEL 9.1 8.5-10.1 AST/SGOT 16 7-37 ALT/SGPT 26 12-78 ALKALINE PHOSPHATASE 114 45-117 BILIRUBIN,TOTAL 0.3 0.2-1.0 TOTAL PROTEIN 8.1 6.4-8.2 ALBUMIN 4.2 3.2-5.2 ALBUMIN/GLOBULIN RATIO 1.1 1.2-2.2 ERYTHROCYTE SEDIMENTATION RATE Reviewed date:09/21/2020 18:03:25 Interpretation: Performing Lab:[facility] [address] [address] , ,[facility] ERYTHROCYTE SEDIMENTATION RATE 25 0-30 PT-INR Reviewed date:09/21/2020 18:03:51 Interpretation: Performing Lab:[facility] [address] [id number] , ,[facility] PROTHROMBIN TIME 13.1 12.5-14.3 INR 0.97 REASON FOR VISIT R hip arthroplasty Dr Stern MEDICAL (GENERAL) HISTORY Type Description Date Medical History Nondependent tobacco use disorder Medical History HANNAH Medical History Telogen effluvium Medical History Icthyocic congenita Medical History Pure hypercholesterolemia Medical History External Hemorrhoids Medical History Internal thrombosed hemorrhoids Medical History Recurrent major depressive disorder Medical History Acute alcoholic hepatits Medical History Major depressive disorder Medical History ASCVD risk is 1.6 (2018) Medical History COVID-19: Aug 2020 Surgical History laparoscopy for an ovarian cyst 1980 Hospitalization History childbirth 1988, 1990 Hospitalization History kidney failure, liver failure Goals Section No Information Health Concerns No Information MEDICAL EQUIPMENT No Information MENTAL STATUS No Information FUNCTIONAL STATUS No Information ASSESSMENTS Encounter Date Diagnosis Assessment Notes Treatment Notes Treatm ent Clinical Notes Sep, Pre-op evaluation (ICD-10 - Z01.818) Repeating lab tests since pt had tested positive for covid. CXR being done since bibasilar (very slight) crackles appreciated on exam today, but more likely to be artifactual secondary to bra and shirt friction on back of patient's thorax. Pt's RSRI is lowest risk placing pt at a 3.5% mortality risk, this was reviewed with patient. Pt's METs are limited due to hip pain and not due to shortness of breath. She is able to have METs >4. Pt was advised to inform anesthesia of any medications she takes on the day of surgery. Pt verbalized understanding. Lab results do not change the fact the pt is currently optimized for surgery. CXR does not show any cardiopulmonary issues at this time. Pt is optimized for surgery. Sep, Unilateral primary osteoarthritis, right hip (IC D-10 - M16.11) Pt exhibited pain while transferring from chair to exam table. Consistent with indication for surgery at this time. PLAN OF TREATMENT Treatment Notes Assessment Notes Clinical Notes Pre-op evaluation Repeating lab tests since pt had tested positive for covid. CXR being done since bibasilar (very slight) crackles appreciated on exam today, but more likely to be artifactual secondary to bra and shirt friction on back of patient's thorax. Pt's RSRI is lowest risk placing pt at a 3.5% mortality risk, this was reviewed with patient. Pt's METs are limited due to hip pain and not due to shortness of breath. She is able to have METs >4. Pt was advised to inform anesthesia of any medications she takes on the day of surgery. Pt verbalized understanding. Lab results do not change the fact the pt is currently optimized for surgery. CXR does not show any cardiopulmonary issues at this time. Pt is optimized for surgery. Unilateral primary osteoarthritis, right hip Pt exhibited pain while transferring from chair to exam table. Consistent with indication for surgery at this time. Treatment Notes Test Name Order Date Chest X-ray PA and lateral 2020-09-20 Next Appt Details 4 Weeks Reason:Followup with Dr. Rosita velez after surgery in one month for followup. Provider Name:Dennis Sawyer, 2020-10-26 02 :30:00 PM, [address] [place] [address], [id number], Follow Up:[address] Branch after surgery in one month for followup. Insurance Providers Payer Name Payer Address Payer Phone Insured Name Patient Relati onship to Insured Coverage Start Date Coverage End Date [facility] CLAIM[facility] DEPT [address] [facility] [phone] SPARKLE MATTHEW self
--- OUTSIDE RECORDS SUMMARY | 2020-09-28 06:09 | CCD ---
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 Active confirmed 39 456297 Problem Internal thrombosed hemorrhoids K64.5 Active confi rmed 22847478 Problem Pure hypercholesterolemia E78.00 Active confirmed 410281120 Problem Pressure injury of sacral region, stage 1 L89.151 Active confirmed 341326517 Problem Moderate episode of recurrent major depressive disorder F33.1 Active confirmed 419928231 Problem Major depressive disorder, single episode, moderate F32.1 Active confirmed 54064627 Problem Avascular necrosis of bone of right hip M87.051 Active confirmed 566466544 Problem Acute alcoholic hepatitis K70.10 Active confirmed 5644964 Problem Unilateral primary osteoarthritis, right hip M16.1 1 Active confirmed 747259716519880 Problem External hemorrhoids with other complication K64.4 Active confirmed 93709872 Problem Laboratory examination Z01.89 Active confirmed 672674347 Problem Bipolar disorder, current episode mixed, moderate F31.62 Active confirmed 191929696 Problem Fatty liver K76.0 Active confirmed 04722666 7 Problem History of macrocytic anemia Z86.2 Active confirme d 824906051 ALLERGIES Allergen (clinical drug ingredient) Drug/Non Drug Allergy do cumented on EMR Reaction Allergy Type Onset Date Status Penicillin (For Allergies Use Only) Hives Drug Allerg y Active ENCOUNTERS from 1960 to 2020-09-24 Encounter Location Date Provider Diagnosis [facility] [place] [address] [place] [id number] Sep, Padilla Pino IMMUNIZATIONS Vaccine Route Administration Date Status TDAP [...] Monitoring Language: Question Answer Notes Languages spoken: [place]an Anabaptist: Question Answer Notes Anabaptist 99 Other confucianism Sexual Hx: Question Answer Notes Had sex [...] REASON FOR REFERRAL No Information VITAL SIGNS No information MEDICATIONS Medication SIG (Take, Route, Frequency, Duration) [...] days Jul, Active PROCEDURES No Information RESULTS No Results REASON FOR VISIT looking for clearance note MEDICAL (GENERAL) HISTORY Type Description Date Medical [...] 1990 Hospitalization History kidney failure, liver failure -2018 Goals Section No Information Health Concerns No Information MEDICAL EQUIPMENT No Information MENTAL STATUS No Information FUNCTIONAL STATUS No Information ASSESSMENTS No Information PLAN OF TREATMENT Next Appt Details Provider Name:Dennis Sawyer, 2020-10-26 02 :30:00 PM, [address] [place] [address], [id number], Insurance Providers Payer Name Payer Address Payer Phone Insured Name Patient Relati onship to Insured Coverage Start Date Coverage End Date [facility] [employer] CLAIMS DEPT [address] [phone] SPARKLE MATTHEW self
--- OUTSIDE RECORDS SUMMARY | 2020-09-28 06:10 | CCD ---
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 83109607 Problem Pure hypercholesterolemia E78.00 Active 540702 004 Problem Generalized anxiety disorder F41.1 Active 218 15687 Problem Acute alcoholic hepatitis K70.10 Active 675385 8 Problem Pressure injury of sacral region, stage 1 L89.151 Active 538460774 Problem Moderate episode of recurrent major depressive disorder F33.1 Active 643315815 Problem History of macrocytic anemia Z86.2 Active 275 552534 Problem External hemorrhoids with other complication K64.4 Active 53802614 Problem Avascular necrosis of bone of right hip M87.051 Active 686363073 Problem Internal thrombosed hemorrhoids K64.5 Active 51394369 Problem Major depressive disorder, single episode, moderate F32.1 Active 50257873 Problem Laboratory examination Z01.89 Active 025270419 Problem Bipolar disorder, current episode mixed, moderate F31.62 Active 717716163 Problem Fatty liver K76.0 Active 455824744 ALLERGIES Allergen (clinical drug ingredient) Drug/Non Drug Allergy do cumented on EMR Reaction Allergy Type Onset Date Status Penicillin (For Allergies Use Only) Hives Drug Allerg y Active ENCOUNTERS from 1960 to 2020-07-30 Encounter Location Date Provider Diagnosis [facility] [address] [facility] [place] [address] Jul, Dennis Sawyer Avascular necrosis of bone o f right hip M87.051 and Generalized anxiety disorder F41.1 IMMUNIZATIONS Vaccine Route Administration Date Status TDAP [...] Monitoring Language: Question Answer Notes Languages spoken: Burkinan Sabianist: Question Answer Notes Sabianist 99 Other scientology Sexual Hx: Question Answer Notes Had sex [...] FOR REFERRAL No Information VITAL SIGNS Weight 156 lbs Jul, Height 65.5 in Jul, BMI 25.56 kg/m2 Jul, Heart Rate 85 /min Jul, Respiratory Rate 17 /min Jul, Temperature 96.9 degrees Fahrenheit Jul, Oximetry 96 Jul, Blood pressure systolic 132 mm Hg Jul, Blood pressure diastolic 68 mm Hg Jul, MEDICATIONS Medication SIG (Take, Route, Frequency, Duration) Notes Start Da te End Date Status Raised Toilet Seat - as directed topically Daily for 999 days Jul, Active Biotin 36346 MCG 1 tablet Orally Once a day Active HydrOXYzine HCl 25 mg 1 tablet as needed Orally every 8 hrs Active Lexapro 20 MG 1 tablet Orally Once a day Active Cane - as directed topically Daily for 999 days Jul Active Multivitamins 1 as directed p.o. daily Active Latanoprost-Timolol Maleate 0.005-0.5 % 1 drop into af fected eye Ophthalmic Once a day Active Tramadol HCl 50 MG 1 tablet as needed Orally Once a day Active Bath Bench with Back - as directed topically Daily for 999 days Jul, Active Tramadol HCl 50 MG 1 tablet as needed Orally twice daily as needed for 28 days Jul, Active Fish Oil 1200 MG 3 caps Orally daily Active PROCEDURES No Information RESULTS No Results REASON FOR VISIT 2-3 month follow up MEDICAL (GENERAL) HISTORY Type Description Date Medical History Nondependent tobacco use disorder Medical History HANNAH Medical History Telogen effluvium Medical History Icthyocic congenita Medical History Pure hypercholesterolemia Medical History External Hemorrhoids Medical History Internal thrombosed hemorrhoids Medical History Recurrent major depressive disorder Medical History Acute alcoholic hepatits Medical History Major depressive disorder Medical History ASCVD risk is 1.6 (2018) Surgical History laparoscopy for an ovarian cyst 1980 Hospitalization History childbirth 1990 Hospitalization History kidney failure, liver failure Goals Section No Information Health Concerns No Information MEDICAL EQUIPMENT No Information MENTAL STATUS No Information FUNCTIONAL STATUS No Information ASSESSMENTS Encounter Date Diagnosis Assessment Notes Treatment Notes Treatm ent Clinical Notes Jul, Avascular necrosis of bone of right hip (ICD-10 - M87.051) Will prescribe 28 day supply of tramadol at reduced dosage, encouraged her to kenneth use it on an as needed basis not to reduce pain but to improve function. Will prescribe durable medical equipment as she is having difficulties with ambulating independently but is better with a cane, she just needs one that is appropriate for her height as the one she currently has is borrowed as well as certain things like a bath bench and raised toilet seat to make ADLs more manageable. istop: #[id number] last filled 07/22/2020 for total of 20 tablets. Jul, Generalized anxiety disorder (ICD-10 - F41.1) Well controlled at this time, continues with counseling, no evidence of adverse effects, ok to continue. PLAN OF TREATMENT Medication Medication Name Sig Start Date Stop Date Raised Toilet Seat - as directed topically Daily for 999 days Jul, Bath Bench with Back - as directed topically Daily for 999 days Jul, Cane - as directed topically Daily for 999 days Jul, Tramadol HCl 50 MG 1 tablet as needed Orally twice daily as needed for 28 days Jul, HydrOXYzine HCl 25 mg 1 tablet as needed Orally every 8 hrs Lexapro 20 MG 1 tablet Orally Once a day Treatment Notes Assessment Notes Clinical Notes Avascular necrosis of bone of right hip Will prescribe 28 day supply of tramadol at reduced dosage, encouraged her to kenneth use it on an as needed basis not to reduce pain but to improve function. Will prescribe durable medical equipment as she is having difficulties with ambulating independently but is better with a cane, she just needs one that is appropriate for her height as the one she currently has is borrowed as well as certain things like a bath bench and raised toilet seat to make ADLs more manageable.istop: #[id number] last filled 07/22/2020 for total of 20 tablets. Generalized anxiety disorder Well contro lled at this time, continues with counseling, no evidence of adverse effects, ok to continue. Next Appt Details as scheduled w/ Dr. Branch Reason:pre- op Provider Name:Frank Branch, 2020-08-10 11:30:00 AM, [address] [place], [address], Follow Up:as scheduled w/ Dr. Branchpre-op Insurance Providers Payer Name Payer Address Payer Phone Insured Name Patient Relati onship to Insured Coverage Start Date Coverage End Date [employer] DE[employer] [address] [facility] [phone] SPARKLE MATTHEW self
--- OUTSIDE RECORDS SUMMARY | 2020-09-28 06:10 | CCD | Continuity of Care Document ---
Author Author Adriane HERNDON PAAlicia Organization Unknown Address [address] [facility] [address] [place] [address] Phone [phone] Care Team Providers Care Instrumentation Supervisor Name Role Phone Dennis Sawyer [phone] Problems Description No Information Available Social History Type Date Description Comments Sex Unknown Tobacco Use Start: Unknown End: Unknown Patient is a former smoker Allergies, Adverse Reactions, Alerts Active Allergies Reaction Severity Comments Date Penicillin V 08/18/2020 Medications Active Medications SIG Qnty Indications Ordering Provide r Date Hibiclens 4% Liquid use in shower once daily for 5 days before surgery 1unsamantha masterson MD 08/11/2020 Mupirocin 2% Ointment apply pea-sized amount to inside each nostil 3x daily for 5 days before surgery 22gm Nehal Stern MD 08/11/2020 Tramadol HCL 50mg Tablets Take 1 tablet by mouth every 6 hours as needed for pain, MDD 4 20tabs Nehal Stern MD 07/21/2020 Hydroxyzine HCL 25mg Tablets Unknown Latanoprost 0.005% Solution Unknown Centrum Silver Chewtabs Unknown Hair Skin & Nails Advanced Formula Tablets Unknown Biotin Maximum Strength 5000mcg Ca psules Unknown Escitalopram Oxalate 20mg Tablets Unknown History Medications Hibiclens 4% Liquid use in shower once daily for 5 days before surgery 1unsamantha masterson MD 08/16/2020 - 08/16/2020 Immunizations Description No Information Available Vital Signs Date Vital Result Comment 08/18/2020 2:27pm BP Systolic 124 mmHg BP Diastolic 63 mmHg Heart Rate 64 /min Body Temperature 96.7 F Height 64.5 inches 5'4.50" Weight 151.50 lb BMI (Body Mass Index) 25.6 kg/m2 Respiratory Rate 14 /min 06/21/2020 1:29pm Body Temperature 97.8 F Results Description No Information Available Procedures Date Code Description Status 06/21/2020 71431 X-Ray Hips Bilateral With Pelvis 3-4 Views Completed Medical Devices Description No Information Available Encounters Type Date Location Provider Dx Diagnosis Office Visit 08/18/2020 2:30p [place] Mallorie Herndon PA-C M1 6.11 Unilateral primary osteoarthritis, right hip Office Visit 06/21/2020 1:15p [place] Stern [place] M8 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 TREVOR Albrecht 06/17/2020 M87.051 Idiopathic aseptic necrosis of r ight femur Wanda L. TREVOR Albrecht 05/07/2020 M16.11 Unilateral primary osteoarthriti s, right hip Wanda L. TREVOR Albrecht 05/07/2020 M87.051 Idiopathic aseptic necrosis of r ight femur Wanda Albrecht PA-C 04/14/2020 M16.11 Unilateral primary osteoarthriti s, right hip Desire Bryan PA-C Plan of Treatment Future Appointment(s):* 08/26/2020 7:30 am - [facility] at Surgery [facility] * 09/10/2020 1:15 pm - Nehal Stern MD at [place] * 08/26/2020 7:30 am - Nehal Stern MD at Surgery [facility] Functional Status Description No Information Available Mental Status Description No Information Available Referrals Refer to Dr Reason for Referral Status Appt Date Desire Bryan PA-C SURGERY PER [facility] [place] APPROVAL FOR TOTAL RT HIP (75676) HAS TO BE DONE SAME DAY SURGERY . IF MORE TIME IS NEEDED HOSPITAL MUST CALL TO GET TO SURGERY NT Created [facility] [place] [address] [phone] Desire Bryan PA-C MRI APPROVED PER [employer] FOR MRI OF RIGHT HIP(08108) TO X-RAY. DG Created [facility] [address] [phone] Desire Bryan PA-C PT ALLOWED EVAL THEN NEEDS A [facility]([phone]) FAX # ([phone]) TO PT DEPT. NT Created [facility] [address] [phone]
--- OUTSIDE RECORDS SUMMARY | 2020-09-28 06:10 | CCD | Continuity of Care Document ---
Author Author Adriane HERNDON PAAlicia Organization Unknown Address [address] [facility] [address] [place] [address] Phone [phone] Care Team Providers Care Safety And Occupational Health Manager Name Role Phone Dennis Sawyer [phone] Problems Description No Information Available Social History [...] 06/21/2020 1:29pm Body Temperature 97.8 F Results Test Acquired Date Facility Test Result H/L Range Note Prothrombin Time/Inr 08/18/2020 [facility] [address] [place] [address] (315)- - Prothrombin Time 13.0 seconds Normal 12.5-14.3 Inr 0.96 Normal 1 Comprehensive Metabolic Profil 08/18/2020 [place] [address] [place] [address] (315)- - Glucose, Fasting 76 mg/dL Normal 70-100 Blood Urea Nitrogen 11 mg/dL Normal 7-18 Creatinine For GFR 1.12 mg/dL Normal 0.55-1.30 Glomerular Filtration Rate 53.2 Normal >51 2 Sodium Level 138 mEq/L Normal 136-145 Potassium Serum 3.9 mEq/L Normal 3.5-5.1 Chloride Level 102 mEq/L Normal 98-107 Carbon Dioxide Level 28 mEq/L Normal 21-32 Anion Gap 8 mEq/L Normal 8-16 Calcium Level 9.6 mg/dL Normal 8.5-10.1 Ast/Sgot 15 U/L Normal 7-37 Alt/SGPT 29 U/L Normal 12-78 Alkaline Phosphatase 118 U/L High 45-117 Bilirubin,Total 0.4 mg/dL Normal 0.2-1.0 Total Protein 8.1 GM/DL Normal 6.4-8.2 Albumin 4.4 GM/DL Normal 3.2-5.2 Albumin/Globulin Ratio 1.2 Normal 1.2-2.2 Complete Blood Count 08/18/2020 [facility] [address] [place] [address] (315)- - White Blood Count 8.2 10 Normal 4.0-10.0 Red Blood Count 4.25 10 Normal 4.00-5.40 Hemoglobin 13.3 g/dL Normal 12.0-15.5 Hematocrit 40.3 % Normal 36.0-47.0 Mean Corpuscular Volume 94.8 fl Normal 80.0-96.0 Mean Corpuscular Hemoglobin 31.3 pg Normal 27.0-33.0 Mean Corpuscular HGB Conc 33.0 g/dL Normal 32.0-36.5 Red Cell Distribution Width 12.3 % Normal 11.5-14.5 Platelet Count, Automated 346 10 Normal 150-450 Nucleated Red Blood Cell % 0.0 % Normal 0-0 Laboratory test finding 08/18/2020 [facility] [address] [place] [address] (315)- - Erythrocyte Sedimentation Rate 44 mm/hr High 0-30 1 THERAPUTIC HUMAN INR VALUES INDICATIONS NORMAL RANGES PROPHYLAXIS/TREATMENT OF: VENOUS THROMBOSIS 2.0-3.0 PULMONARY EMBOLISM 2.0-3.0 PREVENTION OF SYSTEMIC EMBOLISM FROM: TISSUE HEART VALVES 2.0-3.0 ACUTE MYOCARDIAL INFARCTION 2.0-3.0 VALVULAR HEART DISEASE 2.0-3.0 ATRIAL FIBRILLATION 2.0-3.0 MECHANICAL VALVES(HIGH RISK) 2.5-3.5 RECURRENT MYOCARDIAL INFARCTION 2.5-3.5 2 Units are mL/min/1.73 m2 Chronic Kidney Disease Staging per NKF: Stage I & II GFR >=60 Normal to Mildly Decreased Stage III GFR 30-59 Moderately Decreased Stage IV GFR 15-29 Severely Decreased Stage V GFR <15 Very Little GFR Left ESRD GFR <15 on [employer] Procedures Date Code Description Status 06/21/2020 92227 X-Ray Hips Bilateral With Pelvis 3-4 Views Completed Medical Devices Description No Information Available Encounters Type Date Location Provider Dx Diagnosis Office Visit 08/18/2020 2:30p [place] Hern[place] PA-C Z0 1.818 Encounter for other preprocedural examination M16.11 Unilateral primary osteoarth ritis, right hip Office Visit 06/21/2020 1:15p Arthur Stern MD M8 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 Office Visit 06/17/2020 1:40p Arthur Albrecht PA-C M16.11 Unilateral primary osteoarthritis, 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 TREVOR Albrecht 04/14/2020 M16.11 Unilateral primary osteoarthriti s, right hip Desire Bryan PA-C Plan of Treatment Future Appointment(s):* 08/26/2020 7:30 am - [facility] at Surgery [facility] * 09/10/2020 1:15 pm - Nehal Stern MD at [place] * 08/26/2020 7:30 am - Nehal Stern MD at Surgery [facility] Functional Status Description No Information Available Mental Status Description No Information Available Referrals Refer to Dr Reason for Referral Status Appt Date Desire Bryan PA-C SURGERY PER [facility] [place] APPROVAL FOR TOTAL RT HIP (14165) HAS TO BE DONE SAME DAY SURGERY . IF MORE TIME IS NEEDED HOSPITAL MUST CALL TO GET TO SURGERY NT Created [facility] [facility] [address] [place] [address] [phone] Desire Bryan PA-C MRI APPROVED PER [employer] FOR MRI OF RIGHT HIP(99151) TO X-RAY. DG Created [facility] [place] [address] [phone] Desire Bryan PA-C PT ALLOWED EVAL THEN NEEDS A [facility]([phone]) FAX # ([phone]) TO PT DEPT. NT Created [address] [place] [address] [phone]
--- OUTSIDE RECORDS SUMMARY | 2020-09-28 06:10 | CCD ---
Author Author Adriane Last Organization Unknown Address [address] [place] [address] Phone Care Team Providers Care Breading Machine Tender Name Role Phone Gabbi Last PCP Allergies, Adverse Reactions, Alerts No Data in Section Problem List Concept Problem Description Status Start Date Created Date Resolv ed Date Snomed Code F41.1 Generalized Anxiety Disorder Active 07/09/2020 Medications No Data in Section Social History Social History Element Description Concept Effective Date Smoking Status Unknown if ever smoked [id number] 01172705 Immunizations No Data in Section Vital Signs No Data in Section Procedures Date Concept Id Description Targeted Site Concept Targeted Site Concept Type 07/06/2020 98972-05 [id number]"Psychotherapy CPT Patient has no history of implantable de vices Encounters Encounter Start Date End Date Encounter Type Description Diagnosis Di agnosis Desc Location Author First Name Author Last Name Npid Taxonomy Cod e Taxonomy Desc Phone Number Location Addr1 Location Addr2 Location [facility] Location [facility] Location [facility] [id number] 07/06/2020 07/06/2020 10150-54 [id number]"Psychothera py F41.1 Generalized Anxiety Disorder [facility] Shala Seo [phone] [id number] Financial Aid Director [phone] [address] [facility] [address] [place] [address] Plan of Treatment No Data in Section Lab Results No Data in Section Instructions No Data in Section Insurance Providers Insurance Id Policy Effective Date Policy Thru Date Company N [employer] [id number] 2019 [id number]
--- OUTSIDE RECORDS SUMMARY | 2020-09-28 06:10 | CCD | Continuity of Care Document ---
Author Author Adriane STERN MD Organization Unknown Address [address] [place] [address], [facility] e [address] [place] [address] Phone [phone] Care Team Providers Care Lead Investigator Name Role Phone Dennis Sawyer [phone] Problems Description No Information Available Social History Type Date Description Comments Sex Unknown Tobacco Use Start: Unknown End: Unknown Patient is a former smoker Allergies, Adverse Reactions, Alerts Active Allergies Reaction Severity Comments Date Penicillin G 04/14/2020 Medications Active Medications SIG Qnty Indications Ordering Provide r Date Cyclobenzaprine HCL Powder Unknown Biotin Plus Keratin 29707-916icn-ml Tablets Unknown Escitalopram Oxalate 10mg Tablets Unknown Iron (Ferrous Sulfate) 325(65Fe) mg Tablets Unknown Fish Oil 1360mg Capsules Unknown Hydroxyzine HCL 25mg Tablets Unknown Latanoprost 0.005% Solution Unknown Centrum Silver Chewtabs Unknown Immunizations Description No Information Available Vital Signs Date Vital Result Comment 06/21/2020 1:29pm Body Temperature 97.8 F 04/14/2020 9:00am Body Temperature 97.6 F Height 65.5 inches 5'5.50" Weight 158.00 lb BMI (Body Mass Index) 25.9 kg/m2 Results Description No Information Available Procedures Date Code Description Status 06/21/2020 27579 X-Ray Hips Bilateral With Pelvis 3-4 Views Completed Medical Devices Description No Information Available Encounters Type Date Location Provider Dx Diagnosis Office Visit 06/21/2020 1:15p Arthur Stern MD M8 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 DG Created [address] [facility] [address] [place] [address] [phone] Desire Bryan PA-C PT ALLOWED EVAL THEN NEEDS A [facility]([phone]) FAX # ([phone]) TO PT DEPT. NT Created [address] [facility] [address] [place] [address] [phone]
--- OUTSIDE RECORDS SUMMARY | 2020-09-28 06:10 | CCD | Continuity of Care Document ---
Author Author Adriane STERN MD Organization Unknown Address [address] [place] [address], it e [address] [place] [address] Phone [phone] Care Team Providers Care Production Support Engineer Name Role Phone Dennis Sawyer [phone] Problems Description No Information Available Social History [...] once daily for 5 days before surgery 1chiquis masterson MD 08/16/2020 - 08/16/2020 Immunizations Description [...] Result H/L Range Note Prothrombin Time/Inr 08/18/2020 [facility] [address] [place] [address] (575)- - Prothrombin Time 13.0 seconds Normal 12.5-14.3 Inr 0.96 Normal 1 Comprehensive Metabolic Profil 08/18/[address] [address] (315)- - Glucose, Fasting 76 mg/dL Normal [...] 1.2 Normal 1.2-2.2 Complete Blood Count 08/18/2020 [facility] [address] [place] [address] (315)- - White Blood Count 8.2 10 [...] % Normal 0-0 Laboratory test finding 08/18/2020 [facility] [address] [place] [address] (315)- - Erythrocyte Sedimentation Rate 44 mm/hr [...] Little GFR Left ESRD GFR <15 on S[employer]ER Procedures Date Code Description Status 06/21/2020 43073 X-Ray Hips Bilateral With Pelvis 3-4 Views Completed Medical Devices Description No Information Available Encounters Type Date Location Provider Dx Diagnosis Office Visit 08/18/2020 2:30p [place] Herndon PA-C M1 6.11 Unilateral primary osteoarthritis, right hip Office Visit 06/21/2020 1:15p [place] [...] of right femur Office Visit 04/14/2020 9:00a [place] Desire Bryan PA-C M1 6.11 Unilateral primary osteoarthritis, right hip Assessments Date Code Description Provider 08/18/2020 M16.11 Unilateral primary osteoarthriti s, right hip Mallorie PrernaAixa Herndon PA-C 06/21/2020 M87.051 Idiopathic aseptic necrosis [...] 7:30 am - [facility] at Surgery [facility] * 09/10/2020 1:15 pm - Nehal Stern MD at [place] * 08/26/2020 7:30 am - Nehal Stern MD at Surgery [facility] Functional Status Description No Information Available Mental Status Description No Information Available Referrals Refer to Dr Reason for Referral Status Appt Date Desire Bryan PA-C SURGERY PER [facility] [place] APPROVAL FOR TOTAL RT HIP (40880) HAS TO BE DONE SAME DAY SURGERY . IF MORE TIME IS NEEDED HOSPITAL MUST CALL TO GET TO SURGERY NT Created [address] [place], [place] [address] [phone] Desire Bryan PA-C MRI APPROVED PER [facility] FOR MRI OF RIGHT HIP(63437) TO X-RAY. DG Created [address] [place], [place] [address] [phone] Desire Bryan PA-C PT ALLOWED EVAL THEN NEEDS A [facility]([phone]) FAX # ([phone]) TO PT DEPT. NT Created [address] [facility] [address] [place], [place] [address] [phone]
--- OUTSIDE RECORDS SUMMARY | 2020-09-28 06:10 | CCD ---
Author Author [facility] Organization [facility] Address Unknown Phone Unavailable Care Team Providers Care Waistline Joiner Name Role Phone LALA OCAMPO Unavailable Unavailable [facility], PA-C Unavailable Unavailabl e [facility], PA-C Unavailable Unavailabl e [facility], PA-C Unavailable Unavailabl e [facility], PA-C Unavailable Unavailabl e [facility], PA-C Unavailable Unavailabl e [facility], PA-C Unavailable Unavailabl e [facility], PA-C Unavailable Unavailabl e [facility], PA-C Unavailable Unavailabl e [facility], PA-C Unavailable Unavailabl e [facility], PA-C Unavailable Unavailabl e [facility], PA-C Unavailable Unavailabl e [facility], PA-C Unavailable Unavailabl e Fish, [facility], PA-C Unavailable Unavailabl e Fish, [facility], PA-C Unavailable Unavailabl e Fish, [facility], PA-C Unavailable Unavailabl e Fish, [facility], PA-C Unavailable Unavailabl e Fish, [facility], PA-C Unavailable Unavailabl e Fish, [facility], PA-C Unavailable Unavailabl e Fish, [facility], PA-C Unavailable Unavailabl e Fish, [facility], PA-C Unavailable Unavailabl e Fish, [facility], PA-C Unavailable Unavailabl e Fish, [facility], PA-C Unavailable Unavailabl e Fish, [facility], PA-C Unavailable Unavailabl e Fish, [facility], PA-C Unavailable Unavailabl e Fish, [facility], PA-C Unavailable Unavailabl e Fish, [facility], PA-C Unavailable Unavailabl e Fish, [facility], PA-C Unavailable Unavailabl e Fish, [facility], PA-C Unavailable Unavailabl e Fish, [facility], PA-C Unavailable Unavailabl e Fish, [facility], PA-C Unavailable Unavailabl e Fish, [facility], PA-C Unavailable Unavailabl e Fish, [facility], PA-C Unavailable Unavailabl e Fish, [facility], PA-C Unavailable Unavailabl e Prerna Herndon PA Unavailable Unavailable Prerna Herndon PA Unavailable Unavailable Prerna Herndon Unavailable Unavailable Prerna Herndon PA Unavailable Unavailable Prerna Herndon PA Unavailable Unavailable Prerna Herndon PA Unavailable Unavailable Prerna Herndon PA Unavailable Unavailable Prerna Herndon PA Unavailable Unavailable Prerna Herndon PA Unavailable Unavailable Prerna Herndon PA Unavailable Unavailable Prerna Herndon Unavailable Unavailable Prerna Herndon PA Unavailable Unavailable Prerna Herndon PA Unavailable Unavailable Prerna Herndon PA Unavailable Unavailable Prerna Herndon PA Unavailable Unavailable Prerna Herndon PA Unavailable Unavailable Prerna Herndon Unavailable Unavailable Prerna Herndon Unavailable Unavailable Herndon, M Barratt PA Unavailable Unavailable Herndon, M Barratt PA Unavailable Unavailable Herndon, M Barratt PA Unavailable Unavailable Herndon, M Barratt PA Unavailable Unavailable Herndon, M Barratt PA Unavailable Unavailable Herndon, M Barratt PA Unavailable Unavailable Herndon, M Barratt PA Unavailable Unavailable Yanick M Barratt PA Unavailable Unavailable Prerna Herndon PA Unavailable Unavailable Craig Stern MD Unavailable Unavailable Craig Stern MD Unavailable Unavailable VanCraig jean MD Unavailable Unavailable VanCraig jean MD Unavailable Unavailable VaneendeonnaamCraig MD Unavailable Unavailable VanCraig jean MD Unavailable Unavailable Craig Stern MD Unavailable Unavailable Craig Stern MD Unavailable Unavailable Craig Stern MD Unavailable Unavailable Craig Stern MD Unavailable Unavailable Craig Stern MD Unavailable Unavailable Craig Stern MD Unavailable Unavailable Craig Stern MD Unavailable Unavailable Craig Stern MD Unavailable Unavailable Craig Stern MD Unavailable Unavailable Craig Stern MD Unavailable Unavailable Craig Stern MD Unavailable Unavailable Craig Stern MD Unavailable Unavailable Craig Stern MD Unavailable Unavailable Craig Stern MD Unavailable Unavailable Craig Stern MD Unavailable Unavailable Craig Stern MD Unavailable Unavailable Craig Stern MD Unavailable Unavailable Craig Stern MD Unavailable Unavailable Craig Stern MD Unavailable Unavailable Craig Stern MD Unavailable Unavailable Craig Stern MD Unavailable Unavailable Craig Stern MD Unavailable Unavailable Craig Stern MD Unavailable Unavailable Craig Stern MD Unavailable Unavailable Craig Stern MD Unavailable Unavailable Craig Stern MD Unavailable Unavailable Craig Stern MD Unavailable Unavailable Craig tSern MD Unavailable Unavailable Craig Stern MD Unavailable Unavailable Craig Stern MD Unavailable Unavailable Craig Stern MD Unavailable Unavailable Craig Stern MD Unavailable Unavailable Craig Stern MD Unavailable Unavailable Craig Stern MD Unavailable Unavailable Craig Stern MD Unavailable Unavailable Vaneenenaam, D Peter MD Unavailable Unavailable Doremus, E Desire PA Unavailable Unavailable Doremus, E Desire PA Unavailable Unavailable Doremus, E Desire PA Unavailable Unavailable Doremus, E Desire PA Unavailable Unavailable Doremus, E Desire PA Unavailable Unavailable Doremus, E Desire PA Unavailable Unavailable Doremus, E Desire PA Unavailable Unavailable Doremus, E Desire PA Unavailable Unavailable Doremus, E Desire PA Unavailable Unavailable Doremus, E Desire PA Unavailable Unavailable Doremus, E Desire PA Unavailable Unavailable Doremus, E Desire PA Unavailable Unavailable Doremus, E Desire PA Unavailable Unavailable Doremus, E Desire PA Unavailable Unavailable Doremus, E Desire PA Unavailable Unavailable Doremus, E Desire PA Unavailable Unavailable Doremus, E Desire PA Unavailable Unavailable Doremus, E Desire PA Unavailable Unavailable Doremus, E Desire PA Unavailable Unavailable Re-disclosure Warning The records that you are about to access may contain information from federally-assisted alcohol or drug abuse programs. If such information is present, then the following federally mandated warning applies: This information has been disclosed to you from records protected by federal confidentiality rules (42 CFR part 2). The federal rules prohibit you from making any further disclosure of this information unless further disclosure is expressly permitted by the written consent of the person to whom it pertains or as otherwise permitted by 42 CFR part 2. A general authorization for the release of medical or other information is NOT sufficient for this purpose. The Federal rules restrict any use of the information to criminally investigate or prosecute any alcohol or drug abuse patient.The records that you are about to access may contain highly sensitive health information, the redisclosure of which is protected by Article 27-F of the [facility] Public Health law. If you continue you may have access to information: Regarding HIV / AIDS; Provided by facilities licensed or operated by the [facility] Office of Mental Health; or Provided by the [facility] Office for People With Developmental Disabilities. If such information is present, then the following [facility] mandated warning applies: This information has been disclosed to you from confidential records which are protected by state law. State law prohibits you from making any further disclosure of this information without the specific written consent of the person to whom it pertains, or as otherwise permitted by law. Any unauthorized further disclosure in violation of state law may result in a fine or long-term sentence or both. A general authorization for the release of medical or other information is NOT sufficient authorization for further disc losure. Allergies and Adverse Reactions Type Description Substance Reaction Status Data Source(s ) Miscellaneous allergy RAG WEED RAG WEED [facility] Drug allergy PENICILLIN PENICILLIN [facility] Drug allergy Penicillin (For Allergies Use Only) Drug allergy Hives Active eCW1 ([facility]) Family History Family Member Name Family Member Gender Family Member Status Date o f Status Description Data Source(s) Unknown Unknown Problem MEDENT ([facility]) Encounters Encounter Providers Location Date Indications Data Source(s ) Unknown [address] [facility] [id number] 09/21/2020 12:00:00 AM EST eCW1 ([facility]) Outpatient [address] [facility] [id number] 09/20/2020 12:00:00 AM EST eCW1 ([facility]) Unknown [address] [facility] [id number] 08/25/2020 12:00:00 AM EST eCW1 ([facility]) Office Visit Attender: Mallorie SEGURA Physical Therapy 01:30:00 PM EST MEDENT ([facility]) Outpatient [address] [facility] [id number] 08/10/2020 12:00:00 AM EST eCW1 ([facility]) Outpatient [address] [facility] [id number] 07/27/2020 12:00:00 AM EST eCW1 ([facility]) Unknown [address] [facility] [id number] 07/06/2020 12:00:00 AM EST eCW1 ([facility]) Outpatient Attender: Craig Stern MD Physical Therap y 06/21/2020 12:15:00 PM EST MEDENT ([facility]) Office Visit Attender: Wanda CISNEROS PA-C Physical Therapy 06/17/2020 12:40:00 PM EST MEDENT ([facility]) Outpatient Attender: [facility] 06/15/2020 11:28:00 AM EST [facility] [place] [address] [facility] [place] [address] 05/25/2020 12:00:00 AM EDT eCW1 ([facility]) Outpatient Attender: [facility] 05/13/2020 09:18:02 AM EDT [facility] Outpatient Attender: [facility] 05/13/2020 09:17:01 AM EDT [facility] Outpatient Attender: [facility] 05/12/2020 03:52:01 PM EDT [facility] Outpatient Attender: Wanda Ambrocio CISNEROS PA-C Physical Therapy 05/07/2020 03:00:00 PM EDT MEDENT ([facility]) [place] [address] [facility] [place] [address] 05/07/2020 12:00:00 AM EDT eCW1 ([facility]) OFFICE OUTPATIENT NEW 30 MINUTES Attender: Desire SEGURA Ph ysical Therapy 04/14/2020 09:00:00 AM EDT MEDENT ([facility]) Outpatient Attender: [facility] 04/08/2020 02:25:00 PM EDT [facility] Outpatient Attender: [facility] 04/08/2020 01:15:02 PM EDT [facility] Outpatient Attender: [facility] 04/08/2020 10:20:00 AM EDT [facility] Outpatient Attender: [facility] 03/26/2020 10:45:00 AM EDT [facility] Outpatient Attender: [facility] 03/02/2020 12:00:11 AM EDT [facility] Outpatient Attender: [facility] 03/01/2020 04:24:00 PM EDT [facility] Outpatient Attender: [facility] 03/01/2020 09:57:01 AM EDT [facility] Outpatient [facility]: [facility] 03/01/2020 09:42:01 AM EDT [facility] Outpatient Attender: [facility] 03/01/2020 09:38:00 AM EDT [facility] Outpatient Attender: [facility] 03/01/2020 09:31:01 AM EDT [facility] Outpatient Attender: [facility] 03/01/2020 09:22:00 AM EDT [facility] Outpatient Attender: [facility] 03/01/2020 08:16:00 AM EDT [facility] Outpatient [address] [facility] [id number] 02/16/2020 12:00:00 AM EDT eCW1 ([facility]) Outpatient [facility] 01/13/2020 08:01:59 PM EDT [facility] Outpatient [facility] 11/06/2019 11:04:00 AM EDT [facility] [address] [place] [id number] 09/19/2019 12:00:00 AM EST eCW1 ([facility]) Outpatient [facility] 08/11/2019 09:01:12 PM EST [facility] Outpatient [facility] 08/11/2019 04:27:00 PM EST [facility] Outpatient [facility] 08/11/2019 04:26:00 PM EST [facility] Resident [address] [place] [id number] 08/08/2019 12:00:00 AM EST eCW1 ([facility]) [facility] [address] [place] [id number] 08/08/2019 12:00:00 AM EST eCW1 ([facility]) Immunizations Vaccine Date Status Description Data Source(s) INFLUENZA VIRUS VACCINE QUADRIVALENT 2019- (6 MOS AN D UP) 05/07/2020 12:00:00 AM EDT [facility] Drugs Medications Medication Brand Name Start Date Product Form Dose Route Admi nistrative Instructions Pharmacy Instructions Status Indications Reaction Description Data Source(s) chlorhexidine gluconate 40 MG/ML Medicated Liquid Soap [Hibi clens] Hibiclens 08/16/2020 12:00:00 AM EST completed MEDENT ([facility]) Mupirocin 0.02 MG/MG Topical Ointment Mupirocin 08/11/2020 12:00:00 AM EST active [facility]) chlorhexidine gluconate 40 MG/ML Medicated Liquid Soap [Hibi clens] Hibiclens 08/11/2020 12:00:00 AM EST active MEDENT ([facility]) tramadol hydrochloride 50 MG Oral Tablet Tramadol HCl 50 MG Tramadol HCl 50 MG 07/27/2020 12:00:00 AM EST 1.0 {tablet_as_needed} active Tramadol HCl 50 MG eCW1 ([facility]) tramadol hydrochloride 50 MG Oral Tablet Tramadol HCl 50 MG Tramadol HCl 50 MG 07/27/2020 12:00:00 AM EST 1.0 {tablet_as_needed} active Tramadol HCl 50 MG eCW1 ([facility]) Raised Toilet Seat - Raised Toilet Seat - 07/27/2020 12:00:00 AM EST active Raised Toilet Seat - eCW1 ([facility]) tramadol hydrochloride 50 MG Oral Tablet Tramadol HCl 50 MG Tramadol HCl 50 MG 07/27/2020 12:00:00 AM EST 1.0 {tablet_as_needed} active Tramadol HCl 50 MG eCW1 ([facility]) Raised Toilet Seat - Raised Toilet Seat - 07/27/2020 12:00:00 AM EST active Raised Toilet Seat - eCW1 ([facility]) Cane - Cane - 07/27/2020 12:00:00 AM EST active Cane - eCW1 ([facility]) tramadol hydrochloride 50 MG Oral Tablet Tramadol HCl 50 MG Tramadol HCl 50 MG 07/27/2020 12:00:00 AM EST 1.0 {tablet_as_needed} active Tramadol HCl 50 MG eCW1 ([facility]) Bath Bench with Back - Bath Bench with Back - 07/27/2020 12:00:[address] active Bath Bench with Back - eC W1 ([facility]) Bath Bench with Back - Bath Bench with Back - 07/27/2020 12:00:[address] active Bath Bench with Back - eC W1 ([facility]) Cane - Cane - 07/27/2020 12:00:00 AM EST active Cane - eCW1 ([facility]) Raised Toilet Seat - Raised Toilet Seat - 07/27/2020 12:00:00 AM EST active Raised Toilet Seat - eCW1 ([facility]) Bath Bench with Back - Bath Bench with Back - 07/27/2020 12:00:[address] active Bath Bench with Back - eC W1 ([facility]) Bath Bench with Back - Bath Bench with Back - 07/27/2020 12:00:[address] active Bath Bench with Back - eC W1 ([facility]) Cane - Cane - 07/27/2020 12:00:00 AM EST active Cane - eCW1 ([facility]) Cane - Cane - 07/27/2020 12:00:00 AM EST active Cane - eCW1 ([facility]) Cane - Cane - 07/27/2020 12:00:00 AM EST active Cane - eCW1 ([facility]) Raised Toilet Seat - Raised Toilet Seat - 07/27/2020 12:00:00 AM EST active Raised Toilet Seat - eCW1 ([facility]) Raised Toilet Seat - Raised Toilet Seat - 07/27/2020 12:00:00 AM EST active Raised Toilet Seat - eCW1 ([facility]) Bath Bench with Back - Bath Bench with Back - 07/27/2020 12:00:[address] active Bath Bench with Back - eC W1 ([facility]) tramadol hydrochloride 50 MG Oral Tablet Tramadol HCl 50 MG Tramadol HCl 50 MG 07/27/2020 12:00:00 AM EST 1.0 {tablet_as_needed} active Tramadol HCl 50 MG eCW1 ([facility]) tramadol hydrochloride 50 MG Oral Tablet Tramadol HCL 07/21/2020 12:00:00 AM EST ORAL active [facility]) Insurance Providers Payer name Policy type / Coverage type Policy ID Covered alliance party ID Covered alliance party's relationship to ríos Policy Ríos Plan Information MERRICK [id number] SP [id number] [place] O [id number] S [id number] Managed Care [place] P [id number] S [id number] Medicaid S [id number] S [id number] [facility] O [id number] S [id number] D Managed Care [place] ([employer]) P UNAVAILABLE S UNAVAILABLE MERRICK [id number] SP [id number] ANSI-Commercial [id number] ANSI-Commercial [id number] [place] Care [place] [id number] Self [id number] ANSI-Commercial [id number] ANSI-Commercial [id number] ANSI-Commercial [id number] ANSI-Commercial [id number] ANSI-Commercial [id number] ANSI-Commercial [id number] ANSI-Commercial [id number] ANSI-Commercial [id number] ANSI-Commercial [id number] ANSI-Commercial [id number] ANSI-Commercial [id number] ANSI-Commercial [id number] Problems, Conditions, and Diagnoses Code Display Name Description Problem Type Effective Dates Data Source(s) M16.11 [id number] Unilateral primary osteoarthritis, rig ht hip Problem 08/10/2020 12:00:00 AM EST eCW1 ([facility]) M87.051 [id number] Avascular necrosis of bone of right hip P roblem 07/27/2020 12:00:00 AM EST eCW1 ([facility]) 521.00 Dental caries Dental caries 05/13/2020 09:16:04 AM EDT [facility] Z86.2 [id number] History of macrocytic anemia Problem 020 12:00:00 AM EDT eCW1 ([facility]) K76.0 [id number] Fatty liver Problem 02/16/2020 12:00:00 AM E DT eCW1 ([facility]) Surgeries/Procedures Procedure Description Date Indications Data Source(s) X-Ray Hips Bilateral With Pelvis 3-4 Views 06/21/2020 12:00:00 AM EST MEDENT ([facility]) PSYTX W PT 45 MINUTES 08/08/2019 12:00:00 AM EST eCW1 ([facility]) Results ID Date Data Source [id number] 09/23/2020 11:00:00 AM EST [facility] Name Value Range Interpretation Code Description Data Siri rce(s) Supporting Document(s) SARS coronavirus 2 RNA Not Detected [facility] This lab was ordered by [facility] and reported by [facility]. ID Date Data Source [id number]-[id number] 09/20/2020 12:00:00 AM EST eCW1 ([facility]) Name Value Range Interpretation Code Description Data Siri rce(s) Supporting Document(s) Prothrombin time (PT) 13.1 12.5-14.3 PROTHROMBIN TI ME eCW1 ([facility]) INR in Platelet poor plasma by Coagulation assay 0.97 INR eCW1 ([facility]) ID Date Data Source ERYTHROCYTE SEDIMENTATION RATE 09/20/2020 12:00:00 AM EST eC W1 ([facility]) Name Value Range Interpretation Code Description Data Siri rce(s) Supporting Document(s) 25 0-30 ERYTHROCYTE SEDIMENTATION RATE eCW1 ([facility]) ID Date Data Source Comprehensive Metabolic Profile (CMP) 09/20/2020 12:00:00 AM EST eCW1 ([facility]) Name Value Range Interpretation Code Description Data Siri rce(s) Supporting Document(s) 62 70-100 GLUCOSE, FASTING eCW1 ([facility]) 10 7-18 BLOOD UREA NITROGEN eCW1 ([facility]) 1.12 0.55-1.30 CREATININE FOR GFR eCW1 ([facility]) 53.2 >51 GLOMERULAR FILTRATION RATE eCW 1 ([facility]) 139 136-145 SODIUM LEVEL eCW1 ([facility]) 3.7 3.5-5.1 POTASSIUM SERUM eCW1 ([facility]) 28 21-32 CARBON DIOXIDE LEVEL eCW1 ([facility]) 102 98-107 CHLORIDE LEVEL eCW1 ([facility]) 16 7-37 AST/SGOT eCW1 ([facility]placed by [facility]) 9.1 8.5-10.1 CALCIUM LEVEL eCW1 ([facility]) 26 12-78 ALT/SGPT eCW1 ([facility]placed by [facility]) 4.2 3.2-5.2 ALBUMIN eCW1 (Replaced by [facility]) 114 45-117 ALKALINE PHOSPHATASE eCW1 ([facility]) 0.3 0.2-1.0 BILIRUBIN,TOTAL eCW1 ([facility]) 8.1 6.4-8.2 TOTAL PROTEIN eCW1 ([facility]) 1.1 1.2-2.2 ALBUMIN/GLOBULIN RATIO eCW1 ([facility]) ID Date Data Source CBC - Complete Blood Count 09/20/2020 12:00:00 AM EST eCW1 ( [facility]) Name Value Range Interpretation Code Description Data Siri rce(s) Supporting Document(s) 4.12 4.00-5.40 RED BLOOD COUNT eCW1 ([facility]) 9.2 4.0-10.0 WHITE BLOOD COUNT eCW1 ([facility]) 13.3 12.0-15.5 HEMOGLOBIN eCW1 ([facility]) 40.4 36.0-47.0 HEMATOCRIT eCW1 ([facility]) 98.1 80.0-96.0 MEAN CORPUSCULAR VOLUME e CW1 ([facility]) 32.9 32.0-36.5 MEAN CORPUSCULAR HGB CONC eCW1 ([facility]) 12.8 11.5-14.5 RED CELL DISTRIBUTION WID TH eCW1 ([facility]) 32.3 27.0-33.0 MEAN CORPUSCULAR HEMOGLOB IN eCW1 ([facility]) 374 150-450 PLATELET COUNT, AUTOMATED eCW1 ([facility]) ID Date Data Source [id number] 08/21/2020 10:00:00 AM EST [facility] Name Value Range Interpretation Code Description Data Siri rce(s) Supporting Document(s) SARS coronavirus 2 RNA Detected [facility] This lab was ordered by [facility] and reported by [facility]. ID Date Data Source [id number] 08/18/2020 03:46:00 PM EST MEDENT ([facility]) Name Value Range Interpretation Code Description Data Siri rce(s) Supporting Document(s) Erythrocyte sedimentation rate by Westergren method 44 mm/hr 0-30 MEDENT ([facility]) ID Date Data Source [id number] 08/18/2020 03:46:00 PM EST MEDENT ([facility]) Name Value Range Interpretation Code Description Data Siri rce(s) Supporting Document(s) Red Blood Count 4.25 10 4.00-5.40 MEDENT ([facility]) White Blood Count 8.2 10 4.0-10.0 MEDENT ([facility]) Mean Corpuscular Volume 94.8 fl 80.0-96.0 M EDENT ([facility]) Hemoglobin 13.3 g/dL 12.0-15.5 MEDENT ([facility]) Hematocrit 40.3 % 36.0-47.0 MEDENT ([facility]) Mean Corpuscular HGB Conc 33.0 g/dL 32.0-36.5 MEDENT ([facility]) Mean Corpuscular Hemoglobin 31.3 pg 27.0-33.0 MEDENT ([facility]) Red Cell Distribution Width 12.3 % 11.5-14.5 MEDENT ([facility]) Platelet Count, Automated 346 10 150-450 MEDENT ([facility]) Nucleated Red Blood Cell % 0.0 % 0-0 MED ENT ([facility]) ID Date Data Source [id number] 08/18/2020 03:46:00 PM EST MEDENT ([facility]) Name Value Range Interpretation Code Description Data Siri rce(s) Supporting Document(s) Blood Urea Nitrogen 11 mg/dL 7-18 [facility]) Creatinine For GFR 1.12 mg/dL 0.55-1.30 MED[facility] ([facility] ) Glucose, Fasting 76 mg/dL 70-100 MED[facility] ([facility] ) Glomerular Filtration Rate 53.2 MED ENT ([facility] ) <content>Units are mL/min/1.73 m2</content>
<content></content>
<content>Chronic Kidney Disease Staging per NKF:</content>
<content></content>
<content>Stage I & II GFR >=60 Normal to Mildly Decreased</content>
<content>Stage III GFR 30- 59 Moderately Decreased</content>
<content>Stage IV GFR 15-29 Severely Decreased</content>
<content>Stage V GFR <15 Very Little GFR Left</content>
<content>ESRD GFR <15 on BELLY DUMP DRIVER</content>
<content></content> Potassium Serum 3.9 meq/L 3.5-5.1 MEDENT ([facility]) Sodium Level 138 meq/L 136-145 MEDENT ([facility]) Chloride Level 102 meq/L 98-107 MEDENT ([facility]) Carbon Dioxide Level 28 meq/L 21-32 MED[facility] ([facility]) Calcium Level 9.6 mg/dL 8.5-10.1 MEDENT ([facility]) Anion Gap 8 meq/L 8-16 MEDENT ([facility]) Ast/Sgot 15 U/L 7-37 MEDENT ([facility]) Alt/SGPT 29 U/L 12-78 MEDENT ([facility]) Alkaline Phosphatase 118 U/L 45-117 MED[facility] ([facility]) Bilirubin,Total 0.4 mg/dL 0.2-1.0 MEDENT ([facility]) Albumin/Globulin Ratio 1.2 1.2-2.2 MEDENT ([facility] Albumin 4.4 GM/DL 3.2-5.2 MEDENT ([facility]) Total Protein 8.1 GM/DL 6.4-8.2 MEDENT ([facility]) ID Date Data Source [id number] 08/18/2020 03:46:00 PM EST MEDENT ([facility]) Name Value Range Interpretation Code Description Data Siri rce(s) Supporting Document(s) Inr 0.96 MEDENT ([facility]) THERAPUTIC HUMAN INR VALUES INDICATIONS NORMAL RANGES PROPHYLAXIS/TREATMENT OF: VENOUS THROMBOSIS 2.0-3.0 PULMONARY EMBOLISM 2.0-3.0 PREVENTION OF SYSTEMIC EMBOLISM FROM: TISSUE HEART VALVES 2.0-3.0 ACUTE MYOCARDIAL INFARCTION 2.0-3.0 VALVULAR HEART DISEASE 2.0-3.0 ATRIAL FIBRILLATION 2.0-3.0 MECHANICAL VALVES(HIGH RISK) 2.5-3.5 RECURRENT MYOCARDIAL INFARCTION 2.5-3.5 Prothrombin Time 13.0 s 12.5-14.3 MEDENT ([facility]) ID Date Data Source [id number] 05/27/2020 12:00:00 AM EDT [facility] Wanda Albrecht Pa-C Patient Name: FLAKO [id number] [facility] Date of : 1960[place] [address]- Date of Exam: 05/27/2020#: Fax: [phone] EXAM: ARTHROCENTESIS RTHIP-ASPIR / INJ STEROID/PAIN MEDSRIGHT HIP INJECTION:The procedure was performed by LAVERN Shah under the generalsupervision of Dr. Golden.The benefits and risks including, but not limited to pain, infection,bleeding, and anaphylaxis were explained to the patient and informedconsent was obtained.The right femoral neck was localized using fluoroscopic guidance. The skinwas prepped and draped in a sterile fashion. 1% Lidocaine was used as alocal anesthetic. Using fluoroscopic guidance, a #22 gauge spinal needlewas inserted and advanced to the femoral neck. 0.5 cc of Omnipaque 300 wasinjected to verify placement. 7 cc of a solution containing 5 cc of 1%Lidocaine and 2 cc of DepoMedrol 40 mg was injected into the joint space.The needle was then removed.The patient tolerated the procedure well and there were no immediatecomplications.Fluoroscopy time was 2 seconds at 3 pulses/second. This is equal to 0.5seconds continuous fluoroscopy time which is a 75% reduction in radiation.HERMAN Hwang/Dylan vazquez for referring SPARKLE MATTHEW to our office. Electronically Signed - ALEX GOLDEN MD 06/01/20 18:02 Name Value Range Interpretation Code Description Data Siri rce(s) Supporting Document(s) ID Date Data Source [id number] 05/27/2020 12:00:00 AM EDT [facility] Wanda Albrecht Pa-C Patient Name: FLAKO [id number] [facility] Date of : 1960[place] [address]- Date of Exam: 05/27/2020#: Fax: [phone] EXAM: ARTHROCENTESIS RTHIP-ASPIR / INJ STEROID/PAIN MEDSRIGHT HIP INJECTION:The procedure was performed by LAVERN Shah under the generalsupervision of Dr. Golden.The benefits and risks including, but not limited to pain, infection,bleeding, and anaphylaxis were explained to the patient and informedconsent was obtained.The right femoral neck was localized using fluoroscopic guidance. The skinwas prepped and draped in a sterile fashion. 1% Lidocaine was used as alocal anesthetic. Using fluoroscopic guidance, a #22 gauge spinal needlewas inserted and advanced to the femoral neck. 0.5 cc of Omnipaque 300 wasinjected to verify placement. 7 cc of a solution containing 5 cc of 1%Lidocaine and 2 cc of DepoMedrol 40 mg was injected into the joint space.The needle was then removed.The patient tolerated the procedure well and there were no immediatecomplications.Fluoroscopy time was 2 seconds at 3 pulses/second. This is equal to 0.5seconds continuous fluoroscopy time which is a 75% reduction in radiation.HERMAN Hwang/Dylan you for referring SPARKLE MATTHEW to our office. Electronically Signed - ALEX GOLDEN MD 06/01/20 18:02 Name Value Range Interpretation Code Description Data Siri rce(s) Supporting Document(s) ID Date Data Source [id number] 05/13/2020 07:50:03 AM EDT [facility] Current Problems: Dental caries (ICD-521 .00) ([id number]-K77.9)Current Medications: LATANOPROST 0.005 % OPHTHALMIC SOLUTION (LATANOPROST) ; Route: OPHTHALMICCENTRUM SILVER ORAL TABLET (MULTIPLE VITAMINS-MINERALS) ; Route: ORALCVS FISH OIL 1000 MG ORAL CAPSULE (OMEGA-3 FATTY ACIDS) ; Route: ORALCVS SLOW RELEASE IRON 45 MG ORAL TABLET EXTENDED RELEASE (FERROUS SULFATE DRIED) ; Route: ORALBIOTIN 03657 MCG ORAL TABLET (BIOTIN) ; Route: ORALHYDROXYZINE HCL 25 MG ORAL TABLET (HYDROXYZINE HCL) ; Route: ORALESCITALOPRAM OXALATE 20 MG ORAL TABLET (ESCITALOPRAM OXALATE) ; Route: ORALCurrent Allergies: * RAG WEED (Critical)* PENICILLIN (Moderate) Dental Chart: Procedures:Type - CDT Code - Description B - (D2335) Resin, 4 or more surfaces or involving incisal angle (anterior) on Tooth # 8 on Tooth Surface FDIL (Performed by ALEISHA Stein Anthony) Chart Notes:radha (May 13 2020 9:15AM): Rmhx(-) per ptCC: " my crown was denied and i would really like the black fixed on my front teeth"Temperature: 97.7 and passed covid screening questionsOperative: # 8-DLIF decay removed with highspeed bur, acid etching gel applied/rinsed/dried, self etching Futurabond M+ (Voco) placed and light-cured, A2 flowable and packable Grandioso (Voco) composite placed and light-cured. Bite occlusion checked, adjusted, and polished.Anesthesia: 20% Benzocaine topical, 1 carp 4% Septocainew/ 1:100,000 epi (Anterior Inflitration)Additional PPE were used due to COVID-19. This included a minimum of a N95, a surgical mask, a hair covering, a face shield, proctective eyewear, and a gown.No complications. POI. Assisted by MT. Pt was cooperative.NV: ALEISHA Farris Anthony by radha (05/13/2020 9:15 AM): Tooth Notes and Watches:- Tooth 8 Note: If insurance company denies crown Dr Gallegos will attempt a christian but it may not stay. Monika Ram RDH by geoff (03/01/2020 9:33 AM): Assessment & Plan Problems:Added: Dental caries (ICD-521.00) ([id number]-I15.9)Medications:LATANOPROST 0.005 % OPHTHALMIC SOLUTIONCENTRUM SILVER ORAL TABLETCVS FISH OIL 1000 MG ORAL CAPSULECVS SLOW RELEASE IRON 45 MG ORAL TABLET EXTENDED RELEASEBIOTIN 96114 MCG ORAL TABLETHYDROXYZINE HCL 25 MG ORAL TABLETESCITALOPRAM OXALATE 20 MG ORAL TABLETAllergies:* RAG WEED (Critical)* PENICILLIN (Moderate) Name Value Range Interpretation Code Description Data Siri rce(s) Supporting Document(s) ID Date Data Source [id number] 04/08/2020 12:33:09 PM EDT [facility] Current Medications: LATANOPROST 0.005 % OPHTHALMIC SOLUTION (LATANOPROST) ; Route: OPHTHALMICCENTRUM SILVER ORAL TABLET (MULTIPLE VITAMINS-MINERALS) ; Route: ORALCVS FISH OIL 1000 MG ORAL CAPSULE (OMEGA-3 FATTY ACIDS) ; Route: ORALCVS SLOW RELEASE IRON 45 MG ORAL TABLET EXTENDED RELEASE (FERROUS SULFATE DRIED) ; Route: ORALBIOTIN 93885 MCG ORAL TABLET (BIOTIN) ; Route: ORALHYDROXYZINE HCL 25 MG ORAL TABLET (HYDROXYZINE HCL) ; Route: ORALESCITALOPRAM OXALATE 20 MG ORAL TABLET (ESCITALOPRAM OXALATE) ; Route: ORALCurrent Allergies: * RAG WEED (Critical)* PENICILLIN (Moderate) Dental Chart: Procedures:Type - CDT Code - Description B - (D2160) Amalgam, 3 surfaces, primary or permanent on Tooth # 5 on Tooth Surface DOM (Performed by ALEISHA Stein Anthony) Existing:Type - CDT Code - Description[D] (D2393) Resin-based composite, 3 surfaces, posterior Chart Notes:radha (Apr 08 2020 2:24PM): Rmhx (-) per pt no changesCC: none. Temperature: 97.8 passed covid questionsOperative: #5 MOD - decay removed with highspeed bur, spoon & slowspeed, copelite placed, amalgam placed, condensed, and burnished. Bite occlusion checked and adjusted. Anesthesia: 20% Benzocaine topical, 1 carp 4% Septocaine w/ 1:100,000 epi (UR Infil.)*Large christian, Dr Stein explained to pt that she may have slight sensitivity to cold and that it was normal. Additional PPE were used due to COVID-19. This included a minimum of a N95, a surgical mask, a hair covering, a face shield, proctective eyewear, and a gown.No complications. POI. Assisted by . Pt was cooperative.NV: ALEISHA Farris Anthony by radha (04/08/2020 2:24 PM): Tooth Notes and Watches:- Tooth 8 Note: If insurance company denies crown Dr Gallegos will attempt a christian but it may not stay. Yo CONNELLYMonika by geoff (03/01/2020 9:33 AM): Assessment & Plan Medications:LATANOPROST 0.005 % OPHTHALMIC SOLUTIONCENTRUM SILVER ORAL TABLETCVS FISH OIL 1000 MG ORAL CAPSULECVS SLOW RELEASE IRON 45 MG ORAL TABLET EXTENDED RELEASEBIOTIN 17492 MCG ORAL TABLETHYDROXYZINE HCL 25 MG ORAL TABLETESCITALOPRAM OXALATE 20 MG ORAL TABLETAllergies:* RAG WEED (Critical)* PENICILLIN (Moderate) Name Value Range Interpretation Code Description Data Siri rce(s) Supporting Document(s) ID Date Data Source [id number] 03/26/2020 09:05:32 AM EDT [facility] Current Medications: LATANOPROST 0.005 % OPHTHALMIC SOLUTION (LATANOPROST) ; Route: OPHTHALMICCENTRUM SILVER ORAL TABLET (MULTIPLE VITAMINS-MINERALS) ; Route: ORALCVS FISH OIL 1000 MG ORAL CAPSULE (OMEGA-3 FATTY ACIDS) ; Route: ORALCVS SLOW RELEASE IRON 45 MG ORAL TABLET EXTENDED RELEASE (FERROUS SULFATE DRIED) ; Route: ORALBIOTIN 65306 MCG ORAL TABLET (BIOTIN) ; Route: ORALHYDROXYZINE HCL 25 MG ORAL TABLET (HYDROXYZINE HCL) ; Route: ORALESCITALOPRAM OXALATE 20 MG ORAL TABLET (ESCITALOPRAM OXALATE) ; Route: ORALCurrent Allergies: * RAG WEED (Critical)* PENICILLIN (Moderate) Dental Chart: Procedures:Type - CDT Code - Description B - (D2222) No Charge Visit (Performed by Dangelo Gallegos DDS) Chart Notes:lala (Mar 26 2020 10:44AM): Additional PPE requirements due to COVID-19 in the dental setting, N95, surgical mask, hair covering, gown, face shield. temp: 98.4Pt presents for PA #8 & #9 for preauth of CRN #8.PA taken.Nati MORAES, Dangelo by lala (03/26/2020 10:44 AM): Tooth Notes and Watches:- Tooth 8 Note: If insurance company denies crown Dr Gallegos will attempt a christian but it may not stay. Yo CONNELLYMonika by geoff (03/01/2020 9:33 AM): Assessment & Plan Medications:LATANOPROST 0.005 % OPHTHALMIC SOLUTIONCENTRUM SILVER ORAL TABLETCVS FISH OIL 1000 MG ORAL CAPSULECVS SLOW RELEASE IRON 45 MG ORAL TABLET EXTENDED RELEASEBIOTIN 31018 MCG ORAL TABLETHYDROXYZINE HCL 25 MG ORAL TABLETESCITALOPRAM OXALATE 20 MG ORAL TABLETAllergies:* RAG WEED (Critical)* PENICILLIN (Moderate) Name Value Range Interpretation Code Description Data Siri rce(s) Supporting Document(s) ID Date Data Source [id number] 03/16/2020 12:00:00 AM [facility] Dennis Sawyer DO [facility] [address] [place] [address] Date of Exam: 03/16/2020PH#: Fax: [phone] EXAM: HIP RIGHT UNILATERAL (COMPLETE) X-RAYCLINICAL INFORMATION: Pain and weakness.There is marked asymmetric hip joint space narrowing with subchondralsclerosis and flattening of the superolateral femoral head.IMPRESSI ON:Advanced right hip chronic changes. I cannot rule out the possibility ofan acute compression fracture superimposed upon marked chronic change. MRIis recommended to search for marrow edema.APARNA Celis/Dylan you for referring SPARKLE MATTHEW to our office. Electronically Signed - ELOY VASQUEZ DO 03/23/20 10:40 Name Value Range Interpretation Code Description Data Siri rce(s) Supporting Document(s) ID Date Data Source [id number] 03/01/2020 08:28:16 AM EDT [facility] Patient History Medical History:Hospital ized 2019 Kidney failure, liver failure, dehydration, hemeraging, Congenital Hemoglobin anemiaSurgical History:Coloscopy Social/Personal History: Smoking Status: former smokerAlcohol Use: PreviouslyChief Complaint: Routine CleaningVisit Type: ExamProblem list reviewed during this update.No known problems.Current Medications: LATANOPROST 0.005 % OPHTHALMIC SOLUTION (LATANOPROST) ; Route: OPHTHALMICCENTRUM SILVER ORAL TABLET (MULTIPLE VITAMINS-MINERALS) ; Route: ORALCVS FISH OIL 1000 MG ORAL CAPSULE (OMEGA-3 FATTY ACIDS) ; Route: ORALCVS SLOW RELEASE IRON 45 MG ORAL TABLET EXTENDED RELEASE (FERROUS SULFATE DRIED) ; Route: ORALBIOTIN 51693 MCG ORAL TABLET (BIOTIN) ; Route: ORALHYDROXYZINE HCL 25 MG ORAL TABLET (HYDROXYZINE HCL) ; Route: ORALESCITALOPRAM OXALATE 20 MG ORAL TABLET (ESCITALOPRAM OXALATE) ; Route: ORALMedication list reviewed during this update.Current Allergies: * RAG WEED (Critical)* PENICILLIN (Moderate)Allergy list reviewed during this update .Past Medical History:(reviewed - no changes required) Hospitalized 2019 Kidney failure, liver failure, dehydration, hemeraging, Congenital Hemoglobin anemia Dental Chart: Procedures:Type - CDT Code - Description B - (D1110) Prophylaxis, adult (Performed by Yo CONNELLYMonika) B - (D0150) Comprehensive oral evaluation - new or established patient (Performed by Dangelo Gallegos DDS) B - (D0274) Bitewings, 4 [facility] B - (D0230) Intraoral, periapical, each additional radiographic image on Tooth # 10 (Performed by [place] MARICELSajanth) B - (D0230) Intraoral, periapical, each additional radiographic image on Tooth # [address] [facility] [facility] B - (D0220) Intraoral, periapical, first radiographic image on Tooth # 7 [facility] Treatments:Type - CDT Code - Description T - (D2331) Resin, 2 surfaces, anterior on Tooth # 6 on Tooth Surface DL (Performed by [place] MARICELSajanth) T - (D2393) Resin-based composite, 3 surfaces, posterior on Tooth # 13 on Tooth Surface BOD (Performed by [facility] Monika) T - (D2392) Resin-based composite, 2 surfaces, posterior on Tooth # 28 on Tooth Surface OD [facility] T - (D2331) Resin, 2 surfaces, anterior on Tooth # 11 on Tooth Surface DL (Performed by [facility] Monika) T - (D2392) Resin-based composite, 2 surfaces, posterior on Tooth # 14 on Tooth Surface OM ([facility] T - (D2391) Resin-based composite - one surface, posterior on Tooth # 29 on Tooth Surface O (Performed by [facility] Monika) T - (D2391) Resin- based composite - one surface, posterior on Tooth # 20 on Tooth Surface B ([facility] T - (D2392) Resin-based composite, 2 surfaces, posterior on Tooth # 5 on Tooth Surface MO (Performed by [facility] Monika) T - (D2393) Resin-based composite, 3 surfaces, posterior on Tooth # 4 on Tooth Surface MDO (Performed by [facility] Monika) T - (D2751) Brea - porcelain fused to predominantly base metal on Tooth # 8 (Performed by Monika Ram RDH) Existing:Type - CDT Code - Description[E] Amalgam Caodaism On #1 Surface OBD, #13 Surface OM, #14 Surface OL, #16 Surface B, #18 Surface OB, #3 Surface MO, #31 Surface O, #4 Surface DOM, #5 Surface OD[E] Root Canal On #12 Region PB[E] Resin-Based Composite - Direct On #10 Surface IL, #11 Surface DLI, #21 Surface B[E] Brea - 3/4 Cast Predominantly Base Metal On #12, #19, #30, #9 Chart Notes:geoff (Mar 01 2020 3:45PM): CC: Pt is concerned with the darkness on 8 but knows she has several issues. RMH: New pt; Hx of liver failure, kidney failure, hemeraging, and dehydration. Pt is still being treated. Medical consult sent for restorative work. Allergies: Penicillin and rag weedSmoking Status: Former - QUIT 2016BP: See BP log - Did not take today - take at next aptTemp: 97.9 EO/IO: Oral cancer screening performed - no abnormalites noted; normal mucosa with no white or raised patches. No lymphadenopathy. No poping or clicking of the TMJ. Pt has poor oral health and fair oral hygiene. Generalized decay per doc. Pre authing for crown on 8 due to fracture but Dr stated if crown is denied then he rosa attempt to restore with a christian if he has to. Pt reports she brushes 2xday but does not floss. Behavior: Very compliantTX: Adult prophy, 4 BWX, 3 PAs, and exam by Dr. Gallegos. Additional PPE u sed due to COVID-19. This included a minimum of a N95, a surgical mask, a hair covering, a face shield, proctective eyewear, a gown, and additional barriers.OHI: Spoke to pt about brushing and flossing. Talked about the importance of good home care and regular dental visits. NV: Restorative after medical clearance. 6MRCFoMonika fernando RDH by geoff (03/01/2020 3:45 PM): ; lala (Mar 01 2020 4:23PM): RMH-acute liver, kidney faiure, difficulty with hemostasis. CC: My front tooth is too dark and I would like it to be character actress. Reviewed Xrays. Exam: caries detected. H/O trauma on #8 during childhood/te enage years. Julian brown discoloration with fracture line on the facial and incisal lingual decay on #8. OCS: WNL, IO/ EO completed, No significant hard findings upon clinical exam.Additional PPE requirements due to COVID-19 in the dental setting, N95, surgical mask, hair covering, gown and shieldPt was cooperative. OHI given Referral: N/A NV:christian after medical clearanceMonika Ram RDH by lala (03/01/2020 4:23 PM): Tooth Notes and Watches:- Tooth 8 Note: If insurance company denies crown Dr Gallegos will attempt a christian but it may not stay. Monika Ram RDH by geoff (03/01/2020 9 :33 AM): Assessment & Plan Medications:LATANOPROST 0.005 % OPHTHALMIC SOLUTIONCENTRUM SILVER ORAL TABLETCVS FISH OIL 1000 MG ORAL CAPSULECVS SLOW RELEASE IRON 45 MG ORAL TABLET EXTENDED RELEASEBIOTIN 40257 MCG ORAL TABLETHYDROXYZINE HCL 25 MG ORAL TABLETESCITALOPRAM OXALATE 20 MG ORAL TABLETMedication Changes:Added: ESCITALOPRAM OXALATE 20 MG ORAL TABLETHYDROXYZINE HCL 25 MG ORAL TABLETBIOTIN 57781 MCG ORAL TABLETCVS SLOW RELEASE IRON 45 MG ORAL TABLET EXTENDED RELEASECVS FISH OIL 1000 MG ORAL CAPSULECENTRUM SILVER ORAL TABLETLATANOPROST 0.005 % OPHTHALMIC SOLUTIONAllergies:* RAG WEED (Critical)* PENICILLIN (Moderate) Name Value Range Interpretation Code Description Data Siri rce(s) Supporting Document(s) ID Date Data Source LIPID PANEL (CARDIAC RISK) 03/01/2020 12:00:00 AM EDT eCW1 ( [facility]) Name Value Range Interpretation Code Description Data Siri rce(s) Supporting Document(s) Cholesterol [Moles/volume] in Serum or Plasma 216 <200 eCW1 ([facility]) Triglyceride [Mass/volume] in Serum or Plasma by calculation 77 <150 eCW1 ([facility]) 2.426 <5 eCW1 (Replaced by [facility]) 127 eCW1 (Replaced by [facility]) Cholesterol in HDL [Moles/volume] in Serum or Plasma 89 >40 eCW1 ([facility]) Cholesterol in LDL [Mass/volume] in Serum or Plasma by calculation 111.6 <100 eCW1 ([facility]) ID Date Data Source AFP TUMOR L3% 03/01/2020 12:00:00 AM EDT eCW1 ([facility]) Name Value Range Interpretation Code Description Data Siri rce(s) Supporting Document(s) TNP eCW1 (Replaced by [facility]) ID Date Data Source [id number] FOL 03/01/2020 12:00:00 AM EDT eCW1 ([facility]) Name Value Range Interpretation Code Description Data Siri rce(s) Supporting Document(s) TNP eCW1 (Replaced by [facility]) TNP eCW1 (Replaced by [facility]) ID Date Data Source [id number] 03/01/2020 12:00:00 AM EDT eCW1 ([facility]) Name Value Range Interpretation Code Description Data Siri rce(s) Supporting Document(s) Hemoglobin A1c/Hemoglobin.total in Blood 5.3 eCW1 ([facility]) Procedure Social History Code Duration Value Status Description Data Source(s ) Smoking 09/20/2020 12:00:00 AM EST Former Smoker completed Former Smoker eCW1 ([facility]) Smoking 09/20/2020 12:00:00 AM EST Former Smoker completed Former Smoker eCW1 ([facility]) Smoking 08/10/2020 12:00:00 AM EST Former Smoker completed Former Smoker eCW1 ([facility]) Smoking 08/10/2020 12:00:00 AM EST Former Smoker completed Former Smoker eCW1 ([facility]) Smoking 07/27/2020 12:00:00 AM EST Former Smoker completed Former Smoker eCW1 ([facility]) Smoking 02/16/2020 12:00:00 AM EDT Former Smoker completed Former Smoker eCW1 ([facility]) Smoking 02/16/2020 12:00:00 AM EDT Former Smoker completed Former Smoker eCW1 ([facility]) Smoking 02/16/2020 12:00:00 AM EDT Former Smoker completed Former Smoker eCW1 ([facility]) Smoking 02/16/2020 12:00:00 AM EDT Former Smoker completed Former Smoker eCW1 ([facility]) Vital Signs ID Date Data Source UNK Name Value Range Interpretation Code Description Data Source(s) Diastolic blood pressure 80 mm[Hg] 80 mm[Hg] eCW1 ([facility]) Systolic blood pressure 116 mm[Hg] 116 mm[Hg] e CW1 ([facility]) Body temperature 97.4 [degF] 97.4 [degF] eCW1 ( [facility]) Respiratory rate 18 /min 18 /min eCW1 ([facility]) Heart rate 78 /min 78 /min eCW1 ([facility]) Body mass index (BMI) [Ratio] 25.73 kg/m2 25.73 kg/m2 eCW1 ([facility]) Body height 65.5 [in_i] 65.5 [in_i] eCW1 ([facility]) Body weight 157 [lb_av] 157 [lb_av] eCW1 ([facility]) Body height 64.5 [in_i] 64.5 [in_i] MEDENT ([facility]) 5'4.50" Body temperature 96.7 [degF] 96.7 [degF] MEDENT ([facility]) Heart rate 64 /min 64 /min MEDENT ([facility]) Diastolic blood pressure 63 mm[Hg] 63 mm[Hg] MEDENT ([facility]) Systolic blood pressure 124 mm[Hg] 124 mm[Hg] M EDENT ([facility]) Respiratory rate 14 /min 14 /min MEDENT ( [facility]) Body mass index (BMI) [Ratio] 25.6 kg/m2 25.6 k g/m2 MEDENT ([facility]) Body weight 151.50 [lb_av] 151.50 [lb_av] MEDEN T ([facility]) Diastolic blood pressure 82 mm[Hg] 82 mm[Hg] eCW1 ([facility]) Systolic blood pressure 116 mm[Hg] 116 mm[Hg] e CW1 ([facility]) Body temperature 97.4 [degF] 97.4 [degF] eCW1 ( [facility]) Respiratory rate 18 /min 18 /min eCW1 ([facility]) Heart rate 85 /min 85 /min eCW1 ([facility]) Body mass index (BMI) [Ratio] 25.23 kg/m2 25.23 kg/m2 eCW1 ([facility]) Body height 65.5 [in_i] 65.5 [in_i] eCW1 ([facility]) Body weight 154 [lb_av] 154 [lb_av] eCW1 ([facility]) Diastolic blood pressure 68 mm[Hg] 68 mm[Hg] eCW1 ([facility]) Systolic blood pressure 132 mm[Hg] 132 mm[Hg] e CW1 ([facility]) Body temperature 96.9 [degF] 96.9 [degF] eCW1 ( [facility]) Respiratory rate 17 /min 17 /min eCW1 ([facility]) Heart rate 85 /min 85 /min eCW1 ([facility]) Body mass index (BMI) [Ratio] 25.56 kg/m2 25.56 kg/m2 W1 ([facility]) Body height 65.5 [in_i] 65.5 [in_i] eCW1 ([facility]) Body weight 156 [lb_av] 156 [lb_av] eCW1 ([facility]) Body temperature 97.8 [degF] 97.8 [degF] MEDENT ([facility]) Body mass index (BMI) [Ratio] 25.9 kg/m2 25.9 k g/m2 MEDENT ([facility]) Body weight 158.00 [lb_av] 158.00 [lb_av] MEDEN T ([facility]) Body height 65.5 [in_i] 65.5 [in_i] MEDENT ([facility]) 5'5.50" Body temperature 97.6 [degF] 97.6 [degF] MEDENT ([facility]) Diastolic blood pressure 78 mm[Hg] 78 mm[Hg] eCW1 ([facility]) Systolic blood pressure 108 mm[Hg] 108 mm[Hg] e CW1 ([facility]) Body temperature 97.8 [degF] 97.8 [degF] eCW1 ( [facility]) Respiratory rate 20 /min 20 /min eCW1 ([facility]) Heart rate 88 /min 88 /min eCW1 ([facility]) Body mass index (BMI) [Ratio] 26.61 kg/m2 26.61 kg/m2 eCW1 ([facility]) Body height 65.5 [in_i] 65.5 [in_i] eCW1 ([facility]) Body weight 162.4 [lb_av] 162.4 [lb_av] eCW1 ([facility]) Diastolic blood pressure 62 mm[Hg] 62 mm[Hg] eCW1 ([facility]) Systolic blood pressure 104 mm[Hg] 104 mm[Hg] e CW1 ([facility]) Body temperature 98.7 [degF] 98.7 [degF] eCW1 ( [facility]) Respiratory rate 20 /min 20 /min eCW1 ([facility]) Heart rate 71 /min 71 /min eCW1 ([facility]) Body mass index (BMI) [Ratio] 24.22 kg/m2 24.22 kg/m2 eCW1 ([facility]) Body height 65.5 [in_us] 65.5 [in_us] eCW1 ([facility]) Body weight Measured 147.8 [lb_av] 147.8 [lb_av ] eCW1 ([facility]) Patient Treatment Plan of Care Planned Activity Planned Date Details Description Data Source (s) tramadol hydrochloride 50 MG Oral Tablet 07/27/2020 12:00:00 AM EST eCW1 ([facility]) Bath Bench with Back - 07/27/2020 12:00:00 AM EST eCW1 ([facility]) Cane - 07/27/2020 12:00:00 AM EST e CW1 ([facility]) Raised Toilet Seat - 07/27/2020 12:00:00 AM EST eCW1 ([facility])
--- OUTSIDE RECORDS SUMMARY | 2020-09-28 06:10 | CCD ---
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 Active 61117730 Problem Internal thrombosed hemorrhoids K64.5 Active 37474255 Problem Pure hypercholesterolemia E78.00 Active 715051 004 Problem Pressure injury of sacral region, stage 1 L89.151 Active 200950978 Problem Moderate episode of recurrent major depressive disorder F33.1 Active 284752134 Problem Major depressive disorder, single episode, moderate F32.1 Active 54067387 Problem Avascular necrosis of bone of right hip M87.051 Active 751756975 Problem Acute alcoholic hepatitis K70.10 Active 071311 8 Problem Unilateral primary osteoarthritis, right hip M16.1 1 Active 435652752972810 Problem External hemorrhoids with other complication K64.4 Active 27718471 Problem Laboratory examination Z01.89 Active 873648906 Problem Bipolar disorder, current episode mixed, moderate F31.62 Active 600496492 Problem Fatty liver K76.0 Active 285737058 Problem History of macrocytic anemia Z86.2 Active 275 889446 ALLERGIES Allergen (clinical drug ingredient) Drug/Non Drug Allergy do cumented on EMR Reaction Allergy Type Onset Date Status Penicillin (For Allergies Use Only) Hives Drug Allerg y Active ENCOUNTERS from 1962 to 2020-08-27 Encounter Location Date Provider Diagnosis [address] [place] [address] Aug, Dennis Sawyer IMMUNIZATIONS Vaccine Route Administration Date Status TDAP [...] Monitoring Language: Question Answer Notes Languages spoken: Latvian Tenriism: Question Answer Notes Tenriism 99 Other hindu Sexual Hx: Question Answer Notes Had sex [...] Notes Start Da te End Date Status Biotin 5 MG 1 tablet Orally Once a day Active Iron 325 (65 Fe) MG 1 tablet Orally Once a day for 30 day(s) Active Cane - as directed topically Daily for 999 days Jul Active Tramadol HCl 50 MG 1 tablet as needed Orally twice daily as needed for 28 days Jul, Active HydrOXYzine HCl 25 mg 1 tablet as needed Orally every 8 hrs Active Raised Toilet Seat - as directed topically Daily for 999 days Jul, Active Emergen-C Immune Plus/Vit D - as directed Orally Active Latanoprost-Timolol Maleate 0.005-0.5 % 1 drop into af fected eye Ophthalmic Once a day Active Multivitamins 1 as directed p.o. daily Active Bath Bench with Back - as directed topically Daily for 999 days Jul, Active Lexapro 20 MG 1 tablet Orally Once a day Active PROCEDURES No Information RESULTS No Results REASON FOR VISIT Cx surgery MEDICAL (GENERAL) HISTORY Type Description Date Medical [...] Information ASSESSMENTS No Information PLAN OF TREATMENT No Information Insurance Providers Payer Name Payer Address Payer Phone Insured Name Patient Relati onship to Insured Coverage Start Date Coverage End Date [facility] [address] [facility] [phone] SPARKLE MATTHEW self
--- OUTSIDE RECORDS SUMMARY | 2020-09-28 06:10 | CCD ---
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 07051434 Problem External hemorrhoids with other complication K64.4 Active 58157205 Problem Acute alcoholic hepatitis K70.10 Active 585983 8 Problem Pressure injury of sacral region, stage 1 L89.151 Active 501896828 Problem History of macrocytic anemia Z86.2 Active 275 766570 Problem Internal thrombosed hemorrhoids K64.5 Active 84612458 Problem Fatty liver K76.0 Active 275904887 Problem Pure hypercholesterolemia E78.00 Active 675679 004 Problem Moderate episode of recurrent major depressive disorder F33.1 Active 697184613 Problem Major depressive disorder, single episode, moderate F32.1 Active 56866528 Problem Laboratory examination Z01.89 Active 818477206 Problem Bipolar disorder, current episode mixed, moderate F31.62 Active 597150631 ALLERGIES Allergen (clinical drug ingredient) Drug/Non Drug Allergy do cumented on EMR Reaction Allergy Type Onset Date Status Penicillin (For Allergies Use Only) Hives Drug Allerg y Active ENCOUNTERS from 1960 to 2020-07-17 Encounter Location Date Provider Diagnosis [facility] Resident [address] [place] [address] Feb, Dennis Sawyer Right hip pain M25.551 ; His tory of macrocytic anemia Z86.2 ; Diabetes mellitus screening Z13.1 ; Lipid screening Z13.220 and Fatty liver K76.0 IMMUNIZATIONS Vaccine Route Administration Date Status TDAP [...] Monitoring Language: Question Answer Notes Languages spoken: Sinhala Sabianist: Question Answer Notes Sabianist 99 Other latter day Sexual Hx: Question Answer Notes Had sex [...] FOR REFERRAL No Information VITAL SIGNS Weight 162.4 lbs Feb, Height 65.5 in Feb, BMI 26.61 kg/m2 Feb, Heart Rate 88 /min Feb, Respiratory Rate 20 /min Feb, Temperature 97.8 degrees Fahrenheit Feb, Oximetry 96 Feb, Blood pressure systolic 108 mm Hg Feb, Blood pressure diastolic 78 mm Hg Feb, MEDICATIONS Medication SIG (Take, Route, Frequency, Duration) Notes Start Da te End Date Status Latanoprost-Timolol Maleate 0.005-0.5 % 1 drop into af fected eye Ophthalmic Once a day Active Multivitamins 1 as directed p.o. daily Active HydrOXYzine HCl 25 mg 1 tablet as needed Orally every 8 hrs for 30 da ys Active Biotin 10987 MCG 1 tablet Orally Once a day Active Fish Oil 1200 MG 3 caps Orally daily Active Lexapro 20 MG 1 tablet Orally Once a day for 30 days Active PROCEDURES No Information RESULTS REASON FOR VISIT 6 MONTHS ANNUAL MEDICAL (GENERAL) HISTORY Type Description Date Medical History Nondependent tobacco use disorder Medical History HANNAH Medical History Telogen effluvium Medical History Icthyocic congenita Medical History Pure hypercholesterolemia Medical History External Hemorrhoids Medical History Internal thrombosed hemorrhoids Medical History Recurrent major depressive disorder Medical History Acute alcoholic hepatits Medical History Major depressive disorder Medical History ASCVD risk is 1.6 (2019) Surgical History laparoscopy for an ovarian cyst 1980 Hospitalization History childbirth 1990 Hospitalization History kidney failure, liver failure Goals Section No Information Health Concerns No Information MEDICAL EQUIPMENT No Information MENTAL STATUS No Information FUNCTIONAL STATUS No Information ASSESSMENTS Encounter Date Diagnosis Assessment Notes Treatment Notes Treatm ent Clinical Notes Feb, Right hip pain (ICD-10 - M25.551) Will attemt to get ahold of [facility] radiology imaging records of her hip as something is off about her exam, in the event we cannot locate them will obtain XR imaging of hips bilaterally. Encouraged continued tylenol use for pain and gave reassurance that as long as she was not taking more than 3000mg daily without any continued alcohol use her liver would be fine. She continues to maintain her sobriety and we will look into the extent of her fatty liver. Patient verbalized understanding and agreement with the plan moving forward. Feb, History of macrocytic anemia (ICD-10 - Z86.2) Will have patient get labwork to follow up on these abnormal labs from a year ago. Patient verbalized understanding and agreement with the plan moving forward. Feb, Diabetes mellitus screening (ICD-10 - Z13.1) Feb, Lipid screening (ICD-10 - Z13.220) Feb, Fatty liver (ICD-10 - K76.0) Will check her liver to ensure no advancement of her fatty liver disease as well as a CMP to ensure no ongoing liver inflammation. May consider a VIDAL fibrosure score, but I suspect her prior history of liver disease was the result of her alcohol use. Patient verbalized understanding and agreement with the plan moving forward. PLAN OF TREATMENT Medication Medication Name Sig Start Date Stop Date HydrOXYzine HCl 25 mg 1 tablet as needed Orally every 8 hrs for 30 days Lexapro 20 MG 1 tablet Orally Once a day for 30 days Treatment Notes Assessment Notes Clinical Notes Right hip pain Will attemt to get a hold of [facility] radiology imaging records of her hip as something is off about her exam, in the event we cannot locate them will obtain XR imaging of hips bilaterally. Encouraged continued tylenol use for pain and gave reassurance that as long as she was not taking more than 3000mg daily without any continued alcohol use her liver would be fine. She continues to maintain her sobriety and we will look into the extent of her fatty liver. Patient verbalized understanding and agreement with the plan moving forward. History of macrocytic anemia Will have p atient get labwork to follow up on these abnormal labs from a year ago. Patient verbalized understanding and agreement with the plan moving forward. Fatty liver Will check her liver to ensure no advancement of her fatty liver disease as well as a CMP to ensure no ongoing liver inflammation. May consider a VIDAL fibrosure score, but I suspect her prior history of liver disease was the result of her alcohol use. Patient verbalized understanding and agreement with the plan moving forward. Treatment Notes Test Name Order Date Ultrasound : Right Upper Quadrant 2020-07-17 Next Appt Details 4 Weeks Reason:f/u labs, [facility] Provider Name:Dennis Sawyer, 2020-07-27 01 :15:00 PM, [address] [place], [address], Follow Up:4 Weeksf/u labs, [facility]ME Insurance Providers Payer Name Payer Address Payer Phone Insured Name Patient Relati onship to Insured Coverage Start Date Coverage End Date [facility] CLAIMS DEPT [address] [facility] [phone] SPARKLE MATTHEW self
--- OUTSIDE RECORDS SUMMARY | 2020-09-28 06:10 | CCD ---
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 46619851 Problem External hemorrhoids with other complication K64.4 Active 26297345 Problem Acute alcoholic hepatitis K70.10 Active 703366 8 Problem Pressure injury of sacral region, stage 1 L89.151 Active 850011913 Problem History of macrocytic anemia Z86.2 Active 275 260551 Problem Internal thrombosed hemorrhoids K64.5 Active 88238506 Problem Fatty liver K76.0 Active 162814560 Problem Pure hypercholesterolemia E78.00 Active 539121 004 Problem Moderate episode of recurrent major depressive disorder F33.1 Active 308093814 Problem Major depressive disorder, single episode, moderate F32.1 Active 15300746 Problem Laboratory examination Z01.89 Active 008981855 Problem Bipolar disorder, current episode mixed, moderate F31.62 Active 773723403 ALLERGIES Allergen (clinical drug ingredient) Drug/Non Drug Allergy do cumented on EMR Reaction Allergy Type Onset Date Status Penicillin (For Allergies Use Only) Hives Drug Allerg y Active ENCOUNTERS from 1960 to 2020-07-08 Encounter Location Date Provider Diagnosis [facility] Res[facility] [address] [place] [address] Jul, Dennis Sawyer Encounter for screening mamm ogram for malignant neoplasm of breast Z12.31 IMMUNIZATIONS Vaccine Route Administration Date Status TDAP [...] Monitoring Language: Question Answer Notes Languages spoken: Yakut Jewish: Question Answer Notes Jewish 99 Other judaism Sexual Hx: Question Answer Notes Had sex [...] hrs for 30 da ys Active Biotin 56522 MCG 1 tablet Orally Once a day Active Fish Oil 1200 MG 3 caps Orally daily Active Lexapro 20 MG 1 tablet Orally Once a day for 30 days Active PROCEDURES No Information RESULTS Component Value Reference Range PLZ Digital Mammo Screening Bilat Reviewed date:07/09/2020 14:45:18 Interpretation: Performing Lab:[facility], [place] [address] REASON FOR VISIT care gap MEDICAL (GENERAL) HISTORY Type Description Date Medical [...] Treatment Notes Treatm ent Clinical Notes Jul, Encounter for screening mamm ogram for malignant neoplasm of breast (ICD-10 - Z12.31) PLAN OF TREATMENT Medication Medication Name Sig Start Date Stop Date HydrOXYzine HCl 25 mg 1 tablet as needed Orally every 8 hrs for 30 days Lexapro 20 MG 1 tablet Orally Once a day for 30 days Treatment Notes Test Name Order Date PLZ Digital Mammo Screening Bilat 2020-07-08 Next Appt Details Provider Name:Dennis Sawyer, 2020-07-27 01 :15:00 PM, [address] [facility], [place], [address], Insurance Providers Payer Name Payer Address Payer Phone Insured Name Patient Relati onship to Insured Coverage Start Date Coverage End Date [facility] DE[facility] [address] [facility] [phone] SPARKLE AMTTHEW self
--- OUTSIDE RECORDS SUMMARY | 2020-09-28 06:10 | CCD ---
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 86697683 Problem Internal thrombosed hemorrhoids K64.5 Active 02004519 Problem Pure hypercholesterolemia E78.00 Active 268148 004 Problem Pressure injury of sacral region, stage 1 L89.151 Active 240938005 Problem Moderate episode of recurrent major depressive disorder F33.1 Active 754094588 Problem Major depressive disorder, single episode, moderate F32.1 Active 22413786 Problem Avascular necrosis of bone of right hip M87.051 Active 718492635 Problem Acute alcoholic hepatitis K70.10 Active 386339 8 Problem Unilateral primary osteoarthritis, right hip M16.1 1 Active 034945004619473 Problem External hemorrhoids with other complication K64.4 Active 59431387 Problem Laboratory examination Z01.89 Active 770644708 Problem Bipolar disorder, current episode mixed, moderate F31.62 Active 255225681 Problem Fatty liver K76.0 Active 173062993 Problem History of macrocytic anemia Z86.2 Active 275 394745 ALLERGIES Allergen (clinical drug ingredient) Drug/Non Drug Allergy do cumented on EMR Reaction Allergy Type Onset Date Status Penicillin (For Allergies Use Only) Hives Drug Allerg y Active ENCOUNTERS from 1962 to 2020-08-11 Encounter Location Date Provider Diagnosis [facility] Resident [address] [facility] [place] [address] Aug, Frank Branch Pre-op evaluation Z01.818 ; Unilateral primary osteoarthritis, right hip M16.11 and Generalized anxiety disorder F41.1 IMMUNIZATIONS Vaccine [...] Monitoring Language: Question Answer Notes Languages spoken: Irish Hindu: Question Answer Notes Hindu 99 Other congregation Sexual Hx: Question Answer Notes Had sex [...] FOR REFERRAL No Information VITAL SIGNS Weight 154 lbs Aug, Height 65.5 in Aug, BMI 25.23 kg/m2 Aug, Heart Rate 85 /min Aug, Respiratory Rate 18 /min Aug, Temperature 97.4 degrees Fahrenheit Aug, Oximetry 96 Aug, Blood pressure systolic 116 mm Hg Aug, Blood pressure diastolic 82 mm Hg Aug, MEDICATIONS Medication SIG (Take, Route, Frequency, Duration) [...] Information RESULTS No Results REASON FOR VISIT Pre-op, Right total hip- Margo @ [facility] 09/01/20 - Anesthesia - Spinal, Dx M16.1 1 - Contact Frances ([phone]) ) MEDICAL (GENERAL) HISTORY Type Description Date Medical [...] Notes Treatment Notes Treatm ent Clinical Notes Aug, Pre-op evaluation (ICD-10 - Z01.818) Patient presents for preoperative evaluation for right hip total arthroplasty on 09/01/2020. Review of their medical history, medications were performed. At this time patient does not require any further medical evaluation prior to surgery. Patient not require any further laboratory evaluation prior to surgery. Surgical risk was reviewed with patient. Patient is at low risk for surgery according to the RCRI risk calculator. Surgical risk was explained to patient, they understand risks of surgery and wish to proceed with surgery. Patient was counseled to continue her Lexapro and to inform anesthesia if she takes her tramadol the morning of her surgery. Patient is medically optimized for surgery. Aug, Unilateral primary osteoarthritis, right hip (IC D-10 - M16.11) Patient will be receiving a total hip arthroplasty. Patient is medically optimized for surgery. Aug, Generalized anxiety disorder (ICD-10 - F41.1) Advised patient not to take her hydroxyzine the day of surgery as she does not take it very often PLAN OF TREATMENT Treatment Notes Assessment Notes Clinical Notes Pre-op evaluation Patient presents for preoper ative evaluation for right hip total arthroplasty on 09/01/2020. Review of their medical history, medications were performed. At this time patient does not require any further medical evaluation prior to surgery. Patient not require any further laboratory evaluation prior to surgery. Surgical risk was reviewed with patient. Patient is at low risk for surgery according to the RCRI risk calculator. Surgical risk was explained to patient, they understand risks of surgery and wish to proceed with surgery. Patient was counseled to continue her Lexapro and to inform anesthesia if she takes her tramadol the morning of her surgery. Patient is medically optimized for surgery. Unilateral primary osteoarthritis, right hip Patient w ill be receiving a total hip arthroplasty. Patient is medically optimized for surgery. Generalized anxiety disorder Advised patient not to ta ke her hydroxyzine the day of surgery as she does not take it very often Next Appt Details as previoulsy scheduled with Dr. Sawyer Reason: Insurance Providers Payer Name Payer Address Payer Phone Insured Name Patient Relati onship to Insured Coverage Start Date Coverage End Date [facility] CLAIM[facility] DEPT [address] [place] [phone] SPARKLE MATTHWE self
[2020-09-28] MEDS ORDERED: ceFAZolin SOD 2 GM in IV 1 EA IV ONE (06:30)
[2020-09-28] MEDS ORDERED: LR 1,000 ML IV ONE (06:30)
[2020-09-28] MEDS ORDERED: ACETAMINOPHEN 500 MG TAB PO ONE (06:30)
[2020-09-28] MEDS ORDERED: fentaNYL 100 MCG/2 ML INJECTION (J3010) As Ordered ONE (07:12)
[2020-09-28] MEDS ORDERED: propofoL 500 MG/50 ML VIAL As Ordered ONE (07:12)
[2020-09-28] MEDS ORDERED: MIDAZOLAM INJ 2MG/2ML VIAL (J2250 PER 1MG) As Ordered ONE (07:12)
[2020-09-28] MEDS ORDERED: TRANEXAMIC ACID 100 MG/ML 10ML VIAL As Ordered ONE (07:12)
[2020-09-28] MEDS ORDERED: CLINDAMYCIN INJ 900MG/6ML VIAL As Ordered ONE (07:13)
[2020-09-28] MEDS ORDERED: EPINEPHrine INJ 1 MG/ML 1ML AMP As Ordered ONE (07:13)
[2020-09-28] MEDS ORDERED: ONDANSETRON 4MG/2ML VIAL As Ordered ONE (07:18)
[2020-09-28] MEDS ORDERED: LIDOCAINE 2% 100MG/5ML SDV (FOR ANES.) As Ordered ONE (07:18)
[2020-09-28] MEDS ORDERED: ACETAMINOPHEN 1000MG 100ML IV BTL (OFIRMEV) (J0131 PER 10MG) As Ordered ONE (08:07)
[2020-09-28] MEDS ORDERED: PHENYLephrine 500MCG 5ML (100MCG/ML) SYRINGE As Ordered ONE ×3 (08:12→09:28)
[2020-09-28] MEDS ORDERED: ePHEDrine SULFATE 25 MG/5 ML(5MG/ML) SYRINGE As Ordered ONE ×2 (08:13→08:57)
[2020-09-28] MEDS ORDERED: propofoL 200 MG/20 ML VIAL As Ordered ONE ×2 (09:10→09:46)
[2020-09-28] MEDS ORDERED: PERCOCET 5MG/325MG TAB PO PRN ×2 (10:30)
[2020-09-28] MEDS ORDERED: ACETAMINOPHEN TAB 650MG DOSE (2X325MG) PO PRN (10:30)
[2020-09-28] MEDS ORDERED: ONDANSETRON 4MG/2ML VIAL IV PRN ×2 (10:30)
[2020-09-28] MEDS ORDERED: fentaNYL 100 MCG/2 ML INJECTION (J3010) IV PRN (10:30)
[2020-09-28] MEDS ORDERED: oxyCODONE 5MG TAB PO PRN ×2 (10:30→12:30)
[2020-09-28] MEDS ORDERED: LR 1,000 ML IV SCH ×2 (10:30)
[2020-09-28] MEDS ORDERED: MORPHINE 4 MG/ML 1ML VIAL/SYRINGE (J2270) IV PRN (10:30)
--- NOTE | 2020-09-28 10:53 | RO ---
OPERATIVE NOTE DATE OF OPERATION: 09/28/2020 PREOPERATIVE DIAGNOSIS: POSTOPERATIVE DIAGNOSIS: PROCEDURE: SURGEON: Nehal Ramos M.D. [employer]: [place] ANESTHESIA: Spinal. ESTIMATED BLOOD LOSS: 200 mL SPECIMENS: Femoral head. COMPLICATIONS: None. FINDINGS: The femoral head had significant collapse of the posterolateral aspect of the femoral head with some probable erosion, posterior thinning of the posterior acetabular wall. DESCRIPTION OF PROCEDURE: Antibiotics were given intravenously preoperatively. Successful spinal anesthetic was induced. She was placed then into the lateral decubitus position, right hip uppermost. A [place] hip positioner was utilized. The down leg was well padded, especially the peroneal nerve and an axillary roll was utilized. Her right hip area was then carefully prepped and draped in the usual sterile fashion and after appropriate timeout, a longitudinal incision was made for a direct lateral approach to the hip. Bovie cautery was used to coagulate crossing vessels. We carefully dissected down through the tensor fascia which was then divided in line with the skin incision. We exposed the underlying gluteus minimus. We split the gluteus medius at the anterior 1/3, posterior 2/3 junction and underlying that, we split the gluteus minimus and the anterior hip capsule, then carefully dissecting off the anterior aspect of the proximal femur as we actually rotated the hip and eventually dislocated the hip anteriorly. The femoral head was noted to be significantly collapsed superiorly and posteriorly. The piriformis fossa was identified. A starter reamer was utilized followed by the canal finding reamer, then the lateralizing reamer and then we reamed up to a size 6. Femoral neck osteotomy was then performed using the alignment jig. We then began broaching beginning with a #2 broach and advanced up to #6 broach. A calcar planer was utilized. We then exposed the acetabulum, performed a labral excision 360 degrees. Once we had adequate exposure, we began reaming beginning at 47, advanced up to 51. Then the trial 52 was placed. I felt we had reasonable fixation at this point. Thus the real 52 Gription cup was opened with the sector holes in case we needed supplementary fixation and that was applied using the extramedullary alignment to estimate our version and abduction but I was not satisfied with the degree of fixation. Thus, I reamed up to the 52 and then because of the relatively soft bone in the acetabulum, I noted that the posterior aspect of the acetabular wall was extremely thinned and fragmenting. I did not want to ream any further the 53 and thus I opened the 54 sector cup. After a copious amount of lavage irrigating, I then placed the cup and I still could not get adequate satisfactory fixation but I did not feel a larger cup could fit because of the very thin posterior wall likely related to the way her hip had been riding. Thus, I elected to use the three screw holes to supplementarily fix the acetabular cup. I made sure that the holes were in the posterosuperior quadrant and then used the drill to first place the posterior hole and then I could actually palpate through the cortex and measured and then placed a 20 mm screw with a reasonable purchase. I then filled the next most superior hole in similar fashion using the drill and palpating under digital palpation and measuring and then placing a 25 screw with reasonable purchase and then the final superior hole was drilled and then measured and a 20 mm screw placed with excellent purchase. The cup was quite stable at this point. We copiously irrigated out the cup, placed the central hole eliminator, then the polyethylene. I irrigated out the femoral canal, used the #6 broach as a trial using the 1.5 standard neck and then reduced the hip and brought the hip through a range of motion. She was actually very stable. The cup was seen to be in good position because she had good stability to flexion, internal rotation and extension, external rotation and I could not get any significant soft tissue telescoping. Thus, I felt the appropriate length and soft tissue tension was obtained. I then elected to use the #6 stem with a 1.5 ceramic head. The trial broach was removed. We irrigated copiously the femoral canal, then placed the real #6 [place] stem, dried the trunion, placed the ceramic head and then reduced the hip. We copiously irrigated out the hip joint and then we began closing the gluteus minimus and the anterior hip capsule back anatomically with interrupted #1 PDS sutures, irrigating between layers. We closed the gluteus medius back anatomically with a series of #1 PDS sutures back the trochanter, irrigating between layers, then closed the tensor fascia with a running #1 Stratafix, irrigating again between layers, closed the deep subdermal tissues with interrupted 2-0 PDS sutures. The skin was closed with juanis covered by an Optifoam and dry sterile bulky dressing. She was then turned supine and then transferred to the recovery room in stable condition. There were no intraoperative complications. Miss Wanda Albrecht, my PA was critical to the success of this difficult surgery by helping with the appropriate soft tissue retraction, helped to manipulate the leg as needed, helped to prepare the patient for surgery, helped to close the wound amongst many other tasks to allow me to perform the operation smoothly, efficiently and safely.
--- NOTE | 2020-09-28 12:26 | CR.PDOC ---
General Date of Consultation: Sep 28, 2020 Consultation Chief complaint: Who [place] [facility] [place] History of present illness: Patient is a 60-year-old female with a past medical history of anxiety, depression, and liver disease or presented to the emergency [facility] for elective orthopedic procedure. Patient has received outpatient medical clearance from her primary care provider, Dr. Dennis Sawyer. Patient has been admitted to the orthopedic service. . Also service has been consulted for medical management postoperatively. Currently patient denies any headache, nausea, vomiting, chest pain, shortness breath, palpitations, abdominal pain, patient diarrhea, or urinary discomfort. She has not experienced any fevers or chills. Reports she has had some weight gain. Reports her appetite is normal. Past Medical History: Anxiety Depression Hepatitis 2/2 alcohol consumption 2019 Past Surgical History: Laparoscopy for an ovarian cyst at age 21 Colonoscopy Allergies: See below Medications: See below Family History: - Mother with a history of skin cancer - Father with a history of prostate cancer Social History: - Denies the use of illicit drugs; patient has quit alcohol 2019 has quit [email or web address] 4 years ago but was a smoker 30 years at one pack per day - Denies recent travel or sick contacts - Lives alone Review of Systems: 10 point review of systems complete, all negative otherwise stated in HPI Physical exam: - Vitals: BP [94/51], HR [64], RR [19], Sat [94%RA], Temp [97.8F] - General: Lying in bed, Speaking in full sentences, AAOx3 - HEENT: NC, AT, PERRLA - CVS: RRR, +S1S2 - Lungs: Fair air entry bilaterally, No appreciable wheezing / rales / rhonchi - Abdomen: Soft, Non-distended, Non-tender - Extremities: Right hip with dressing in place, No lower extremity edema, No calf tenderness - Neuro: No focal motor or sensory deficit - Skin: No visible rashes Labs: See below Imaging: See below EKG: See below Assessment and Plan: Elective right total hip arthroplasty (POD#0) - Presented to [facility] for elective orthopedic procedure - Has received outpatient medical clearance from her primary care provider, Dr. 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 - Patient is quit consumption of alcoholic 2018 - Most recent AST and ALT on 09/20/20 was normal Anxiety / Depression / Insomnia - c/w Escitalopram / Hydroxyzine / Tramadol DVT prophylaxis - As per orthopedic team Vital Signs/I&O Vital Signs Date Time Temp Pulse Resp B/P (MAP) Pulse Ox O2 Delivery O2 Flow Rate FiO2 09/28/20 11:45 97.8 64 19 94/51 (65) 94 Room Air Allergies Coded Allergies: Penicillins (Verified Allergy, Unknown, hives, 09/09/20) Home Medications Scheduled Ascorbic Acid/Multivit-Min (Emergen-C Immune Plus Packet) 1,000 Mg Effpowdpkt, 1 TOMMY PO DAILY, (Reported) Biotin (Biotin) 5 Mg Tablet, 5,000 MCG PO DAILY, (Reported) Escitalopram Oxalate (Lexapro) 20 Mg Tablet, 20 MG PO DAILY, (Reported) Multivitamin,Therapeutic (Thera-Tabs) 1 Each Tablet, 1 TAB PO DAILY, (Reported) Timolol Maleate/Latanoprost/Pf (Timolol 0.5%-Latanopros 0.005%) 5 Ml Drops, 1 DROP OU QHS, (Reported) Tramadol HCl (Tramadol HCl) 50 Mg Tablet, 50 MG PO QHS, (Reported) Scheduled PRN Hydroxyzine HCl (Hydroxyzine HCl) 25 Mg Tablet, 25 MG PO PRN PRN for ANXIETY/AGITATION, (Reported) KRISTINE RODRIGUEZ MD Sep 28, 2020 12:26
[2020-09-28] MEDS: oxyCODONE 5MG TAB PO PRN ×2 (12:29→22:59)
[2020-09-28] MEDS ORDERED: hydrOXYzine 25 MG TAB PO PRN (12:30)
--- NOTE | 2020-09-28 13:54 | REP ---
INDICATION: POST OP IN PACU. COMPARISON: 03/16/2020 TECHNIQUE: Two views FINDINGS: Skin juanis peripherally and right total hip arthroplasty evident with the 2 components well aligned in relationship to the eagle bone and each other. No acute bony finding postoperatively. IMPRESSION: Status post right total hip arthroplasty. <Electronically signed by Juan Park > 09/28/20 0015
[2020-09-28] MEDS: MORPHINE 2 MG/ML 1ML VIAL (J2270) IV PRN ×2 (14:08→18:15)
--- OUTSIDE RECORDS SUMMARY | 2020-09-28 15:11 | CCD ---
Author Author [facility] Organization [facility] Address Unknown Phone Unavailable Care Team Providers Care Global Supply [employer] Vice President Name Role Phone LALA OCAMPO Unavailable Unavailable [...] [facility], [facility]-C Unavailable Unavailabl e Fish, [facility], PA-C Unavailable Unavailabl e Fish, [facility], PA-C Unavailable Unavailabl e Fish, [facility], PA-C Unavailable Unavailabl e Fish, [facility], PA-C Unavailable Unavailabl e Fish, [facility], PA-C Unavailable Unavailabl e Fish, [facility], PA-C Unavailable Unavailabl e Fish, [facility], PA-C Unavailable Unavailabl e Fish, [facility], PA-C Unavailable Unavailabl e Fish, [facility], PA-C Unavailable Unavailabl e Fish, [facility], PA-C Unavailable Unavailabl e Fish, [facility], PA-C Unavailable Unavailabl e Fish, [facility], PA-C Unavailable Unavailabl e Fish, [facility], PA-C Unavailable Unavailabl e Fish, [facility], PA-C Unavailable Unavailabl e Fish, [facility], PA-C Unavailable Unavailabl e Fish, [facility], PA-C Unavailable Unavailabl e Fish, [facility], PA-C Unavailable Unavailabl e Fish, [facility], PA-C Unavailable Unavailabl e Fish, [facility], PA-C Unavailable Unavailabl e Fish, [facility], PA-C Unavailable Unavailabl e Fish, [facility], PA-C Unavailable Unavailabl e Fish, [facility], PA-C Unavailable Unavailabl e Prerna Herndon Unavailable Unavailable Prerna Herndon Unavailable Unavailable Prerna Herndon Unavailable Unavailable Prerna Herndon Unavailable Unavailable Prerna Herndon Unavailable Unavailable Prerna Herndon Unavailable Unavailable Prerna Herndon Unavailable Unavailable Prerna Herndon Unavailable Unavailable Prerna Herndon Unavailable Unavailable Prerna Herndon Unavailable Unavailable Prerna Herndon Unavailable Unavailable Prerna Herndon Unavailable Unavailable Prerna Herndon Unavailable Unavailable Prerna Herndon Unavailable Unavailable Prerna Herndon Unavailable Unavailable Prerna Herndon Unavailable Unavailable Herdnon, M Barratt PA Unavailable Unavailable Herndon, M Barratt PA Unavailable Unavailable Herndon, M Barratt PA Unavailable Unavailable Herndon, M Barratt PA Unavailable Unavailable Herndon, M Barratt PA Unavailable Unavailable Herndon, M Barratt PA Unavailable Unavailable Herndon, M Barratt PA Unavailable Unavailable Herndon, M Barratt PA Unavailable Unavailable Herndon, M Barratt PA Unavailable Unavailable Yanick, M Barratt PA Unavailable Unavailable Yanick, M Barratt PA Unavailable Unavailable Craig Stern MD Unavailable Unavailable VanCraig jean MD Unavailable Unavailable VaneendeonnaamCraig MD Unavailable Unavailable VaneenCraig cedeño MD Unavailable Unavailable VanCraig jean MD Unavailable [...] Unavailable Unavailable VanCraig jean MD Unavailable Unavailable Vaneenenaam, D Peter MD [...] is protected by Article 27-F of the [facility] Public Health law. If you continue you may have access to information: Regarding HIV / AIDS; Provided by facilities licensed or operated by the [facility] Office of Mental Health; or Provided by the [facility] Office for People With Developmental Disabilities. If such information is present, then the following [facility] mandated warning applies: This information has been [...] law may result in a fine or senior care sentence or both. A general authorization for the release of medical or other information is NOT sufficient authorization for further disc losure. Allergies and Adverse Reactions Type Description Substance Reaction Status Data Source(s ) Miscellaneous allergy RAG WEED RAG WEED [facility] Drug allergy PENICILLIN PENICILLIN [facility] Drug allergy Penicillin (For Allergies Use Only) Drug allergy Hives Active eCW1 ([facility]) Family History Family Member Name Family Member Gender Family Member Status Date o f Status Description Data Source(s) Unknown Unknown Problem MEDENT ([facility], ) Encounters Encounter Providers Location Date Indications Data Source(s ) Unknown [address] [facility] [address] 09/21/2020 12:00:00 AM EST eCW1 ([facility]) Outpatient [address] [facility] [address] 09/20/2020 12:00:00 AM EST eCW1 ([facility]) Unknown [address] [facility] [address] 08/25/2020 12:00:00 AM EST eCW1 ([facility]) Office Visit Attender: Mallorie SEGURA Physical Therapy 01:30:00 PM EST [facility]ENT [facility] [address] [facility] [address] 08/10/2020 12:00:00 AM EST eCW1 ([facility]) Outpatient [address] [facility] [address] 07/27/2020 12:00:00 AM EST eCW1 ([facility]) Unknown [address] [facility] [address] 07/06/2020 12:00:00 AM EST eCW1 ([facility]) Outpatient Attender: Craig Stern MD Physical Therap y 06/21/2020 12:15:00 PM EST MEDENT ([facility]) Office Visit Attender: Wanda CISNEROS PA-C Physical Therapy 06/17/2020 12:40:00 PM EST MEDENT ([facility]) Outpatient Attender: [facility] 06/15/2020 11:28:00 AM EST [facility] Unknown [address] [facility] [address] 05/25/2020 12:00:00 AM EDT eCW1 ([facility]) Outpatient Attender: [facility] 05/13/2020 09:18:02 AM EDT [facility] Outpatient Attender: [facility] 05/13/2020 09:17:01 AM EDT [facility] Outpatient Attender: [facility] 05/12/2020 03:52:01 PM EDT [facility] Outpatient Attender: Wanda CISNEROS PA-C Physical Therapy 05/07/2020 03:00:00 PM EDT MEDENT ([facility]) Unknown [address] [facility] [address] 05/07/2020 12:00:00 AM EDT eCW1 ([facility]) OFFICE OUTPATIENT NEW 30 MINUTES Attender: Desire SEGURA Ph ysical Therapy 04/14/2020 09:00:00 AM EDT MEDENT ([facility]) Outpatient Attender: [facility] 04/08/2020 02:25:00 PM EDT [facility] Outpatient Attender: [facility] 04/08/2020 01:15:02 PM EDT [facility] Outpatient Attender: [facility] 04/08/2020 10:20:00 AM EDT [facility] Outpatient Attender: [facility] 03/26/2020 10:45:00 AM EDT [facility] Outpatient Attender: [facility] 03/02/2020 12:00:11 AM EDT [facility] Outpatient Attender: [facility] 03/01/2020 04:24:00 PM EDT [facility] Outpatient Attender: [facility] 03/01/2020 09:57:01 AM EDT [facility] Outpatient Attender: [facility] 03/01/2020 09:42:01 AM EDT [facility] Outpatient Attender: [facility] 03/01/2020 09:38:00 AM EDT [facility] Outpatient Attender: [facility] 03/01/2020 09:31:01 AM EDT [facility] Outpatient Attender: [facility] 03/01/2020 09:22:00 AM EDT [facility] Outpatient Attender: [facility] 03/01/2020 08:16:00 AM EDT [facility] Outpatient [address] [facility] [id number] 02/16/2020 12:00:00 AM EDT eCW1 ([facility]) Outpatient LERAY[facility] 01/13/2020 08:01:59 PM EDT [facility] Outpatient [facility] 11/06/2019 11:04:00 AM EDT [facility] [place] [address] [place] [phone] 09/19/2019 12:00:00 AM EST eCW1 [facility] Outpatient [facility] 08/11/2019 09:01:12 PM EST [facility] Outpatient [facility] 08/11/2019 04:27:00 PM EST [facility]11/[facility] 04:26:00 PM EST [facility] GME Resident [address] [place] [phone] 08/08/2019 12:00:00 AM EST eCW1 ([facility] [place] [address] [place] [phone] 08/08/2019 12:00:00 AM EST [facility] Immunizations Vaccine Date Status Description Data Source(s) INFLUENZA VIRUS VACCINE QUADRIVALENT 2019-21 (6 MOS AN D UP) 05/07/2020 12:00:00 AM EDT completed [facility] Medications Medication Brand Name Start Date Product Form Dose Route Admi nistrative Instructions Pharmacy Instructions Status Indications Reaction Description Data Source(s) chlorhexidine gluconate 40 MG/ML Medicated Liquid Soap [Hibi clens] Hibiclens 08/16/2020 12:00:00 AM EST completed MEDENT ([facility]) Mupirocin 0.02 MG/MG Topical Ointment Mupirocin 08/11/2020 12:00:00 AM EST active [facility] ([facility]) chlorhexidine gluconate 40 MG/ML Medicated Liquid Soap [Hibi clens] Hibiclens 08/11/2020 12:00:00 AM EST active MEDENT ([facility]) tramadol hydrochloride 50 MG Oral Tablet Tramadol HCl 50 MG Tramadol HCl 50 MG 07/27/2020 12:00:00 AM EST 1.0 {tablet_as_needed} active Tramadol HCl 50 MG eCW1 ([facility]) tramadol hydrochloride 50 MG Oral Tablet Tramadol HCl 50 MG Tramadol HCl 50 MG 07/27/2020 12:00:00 AM EST 1.0 {tablet_as_needed} active Tramadol HCl 50 MG eCW1 ([facility]) Raised Toilet Seat - Raised Toilet Seat - 07/27/2020 12:00:00 AM EST active Raised Toilet Seat - eCW1 ([facility]) tramadol hydrochloride 50 MG Oral Tablet Tramadol HCl 50 MG Tramadol HCl 50 MG 07/27/2020 12:00:00 AM EST 1.0 {tablet_as_needed} active Tramadol HCl 50 MG eCW1 ([facility]) Raised Toilet Seat - Raised Toilet Seat - 07/27/2020 12:00:00 AM EST active Raised Toilet Seat - eCW1 ([facility]) Cane - Cane - 07/27/2020 12:00:00 AM EST active Cane - eCW1 ([facility]) tramadol hydrochloride 50 MG Oral Tablet Tramadol HCl 50 MG Tramadol HCl 50 MG 07/27/2020 12:00:00 AM EST 1.0 {tablet_as_needed} active Tramadol HCl 50 MG eCW1 ([facility]) Bath Bench with Back - Bath Bench with Back - 07/27/2020 12:00:[address] active Bath Bench with Back - eC W1 ([facility]) Bath Bench with Back - Bath Bench with Back - 07/27/2020 12:00:[address] active Bath Bench with Back - eC W1 ([facility]) Cane - Cane - 07/27/2020 12:00:00 AM EST active Cane - eCW1 ([facility]) Raised Toilet Seat - Raised Toilet Seat - 07/27/2020 12:00:00 AM EST active Raised Toilet Seat - eCW1 ([facility]) Bath Bench with Back - Bath Bench with Back - 07/27/2020 12:00:[address] active Bath Bench with Back - eC W1 ([facility]) Bath Bench with Back - Bath Bench with Back - 07/27/2020 12:00:[address] active Bath Bench with Back - eC W1 ([facility]) Cane - Cane - 07/27/2020 12:00:00 AM EST active Cane - eCW1 ([facility]) Cane - Cane - 07/27/2020 12:00:00 AM EST active Cane - eCW1 ([facility]) Cane - Cane - 07/27/2020 12:00:00 AM EST active Cane - eCW1 ([facility]) Raised Toilet Seat - Raised Toilet Seat - 07/27/2020 12:00:00 AM EST active Raised Toilet Seat - eCW1 ([facility]) Raised Toilet Seat - Raised Toilet Seat - 07/27/2020 12:00:00 AM EST active Raised Toilet Seat - eCW1 ([facility]) Bath Bench with Back - Bath Bench with Back - 07/27/2020 12:00:[address] active Bath Bench with Back - eC W1 ([facility]) tramadol hydrochloride 50 MG Oral Tablet Tramadol HCl 50 MG Tramadol HCl 50 MG 07/27/2020 12:00:00 AM EST 1.0 {tablet_as_needed} active Tramadol HCl 50 MG eCW1 ([facility]) tramadol hydrochloride 50 MG Oral Tablet Tramadol HCL 07/21/2020 12:00:00 AM EST ORAL active [facility] ([facility] Insurance Providers Payer name Policy type / Coverage type Policy ID Covered alliance party ID Covered alliance party's relationship to ríos Policy Ríos Plan Information BASHIR [id number] SP [id number] [place] [id number] S [id number] Managed Care Bashir P [id number] S [id number] Medicaid S [id number] S [id number] [facility] O [id number] S [id number] D Managed Care Bashir ([employer]) P UNAVAILABLE S UNAVAILABLE BASHIR [id number] SP [id number] ANSI-Commercial [id number] ANSI-Commercial [id number] Bashir Care [place] [id number] Self [id number] ANSI-Commercial [id number] ANSI-Commercial [id number] ANSI-Commercial [id number] ANSI-Commercial [id number] ANSI-Commercial [id number] ANSI-Commercial [id number] ANSI-Commercial [id number] ANSI-Commercial [id number] ANSI-Commercial [id number] ANSI-Commercial [id number] ANSI-Commercial [id number] ANSI-Commercial [id number] Problems, Conditions, and Diagnoses Code Display Name Description Problem Type Effective Dates Data Source(s) M16.11 [id number] Unilateral primary osteoarthritis, rig ht hip Problem 08/10/2020 12:00:00 AM EST eCW1 ([facility]) M87.051 [id number] Avascular necrosis of bone of right hip P roblem 07/27/2020 12:00:00 AM EST eCW1 ([facility]) 521.00 Dental caries Dental caries 05/13/2020 09:16:04 AM EDT [facility] Z86.2 [id number] History of macrocytic anemia Problem 020 12:00:00 AM EDT eCW1 ([facility]) K76.0 [id number] Fatty liver Problem 02/16/2020 12:00:00 AM E DT eCW1 ([facility]) Surgeries/Procedures Procedure Description Date Indications Data Source(s) X-Ray Hips Bilateral With Pelvis 3-4 Views 06/21/2020 12:00:00 AM EST MEDENT ([facility]) PSYTX W PT 45 MINUTES 08/08/2019 12:00:00 AM EST eCW1 ([facility]) Results ID Date Data Source [id number] 09/23/2020 11:00:00 AM EST [facility] Name Value Range Interpretation Code Description Data Siri rce(s) Supporting Document(s) SARS coronavirus 2 RNA Not Detected [facility] This lab was ordered by [facility] and reported by [facility]. ID Date Data Source [id number] 09/20/2020 12:00:00 AM EST eCW1 ([facility]) Name Value Range Interpretation Code Description Data Siri rce(s) Supporting Document(s) Prothrombin time (PT) 13.1 12.5-14.3 PROTHROMBIN TI ME eCW1 ([facility]) INR in Platelet poor plasma by Coagulation assay 0.97 INR eCW1 ([facility]) ID Date Data Source ERYTHROCYTE SEDIMENTATION RATE 09/20/2020 12:00:00 AM EST eC W1 ([facility]) Name Value Range Interpretation Code Description Data Siri rce(s) Supporting Document(s) 25 0-30 ERYTHROCYTE SEDIMENTATION RATE eCW1 ([facility]) ID Date Data Source Comprehensive Metabolic Profile (CMP) 09/20/2020 12:00:00 AM EST eCW1 ([facility]) Name Value Range Interpretation Code Description Data Siri rce(s) Supporting Document(s) 62 70-100 GLUCOSE, FASTING eCW1 ([facility]) 10 7-18 BLOOD UREA NITROGEN eCW1 ([facility]) 1.12 0.55-1.30 CREATININE FOR GFR eCW1 ([facility]) 53.2 >51 GLOMERULAR FILTRATION RATE eCW 1 ([facility]) 139 136-145 SODIUM LEVEL eCW1 ([facility]) 3.7 3.5-5.1 POTASSIUM SERUM eCW1 ([facility]) 28 21-32 CARBON DIOXIDE LEVEL eCW1 ([facility]) 102 98-107 CHLORIDE LEVEL eCW1 ([facility]) 16 7-37 AST/SGOT eCW1 ([facility]) 9.1 8.5-10.1 CALCIUM LEVEL eCW1 ([facility]) 26 12-78 ALT/SGPT eCW1 ([facility]) 4.2 3.2-5.2 ALBUMIN eCW1 ([facility]) 114 45-117 ALKALINE PHOSPHATASE eCW1 ([facility]) 0.3 0.2-1.0 BILIRUBIN,TOTAL eCW1 ([facility]) 8.1 6.4-8.2 TOTAL PROTEIN eCW1 ([facility]) 1.1 1.2-2.2 ALBUMIN/GLOBULIN RATIO eCW1 ([facility]) ID Date Data Source CBC - Complete Blood Count 09/20/2020 12:00:00 AM EST eCW1 ( [facility]) Name Value Range Interpretation Code Description Data Siri rce(s) Supporting Document(s) 4.12 4.00-5.40 RED BLOOD COUNT eCW1 ([facility]) 9.2 4.0-10.0 WHITE BLOOD COUNT eCW1 ([facility]) 13.3 12.0-15.5 HEMOGLOBIN eCW1 ([facility]) 40.4 36.0-47.0 HEMATOCRIT eCW1 ([facility]) 98.1 80.0-96.0 MEAN CORPUSCULAR VOLUME e CW1 ([facility]) 32.9 32.0-36.5 MEAN CORPUSCULAR HGB CONC eCW1 ([facility]) 12.8 11.5-14.5 RED CELL DISTRIBUTION WID TH eCW1 ([facility]) 32.3 27.0-33.0 MEAN CORPUSCULAR HEMOGLOB IN eCW1 ([facility]) 374 150-450 PLATELET COUNT, AUTOMATED eCW1 ([facility]) ID Date Data Source [id number] 08/21/2020 10:00:00 AM EST [facility] Name Value Range Interpretation Code Description Data Siri rce(s) Supporting Document(s) SARS coronavirus 2 [facility] This lab was ordered by [facility] and reported by [facility]. ID Date Data Source [id number] 08/18/2020 03:46:00 PM EST MEDENT ([facility]) Name Value Range Interpretation Code Description Data Siri rce(s) Supporting Document(s) Erythrocyte sedimentation rate by Westergren method 44 mm/hr 0-30 MEDENT ([facility]) ID Date Data Source [id number] 08/18/2020 03:46:00 PM EST MEDENT ([facility]) Name Value Range Interpretation Code Description Data Siri rce(s) Supporting Document(s) Red Blood Count 4.25 10 4.00-5.40 MEDENT ([facility]) White Blood Count 8.2 10 4.0-10.0 MEDENT ([facility]) Mean Corpuscular Volume 94.8 fl 80.0-96.0 M EDENT ([facility]) Hemoglobin 13.3 g/dL 12.0-15.5 MEDENT ([facility]) Hematocrit 40.3 % 36.0-47.0 MEDENT ([facility]) Mean Corpuscular HGB Conc 33.0 g/dL 32.0-36.5 MEDENT ([facility]) Mean Corpuscular Hemoglobin 31.3 pg 27.0-33.0 MEDENT ([facility]) Red Cell Distribution Width 12.3 % 11.5-14.5 MEDENT ([facility]) Platelet Count, Automated 346 10 150-450 MEDENT ([facility]) Nucleated Red Blood Cell % 0.0 % 0-0 MED ENT ([facility]) ID Date Data Source [id number] 08/18/2020 03:46:00 PM EST MEDENT ([facility]) Name Value Range Interpretation Code Description Data Siri rce(s) Supporting Document(s) Blood Urea Nitrogen 11 mg/dL 7-18 [facility] ([facility]) Creatinine For GFR 1.12 mg/dL 0.55-1.30 MEDENT ([facility]) Glucose, Fasting 76 mg/dL 70-100 MEDENT ([facility]) Glomerular Filtration Rate 53.2 MED ENT ([facility]) <content>Units are mL/min/1.73 m2</content>
<content></content>
<content>Chronic Kidney Disease Staging per NKF:</content>
<content></content>
<content>Stage I & II GFR >=60 Normal to Mildly Decreased</content>
<content>Stage III GFR 30- 59 Moderately Decreased</content>
<content>Stage IV GFR 15-29 Severely Decreased</content>
<content>Stage V GFR <15 Very Little GFR Left</content>
<content>ESRD GFR <15 on SUPERVISOR RUBBER COVERING</content>
<content></content> Potassium Serum 3.9 meq/L 3.5-5.1 MEDENT ([facility]) Sodium Level 138 meq/L 136-145 MEDENT ([facility]) Chloride Level 102 meq/L 98-107 MEDENT ([facility]) Carbon Dioxide Level 28 meq/L 21-32 MEDENT ([facility]) Calcium Level 9.6 mg/dL 8.5-10.1 MEDENT ([facility]) Anion Gap 8 meq/L 8-16 MEDENT ([facility]) Ast/Sgot 15 U/L 7-37 MEDENT ([facility]) Alt/SGPT 29 U/L 12-78 MEDENT ([facility]) Alkaline Phosphatase 118 U/L 45-117 MEDENT ([facility]) Bilirubin,Total 0.4 mg/dL 0.2-1.0 MEDENT ([facility]) Albumin/Globulin Ratio 1.2 1.2-2.2 MEDENT ([facility]) Albumin 4.4 GM/DL 3.2-5.2 MEDENT ([facility]) Total Protein 8.1 GM/DL 6.4-8.2 MEDENT ([facility]) ID Date Data Source [id number] 08/18/2020 03:46:00 PM EST MEDENT ([facility]) Name Value Range Interpretation Code Description Data Siri rce(s) Supporting Document(s) Inr 0.96 MEDENT ([facility]) THERAPUTIC HUMAN INR VALUES INDICATIONS NORMAL RANGES PROPHYLAXIS/TREATMENT OF: VENOUS THROMBOSIS 2.0-3.0 PULMONARY EMBOLISM 2.0-3.0 PREVENTION OF SYSTEMIC EMBOLISM FROM: TISSUE HEART VALVES 2.0-3.0 ACUTE MYOCARDIAL INFARCTION 2.0-3.0 VALVULAR HEART DISEASE 2.0-3.0 ATRIAL FIBRILLATION 2.0-3.0 MECHANICAL VALVES(HIGH RISK) 2.5-3.5 RECURRENT MYOCARDIAL INFARCTION 2.5-3.5 Prothrombin Time 13.0 s 12.5-14.3 MEDENT ([facility]) ID Date Data Source [id number] 05/27/2020 12:00:00 AM EDT [facility] Wanda Albrecht Pa-C Patient Name: FLAKO [id number] [facility] Date of : 1960[place] [address]- Date of Exam: 05/27/2020#: Fax: [phone] EXAM: ARTHROCENTESIS RTHIP-ASPIR / INJ STEROID/PAIN MEDSRIGHT HIP INJECTION:The procedure was performed by Ranjit Reno [facility] under the generalsupervision of Dr. Golden.The benefits [...] rce(s) Supporting Document(s) ID Date Data Source [id number] 05/27/2020 12:00:00 AM EDT [facility] Wanda Albrecht Pa-C Patient Name: FLAKO [id number] [facility] Date of : 1960[place] [address]- Date of Exam: 05/27/2020#: Fax: [phone] EXAM: [...] rce(s) Supporting Document(s) ID Date Data Source [id number] 05/13/2020 07:50:03 AM EDT [facility] Current Problems: Dental caries (ICD-521 .00) (LPK88-F14.9)Current Medications: LATANOPROST 0.005 % OPHTHALMIC SOLUTION (LATANOPROST) ; Route: OPHTHALMICCENTRUM SILVER ORAL TABLET (MULTIPLE VITAMINS-MINERALS) ; Route: ORALCVS FISH OIL 1000 MG ORAL CAPSULE (OMEGA-3 FATTY ACIDS) ; Route: ORALCVS SLOW RELEASE IRON 45 MG ORAL TABLET EXTENDED RELEASE (FERROUS SULFATE DRIED) ; Route: ORALBIOTIN 60640 MCG ORAL TABLET (BIOTIN) ; Route: ORALHYDROXYZINE [...] denies crown Dr Gallegos will attempt a quaker but it may not stay. Monika Ram RDH by geoff (03/01/2020 9:33 AM): Assessment & Plan Problems:Added: Dental caries (ICD-521.00) ([id number]-R99.9)Medications:LATANOPROST 0.005 % OPHTHALMIC SOLUTIONCENTRUM SILVER ORAL TABLETCVS FISH OIL 1000 MG ORAL CAPSULECVS SLOW RELEASE IRON 45 MG ORAL TABLET EXTENDED RELEASEBIOTIN 78685 MCG ORAL TABLETHYDROXYZINE HCL 25 MG ORAL TABLETESCITALOPRAM OXALATE 20 MG ORAL TABLETAllergies:* RAG WEED (Critical)* PENICILLIN (Moderate) Name Value Range Interpretation Code Description Data Siri rce(s) Supporting Document(s) ID Date Data Source [id number] 04/08/2020 12:33:09 PM EDT [facility] Current Medications: LATANOPROST 0.005 % OPHTHALMIC SOLUTION (LATANOPROST) ; Route: OPHTHALMICCENTRUM SILVER ORAL TABLET (MULTIPLE VITAMINS-MINERALS) ; Route: ORALCVS FISH OIL 1000 MG ORAL CAPSULE (OMEGA-3 FATTY ACIDS) ; Route: ORALCVS SLOW RELEASE IRON 45 MG ORAL TABLET EXTENDED RELEASE (FERROUS SULFATE DRIED) ; Route: ORALBIOTIN 01169 MCG ORAL TABLET (BIOTIN) ; Route: ORALHYDROXYZINE [...] 4% Septocaine w/ 1:100,000 epi (UR Infil.)*Large quaker, Dr Stein explained to pt that she [...] denies crown Dr Gallegos will attempt a quaker but it may not stay. Monika Ram RDH by geoff (03/01/2020 9:33 AM): Assessment & Plan Medications:LATANOPROST 0.005 % OPHTHALMIC SOLUTIONCENTRUM SILVER ORAL TABLETCVS FISH OIL 1000 MG ORAL CAPSULECVS SLOW RELEASE IRON 45 MG ORAL TABLET EXTENDED RELEASEBIOTIN 02674 MCG ORAL TABLETHYDROXYZINE HCL 25 MG ORAL TABLETESCITALOPRAM OXALATE 20 MG ORAL TABLETAllergies:* RAG WEED (Critical)* PENICILLIN (Moderate) Name Value Range Interpretation Code Description Data Siri rce(s) Supporting Document(s) ID Date Data Source [id number] 03/26/2020 09:05:32 AM EDT [facility] Current Medications: LATANOPROST 0.005 % OPHTHALMIC SOLUTION (LATANOPROST) ; Route: OPHTHALMICCENTRUM SILVER ORAL TABLET (MULTIPLE VITAMINS-MINERALS) ; Route: ORALCVS FISH OIL 1000 MG ORAL CAPSULE (OMEGA-3 FATTY ACIDS) ; Route: ORALCVS SLOW RELEASE IRON 45 MG ORAL TABLET EXTENDED RELEASE (FERROUS SULFATE DRIED) ; Route: ORALBIOTIN 34393 MCG ORAL TABLET (BIOTIN) ; Route: ORALHYDROXYZINE [...] & #9 for preauth of CRN #8.PA taken.Dangelo Damian DDS by lala (03/26/2020 10:44 AM): Tooth Notes and Watches:- Tooth 8 Note: If insurance company denies crown Dr Gallegos will attempt a quaker but it may not stay. Monika Ram RDH by geoff (03/01/2020 9:33 AM): Assessment & Plan Medications:LATANOPROST 0.005 % OPHTHALMIC SOLUTIONCENTRUM SILVER ORAL TABLETCVS FISH OIL 1000 MG ORAL CAPSULECVS SLOW RELEASE IRON 45 MG ORAL TABLET EXTENDED RELEASEBIOTIN 08909 MCG ORAL TABLETHYDROXYZINE HCL 25 MG ORAL TABLETESCITALOPRAM OXALATE 20 MG ORAL TABLETAllergies:* RAG WEED (Critical)* PENICILLIN (Moderate) Name Value Range Interpretation Code Description Data Siri rce(s) Supporting Document(s) ID Date Data Source [id number] 03/16/2020 12:00:00 AM EDT [facility] Dennis Sawyer DO [facility] [address] [place] [address] Date of Exam: 03/16/2020PH#: Fax: [phone] EXAM: [...] rce(s) Supporting Document(s) ID Date Data Source [id number] 03/01/2020 08:28:16 AM EDT [facility] Patient History Medical History:Hospital [facility] 2019 Kidney failure, liver failure, dehydration, hemeraging, [...] RELEASE (FERROUS SULFATE DRIED) ; Route: ORALBIOTIN 80953 MCG ORAL TABLET (BIOTIN) ; Route: ORALHYDROXYZINE [...] - (D1110) Prophylaxis, adult (Performed by Yo COATES, Monika) B - (D0150) Comprehensive oral evaluation - new or established patient (Performed by Dangelo Gallegos DDS) B - (D0274) Bitewings, 4 radiographic images (Performed by Yo CONNELLYMonika) B - (D0230) Intraoral, periapical, each additional radiographic image on Tooth # 10 (Performed by Ram RDMonika) B - (D0230) Intraoral, periapical, each additional radiographic image on Tooth # 25 (Performed by Ram RD, Monika) B - (D0220) Intraoral, periapical, first radiographic image on Tooth # 7 (Performed by Ram RDMonika) Treatments:Type - CDT Code - Description T - (D2331) Resin, 2 surfaces, anterior on Tooth # 6 on Tooth Surface DL (Performed by Ram RDMonika) T - (D2393) Resin-based composite, 3 surfaces, posterior on Tooth # 13 on Tooth Surface BOD (Performed by Ram RDMonika) T - (D2392) Resin-based composite, 2 surfaces, posterior on Tooth # 28 on Tooth Surface OD (Performed by Ram RDMonika) T - (D2331) Resin, 2 surfaces, anterior on Tooth # 11 on Tooth Surface DL (Performed by Ram RDMonika) T - (D2392) Resin-based composite, 2 surfaces, posterior on Tooth # 14 on Tooth Surface OM (Performed by Ram RDMonika) T - (D2391) Resin-based composite - one surface, posterior on Tooth # 29 on Tooth Surface O (Performed by Ram RDMonika) T - (D2391) Resin- based composite - one surface, posterior on Tooth # 20 on Tooth Surface B (Performed by Ram RDMonika) T - (D2392) Resin-based composite, 2 surfaces, posterior on Tooth # 5 on Tooth Surface MO (Performed by Ram RDMonika) T - (D2393) Resin-based composite, 3 surfaces, posterior on Tooth # 4 on Tooth Surface MDO (Performed by Monika Ram RDH) T - (D2751) [place] - porcelain fused to predominantly base metal on Tooth # 8 (Performed by Monika Ram RDH) Existing:Type - CDT Code - Description[E] Amalgam Mu-Ism On #1 Surface OBD, #13 Surface OM, #14 Surface OL, #16 Surface B, #18 Surface OB, #3 Surface MO, #31 Surface O, #4 Surface DOM, #5 Surface OD[E] Root Canal On #12 Region PB[E] Resin-Based Composite - Direct On #10 Surface IL, #11 Surface DLI, #21 Surface B[E] [place] - 3/4 Cast Predominantly Base Metal On [...] and rag weedSmoking Status: Former - QUIT 2017BP: See BP log - Did not take [...] he rosa attempt to restore with a quaker if he has to. 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 Reviewed Xrays. Exam: caries detected. H/O trauma on #8 during childhood/te enage years. Julian brown discoloration with fracture line on the facial and incisal lingual decay on #8. OCS: WNL, IO/ EO completed, No significant hard findings upon clinical exam.Additional PPE requirements due to COVID-19 in the dental setting, N95, surgical mask, hair covering, gown and shieldPt was cooperative. OHI given Referral: N/A NV:quaker after medical clearanceFoMonika fernando RDH by lala (03/01/2020 4:23 PM): Tooth Notes and Watches:- Tooth 8 Note: If insurance company denies crown Dr Gallegos will attempt a quaker but it may not stay. Monika Ram RDH by geoff (03/01/2020 9 :33 AM): Assessment & Plan Medications:LATANOPROST 0.005 % OPHTHALMIC SOLUTIONCENTRUM SILVER ORAL TABLETCVS FISH OIL 1000 MG ORAL CAPSULECVS SLOW RELEASE IRON 45 MG ORAL TABLET EXTENDED RELEASEBIOTIN 61882 MCG ORAL TABLETHYDROXYZINE HCL 25 MG ORAL TABLETESCITALOPRAM OXALATE 20 MG ORAL TABLETMedication Changes:Added: ESCITALOPRAM OXALATE 20 MG ORAL TABLETHYDROXYZINE HCL 25 MG ORAL TABLETBIOTIN 99687 MCG ORAL TABLETCVS SLOW RELEASE IRON 45 MG ORAL TABLET EXTENDED RELEASECVS FISH OIL 1000 MG ORAL CAPSULECENTRUM SILVER ORAL TABLETLATANOPROST 0.005 % OPHTHALMIC SOLUTIONAllergies:* RAG WEED (Critical)* PENICILLIN (Moderate) Name Value Range Interpretation Code Description Data Siri rce(s) Supporting Document(s) ID Date Data Source LIPID PANEL (CARDIAC RISK) 03/01/2020 12:00:00 AM EDT eCW1 ( [facility]) Name Value Range Interpretation Code Description Data Siri rce(s) Supporting Document(s) Cholesterol [Moles/volume] in Serum or Plasma 216 <200 eCW1 ([facility]) Triglyceride [Mass/volume] in Serum or Plasma by calculation 77 <150 eCW1 ([facility]) 2.426 <5 eCW1 ([facility]) 127 eCW1 ([facility]) Cholesterol in HDL [Moles/volume] in Serum or Plasma 89 >40 eCW1 ([facility]) Cholesterol in LDL [Mass/volume] in Serum or Plasma by calculation 111.6 <100 eCW1 ([facility]) ID Date Data Source AFP TUMOR L3% 03/01/2020 12:00:00 AM EDT eCW1 ([facility]) Name Value Range Interpretation Code Description Data Siri rce(s) Supporting Document(s) TNP eCW1 ([facility]) ID Date Data Source [id number] & FOL 03/01/2020 12:00:00 AM EDT eCW1 ([facility]) Name Value Range Interpretation Code Description Data Siri rce(s) Supporting Document(s) TNP eCW1 ([facility]) TNP eCW1 ([facility]) ID Date Data Source [id number] 03/01/2020 12:00:00 AM EDT eCW1 ([facility]) Name Value Range Interpretation Code Description Data Siri rce(s) Supporting Document(s) Hemoglobin A1c/Hemoglobin.total in Blood 5.3 eCW1 ([facility]) Procedure Social History Code Duration Value Status Description Data Source(s ) Smoking 09/20/2020 12:00:00 AM EST Former Smoker completed Former Smoker eCW1 ([facility]) Smoking 09/20/2020 12:00:00 AM EST Former Smoker completed Former Smoker eCW1 ([facility]) Smoking 08/10/2020 12:00:00 AM EST Former Smoker completed Former Smoker eCW1 ([facility]) Smoking 08/10/2020 12:00:00 AM EST Former Smoker completed Former Smoker eCW1 ([facility]) Smoking 07/27/2020 12:00:00 AM EST Former Smoker completed Former Smoker eCW1 ([facility]) Smoking 02/16/2020 12:00:00 AM EDT Former Smoker completed Former Smoker eCW1 ([facility]) Smoking 02/16/2020 12:00:00 AM EDT Former Smoker completed Former Smoker eCW1 ([facility]) Smoking 02/16/2020 12:00:00 AM EDT Former Smoker completed Former Smoker eCW1 ([facility]) Smoking 02/16/2020 12:00:00 AM EDT Former Smoker completed Former Smoker eCW1 ([facility]) Vital Signs ID Date Data Source UNK Name Value Range Interpretation Code Description Data Source(s) Diastolic blood pressure 80 mm[Hg] 80 mm[Hg] eCW1 ([facility]) Systolic blood pressure 116 mm[Hg] 116 mm[Hg] e CW1 ([facility]) Body temperature 97.4 [degF] 97.4 [degF] eCW1 ( [facility]) Respiratory rate 18 /min 18 /min eCW1 ([facility]) Heart rate 78 /min 78 /min eCW1 ([facility]) Body mass index (BMI) [Ratio] 25.73 kg/m2 25.73 kg/m2 eCW1 ([facility]) Body height 65.5 [in_i] 65.5 [in_i] eCW1 ([facility]) Body weight 157 [lb_av] 157 [lb_av] eCW1 ([facility]) Body height 64.5 [in_i] 64.5 [in_i] MEDENT ([facility]) 5'4.50" Body temperature 96.7 [degF] 96.7 [degF] MEDENT ([facility]) Heart rate 64 /min 64 /min MEDENT ([facility]) Diastolic blood pressure 63 mm[Hg] 63 mm[Hg] MEDENT ([facility]) Systolic blood pressure 124 mm[Hg] 124 mm[Hg] M EDENT ([facility]) Respiratory rate 14 /min 14 /min MEDENT ( [facility]) Body mass index (BMI) [Ratio] 25.6 kg/m2 25.6 k g/m2 MEDENT ([facility]) Body weight 151.50 [lb_av] 151.50 [lb_av] MEDEN T ([facility]) Diastolic blood pressure 82 mm[Hg] 82 mm[Hg] eCW1 ([facility]) Systolic blood pressure 116 mm[Hg] 116 mm[Hg] e CW1 ([facility]) Body temperature 97.4 [degF] 97.4 [degF] eCW1 ( [facility]) Respiratory rate 18 /min 18 /min eCW1 ([facility]) Heart rate 85 /min 85 /min eCW1 ([facility]) Body mass index (BMI) [Ratio] 25.23 kg/m2 25.23 kg/m2 W1 ([facility]) Body height 65.5 [in_i] 65.5 [in_i] eCW1 ([facility]) Body weight 154 [lb_av] 154 [lb_av] eCW1 ([facility]) Diastolic blood pressure 68 mm[Hg] 68 mm[Hg] eCW1 ([facility]) Systolic blood pressure 132 mm[Hg] 132 mm[Hg] e CW1 ([facility]) Body temperature 96.9 [degF] 96.9 [degF] eCW1 ( [facility]) Respiratory rate 17 /min 17 /min eCW1 ([facility]) Heart rate 85 /min 85 /min eCW1 ([facility]) Body mass index (BMI) [Ratio] 25.56 kg/m2 25.56 kg/m2 W1 ([facility]) Body height 65.5 [in_i] 65.5 [in_i] eCW1 ([facility]) Body weight 156 [lb_av] 156 [lb_av] eCW1 ([facility]) Body temperature 97.8 [degF] 97.8 [degF] MEDENT ([facility]) Body mass index (BMI) [Ratio] 25.9 kg/m2 25.9 k g/m2 MEDENT ([facility]) Body weight 158.00 [lb_av] 158.00 [lb_av] MEDEN T ([facility]) Body height 65.5 [in_i] 65.5 [in_i] MEDENT ([facility]) 5'5.50" Body temperature 97.6 [degF] 97.6 [degF] MEDENT ([facility]) Diastolic blood pressure 78 mm[Hg] 78 mm[Hg] eCW1 ([facility]) Systolic blood pressure 108 mm[Hg] 108 mm[Hg] e CW1 ([facility]) Body temperature 97.8 [degF] 97.8 [degF] eCW1 ( [facility]) Respiratory rate 20 /min 20 /min eCW1 ([facility]) Heart rate 88 /min 88 /min eCW1 ([facility]) Body mass index (BMI) [Ratio] 26.61 kg/m2 26.61 kg/m2 W1 ([facility]) Body height 65.5 [in_i] 65.5 [in_i] eCW1 ([facility]) Body weight 162.4 [lb_av] 162.4 [lb_av] eCW1 ([facility]) Diastolic blood pressure 62 mm[Hg] 62 mm[Hg] eCW1 ([facility]) Systolic blood pressure 104 mm[Hg] 104 mm[Hg] e CW1 ([facility]) Body temperature 98.7 [degF] 98.7 [degF] eCW1 ( [facility]) Respiratory rate 20 /min 20 /min eCW1 ([facility]) Heart rate 71 /min 71 /min eCW1 ([facility]) Body mass index (BMI) [Ratio] 24.22 kg/m2 24.22 kg/m2 eCW1 ([facility]) Body height 65.5 [in_us] 65.5 [in_us] eCW1 ([facility]) Body weight Measured 147.8 [lb_av] 147.8 [lb_av ] eCW1 ([facility]) Patient Treatment Plan of Care Planned Activity Planned Date Details Description Data Source (s) tramadol hydrochloride 50 MG Oral Tablet 07/27/2020 12:00:00 AM EST eCW1 ([facility]) Bath Bench with Back - 07/27/2020 12:00:00 AM EST eCW1 ([facility]) Cane - 07/27/2020 12:00:00 AM EST e CW1 ([facility]) Raised Toilet Seat - 07/27/2020 12:00:00 AM EST eCW1 ([facility])
[2020-09-28] MEDS: ceFAZolin SOD 2 GM in IV 1 EA IV SCH ×2 (15:37→22:59)
[2020-09-28] MEDS: ASPIRIN 81 MG ENTERIC TAB PO SCH (21:46)
[2020-09-28] MEDS: traMADol 50 MG TAB PO SCH (21:46)
[2020-09-29 02:00] VITALS: BP 111/54
[2020-09-29] MEDS ORDERED: ACETAMINOPHEN 325 MG TAB PO ONE (04:30)
[2020-09-29 05:52] LABS: HEMATOCRIT 28.2 % (36.0-47.0); MEAN CORPUSCULAR HEMOGLOBIN 30.5 pg (27.0-33.0); MEAN CORPUSCULAR HGB CONC 31.9 g/dl (32.0-36.5); MEAN CORPUSCULAR VOLUME 95.6 fl (80.0-96.0); PLATELET COUNT, AUTOMATED 263 10^3/uL (150-450); RED BLOOD COUNT 2.95 10^6/uL (4.00-5.40); WHITE BLOOD COUNT 7.6 10^3/uL (4.0-10.0)
[2020-09-29 06:00] VITALS: BP 107/59
[2020-09-29 06:19] LABS: ALBUMIN 2.8 GM/DL (3.2-5.2); ALT/SGPT 19 U/L (12-78); BILIRUBIN,TOTAL 0.4 MG/DL (0.2-1.0); BLOOD UREA NITROGEN 10 MG/DL (7-18); CARBON DIOXIDE LEVEL 29 MEQ/L (21-32); CHLORIDE LEVEL 104 MEQ/L (98-107); CREATININE FOR GFR 0.89 MG/DL (0.55-1.30); GLOMERULAR FILTRATION RATE > 60.0 (>51); GLUCOSE, FASTING 117 MG/DL (70-100); POTASSIUM SERUM 3.8 MEQ/L (3.5-5.1); SODIUM LEVEL 138 MEQ/L (136-145)
[2020-09-29] MEDS ORDERED: PERC5TAB12 PO (06:52)
[2020-09-29] MEDS ORDERED: ECOT81TA5 PO (06:52)
[2020-09-29] MEDS: MIRALAX *UNIT DOSE* 17GM PACKET PO SCH (07:58)
[2020-09-29] MEDS: ESCITALOPRAM OXALATE 10 MG TAB (LEXAPRO) PO SCH (07:58)
[2020-09-29] MEDS: ASPIRIN 81 MG ENTERIC TAB PO SCH ×2 (07:58→20:41)
[2020-09-29] MEDS: ceFAZolin SOD 2 GM in IV 1 EA IV SCH (07:59)
[2020-09-29] MEDS: MOM 30ML SUSPENSION UDC PO SCH (08:10)
[2020-09-29] MEDS: oxyCODONE 5MG TAB PO PRN (08:17)
--- NOTE | 2020-09-29 11:42 | IPNPDOC ---
Text Note Date of Service The patient was seen on 09/29/20. NOTE Subjective: Patient is a 60-year-old female with a past medical history of anxiety, depression, and liver disease or presented to the emergency Medical C enter for elective orthopedic procedure. Patient has received outpatient medical clearance from her primary care provider, Dr. Dennis Sawyer. Patient has been admitted to the orthopedic service. Hospitalist service has been consulted for medical management postoperatively. Patient was seen and examined at the bedside. Currently denies any chest pain, SOB, palpitations, nausea, vomiting, abdominal pain, diarrea, or urinary discomfort. Objective: Vitals (See below) General: Lying in bed, appears comfortable, AAOx3 HEENT: NC, AT CVS: +S1S2 Lungs: Fair air entry b/l, -w/r/r Abdomen: Soft, ND, NT Extremities: - Edema, - Calf tenderness Assessment and plan: Elective right total hip arthroplasty (POD#1) - Presented to [facility] for elective orthopedic procedure - Has received outpatient medical clearance from her primary care provider, Dr. 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 - Patient is quit consumption of alcoholic 2019 - Most recent AST and ALT on 09/20/20 was normal Anxiety / Depression / Insomnia - c/w Escitalopram / Hydroxyzine / Tramadol DVT prophylaxis - As per orthopedic team Disposition: - Anticipate DC home tomorrow VS,Fishbone, I+O VS, Fishbone, I+O Laboratory Tests 09/29/20 05:17 Vital Signs Date Time Temp Pulse Resp B/P (MAP) Pulse Ox O2 Delivery O2 Flow Rate FiO2 09/29/20 09:00 20 09/29/20 06:00 99.0 79 107/59 (75) 95 Room Air I&O- Last 24 Hours up to 6 AM 09/29/20 05:59 Intake Total 3200 ml Output Total 400 ml Balance 2800 ml KRISTINE RODRIGUEZ MD Sep 29, 2020 11:42
[2020-09-29] MEDS ORDERED: ACETAMINOPHEN TAB 650MG DOSE (2X325MG) PO PRN (15:00)
[2020-09-29 15:05] VITALS: BP 104/58
[2020-09-29] MEDS: traMADol 50 MG TAB PO SCH (20:40)
[2020-09-29 22:00] VITALS: BP 101/57
[2020-09-30 06:00] VITALS: BP 102/56
[2020-09-30 06:57] LABS: HEMOGLOBIN 8.9 g/dl (12.0-15.5); MEAN CORPUSCULAR HEMOGLOBIN 30.6 pg (27.0-33.0); MEAN CORPUSCULAR HGB CONC 31.8 g/dl (32.0-36.5); MEAN CORPUSCULAR VOLUME 96.2 fl (80.0-96.0); PLATELET COUNT, AUTOMATED 232 10^3/uL (150-450); RED BLOOD COUNT 2.91 10^6/uL (4.00-5.40); WHITE BLOOD COUNT 9.4 10^3/uL (4.0-10.0)
[2020-09-30 07:29] LABS: ALBUMIN 2.7 GM/DL (3.2-5.2); ALT/SGPT 15 U/L (12-78); BILIRUBIN,TOTAL 0.3 MG/DL (0.2-1.0); BLOOD UREA NITROGEN 9 MG/DL (7-18); CALCIUM LEVEL 8.1 MG/DL (8.5-10.1); CARBON DIOXIDE LEVEL 28 MEQ/L (21-32); CHLORIDE LEVEL 106 MEQ/L (98-107); GLOMERULAR FILTRATION RATE > 60.0 (>51); GLUCOSE, FASTING 96 MG/DL (70-100); POTASSIUM SERUM 4.2 MEQ/L (3.5-5.1); SODIUM LEVEL 137 MEQ/L (136-145); TOTAL PROTEIN 6.1 GM/DL (6.4-8.2)
[2020-09-30] MEDS: oxyCODONE 5MG TAB PO PRN ×2 (07:49→16:02)
[2020-09-30] MEDS: MIRALAX *UNIT DOSE* 17GM PACKET PO SCH (09:00)
[2020-09-30] MEDS: ASPIRIN 81 MG ENTERIC TAB PO SCH (09:42)
[2020-09-30] MEDS: ESCITALOPRAM OXALATE 10 MG TAB (LEXAPRO) PO SCH (09:42)
[2020-09-30] MEDS: MOM 30ML SUSPENSION UDC PO SCH (09:42)
--- NOTE | 2020-09-30 10:26 | IPNPDOC ---
Text Note Date of Service The patient was seen on 09/30/20. NOTE Subjective: Patient is a 60-year-old female with a past medical history of anxiety, depression, and liver disease or presented to the emergency Medical C enter for elective orthopedic procedure. Patient has received outpatient medical clearance from her primary care provider, Dr. Dennis Sawyer. Patient has been admitted to the orthopedic service. Hospitalist service has been consulted for medical management postoperatively. Patient was seen and examined at the bedside. Has not experienced any events overnight. Denies any CP, SOB or palpitations. No N/V, abdominal pain, or bowel movements, but reports the ability to pass gas. Will be working with PT today. Objective: Vitals (See below) General: Lying in bed, no acute distress, remains comfortable, AAOx3 HEENT: NC, AT CVS: +S1S2 Lungs: Fair air entry b/l, no appreciable wheezing / rhonchi / rales Abdomen: Soft, non-distended, non-tender Extremities: No evidence of edema, - Calf tenderness Assessment and plan: Elective right total hip arthroplasty (POD#2) - Presented to [facility] for elective orthopedic procedure - Has received outpatient medical clearance from her primary care provider, Dr. 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 - Patient is quit consumption of alcohol in 2019 - Most recent AST and ALT on 09/20/20 was normal Anxiety / Depression / Insomnia - c/w Escitalopram / Hydroxyzine / Tramadol DVT prophylaxis - As per orthopedic team Disposition: - Anticipate DC home today if she clears PT VS,Fishbone, I+O VS, Fishbone, I+O Laboratory Tests 09/30/20 06:31 Vital Signs Date Time Temp Pulse Resp B/P (MAP) Pulse Ox O2 Delivery O2 Flow Rate FiO2 09/30/20 08:19 18 09/30/20 06:00 98.2 76 102/56 (71) 92 Room Air I&O- Last 24 Hours up to 6 AM 09/30/20 06:00 Intake Total 1820 ml Output Total 600 ml Balance 1220 ml KRISTINE RODRIGUEZ MD Sep 30, 2020 10:26
--- NOTE | 2020-10-04 12:19 | DSES ---
DISCHARGE SUMMARY DATE OF ADMISSION: 09/28/2020 DATE OF DISCHARGE: 09/30/2020 ATTENDING: Nehal Ramos MD. ADMITTING DIAGNOSES: 1. Osteoarthritis right hip. 2. AVN of the right hip. OTHER DIAGNOSES: Anxiety/depression. DISCHARGE DIAGNOSES: Osteoarthritis right hip and AVN of the right hip status post right total hip arthroplasty. OPERATION PERFORMED: Right total hip arthroplasty. HISTORY: This is a 60-year-old female patient with progressively worsening right hip pain and stiffness. She was noted to have AVN of her right hip as well as osteoarthritis. She elected for surgery for her continued symptoms. she was admitted for an elective hip replacement on the right side. HOSPITAL COURSE: The patient was admitted on the day of surgery and underwent a right total hip arthroplasty which was uneventful. She did have some difficulties with pain control and her hospital stay was extended to a total of 2 days. Ultimately her pain was controlled. On day of discharge she was weightbearing as tolerated on her right lower extremity. She will use aspirin 81 mg per the protocol twice a day. she will also use Sohan stockings for 30 days post-operatively for DVT prophylaxis. She will follow up in our office in 10-14 days for a surgical follow up. she will resume her pre-operative medications and diet. She was given instructions including, but not limited to have wound monitoring and activity limitations. Please refer to the medical record for further details. Nehal Ramos MD.
== END 2020-09-30 18:09 | disposition home or self-care (01) | DRG 301 ==
LOC: M SDC 06:05 → M MS5PR 11:10 → M SDC 11:39 → M MS5PR 11:39
PROVIDERS: ADMIT Orthopaedic Surgery; ATTEND Orthopaedic Surgery
PROC: 0SR904Z Replacement of Right Hip Joint with Ceramic on Polyethylene Synthetic Substitute, Open Approach (ICD-10-PCS; principal; 2020-09-28 07:30)
DX: M16.11 Unilateral primary osteoarthritis, right hip (principal); M87.051 Idiopathic aseptic necrosis of right femur; R26.89 Other abnormalities of gait and mobility; G47.00 Insomnia, unspecified; F41.9 Anxiety disorder, unspecified; F32.9 Major depressive disorder, single episode, unspecified; Z79.899 Other long term (current) drug therapy; Z87.891 Personal history of nicotine dependence; Z88.0 Allergy status to penicillin; Z79.891 Long term (current) use of opiate analgesic; Z86.16 Personal history of COVID-19

== ENCOUNTER → 2021-11-28 | Outpatient (REF) | payer OTHER ==
[~2021-11-28] MED LIST changes: +ECOT81TA5 PO; -KLOR10TA76 PO; +PERC5TAB12 PO; +POTA-136 PO; +POTA-151 PO; -POTA20TA6 PO
== END ==
LOC: M SFHCPLAZ 15:14
PROVIDERS: ATTEND Family Medicine
DX: E78.00 Pure hypercholesterolemia, unspecified (principal); Z13.1 Encounter for screening for diabetes mellitus; Z53.9 Procedure and treatment not carried out, unspecified reason

== ENCOUNTER → 2021-12-07 | Outpatient (CLI) | payer OTHER ==
[2021-12-07 11:16] LABS: HEMOGLOBIN A1c 5.3 %
[2021-12-07 11:29] LABS: CHOLESTEROL RISK RATIO 2.34 (<5)
== END ==
LOC: M PLALAB 07:38
PROVIDERS: ATTEND Family Medicine
DX: E78.00 Pure hypercholesterolemia, unspecified (principal)

== ENCOUNTER → 2021-12-07 | Outpatient (CLI) | payer OTHER | LOC: M WHC 07:49 | PROVIDERS: ATTEND Family Medicine | DX: K76.0 Fatty (change of) liver, not elsewhere classified (principal) ==

== ENCOUNTER → 2022-03-30 | Outpatient (CLI) | payer OTHER ==
[~2022-03-30] MED LIST changes: +CALC-190 PO
== END ==
LOC: M LABSMTC 09:36
PROVIDERS: ATTEND Anesthesiology
DX: Z01.818 Encounter for other preprocedural examination (principal); Z11.52 Encounter for screening for COVID-19

== ENCOUNTER 2022-04-03 09:03 | Day surgery (SDC) | payer OTHER ==
[~2022-04-03] VITALS: Ht 165.1 cm; Wt 72.6 kg
[~2022-04-03 09:03] MED LIST changes: +NS 1,000 ML IV ONE
[2022-04-03] MEDS ORDERED: LIDOCAINE 2% 100MG/5ML SDV (FOR ANES.) As Ordered ONE (10:46)
[2022-04-03] MEDS ORDERED: propofoL 200 MG/20 ML VIAL As Ordered ONE (10:46)
[2022-04-03 11:10] VITALS: BP 112/61
== END 2022-04-03 11:17 | disposition home or self-care (01) ==
LOC: M OPP 09:03
PROVIDERS: ATTEND Internal Medicine Gastroenterology
DX: Z12.11 Encounter for screening for malignant neoplasm of colon (principal); Z86.010 Personal history of colon polyps; K57.30 Diverticulosis of large intestine without perforation or abscess without bleeding; K64.4 Residual hemorrhoidal skin tags; K70.10 Alcoholic hepatitis without ascites; F32.9 Major depressive disorder, single episode, unspecified; F41.9 Anxiety disorder, unspecified; Z79.899 Other long term (current) drug therapy; Z88.0 Allergy status to penicillin; Z80.42 Family history of malignant neoplasm of prostate

== ENCOUNTER → 2022-12-08 | Outpatient (CLI) | payer OTHER ==
[~2022-12-08] MED LIST changes: -NS 1,000 ML IV ONE; +POTA-298 PO; -POTA1TAB14 PO
[2022-12-08 12:38] LABS: BASO # 0.1 10^3/uL (0.0-0.2); BASO % 1.3 % (0.0-1.0); EOS # 0.3 10^3/uL (0.0-0.5); EOS % 5.5 % (0.0-3.0); HEMATOCRIT 41.9 % (36.0-47.0); LYMPH # 1.8 10^3/uL (1.5-5.0); LYMPH % 33.7 % (24.0-44.0); MEAN CORPUSCULAR HGB CONC 33.4 g/dl (32.0-36.5); MEAN CORPUSCULAR VOLUME 95.7 fl (80.0-96.0); MONO # 0.4 10^3/uL (0.0-0.8); MONO % 7.1 % (2.0-8.0); NEUTROPHILS # 2.9 10^3/uL (1.5-8.5); NEUTROPHILS % 52.2 % (36.0-66.0); PLATELET COUNT, AUTOMATED 345 10^3/uL (150-450); RED BLOOD COUNT 4.38 10^6/uL (4.00-5.40); WHITE BLOOD COUNT 5.5 10^3/uL (4.0-10.0)
[2022-12-08 12:49] LABS: HEMOGLOBIN A1c 5.1 % (4.0-6.0)
[2022-12-08 13:05] LABS: CALCIUM LEVEL 9.2 MG/DL (8.3-10.6); CHOLESTEROL RISK RATIO 2.33 (<5); CREATININE FOR GFR 1.06 MG/DL (0.55-1.30); GLOMERULAR FILTRATION RATE 56.3 (>45); HDL CHOLESTEROL 90.9 MG/DL (>40); LDL CHOLESTEROL 99.1 MG/DL (<100); NON-HDL-C 121.1 MG/DL; POTASSIUM SERUM 4.4 MMOL/L (3.5-5.1)
[2022-12-08 13:06] LABS: THYROID STIMULATING HORMONE 2.541 uIU/ML (0.55-4.78)
== END ==
LOC: M WUC 09:53
PROVIDERS: ATTEND Student in an Organized Health Care Education/Training Program
DX: Z00.00 Encounter for general adult medical examination without abnormal findings (principal)

== ENCOUNTER → 2024-08-14 | Outpatient (CLI) | payer MEDICAID, MEDICARE ==
[2024-08-14 13:16] LABS: BLOOD UREA NITROGEN 16 MG/DL (9-23); CARBON DIOXIDE LEVEL 28 MMOL/L (20-31); CHLORIDE LEVEL 105 MMOL/L (98-107); CHOLESTEROL LEVEL 240 MG/DL (<200); CHOLESTEROL RISK RATIO 2.23 (<5); CREATININE FOR GFR 0.91 MG/DL (0.55-1.30); GLOMERULAR FILTRATION RATE > 60.0 (>45); GLUCOSE, FASTING 84 MG/DL (74-106); HDL CHOLESTEROL 107.6 MG/DL (>40); LDL CHOLESTEROL 118.6 MG/DL (<100); NON-HDL-C 132.4 MG/DL; POTASSIUM SERUM 4.5 MMOL/L (3.5-5.1); SODIUM LEVEL 141 MMOL/L (136-145); TRIGLYCERIDES LEVEL 69 MG/DL (<150)
[2024-08-14 13:31] LABS: HEMOGLOBIN A1c 5.2 % (4.0-6.0)
== END ==
LOC: M PLALAB 09:26
PROVIDERS: ATTEND Student in an Organized Health Care Education/Training Program
DX: E78.00 Pure hypercholesterolemia, unspecified (principal)